=== PATIENT | female | born 1955 | race Caucasian/White ===

== ENCOUNTER 2017-12-28 10:10 | Inpatient (IN) | payer MEDICARE, OTHER ==
[2017-12-28] MEDS ORDERED: NS 0.9% 1000 ML* 1,000 ML IV ONE ×3 (11:16→13:58)
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
[2017-12-28 11:50] LABS: Hematocrit 40 % (35-47); Hemoglobin 12.8 g/dl (12.0-16.0); Mean Corpuscular HGB Conc 32 g/dl (31-36); Mean Corpuscular Hemoglobin 29 pg (27-31); Mean Corpuscular Volume 89 fL (80-97); Mean Platelet Volume 9.6 um3 (7.4-10.4); Platelet Count 158 10^3/ul (150-450); Red Blood Count 4.46 10^6/ul (4.00-5.40); Red Cell Distribution Width 15 % (10.5-15); White Blood Count 12.3 10^3/ul (3.5-10.8)
[2017-12-28 12:00] LABS: Urine Appearance Clear; Urine Blood 2+ (Negative); Urine Color Yellow; Urine Ketones 2+ (Negative); Urine Protein 3+(>=500 mg/dL) (Negative); Urine Red Blood Cell 1+(3-5/hpf) (Absent); Urine Specific Gravity 1.028 (1.010-1.030); Urine Urobilinogen Negative (Negative); Urine White Blood Cell Absent (Absent)
[2017-12-28 12:08] LABS: EGFR Non-African American 32.6 (>60)
[2017-12-28 12:19] LABS: ABS Basophils 0.1 10^3/ul (0-0.2); ABS Eosinophils 0 10^3/ul (0-0.6); ABS Lymphocytes 0.9 10^3/ul (1.0-4.8); ABS Monocytes 0.6 10^3/ul (0-0.8); ABS Neutrophils 10.7 10^3/ul (1.5-7.7); ABS Nucleated RBC 0 10^3/ul; Eosinophil % 0 % (0-6); Lymphocyte % 7.1 % (25-47); Nucleated Red Blood Cells % 0
[2017-12-28] MEDS ORDERED: LORazepam INJ* 2 MG/ML 1 ML VIAL IV PUSH ONE (12:21)
--- NOTE | 2017-12-28 12:26 | RAD ---
INDICATION: Altered mental status COMPARISON: December 11, 2011 TECHNIQUE: An AP portable view obtained at 1240 hours is submitted. FINDINGS: Bones/Soft Tissues: There are no acute bony findings. There is sternotomy Cardiomediastinal: The cardiomediastinal silhouette is normal. Lungs: There are no infiltrates. Pleura: There are no pleural effusions. Other: None IMPRESSION: POSTOPERATIVE CHANGE. NO ACTIVE DISEASE.
[2017-12-28] MEDS ORDERED: Insulin IVPB 100 units/100 ml 100 UNITS/100 ML UNIT IVPB ONE ×4 (13:46→20:20)
[2017-12-28] MEDS ORDERED: Ondansetron INJ* 2 MG/ML VIAL IV PRN (13:48)
[2017-12-28] MEDS ORDERED: Acetaminophen TAB* 325 MG PO PRN (13:48)
--- NOTE | 2017-12-28 13:50 | RAD ---
INDICATION: Altered mental status COMPARISON: December 16, 2011 TECHNIQUE: Noncontrast axial source images were acquired from the skull base to the vertex. FINDINGS: Ventricles/sulci: The ventricles and cisterns are normal in size and configuration for age. Brain parenchyma: There is no focal parenchymal finding, evidence of intracranial mass, or intracranial mass effect. There are chronic microvascular ischemic changes in the periventricular and subcortical white matter. Intracranial hemorrhage:None. Extra-axial spaces: There are no abnormal extra axial fluid collections or evidence of extra-axial mass. Calvarium: There is no calvarial fracture or other calvarial abnormality. Scalp: There is no evidence of scalp or extracalvarial soft tissue abnormality. Paranasal sinuses/mastoid: The paranasal sinuses and mastoid air cells are clear. Other: None. IMPRESSION: Mild chronic microvascular ischemic change. No acute findings
[2017-12-28] MEDS ORDERED: ceFAZolin 500 MG VIAL(*) 500 MG in NS 0.9% 50 ML* 50 ML IVPB SCH (15:30)
[2017-12-28 16:40] LABS: EGFR Non-African American 37.7 (>60)
[2017-12-28] MEDS: Heparin VIAL(*) 5000 UNITS/ML VIAL (FIVE THOUSAND) SUBCUT SCH ×2 (16:49→21:42)
[2017-12-28] MEDS ORDERED: Vancomycin(*) 0 MG in NS 0.9% 250 ML* 250 ML IVPB SCH (18:00)
--- NOTE | 2017-12-28 18:12 | HP ---
CC: Dr. Agapito Holt * ADMISSION HISTORY AND PHYSICAL: DATE OF ADMISSION: 12/28/17 PRIMARY CARE PROVIDER: Dr. Agapito Holt. MY ATTENDING WHILE IN THE HOSPITAL: Dr. Cary Vasquez.* (DICTATED BY RICKY HILL) CHIEF COMPLAINT: Altered mental status x3 days. HISTORY OF PRESENT ILLNESS: Ms. Menendez is a 62-year-old female with past medical history significant for diabetes mellitus, type 2; [place], with CABG; dyslipidemia, who presents with, according to her family, 4 days of acting very strangely with deteriorating mental status. They stated that it started on with the patient vomiting nonbilious, nonbloody material, though she did not endorse any nausea. On 12/26/17, the patient became more altered, was not getting out of bed very much, became incontinent of urine, but was still able to be conversant, though was not able to elucidate to her family what was going on. The patient handles her own medications and it was no unknown whether or not she was taking them. The patient lives with her and extended family. The patient's mental status deteriorated for the last 2 days and this morning EMS was called because she was found covered in urine and moderately unresponsive. The patient takes insulin daily, though the dose is unknown. The patient has not been taking her insulin for at least since . The patient has not been taking her other medications, which include several psychiatric medications as well as her metoprolol and lisinopril. The family is unable to quantify the patient's urine output. The patient has not had any recent sick contacts. The patient falls frequently due to noncompliance with her walker. There is concern that the patient might have mild dementia with slight decrease in the patient's cognitive functioning and competence with regards to her care. The patient approximately 6 months ago was found to have a wound on her chest, which she was treated with antibiotics, though the family has not been monitoring this wound and the patient has not been discussing it. It is unknown if the patient takes her blood sugar. Family is not apprised of this information. The patient has previously been seen by the wound clinic for nonhealing wounds on her sacrum and head. The patient in the emergency department is responsive only to painful stimuli, does not open her eyes, and is not able to answer questions. It is unknown if the patient has taken an excess amount or decreased amount of her medications. In the emergency department, due to concern for altered mental status and laboratory data consistent with diabetic ketoacidosis, we were asked to evaluate for admission. PAST MEDICAL HISTORY: Diabetes mellitus, type 2, insulin dependent; [place], with CABG; depression; hypothyroidism; dyslipidemia; mild dementia; multiple nonhealing wounds. PAST SURGICAL HISTORY: CABG. No other known surgeries. MEDICATIONS: According to the patient's list: 1. Metoprolol tartrate 25 mg p.o. daily. 2. Bupropion 150 mg p.o. q.12 hours. 3. Venlafaxine 150 mg p.o. daily. 4. Gabapentin 300 mg p.o. daily. 5. Levothyroxine 200 mcg p.o. daily. 6. Oxybutynin 5 mg p.o. daily. 7. Atorvastatin 40 mg p.o. daily. 8. Lisinopril 5 mg p.o. daily. 9. Metformin 1000 mg p.o. daily. 10. Clopidogrel 75 mg p.o. daily. 11. Family states the patient also takes insulin, but is unable to describe the insulin, and states she takes it twice a day. There are no other details surrounding this. ALLERGIES: The patient's only allergy is to COLACE according to old records. FAMILY HISTORY: According to old records, the patient's mother at 72 of breast cancer. The patient's father at 79 of unknown causes. The patient has a known family history of coronary artery disease. The patient has no other known family history. SOCIAL HISTORY: The patient is a long-time smoker, who has cut back significantly recently. The family is unable to quantify the amount she has smoked. Alcohol: The patient drinks occasional wine coolers but does not abuse alcohol and use no illicit drugs. 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 The patient is and has 3 children. The patient's surrogate decision maker will be her , Man Sosa. REVIEW OF SYSTEMS: Review of systems was attempted to be obtained from the family and was negative, but this was unable to be obtained with the patient. PHYSICAL EXAMINATION GENERAL: The patient is a 62-year-old female, who appears stated age and sitting in the bed, responsive only to painful stimuli, but in no acute distress. VITAL SIGNS: Temperature 97.6, pulse rate 81, respiratory rate 16, oxygen saturation 99% on room air, blood pressure 128/74. HEENT: Head: Normocephalic, atraumatic. Sclerae anicteric. No conjunctival injection. Nasal mucosa moist. The patient will not open mouth. NECK: Supple, nontender. No lymphadenopathy. No carotid bruits auscultated. No JVD. RESPIRATORY: Clear to auscultation bilaterally. No wheezes, rales, or rhonchi. Good air exchange bilaterally. CARDIAC: Tachycardic. No clicks, murmurs, gallops, or rubs. Pulses are 2+ in the bilateral dorsalis pedis, posterior tibial, and radial areas. No bilateral calf tenderness elicited. ABDOMEN: Soft, nontender, nondistended. Bowel sounds present and normoactive in all 4 quadrants. No hepatosplenomegaly. No abdominal bruits auscultated. No hepatojugular reflux. GENITOURINARY: No suprapubic or CVA tenderness. The patient has Stout catheter draining clear yellow urine. NEURO: The patient is responsive only to verbal stimuli. Pupils equal, round, and reactive to light. Moves all 4 extremities spontaneously. PSYCHIATRIC: The patient is only mildly responsive as above. DIAGNOSTIC STUDIES/LAB DATA: White blood cell count 12.3, hemoglobin 12.8, hematocrit 40, platelet count 158. ABG: pH 7.29, PCO2 of 23, PO2 of 105, bicarbonate 14.3, oxygen saturation 98.6%, base excess negative 13.6. Sodium 146, potassium 3.9, chloride 106, carbon dioxide 16, anion gap 24, BUN 40, creatinine 1.6, glucose 515, lactic acid 1.9, calcium 9.7, magnesium 2.0. Bilirubin 0.3, AST 24, ALT 37, alkaline phosphatase 129. Ammonia 26. Creatine kinase 1.29. Troponin 0.04. Protein 7.2, albumin 3.4, globulin 3.8. TSH 1.04. Urine is yellow clear, specific gravity 1.28, 3+ protein, 2+ ketones, 2+ blood, 1+ red blood cells, positive squamous epithelial cells, amorphous crystals, 3+ urine glucose, no bacteria. Toxicology shows presumptive positive amphetamine screening. Studies: EKG shows sinus tachycardia, right bundle branch block consistent with previous exam, nonspecific ST-segment changes, T-wave inversions in V6 and III, no ST-segment elevation, QTc of 627, rate of 130. Brain CT read as chronic ischemic microvascular changes, no acute findings. Chest x-ray read as positive postoperative change consistent with CABG, no active disease. ASSESSMENT AND PLAN/IMPRESSION: Mr. Shon Sosa is a 62-year-old female with past medical history significant for diabetes, myocardial infarction, depression, hypothyroidism, and mild dementia, as well as chronic wounds, who presents to the emergency department with altered mental status and obtundation lasting 3 days with laboratory findings consistent with diabetic ketoacidosis consistent with the patient not taking her insulin. The patient has no other obvious provoking factor. The patient will be admitted to the ICU for insulin drip, aggressive fluid resuscitation, and close monitoring. 1. Diabetic ketoacidosis. This is likely the primary cause of the patient's altered mental status. The patient has a pH of 7.29 with a low bicarbonate, carbon dioxide and high anion gap. The patient has normal lactic acid and positive ketones in her urine. The patient will be started on an insulin drip of 0.1 mg/kg per hour. The patient will have blood glucose monitoring every hour. The patient will have BMPs every 4 hours to assess her anion gap. We will attempt to obtain records from the patient's primary care office to assess what type of insulin she was on. The patient's metformin will be held at this time. Hemoglobin A1c will be added on to assess for long-term control of the patient's diabetes. The patient will have fluid resuscitation, has received 3 L of normal saline and will have maintenance fluids at 125 mL an hour of lactated Ringer's with potassium chloride. The patient's potassium is currently 3.9. We will monitor closely, especially given the patient's prolonged QT interval, she is intracellularly depleted of potassium and possibly magnesium. We will monitor the electrolytes closely. 2. Altered mental status. The patient's obtundation is somewhat disproportionate to the level of her acidosis. This will be further assessed after the patient's acidosis has resolved and other causes will be assessed at that time. The patient is on numerous psychiatric medications and her adherence to these or possible overdose on these medications is not clear. The patient has a positive urine toxicology for amphetamines. This may be due to her bupropion use. Family does not know how she would have obtained amphetamines otherwise. CT of the patient's head is negative. The patient has no obvious focal neurological deficits through a limited neurological exam and there is low suspicion for cerebrovascular accident. The patient's ammonia likewise is normal. 3. Acute kidney injury. This is likely due to dehydration from the patient's diabetic ketoacidosis; however, the patient does have chronic kidney disease at baseline. We will assess for improvement with serial BMPs. The patient's BUN- to- creatinine ratio is elevated indicating likely prerenal cause to her elevated creatinine. 4. Wounds. The patient has wounds on her chest, groin, and legs. We will obtain a wound consult. The patient has some erythema associated with these. It is possible that inflammation associated with this was the provoking factor for her increased insulin resistance leading to her diabetic ketoacidosis. The patient will be started on cefazolin and we will have wound culture obtained. Inflammatory markers and a procalcitonin are pending. 5. Elevated troponin, previous myocardial infarction and coronary artery bypass graft. The patient has an elevated troponin at 0.04. This will be repeated x3. This is likely due to demand ischemia related to her dehydration and tachycardia as well as possible withdrawal from her beta blockers. We will trend these. The patient has no obvious ischemic and EKG changes, we will not treat. The patient will be continued on her clopidogrel. It is unclear whether the patient is on an aspirin. We will assess this with her primary care doctor and the patient will be continued on her beta martin and not be started on a heparin drip at this time. 6. DVT prophylaxis. The patient is a high risk. The patient will have heparin subcu. 7. FEN. The patient will be n.p.o. due to altered mental status and have fluids as above. 8. Code status. The patient's family would like the patient to be a full code. The patient has no DNR on file. The patient's surrogate decision maker will be her as above. 9. Disposition. The patient will be admitted inpatient to the ICU. TIME SPENT: Approximately 75 minutes was spent on this admission, 45 of which was spent [id number] with the patient obtaining history and physical, discussion with the family, and discussing treatment plan. This plan was discussed with my attending, Dr. Cary Vasquez, and she is in agreement. ADDENDUM: Patient continued to be lethargic with increased activity and responsiveness to voice over the course of the day. However, patient continued to be markedly obtunded and have decreased mental status from baseline. Patient was found to have severely elevated inflammatory markers. Patient was started on Cefepime, Vancomycin, and Flagyl for Empiric antibiotic coverage. Patient became persistently tachycardic and hypertensive. Patient takes Metoprolol at home. Patient was started on IV metoprolol to control rebound hypertension and tachycardia in setting of demand ischemia. Given patients continued obtundation , ID consult was obtained and Empiric acyclovir was started for Herpes Encephalitis empiric coverage. Patient's blood sugar was decreased down to the mid 160s and she was started on D5W 1/4NS with KCL and insulin drip was reduced progressively to 1u/hr. Very low risk of cerebral edema due to patient's age and obtundation being present before treatment with insulin. Magnesium and potassium low with IV repletion. RICKY HILL [id number]/CPS #: [id number] ROMIE
[2017-12-28] MEDS: Cefepime 1 GM in Dextrose(*) 1 GM/50 ML BAG IV SCH (18:25)
[2017-12-28] MEDS ORDERED: Vancomycin(*) 1,250 MG in NS 0.9% 250 ML* 250 ML IVPB ONE (18:30)
[2017-12-28] MEDS ORDERED: D5W 1/2 NS 40 Meq KCL 1000 ML* 1,000 ML IV SCH (19:00)
[2017-12-28] MEDS: KCL 20 MEQ/100 ML IVPREMIX* 20 MEQ/100 ML BAG IV SCH ×3 (19:13→21:39)
[2017-12-28] MEDS ORDERED: Vancomycin per Pharmacy* NOTE FOLLOW UP PRN (19:54)
[2017-12-28 20:07] LABS: EGFR Non-African American 41.4 (>60)
[2017-12-28] MEDS: metroNIDAZOLE IV 500 MG/100ML* 500 MG/100 ML BAG IVPB SCH (20:14)
[2017-12-28] MEDS: Metoprolol Tartrate IV* 1 MG/ML 5 ML VIAL IV SCH (20:23)
[2017-12-28] MEDS: Atorvastatin* 40 MG TAB PO SCH (20:42)
[2017-12-28] MEDS: Metoprolol Tartrate TAB* 25 MG PO SCH (20:43)
[2017-12-28] MEDS ORDERED: D5W 1/4 NS 20 Meq KCL 1000 ML* 1,000 ML IV SCH ×2 (21:00→22:18)
[2017-12-28] MEDS: Hydrocortisone 0.5% OINT* 1 APPLIC TUBE TOPICAL SCH (22:59)
[2017-12-28] MEDS ORDERED: Magnesium Sulfate IV* 3 GM in NS 0.9% 100 ML* 100 ML IVPB ONE (23:00)
[2017-12-28] MEDS: ACYCLOVIR IVPB SCH (23:01)
[2017-12-28] MEDS: NS 0.9% IVPB SCH (23:01)
[2017-12-29 00:52] LABS: EGFR Non-African American 49.1 (>60)
[2017-12-29] MEDS: NS 0.45% KCl 20 Meq 1000 ML* 1,000 ML IV SCH ×4 (02:01→22:43)
[2017-12-29] MEDS: Metoprolol Tartrate IV* 1 MG/ML 5 ML VIAL IV SCH ×4 (02:08→20:35)
[2017-12-29] MEDS: Insulin GLARGINE(*) 1 UNITS UNIT SUBCUT SCH (02:15)
[2017-12-29] MEDS: Insulin REGULAR(*) 1 UNITS UNIT SUBCUT SCH ×4 (03:09→18:34)
[2017-12-29] MEDS: Cefepime 1 GM in Dextrose(*) 1 GM/50 ML BAG IV SCH ×2 (04:21→17:59)
[2017-12-29 04:28] LABS: ABS Basophils 0.1 10^3/ul (0-0.2); ABS Eosinophils 0.1 10^3/ul (0-0.6); ABS Monocytes 0.7 10^3/ul (0-0.8); ABS Neutrophils 9.8 10^3/ul (1.5-7.7); ABS Nucleated RBC 0 10^3/ul; Eosinophil % 0.5 % (0-6); Hematocrit 37 % (35-47); Hemoglobin 11.9 g/dl (12.0-16.0); Lymphocyte % 8.8 % (25-47); Mean Corpuscular HGB Conc 33 g/dl (31-36); Mean Corpuscular Hemoglobin 29 pg (27-31); Mean Corpuscular Volume 87 fL (80-97); Mean Platelet Volume 9.7 um3 (7.4-10.4); Nucleated Red Blood Cells % 0.1; Platelet Count 134 10^3/ul (150-450); Red Blood Count 4.18 10^6/ul (4.00-5.40); Red Cell Distribution Width 15 % (10.5-15); White Blood Count 11.7 10^3/ul (3.5-10.8)
[2017-12-29] MEDS: Heparin VIAL(*) 5000 UNITS/ML VIAL (FIVE THOUSAND) SUBCUT SCH ×3 (05:05→22:37)
[2017-12-29] MEDS: metroNIDAZOLE IV 500 MG/100ML* 500 MG/100 ML BAG IVPB SCH (05:06)
[2017-12-29] MEDS: Levothyroxine TAB* 100 MCG TAB PO SCH (05:06)
[2017-12-29 05:12] LABS: EGFR Non-African American 51.8 (>60)
[2017-12-29] MEDS: Metoprolol Tartrate TAB* 25 MG PO SCH ×2 (09:00→21:33)
[2017-12-29] MEDS ORDERED: LORazepam INJ* 2 MG/ML 1 ML VIAL IV PUSH ONE (09:19)
[2017-12-29] MEDS: Vancomycin(*) 1,000 MG in NS 0.9% 250 ML* 250 ML IVPB SCH ×2 (09:45→20:39)
[2017-12-29] MEDS: Hydrocortisone 0.5% OINT* 1 APPLIC TUBE TOPICAL SCH ×2 (10:30→20:47)
[2017-12-29] MEDS: ACYCLOVIR IVPB SCH ×2 (11:30→22:36)
[2017-12-29] MEDS: NS 0.9% IVPB SCH ×2 (11:30→22:36)
[2017-12-29] MEDS: Clopidogrel TAB* 75 MG PO SCH (13:19)
--- NOTE | 2017-12-29 15:20 | CONS ---
CONSULTATION REPORT: DATE OF CONSULT: 12/29/17 REQUESTING PROVIDER: Verito Apple NP CONSULTING SERVICE: Infectious Disease. REASON FOR CONSULT: Encephalopathy. IMPRESSIONU: 1. Encephalopathy in the setting of diabetic ketoacidosis. She has had no fever here. She had an elevated procalcitonin, C-reactive protein of 350, mild leukocytosis. Source for an underlying infection most likely a systemic infection with central nervous system effects versus less likely a central nervous system infection. It is also possible that her mental status is slow to come around after severe diabetic ketoacidosis in the setting of an abnormal brain. As far as the source of her infection, urinalysis showed red cells, blood, no white cells, no leukocyte esterase, urinary tract infection seems less likely. She has multiple eschar on her legs with some mild erythema, mild cellulitis consideration and she has no spine tenderness or joint synovitis to suggest a septic joint or vertebral infection. As far as central nervous system infections are concerned, I agree herpes encephalitis is possible. At this time of year, West Nile is a consideration. She does not have nuchal rigidity, so I think a bacterial meningitis is less likely. 2. Coronary artery disease, status post CABG. 3. Insulin-dependent diabetes, now with hyperglycemic hyperosmolar nonketotic. RECOMMENDATIONS: 1. Agree with an MRI. If that is unremarkable and she is not making a steady progress, then a lumbar puncture for spinal fluid, cell count, cultures, West Nile, IgM, and PCR. 2. I will continue the vancomycin with goal trough 10 to 15, cefepime, acyclovir. I will stop the Flagyl. 3. Blood cultures are still pending, but nothing growing to date. HISTORY OF PRESENT ILLNESS: This 62-year-old with type 2 diabetes admitted with DKA. She is unable to provide any history, which was obtained instead from the medical records and discussion with RICKY Donahue, and Verito Apple NP. Apparently, at the end of last week, she became sick with vomiting and then altered mental status, which was progressive. She developed incontinence of urine. When she finally was unresponsive, EMS brought her to the hospital. When she arrived, she had a white blood cell count of 12,000, blood sugar of 500, anion gap of 24, carbon dioxide of 14. Blood gas showed a pH of 7.29. She was started on insulin infusion, fluids, cefazolin, and her DKA is resolved. Since then, however, her mental status has been slow to improve. She has made some progress where today she will answer some questions , many of which were appropriate answers, and she follows some basic commands with her nurse. She was found to have a number of scabs on her legs with some surrounding erythema as well as a sore in the middle of an otherwise well- healed sternal incision. Per the nurse, she is not coughing, not having diarrhea, and has good oxygen saturation. She was on some oxygen overnight, but on room air now. Has not had any fevers. PAST MEDICAL HISTORY: 1. Insulin-dependent type 2 diabetes. 2. Coronary artery disease, status post coronary artery bypass. 3. Depression. 4. Hypothyroidism. 5. Hyperlipidemia. 6. Mild dementia. MEDICATIONS: 1. Tylenol. 2. Lipitor. 3. Plavix. 4. Heparin subcutaneous injection. 5. Insulin glargine. 6. Insulin regular. 7. Cefepime 1 g every 12 hours. 8. Flagyl 500 mg every 12 hours. 9. Metoprolol. 10. Acyclovir IV every 12 hours. 11. Vancomycin 1 g every 12 hours. ALLERGIES: COLACE. SOCIAL HISTORY: She lives with her and extended family. Drinks alcohol occasionally. She is a smoker, no injection drugs. REVIEW OF SYSTEMS: Unobtainable given her current mental status. PHYSICAL EXAM: Vital Signs: Temperature is 36.6, heart rate is 88, respiratory rate 20, blood pressure 160/70, oxygen saturation 97% on room air. In general, she is asleep, but will open her eyes to touch. She will follow some basic commands. She questions why she needs to follow others. She is not oriented to location or year, but knows her name. HEENT: There is no thrush. Neck is supple without mass. Neurologic: She does move all 4 extremities. Orientation as above. Heart is regular rate and rhythm without murmurs, rubs, or gallops. Lungs are clear to auscultation bilaterally. Abdomen is soft, nontender, nondistended. There are bowel sounds present. There is no rebound. Skin: On both legs, there is scattered subcentimeter eschar with some surrounding erythema in the distal third of the sternotomy incision, which is otherwise well healed. There is about a centimeter long open area with some underlying fibrin, granulation tissue with no surrounding erythema or crepitus or fluctuance. Musculoskeletal: There is no spine tenderness to palpation or joint synovitis. LABORATORY DATA: White blood cell count 11, hemoglobin 11, platelets 134. Creatinine is 1. Please see impressions and recommendations as outlined above, which I will discuss with Verito Apple NP. [id number]/[facility] #: [id number] [facility]ITALJodee
--- NOTE | 2017-12-29 15:42 | RAD ---
HISTORY: encephalopathy COMPARISONS: Head CT dated December 28, 2017 TECHNIQUE: The following sequences were obtained of the head: Sagittal T1-weighted images, axial T2-weighted images, axial FLAIR images, axial susceptibility weighted images, axial T1-weighted images. Additionally, axial diffusion-weighted images were obtained with calculated apparent diffusion coefficients. FINDINGS: HEMORRHAGE/INFARCT: There is no hemorrhage or acute infarct. MASSES/SHIFT: There is no mass or shift. EXTRA-AXIAL SPACES/MENINGES: There are no extra-axial fluid collections. SULCI AND VENTRICLES: The sulci and ventricles are normal in size and position for the patient's stated age. CEREBRUM: There is diffuse multifocal elevated T2/FLAIR signal within the periventricular and subcortical white matter. BRAINSTEM: There is elevated T2/FLAIR signal within the pontine white matter. CEREBELLUM: There are no focal parenchymal abnormalities. The cerebellar tonsils are normal in size and position. SELLA: The sella is normal. PINEAL: The pineal region is clear. CP ANGLE/TEMPORAL BONES: The labyrinthine structures are grossly normal. VESSELS: Normal flow-voids are noted within the visualized vertebral vasculature. DIFFUSION ABNORMALITIES: There are no diffusion abnormalities. PARANASAL SINUSES/MASTOIDS: The paranasal sinuses are clear. ORBITS: The orbits are unremarkable. BONES AND SOFT TISSUE: No bone or soft tissue abnormalities are noted. OTHER: None IMPRESSION: 1. ELEVATED T2/FLAIR SIGNAL WITHIN THE PERIVENTRICULAR, SUBCORTICAL, AND PONTINE WHITE MATTER. WHILE NONSPECIFIC, THE APPEARANCE IS SUGGESTIVE CHRONIC SMALL VESSEL ISCHEMIA. 2. NO RESTRICTED DIFFUSION TO SUGGEST ACUTE INFARCT.
--- NOTE | 2017-12-29 16:24 | PN ---
Subjective Date of Service: 12/29/17 Interval History: Patient seen and examined. Mentation appears to be improving, she is still confused at times and needing re-orientation, however, she is verbally responsive now and can follow commands. denies pain, no fevers or chills, no headache, no further complaints. Objective Active Medications: Acetaminophen (Tylenol Tab*) 650 mg PO Q6H PRN PRN Reason: FEVER/PAIN Atorvastatin Calcium (Lipitor*) 40 mg PO 2100 [facility] Last Admin: 12/28/17 20:42 Dose: Not Given Clopidogrel Bisulfate (Plavix Tab*) 75 mg PO DAILY [facility] Last Admin: 12/29/17 13:19 Dose: Not Given Heparin Sodium (Porcine) (Heparin Vial(*)) 5,000 units SUBCUT Q8HR [facility] Last Admin: 12/29/17 15:55 Dose: 5,000 units Heparin Sodium (Porcine) (Heparin Flush Picc/Ml/Cvc(*)) 1 - 3 ml FLUSH 0600, 1800 [facility]; Protocol Last Admin: 12/29/17 04:22 Dose: Not Given Hydrocortisone (Hydrocortisone 0.5% Oint*) 1 applic TOPICAL BID [facility] Last Admin: 12/29/17 10:30 Dose: 1 applic Cefepime HCl (Maxipime 1 Gm In Dextrose Duplex (*)) 1 gm in 50 mls @ 100 mls/ hr IV Q12H [facility] Last Admin: 12/29/17 04:21 Dose: 100 mls/hr Acyclovir Sodium 570 mg/ (Sodium Chloride) 261.4 mls @ 261.4 mls/hr IVPB Q12H [facility] Last Admin: 12/29/17 11:30 Dose: 261.4 mls/hr Vancomycin HCl 1,000 mg/ (Sodium Chloride) 250 mls @ 166.667 mls/hr IVPB Q12H [facility] Last Admin: 12/29/17 09:45 Dose: 166.667 mls/hr Potassium Chloride/Sodium Chloride (Ns 0.45% Kcl 20 Meq 1000 Ml*) 1,000 mls @ 150 mls/hr IV PER RATE [facility] Last Admin: 12/29/17 16:14 Dose: 150 mls/hr Insulin Glargine (Lantus(*)) 20 units SUBCUT Q24H [facility] Last Admin: 12/29/17 02:15 Dose: 20 units Insulin Human Regular (Insulin Regular(*)) 0 units SUBCUT Q6HR [facility]; Protocol Last Admin: 12/29/17 13:22 Dose: Not Given Levothyroxine Sodium (Synthroid Tab*) 200 mcg PO DAILY@0600 [facility] Last Admin: 12/29/17 05:06 Dose: Not Given Metoprolol Tartrate (Lopressor Tab*) 25 mg PO BID [facility] Last Admin: 12/29/17 09:00 Dose: Not Given Metoprolol Tartrate (Lopressor Iv*) 5 mg IV Q6H [facility] Last Admin: 12/29/17 14:00 Dose: 5 mg Pharmacy Consult (Vancomycin Per Pharmacy*) 1 note FOLLOW UP . PRN PRN Reason: PER PROTOCOL Pharmacy Profile Note (Vancomycin Trough Check) 1 note FOLLOW UP 829 ONE Stop: 12/30/17 08:31 Vital Signs - 8 hr 12/29/17 12/29/17 12:00 15:15 Temperature 97.9 F Respiratory 18 Rate Oxygen Devices in Use Now: Nasal Cannula Appearance: alert, somewhat disheveled Ears/Nose/Mouth/Throat: Mucous Membranes Moist Neck: NL Appearance and Movements; NL JVP Respiratory: Symmetrical Chest Expansion and Respiratory Effort, Clear to Auscultation Cardiovascular: NL Sounds; No Murmurs; No JVD, RRR, No Edema Abdominal: NL Sounds; No Tenderness; No Distention Extremities: - - erythema LLE Skin: - - multiple scabbed areas to bilat LE and central chest Neurological: - - confused Nutrition: - - NPO Result Diagrams: 12/29/17 04:05 12/29/17 04:05 Microbiology and Other Data: Microbiology 12/28/17 16:00 Nasal Screen MRSA (PCR) - Final Nasal Mrsa Detected Diagnostic Imaging: Patient Name: JESUS ABRAMS Medical Record#: [id number] Ordering Physician: Verito Apple NP Acct.#: [id number] : 1955 Age: 62 Sex: F [facility] Exam Date: 12/29/17918 ADM Status: ADM IN Order Information: MRI BRAIN W/O Accession Number: [id number] CPT: 90542 HISTORY: encephalopathy COMPARISONS: Head CT dated December 28, 2017 TECHNIQUE: The following sequences were obtained of the head: Sagittal T1- weighted images, axial T2-weighted images, axial FLAIR images, axial susceptibility weighted images, axial T1-weighted images. Additionally, axial diffusion-weighted images were obtained with calculated apparent diffusion coefficients. FINDINGS: HEMORRHAGE/INFARCT: There is no hemorrhage or acute infarct. MASSES/SHIFT: There is no mass or shift. EXTRA-AXIAL SPACES/MENINGES: There are no extra-axial fluid collections. SULCI AND VENTRICLES: The sulci and ventricles are normal in size and position for the patient's stated age. CEREBRUM: There is diffuse multifocal elevated T2/FLAIR signal within the periventricular and subcortical white matter. BRAINSTEM: There is elevated T2/FLAIR signal within the pontine white matter. CEREBELLUM: There are no focal parenchymal abnormalities. The cerebellar tonsils are normal in size and position. SELLA: The sella is normal. PINEAL: The pineal region is clear. CP ANGLE/TEMPORAL BONES: The labyrinthine structures are grossly normal. VESSELS: Normal flow-voids are noted within the visualized vertebral vasculature. DIFFUSION ABNORMALITIES: There are no diffusion abnormalities. PARANASAL SINUSES/MASTOIDS: The paranasal sinuses are clear. ORBITS: The orbits are unremarkable. BONES AND SOFT TISSUE: No bone or soft tissue abnormalities are noted. OTHER: None IMPRESSION: 1. ELEVATED T2/FLAIR SIGNAL WITHIN THE PERIVENTRICULAR, SUBCORTICAL, AND PONTINE WHITE MATTER. WHILE NONSPECIFIC, THE APPEARANCE IS SUGGESTIVE CHRONIC SMALL VESSEL ISCHEMIA. 2. NO RESTRICTED DIFFUSION TO SUGGEST ACUTE INFARCT. <Electronically signed by Brian Chandler MD in [place]> 12/29/171537 Dictated By: Brian Chandler MD Dictated Date/Time: 12/29/171537 Transcribed Date/Time: 12/29/171536 Assess/Plan/Problems-Billing Assessment: This is a 62 year old female with hx of CAD/CABG, DMII, HTN that presented to the ER with AMS in DKA. - Patient Problems (1) DKA (diabetic ketoacidoses) Code(s): E13.10 - OTH DIABETES MELLITUS WITH KETOACIDOSIS WITHOUT COMA SNOMED Code(s): 356872393 Comment: - Now off insulin drip and fluid resuscitation - Continue to monitor BG Q6h and cover accordingly (2) Altered mental status Code(s): R41.82 - ALTERED MENTAL STATUS, UNSPECIFIED SNOMED Code(s): 817306949 Comment: - Multifactorial encephalopathy, DKA, vs infection, vs dementia - ID following to cover any infectious or viral etiology - Seems to be imrpoving - MRI as above, no infarct or acute pathology - May need LP if she decompensates, continue current management for now (3) CAD (coronary artery disease) Code(s): I25.10 - ATHSCL HEART DISEASE OF [place] CORONARY ARTERY W/O ANG PCTRS SNOMED Code(s): 23705313 Comment: - With hx of CABG - Old non-healing chest wound from sternotomy - Monitor skin around wound, continue tele (4) CKD (chronic kidney disease) Code(s): N18.9 - CHRONIC KIDNEY DISEASE, UNSPECIFIED SNOMED Code(s): 145184648 Comment: - Creat at baseline (5) DVT (deep venous thrombosis) Code(s): I82.409 - ACUTE EMBOLISM AND THOMBOS UNSP DEEP VN UNSP LOWER EXTREMITY SNOMED Code(s): 403632379 Comment: - heparin SQ (6) Full code status Current Visit: Yes Code(s): Z78.9 - OTHER SPECIFIED HEALTH STATUS SNOMED Code(s): 496375835 Status and Disposition: remain inpatient
[2017-12-29] MEDS: Atorvastatin* 40 MG TAB PO SCH (21:35)
[2017-12-30] MEDS: Insulin REGULAR(*) 1 UNITS UNIT SUBCUT SCH ×2 (01:23→05:45)
[2017-12-30] MEDS: Insulin GLARGINE(*) 1 UNITS UNIT SUBCUT SCH (02:38)
[2017-12-30] MEDS: Metoprolol Tartrate IV* 1 MG/ML 5 ML VIAL IV SCH ×2 (02:39→10:13)
[2017-12-30] MEDS: NS 0.45% KCl 20 Meq 1000 ML* 1,000 ML IV SCH (05:55)
[2017-12-30] MEDS: Heparin VIAL(*) 5000 UNITS/ML VIAL (FIVE THOUSAND) SUBCUT SCH ×3 (05:56→21:28)
[2017-12-30] MEDS: Levothyroxine TAB* 100 MCG TAB PO SCH (05:57)
[2017-12-30] MEDS: Cefepime 1 GM in Dextrose(*) 1 GM/50 ML BAG IV SCH ×2 (05:59→17:57)
[2017-12-30] MEDS ORDERED: Vancomycin Trough Check NOTE FOLLOW UP ONE (08:30)
[2017-12-30] MEDS: Clopidogrel TAB* 75 MG PO SCH (09:37)
[2017-12-30] MEDS: Vancomycin(*) 1,000 MG in NS 0.9% 250 ML* 250 ML IVPB SCH (09:37)
[2017-12-30] MEDS: Hydrocortisone 0.5% OINT* 1 APPLIC TUBE TOPICAL SCH ×2 (09:37→21:30)
[2017-12-30] MEDS ORDERED: Dextrose 50% Syringe 50 ML* 25 GM/50 ML SYRINGE IV PUSH PRN (10:12)
[2017-12-30] MEDS: Metoprolol Tartrate TAB* 25 MG PO SCH ×2 (10:28→21:27)
[2017-12-30] MEDS: NS 0.9% IVPB SCH (11:33)
[2017-12-30] MEDS: ACYCLOVIR IVPB SCH (11:33)
[2017-12-30] MEDS: Insulin LISPRO* 1 UNITS UNIT SUBCUT SCH ×3 (12:03→21:28)
--- NOTE | 2017-12-30 17:08 | PN ---
Subjective Date of Service: 12/30/17 Interval History: Patient seen and examined. Alert, NAD, family at bedside, Mentation much improved. States she feels very weak, denies chest pain, no SOB. States she believes all of her issues were caused by her diabetes. She is very pleased to hear that MRI is negative for CVA or other pathology. Objective Active Medications: Acetaminophen (Tylenol Tab*) 650 mg PO Q6H PRN PRN Reason: FEVER/PAIN Atorvastatin Calcium (Lipitor*) 40 mg PO 2100 [facility] Last Admin: 12/29/17 21:35 Dose: 40 mg Clopidogrel Bisulfate (Plavix Tab*) 75 mg PO DAILY [facility] Last Admin: 12/30/17 09:37 Dose: 75 mg Dextrose (D50w Syringe 50 Ml*) 12.5 gm IV PUSH .FOR FS < 60 - SS PRN PRN Reason: FS < 60 Heparin Sodium (Porcine) (Heparin Vial(*)) 5,000 units SUBCUT Q8HR [facility] Last Admin: 12/30/17 13:47 Dose: 5,000 units Heparin Sodium (Porcine) (Heparin Flush Picc/Ml/Cvc(*)) 1 - 3 ml FLUSH 0600, 1800 [facility]; Protocol Last Admin: 12/30/17 07:12 Dose: Not Given Hydrocortisone (Hydrocortisone 0.5% Oint*) 1 applic TOPICAL BID [facility] Last Admin: 12/30/17 09:37 Dose: 1 applic Cefepime HCl (Maxipime 1 Gm In Dextrose Duplex (*)) 1 gm in 50 mls @ 100 mls/ hr IV Q12H [facility] Last Admin: 12/30/17 05:59 Dose: 100 mls/hr Insulin Glargine (Lantus(*)) 20 units SUBCUT Q24H [facility] Last Admin: 12/30/17 02:38 Dose: 20 units Insulin Human Lispro (Humalog*) 0 units SUBCUT ACHS [facility]; Protocol Last Admin: 12/30/17 12:03 Dose: 9 unit Levothyroxine Sodium (Synthroid Tab*) 200 mcg PO DAILY@0600 [facility] Last Admin: 12/30/17 05:57 Dose: 200 mcg Metoprolol Tartrate (Lopressor Tab*) 25 mg PO BID [facility] Last Admin: 12/30/17 10:28 Dose: 25 mg Vital Signs - 8 hr 12/30/17 11:28 Temperature 100.3 F Pulse Rate 76 Respiratory 18 Rate Blood Pressure 135/59 (mmHg) O2 Sat by Pulse 97 Oximetry Oxygen Devices in Use Now: None Appearance: Alert, NAD Eyes: No Scleral Icterus, PERRLA Ears/Nose/Mouth/Throat: Clear Oropharnyx, Mucous Membranes Moist Neck: NL Appearance and Movements; NL JVP, Trachea Midline Respiratory: Symmetrical Chest Expansion and Respiratory Effort, Clear to Auscultation Cardiovascular: NL Sounds; No Murmurs; No JVD, RRR, No Edema Abdominal: NL Sounds; No Tenderness; No Distention Extremities: No Edema, - - scrathes and scabbing bilat LE, healing Neurological: Alert and Oriented x 3, NL Sensation Nutrition: Taking PO's Result Diagrams: 12/29/17 04:05 12/29/17 04:05 Microbiology and Other Data: Microbiology 12/28/17 16:00 Nasal Screen MRSA (PCR) - Final Nasal Mrsa Detected Diagnostic Imaging: Patient Name: JESUS ABRAMS Medical Record#: [id number] Ordering Physician: Verito Apple NP Acct.#: [id number] : 1955 Age: 62 Sex: F Location[facility] Exam Date: 12/29/17918 ADM Status: ADM IN Order Information: MRI BRAIN W/O Accession Number: [id number] CPT: 79180 HISTORY: encephalopathy COMPARISONS: Head CT dated December 28, 2017 TECHNIQUE: The following sequences were obtained of the head: Sagittal T1- weighted images, axial T2-weighted images, axial FLAIR images, axial susceptibility weighted images, axial T1-weighted images. Additionally, axial diffusion-weighted images were obtained with calculated apparent diffusion coefficients. FINDINGS: HEMORRHAGE/INFARCT: There is no hemorrhage or acute infarct. MASSES/SHIFT: There is no mass or shift. EXTRA-AXIAL SPACES/MENINGES: There are no extra-axial fluid collections. SULCI AND VENTRICLES: The sulci and ventricles are normal in size and position for the patient's stated age. CEREBRUM: There is diffuse multifocal elevated T2/FLAIR signal within the periventricular and subcortical white matter. BRAINSTEM: There is elevated T2/FLAIR signal within the pontine white matter. CEREBELLUM: There are no focal parenchymal abnormalities. The cerebellar tonsils are normal in size and position. SELLA: The sella is normal. PINEAL: The pineal region is clear. CP ANGLE/TEMPORAL BONES: The labyrinthine structures are grossly normal. VESSELS: Normal flow-voids are noted within the visualized vertebral vasculature. DIFFUSION ABNORMALITIES: There are no diffusion abnormalities. PARANASAL SINUSES/MASTOIDS: The paranasal sinuses are clear. ORBITS: The orbits are unremarkable. BONES AND SOFT TISSUE: No bone or soft tissue abnormalities are noted. OTHER: None IMPRESSION: 1. ELEVATED T2/FLAIR SIGNAL WITHIN THE PERIVENTRICULAR, SUBCORTICAL, AND PONTINE WHITE MATTER. WHILE NONSPECIFIC, THE APPEARANCE IS SUGGESTIVE CHRONIC SMALL VESSEL ISCHEMIA. 2. NO RESTRICTED DIFFUSION TO SUGGEST ACUTE INFARCT. <Electronically signed by Brian Chandler MD in [place]> 12/29/17 153 Dictated By: Brian Chandler MD Dictated Date/Time: 12/29/171537 Transcribed Date/Time: 12/29/171536 Assess/Plan/Problems-Billing Assessment: This is a 62 year old female with hx of CAD/CABG, DMII, HTN that presented to the ER with AMS in DKA, now resolved. - Patient Problems (1) DKA (diabetic ketoacidoses) Code(s): E13.10 - OTH DIABETES MELLITUS WITH KETOACIDOSIS WITHOUT COMA SNOMED Code(s): 101171795 Comment: - Now off insulin drip and fluid resuscitation - BG stable 110s-170 (2) Altered mental status Code(s): R41.82 - ALTERED MENTAL STATUS, UNSPECIFIED SNOMED Code(s): 961191987 Comment: - Multifactorial encephalopathy, DKA, vs infection, vs dementia - ID following to cover any infectious or viral etiology and will manage atbx and acyclovir - Much improved, back to baseline - MRI as above, no infarct or acute pathology - May need LP if she decompensates, continue current management for now (3) CAD (coronary artery disease) Code(s): I25.10 - ATHSCL HEART DISEASE OF [place] CORONARY ARTERY W/O ANG PCTRS SNOMED Code(s): 39518572 Comment: - With hx of CABG - Old non-healing chest wound from sternotomy - Monitor skin around wound, continue tele (4) CKD (chronic kidney disease) Code(s): N18.9 - CHRONIC KIDNEY DISEASE, UNSPECIFIED SNOMED Code(s): 129501331 Comment: - Creat at baseline (5) DVT (deep venous thrombosis) Code(s): I82.409 - ACUTE EMBOLISM AND THOMBOS UNSP DEEP VN UNSP LOWER EXTREMITY SNOMED Code(s): 636935495 Comment: - heparin SQ (6) Full code status Current Visit: Yes Code(s): Z78.9 - OTHER SPECIFIED HEALTH STATUS SNOMED Code(s): 503148668 Status and Disposition: Remain inpatient, PT/OT and dispo home vs STR
[2017-12-30 17:11] LABS: ABS Basophils 0.1 10^3/ul (0-0.2); ABS Eosinophils 0.4 10^3/ul (0-0.6); ABS Lymphocytes 1.7 10^3/ul (1.0-4.8); ABS Monocytes 0.4 10^3/ul (0-0.8); ABS Neutrophils 5.6 10^3/ul (1.5-7.7); ABS Nucleated RBC 0 10^3/ul; Eosinophil % 4.6 % (0-6); Hematocrit 33 % (35-47); Hemoglobin 10.8 g/dl (12.0-16.0); Lymphocyte % 20.6 % (25-47); Mean Corpuscular HGB Conc 33 g/dl (31-36); Mean Corpuscular Hemoglobin 29 pg (27-31); Mean Corpuscular Volume 87 fL (80-97); Mean Platelet Volume 9.7 um3 (7.4-10.4); Nucleated Red Blood Cells % 0; Platelet Count 116 10^3/ul (150-450); Red Cell Distribution Width 15 % (10.5-15)
[2017-12-30 17:32] LABS: EGFR Non-African American 55.4 (>60)
[2017-12-30] MEDS: Atorvastatin* 40 MG TAB PO SCH (21:27)
[2017-12-31] MEDS: Insulin GLARGINE(*) 1 UNITS UNIT SUBCUT SCH (02:14)
[2017-12-31] MEDS: Cefepime 1 GM in Dextrose(*) 1 GM/50 ML BAG IV SCH ×2 (05:34→17:39)
[2017-12-31] MEDS: Levothyroxine TAB* 100 MCG TAB PO SCH (05:36)
[2017-12-31] MEDS: Heparin VIAL(*) 5000 UNITS/ML VIAL (FIVE THOUSAND) SUBCUT SCH ×3 (05:36→21:14)
[2017-12-31] MEDS ORDERED: Vancomycin(*) 500 MG in NS 0.9% 250 ML* 250 ML IVPB SCH (06:00)
[2017-12-31] MEDS: Clopidogrel TAB* 75 MG PO SCH (08:04)
[2017-12-31] MEDS: Hydrocortisone 0.5% OINT* 1 APPLIC TUBE TOPICAL SCH ×2 (08:04→21:22)
[2017-12-31] MEDS: Insulin LISPRO* 1 UNITS UNIT SUBCUT SCH ×4 (08:04→21:14)
[2017-12-31] MEDS: Metoprolol Tartrate TAB* 25 MG PO SCH ×2 (08:04→21:14)
[2017-12-31] MEDS: Atorvastatin* 40 MG TAB PO SCH (21:14)
[2018-01-01] MEDS: Insulin GLARGINE(*) 1 UNITS UNIT SUBCUT SCH (02:21)
[2018-01-01] MEDS ORDERED: Vancomycin Trough Check NOTE FOLLOW UP ONE (05:30)
[2018-01-01 05:58] LABS: Hematocrit 32 % (35-47); Mean Corpuscular HGB Conc 34 g/dl (31-36); Mean Corpuscular Hemoglobin 29 pg (27-31); Mean Corpuscular Volume 85 fL (80-97); Mean Platelet Volume 9.3 um3 (7.4-10.4); Platelet Count 147 10^3/ul (150-450); Red Blood Count 3.77 10^6/ul (4.00-5.40); Red Cell Distribution Width 15 % (10.5-15); White Blood Count 8.6 10^3/ul (3.5-10.8)
[2018-01-01] MEDS: Cefepime 1 GM in Dextrose(*) 1 GM/50 ML BAG IV SCH (06:00)
[2018-01-01] MEDS: Heparin VIAL(*) 5000 UNITS/ML VIAL (FIVE THOUSAND) SUBCUT SCH ×3 (06:08→23:22)
[2018-01-01] MEDS: Levothyroxine TAB* 100 MCG TAB PO SCH (06:08)
[2018-01-01 06:13] LABS: EGFR Non-African American 63.2 (>60)
[2018-01-01 06:15] LABS: ABS Basophils 0.1 10^3/ul (0-0.2); ABS Eosinophils 0.5 10^3/ul (0-0.6); ABS Lymphocytes 2.9 10^3/ul (1.0-4.8); ABS Monocytes 0.6 10^3/ul (0-0.8); ABS Neutrophils 4.6 10^3/ul (1.5-7.7); ABS Nucleated RBC 0 10^3/ul; Eosinophil % 5.3 % (0-6); Lymphocyte % 33.6 % (25-47); Nucleated Red Blood Cells % 0.1
[2018-01-01] MEDS: Insulin LISPRO* 1 UNITS UNIT SUBCUT SCH ×4 (09:10→23:22)
[2018-01-01] MEDS: Clopidogrel TAB* 75 MG PO SCH (09:11)
[2018-01-01] MEDS: Metoprolol Tartrate TAB* 25 MG PO SCH ×2 (09:11→23:20)
--- NOTE | 2018-01-01 13:26 | RAD ---
HISTORY: Redness, Swelling, Tenderness, R/O DVT. COMPARISONS: None relevant TECHNIQUE: Multiple transverse and longitudinal ultrasound images were obtained of the left lower extremity from the level of the common femoral vein inferiorly through to the infrapopliteal veins using grayscale, color Doppler, and spectral Doppler imaging with and without compression and with augmentation. Comparison images were obtained of the contralateral common femoral vein. FINDINGS: VEINS: The venous system of the left lower extremity is compressible throughout its course, with normal flow on color Doppler imaging and normal response to augmentation on spectral Doppler imaging. SOFT TISSUES: Unremarkable. OTHER FINDINGS: None. IMPRESSION: NO LEFT LOWER EXTREMITY DEEP VEIN THROMBOSIS
[2018-01-01] MEDS: Cephalexin CAP* 500 MG PO SCH ×3 (13:28→23:20)
--- NOTE | 2018-01-01 16:49 | PN ---
Subjective Date of Service: 12/31/17 Interval History: Patient much improved with mentation and pain much improved slight increase in drainage in chest wound. Denies F/C, N/V, abdominal pain, diarrhea, CP, SOB, dizziness, focal weakness or other pain. Patient willing to go to rehab but is concerned about children's aide for her grandchildren for which she has custody. Family History: Unchanged from Admission Social History: Unchanged from Admission Past Medical History: Unchanged from Admission Objective Active Medications: Acetaminophen (Tylenol Tab*) 650 mg PO Q6H PRN PRN Reason: FEVER/PAIN Atorvastatin Calcium (Lipitor*) 40 mg PO 2100 [facility] Last Admin: 12/31/17 21:14 Dose: 40 mg Cephalexin HCl (Keflex Cap*) 500 mg PO QID [facility] Last Admin: 01/01/18 13:28 Dose: 500 mg Clopidogrel Bisulfate (Plavix Tab*) 75 mg PO DAILY [facility] Last Admin: 01/01/18 09:11 Dose: 75 mg Dextrose (D50w Syringe 50 Ml*) 12.5 gm IV PUSH .FOR FS < 60 - SS PRN PRN Reason: FS < 60 Heparin Sodium (Porcine) (Heparin Vial(*)) 5,000 units SUBCUT Q8HR [facility] Last Admin: 01/01/18 13:29 Dose: 5,000 units Heparin Sodium (Porcine) (Heparin Flush Picc/Ml/Cvc(*)) 1 - 3 ml FLUSH 0600, 1800 [facility]; Protocol Last Admin: 01/01/18 06:02 Dose: Not Given Hydrocortisone (Hydrocortisone 0.5% Oint*) 1 applic TOPICAL BID [facility] Last Admin: 12/31/17 21:22 Dose: Not Given Insulin Glargine (Lantus(*)) 20 units SUBCUT Q24H [facility] Last Admin: 01/01/18 02:21 Dose: 20 units Insulin Human Lispro (Humalog*) 0 units SUBCUT ACHS [facility]; Protocol Last Admin: 01/01/18 13:28 Dose: 12 unit Levothyroxine Sodium (Synthroid Tab*) 200 mcg PO DAILY@0600 [facility] Last Admin: 01/01/18 06:08 Dose: 200 mcg Metoprolol Tartrate (Lopressor Tab*) 25 mg PO BID [facility] Last Admin: 01/01/18 09:11 Dose: 25 mg Vital Signs - 8 hr 01/01/18 01/01/18 11:59 15:25 Temperature 97.9 F 99.0 F Pulse Rate 92 86 Respiratory 16 16 Rate Blood Pressure 149/68 146/71 (mmHg) O2 Sat by Pulse 100 98 Oximetry Oxygen Devices in Use Now: None Appearance: Patient is a 62yo female who appears stated age and is sitting in the bed in NAD. Eyes: No Scleral Icterus, PERRLA Ears/Nose/Mouth/Throat: NL Teeth, Lips, Gums, Clear Oropharnyx, Mucous Membranes Moist Neck: NL Appearance and Movements; NL JVP, Trachea Midline Respiratory: Symmetrical Chest Expansion and Respiratory Effort, Clear to Auscultation Cardiovascular: NL Sounds; No Murmurs; No JVD, RRR, - - trace edema in LLE. Abdominal: NL Sounds; No Tenderness; No Distention, No Hepatosplenomegaly Lymphatic: No Cervical Adenopathy Extremities: No Clubbing, Cyanosis Skin: No Nodules or Sclerosis, - - Small punctate scabs on legs in various stages of healing. Medium sized wound in the center of patient's chest with mild drainage. Neurological: Alert and Oriented x 3, NL Sensation, NL Muscle Strength and Tone , - - CN II-XII intact. Result Diagrams: 01/01/18 05:39 01/01/18 05:39 Microbiology and Other Data: Microbiology 12/28/17 16:00 Nasal Screen MRSA (PCR) - Final Nasal Mrsa Detected Assess/Plan/Problems-Billing Assessment: This is a 62 year old female with hx of CAD/CABG, DMII, HTN that presented to the ER with AMS in DKA, now resolved. Concern for cellulitis on LLE as precipitating cause. Will likely need rehab at discharge. - Patient Problems (1) Altered mental status Current Visit: Yes Status: Acute Code(s): R41.82 - ALTERED MENTAL STATUS, UNSPECIFIED SNOMED Code(s): 550916807 Comment: Resolved. Multifactorial encephalopathy, DKA, vs infection ID following, appreciate input. Much improved, back to baseline MRI shows no infarct or acute pathology (2) Cellulitis Current Visit: Yes Status: Acute Code(s): L03.90 - CELLULITIS, UNSPECIFIED SNOMED Code(s): 469958390 Comment: Of LLE. Associated with previous fall with scrapes. Continue cefepime. Procalcitonin declining. (3) CAD (coronary artery disease) Current Visit: Yes Status: Acute Code(s): I25.10 - ATHSCL HEART DISEASE OF [place] CORONARY ARTERY W/O ANG PCTRS SNOMED Code(s): 99669318 Comment: With hx of CABG Old non-healing chest wound from sternotomy Monitor skin around wound. Wound clinic at discharge. Slightly elevated troponin at admission trended down. (4) CKD (chronic kidney disease) Current Visit: Yes Status: Acute Code(s): N18.9 - CHRONIC KIDNEY DISEASE, UNSPECIFIED SNOMED Code(s): 984646600 Comment: Creat at baseline (5) DKA (diabetic ketoacidoses) Current Visit: Yes Status: Acute Code(s): E13.10 - OTH DIABETES MELLITUS WITH KETOACIDOSIS WITHOUT COMA SNOMED Code(s): 979368994 Comment: Now off insulin drip and fluid resuscitation BG stable 110s-170 (6) DVT (deep venous thrombosis) Current Visit: Yes Status: Acute Code(s): I82.409 - ACUTE EMBOLISM AND THOMBOS UNSP DEEP VN UNSP LOWER EXTREMITY SNOMED Code(s): 920044295 Comment: Prophylaxis heparin SQ (7) Full code status Current Visit: Yes Status: Acute Code(s): Z78.9 - OTHER SPECIFIED HEALTH STATUS SNOMED Code(s): 866291597 Status and Disposition: Remain inpatient, PT/OT and dispo home vs STR
--- NOTE | 2018-01-01 16:57 | PN ---
Subjective Date of Service: 01/01/18 Interval History: Patient very weepy today and is very concerned about her leg wounds and the possibility of blood clots in her legs due to clots that were present after the scrapes almost a month ago. Also concerned about increase in swelling in leg. Thinks that her grandchildren will think she is abandoning them if she goes to rehab. Spasming pain in lower abdomen present from yesterday. Thinks there is increased drainage from chest wound. Denies F/C, N/V, abdominal pain, diarrhea , CP, SOB, dysuria, or other pain. Family History: Unchanged from Admission Social History: Unchanged from Admission Past Medical History: Unchanged from Admission Objective Active Medications: Acetaminophen (Tylenol Tab*) 650 mg PO Q6H PRN PRN Reason: FEVER/PAIN Atorvastatin Calcium (Lipitor*) 40 mg PO 2100 [facility] Last Admin: 12/31/17 21:14 Dose: 40 mg Cephalexin HCl (Keflex Cap*) 500 mg PO QID [facility] Last Admin: 01/01/18 13:28 Dose: 500 mg Clopidogrel Bisulfate (Plavix Tab*) 75 mg PO DAILY [facility] Last Admin: 01/01/18 09:11 Dose: 75 mg Dextrose (D50w Syringe 50 Ml*) 12.5 gm IV PUSH .FOR FS < 60 - SS PRN PRN Reason: FS < 60 Heparin Sodium (Porcine) (Heparin Vial(*)) 5,000 units SUBCUT Q8HR [facility] Last Admin: 01/01/18 13:29 Dose: 5,000 units Heparin Sodium (Porcine) (Heparin Flush Picc/Ml/Cvc(*)) 1 - 3 ml FLUSH 0600, 1800 [facility]; Protocol Last Admin: 01/01/18 06:02 Dose: Not Given Hydrocortisone (Hydrocortisone 0.5% Oint*) 1 applic TOPICAL BID [facility] Last Admin: 12/31/17 21:22 Dose: Not Given Insulin Glargine (Lantus(*)) 20 units SUBCUT Q24H [facility] Last Admin: 01/01/18 02:21 Dose: 20 units Insulin Human Lispro (Humalog*) 0 units SUBCUT ACHS [facility]; Protocol Last Admin: 01/01/18 13:28 Dose: 12 unit Levothyroxine Sodium (Synthroid Tab*) 200 mcg PO DAILY@0600 [facility] Last Admin: 01/01/18 06:08 Dose: 200 mcg Metoprolol Tartrate (Lopressor Tab*) 25 mg PO BID [facility] Last Admin: 01/01/18 09:11 Dose: 25 mg Vital Signs - 8 hr 01/01/18 01/01/18 11:59 15:25 Temperature 97.9 F 99.0 F Pulse Rate 92 86 Respiratory 16 16 Rate Blood Pressure 149/68 146/71 (mmHg) O2 Sat by Pulse 100 98 Oximetry Oxygen Devices in Use Now: None Appearance: Patient is a 62yo female who appears stated age and is sitting in the bed and is crying. Eyes: No Scleral Icterus, PERRLA Ears/Nose/Mouth/Throat: NL Teeth, Lips, Gums, Clear Oropharnyx, Mucous Membranes Moist Neck: NL Appearance and Movements; NL JVP, Trachea Midline Respiratory: Symmetrical Chest Expansion and Respiratory Effort, Clear to Auscultation Cardiovascular: NL Sounds; No Murmurs; No JVD, RRR, No Edema Abdominal: NL Sounds; No Tenderness; No Distention, No Hepatosplenomegaly Lymphatic: No Cervical Adenopathy Extremities: No Edema, No Clubbing, Cyanosis Skin: No Rash or Ulcers, No Nodules or Sclerosis Neurological: Alert and Oriented x 3, NL Sensation, NL Muscle Strength and Tone , - - CN II-XII Result Diagrams: 01/01/18 05:39 01/01/18 05:39 Microbiology and Other Data: Microbiology 12/28/17 16:00 Nasal Screen MRSA (PCR) - Final Nasal Mrsa Detected Diagnostic Imaging: Patient Name: JESUS ABRAMS Medical Record#: [id number] Ordering Physician: Verito Apple NP Acct.#: [id number] : 1955 Age: 62 Sex: F [facility] Exam Date: 12/29/17918 ADM Status: ADM IN Order Information: MRI BRAIN W/O Accession Number: [id number] CPT: 96786 HISTORY: encephalopathy COMPARISONS: Head CT dated December 28, 2017 TECHNIQUE: The following sequences were obtained of the head: Sagittal T1- weighted images, axial T2-weighted images, axial FLAIR images, axial susceptibility weighted images, axial T1-weighted images. Additionally, axial diffusion-weighted images were obtained with calculated apparent diffusion coefficients. FINDINGS: HEMORRHAGE/INFARCT: There is no hemorrhage or acute infarct. MASSES/SHIFT: There is no mass or shift. EXTRA-AXIAL SPACES/MENINGES: There are no extra-axial fluid collections. SULCI AND VENTRICLES: The sulci and ventricles are normal in size and position for the patient's stated age. CEREBRUM: There is diffuse multifocal elevated T2/FLAIR signal within the periventricular and subcortical white matter. BRAINSTEM: There is elevated T2/FLAIR signal within the pontine white matter. CEREBELLUM: There are no focal parenchymal abnormalities. The cerebellar tonsils are normal in size and position. SELLA: The sella is normal. PINEAL: The pineal region is clear. CP ANGLE/TEMPORAL BONES: The labyrinthine structures are grossly normal. VESSELS: Normal flow-voids are noted within the visualized vertebral vasculature. DIFFUSION ABNORMALITIES: There are no diffusion abnormalities. PARANASAL SINUSES/MASTOIDS: The paranasal sinuses are clear. ORBITS: The orbits are unremarkable. BONES AND SOFT TISSUE: No bone or soft tissue abnormalities are noted. OTHER: None IMPRESSION: 1. ELEVATED T2/FLAIR SIGNAL WITHIN THE PERIVENTRICULAR, SUBCORTICAL, AND PONTINE WHITE MATTER. WHILE NONSPECIFIC, THE APPEARANCE IS SUGGESTIVE CHRONIC SMALL VESSEL ISCHEMIA. 2. NO RESTRICTED DIFFUSION TO SUGGEST ACUTE INFARCT. <Electronically signed by Brian Chandler MD in [place]> 12/29/171537 Dictated By: Brian Chandler MD Dictated Date/Time: 12/29/171537 Transcribed Date/Time: 12/29/171536 Assess/Plan/Problems-Billing Assessment: This is a 62 year old female with hx of CAD/CABG, DMII, HTN that presented to the ER with AMS in DKA, now resolved. Concern for cellulitis on LLE as precipitating cause. Will likely need rehab at discharge. - Patient Problems (1) Altered mental status Current Visit: Yes Status: Acute Code(s): R41.82 - ALTERED MENTAL STATUS, UNSPECIFIED SNOMED Code(s): 662101111 Comment: Resolved. Multifactorial encephalopathy, DKA, vs infection ID following, appreciate input. Much improved, back to baseline MRI shows no infarct or acute pathology (2) Cellulitis Current Visit: Yes Status: Acute Code(s): L03.90 - CELLULITIS, UNSPECIFIED SNOMED Code(s): 626084692 Comment: Of LLE. Associated with previous fall with scrapes. Transition to Keflex. Procalcitonin declining. Redness somewhat worse today. Doppler negative. (3) CAD (coronary artery disease) Current Visit: Yes Status: Acute Code(s): I25.10 - ATHSCL HEART DISEASE OF [place] CORONARY ARTERY W/O ANG PCTRS SNOMED Code(s): 36629695 Comment: With hx of CABG Old non-healing chest wound from sternotomy Monitor skin around wound. Wound clinic at discharge. Slightly elevated troponin at admission trended down. (4) CKD (chronic kidney disease) Current Visit: Yes Status: Acute Code(s): N18.9 - CHRONIC KIDNEY DISEASE, UNSPECIFIED SNOMED Code(s): 509182332 Comment: Creat at baseline (5) DKA (diabetic ketoacidoses) Current Visit: Yes Status: Acute Code(s): E13.10 - OTH DIABETES MELLITUS WITH KETOACIDOSIS WITHOUT COMA SNOMED Code(s): 416513963 Comment: Now off insulin drip and fluid resuscitation BG stable 110s-170 (6) DVT (deep venous thrombosis) Current Visit: Yes Status: Acute Code(s): I82.409 - ACUTE EMBOLISM AND THOMBOS UNSP DEEP VN UNSP LOWER EXTREMITY SNOMED Code(s): 731477172 Comment: Prophylaxis heparin SQ LLE doppler negative. (7) Full code status Current Visit: Yes Status: Acute Code(s): Z78.9 - OTHER SPECIFIED HEALTH STATUS SNOMED Code(s): 272721896 Status and Disposition: Remain inpatient, PT/OT and dispo home vs STR
[2018-01-01] MEDS: Hydrocortisone 0.5% OINT* 1 APPLIC TUBE TOPICAL SCH ×2 (18:20→23:18)
[2018-01-01] MEDS: Atorvastatin* 40 MG TAB PO SCH (23:20)
[2018-01-02] MEDS: Insulin GLARGINE(*) 1 UNITS UNIT SUBCUT SCH (02:40)
[2018-01-02 05:27] LABS: Hematocrit 35 % (35-47); Mean Corpuscular HGB Conc 34 g/dl (31-36); Mean Corpuscular Hemoglobin 29 pg (27-31); Mean Corpuscular Volume 86 fL (80-97); Mean Platelet Volume 9.3 um3 (7.4-10.4); Platelet Count 221 10^3/ul (150-450); Red Blood Count 4.13 10^6/ul (4.00-5.40); Red Cell Distribution Width 15 % (10.5-15); White Blood Count 10.9 10^3/ul (3.5-10.8)
[2018-01-02] MEDS: Heparin VIAL(*) 5000 UNITS/ML VIAL (FIVE THOUSAND) SUBCUT SCH ×3 (05:31→20:58)
[2018-01-02] MEDS: Levothyroxine TAB* 100 MCG TAB PO SCH (05:35)
[2018-01-02 05:50] LABS: EGFR Non-African American 59.4 (>60)
[2018-01-02] MEDS ORDERED: Magnesium Sulfate 2 GM IV* 2 GM/50 ML BAG IVPB ONE (07:05)
[2018-01-02] MEDS: Insulin LISPRO* 1 UNITS UNIT SUBCUT SCH ×4 (08:41→21:07)
[2018-01-02] MEDS: Cephalexin CAP* 500 MG PO SCH ×4 (08:42→20:59)
[2018-01-02] MEDS: Clopidogrel TAB* 75 MG PO SCH (08:42)
[2018-01-02] MEDS: Metoprolol Tartrate TAB* 25 MG PO SCH ×2 (08:42→20:59)
[2018-01-02] MEDS: Lisinopril TAB* 5 MG PO SCH (08:42)
[2018-01-02] MEDS: Aspirin EC TAB* 81 MG TAB.EC PO SCH (08:42)
[2018-01-02] MEDS: Hydrocortisone 0.5% OINT* 1 APPLIC TUBE TOPICAL SCH ×2 (13:48→21:04)
[2018-01-02] MEDS ORDERED: Insulin LISPRO* 1 UNITS UNIT SUBCUT ONE ×2 (17:41→20:05)
[2018-01-02] MEDS ORDERED: Dextrose 50% Syringe 50 ML* 25 GM/50 ML SYRINGE IV PUSH PRN (17:41)
[2018-01-02] MEDS ORDERED: Insulin GLARGINE(*) 1 UNITS UNIT SUBCUT ONE (17:42)
--- NOTE | 2018-01-02 17:46 | PN ---
Subjective Date of Service: 01/02/18 Interval History: Patient somewhat confused this AM but easily reorientable. Very hesitant to go to rehab. concerned about child care attendant at home but has a difficult time understanding that when she is at rehab or in the hospital she will be unable to help her grandchildren. Concerned about increased swelling in LLE with pain which is stable from yesterday but states her feet do swell at home and it is usually the left one. Denies CP, SOB, N/V, abdominal pain, diarrhea, Dizziness on standing, or other pain. Initially was going to go to [facility] today but then changed her mind and was going to go home and then was going to [facility] again and then her insurance turned out to have been entered into the computer incorrectly and she was not approved to go to [facility] today. Family History: Unchanged from Admission Social History: Unchanged from Admission Past Medical History: Unchanged from Admission Objective Active Medications: Acetaminophen (Tylenol Tab*) 650 mg PO Q6H PRN PRN Reason: FEVER/PAIN Last Admin: 01/02/18 15:49 Dose: 650 mg Aspirin (Aspirin Ec Tab*) 81 mg PO DAILY [facility] Last Admin: 01/02/18 08:42 Dose: 81 mg Atorvastatin Calcium (Lipitor*) 40 mg PO 2100 [facility] Last Admin: 01/01/18 23:20 Dose: 40 mg Cephalexin HCl (Keflex Cap*) 500 mg PO QID [facility] Last Admin: 01/02/18 13:47 Dose: 500 mg Clopidogrel Bisulfate (Plavix Tab*) 75 mg PO DAILY [facility] Last Admin: 01/02/18 08:42 Dose: 75 mg Dextrose (D50w Syringe 50 Ml*) 12.5 gm IV PUSH .FOR FS < 60 - SS PRN PRN Reason: FS < 60 Heparin Sodium (Porcine) (Heparin Vial(*)) 5,000 units SUBCUT Q8HR [facility] Last Admin: 01/02/18 13:47 Dose: 5,000 units Heparin Sodium (Porcine) (Heparin Flush Picc/Ml/Cvc(*)) 1 - 3 ml FLUSH 0600, 1800 [facility]; Protocol Last Admin: 01/02/18 05:32 Dose: 1 ml Hydrocortisone (Hydrocortisone 0.5% Oint*) 1 applic TOPICAL BID [facility] Last Admin: 01/02/18 13:48 Dose: 1 applic Insulin Glargine (Lantus(*)) 20 units SUBCUT Q24H [facility] Last Admin: 01/02/18 02:40 Dose: 20 units Insulin Human Lispro (Humalog*) 0 units SUBCUT ACHS [facility]; Protocol Last Admin: 01/02/18 13:47 Dose: 12 unit Levothyroxine Sodium (Synthroid Tab*) 200 mcg PO DAILY@0600 [facility] Last Admin: 01/02/18 05:35 Dose: 200 mcg Lisinopril (Prinivil Tab*) 5 mg PO DAILY [facility] Last Admin: 01/02/18 08:42 Dose: 5 mg Metoprolol Tartrate (Lopressor Tab*) 25 mg PO BID [facility] Last Admin: 01/02/18 08:42 Dose: 25 mg Vital Signs - 8 hr 01/02/18 01/02/18 12:04 15:46 Temperature 97.2 F 98.2 F Pulse Rate 87 88 Respiratory 16 16 Rate Blood Pressure 158/81 120/59 (mmHg) O2 Sat by Pulse 97 99 Oximetry Oxygen Devices in Use Now: None Appearance: Patient is a 62yo female who appears stated age and is sitting in the bed in [facility]. Eyes: No Scleral Icterus, PERRLA Ears/Nose/Mouth/Throat: NL Teeth, Lips, Gums, Clear Oropharnyx, Mucous Membranes Moist Neck: NL Appearance and Movements; NL JVP, Trachea Midline Respiratory: Symmetrical Chest Expansion and Respiratory Effort, Clear to Auscultation Cardiovascular: NL Sounds; No Murmurs; No JVD, RRR, - - 2+ LLE edema with redness and tenderness. Stable from previous exam. Abdominal: NL Sounds; No Tenderness; No Distention, No Hepatosplenomegaly Lymphatic: No Cervical Adenopathy Extremities: No Clubbing, Cyanosis Skin: No Nodules or Sclerosis, - - Open area on chest which is stable with mild amount of discharge. Neurological: Alert and Oriented x 3, NL Sensation, NL Gait, NL Muscle Strength and Tone, - - CN II-XII intact. Result Diagrams: 01/02/18 05:12 01/02/18 05:12 Microbiology and Other Data: Microbiology 12/28/17 16:00 Nasal Screen MRSA (PCR) - Final Nasal Mrsa Detected Diagnostic Imaging: Patient Name: JESUS ABRAMS Medical Record#: [id number] Ordering Physician: Verito Apple NP Acct.#: [id number] : 1955 Age: 62 Sex: F Location: [facility] Exam Date: 12/29/17918 ADM Status: ADM IN Order Information: MRI BRAIN W/O Accession Number: [id number] CPT: 97500 HISTORY: encephalopathy COMPARISONS: Head CT dated December 28, 2017 TECHNIQUE: The following sequences were obtained of the head: Sagittal T1- weighted images, axial T2-weighted images, axial FLAIR images, axial susceptibility weighted images, axial T1-weighted images. Additionally, axial diffusion-weighted images were obtained with calculated apparent diffusion coefficients. FINDINGS: HEMORRHAGE/INFARCT: There is no hemorrhage or acute infarct. MASSES/SHIFT: There is no mass or shift. EXTRA-AXIAL SPACES/MENINGES: There are no extra-axial fluid collections. SULCI AND VENTRICLES: The sulci and ventricles are normal in size and position for the patient's stated age. CEREBRUM: There is diffuse multifocal elevated T2/FLAIR signal within the periventricular and subcortical white matter. BRAINSTEM: There is elevated T2/FLAIR signal within the pontine white matter. CEREBELLUM: There are no focal parenchymal abnormalities. The cerebellar tonsils are normal in size and position. SELLA: The sella is normal. PINEAL: The pineal region is clear. CP ANGLE/TEMPORAL BONES: The labyrinthine structures are grossly normal. VESSELS: Normal flow-voids are noted within the visualized vertebral vasculature. DIFFUSION ABNORMALITIES: There are no diffusion abnormalities. PARANASAL SINUSES/MASTOIDS: The paranasal sinuses are clear. ORBITS: The orbits are unremarkable. BONES AND SOFT TISSUE: No bone or soft tissue abnormalities are noted. OTHER: None IMPRESSION: 1. ELEVATED T2/FLAIR SIGNAL WITHIN THE PERIVENTRICULAR, SUBCORTICAL, AND PONTINE WHITE MATTER. WHILE NONSPECIFIC, THE APPEARANCE IS SUGGESTIVE CHRONIC SMALL VESSEL ISCHEMIA. 2. NO RESTRICTED DIFFUSION TO SUGGEST ACUTE INFARCT. <Electronically signed by Brian Chandler MD in [facility]> 12/29/17 1538 Dictated By: Brian Chandler MD Dictated Date/Time: 12/29/171537 Transcribed Date/Time: 12/29/177 Assess/Plan/Problems-Billing Assessment: This is a 62 year old female with hx of CAD/CABG, DMII, HTN that presented to the ER with AMS in DKA, now resolved. Concern for cellulitis on LLE as precipitating cause. Will likely need rehab at discharge. - Patient Problems (1) Altered mental status Current Visit: Yes Status: Acute Code(s): R41.82 - ALTERED MENTAL STATUS, UNSPECIFIED SNOMED Code(s): 478899795 Comment: Resolved. Multifactorial encephalopathy, DKA, vs infection ID following, appreciate input. Much improved, back to baseline. Occasional confusion likely due to delirium. MRI shows no infarct or acute pathology (2) Cellulitis Current Visit: Yes Status: Acute Code(s): L03.90 - CELLULITIS, UNSPECIFIED SNOMED Code(s): 837782548 Comment: Of LLE. Associated with previous fall with scrapes. Transition to Keflex. Procalcitonin declining. Redness stable today. Doppler negative. (3) CAD (coronary artery disease) Current Visit: Yes Status: Acute Code(s): I25.10 - ATHSCL HEART DISEASE OF [place] CORONARY ARTERY W/O ANG PCTRS SNOMED Code(s): 75572732 Comment: With hx of CABG Old non-healing chest wound from sternotomy Monitor skin around wound. Wound clinic at discharge. Slightly elevated troponin at admission trended down due liekyl demand ischemia. (4) CKD (chronic kidney disease) Current Visit: Yes Status: Acute Code(s): N18.9 - CHRONIC KIDNEY DISEASE, UNSPECIFIED SNOMED Code(s): 467427892 Comment: Creat at baseline (5) DKA (diabetic ketoacidoses) Current Visit: Yes Status: Acute Code(s): E13.10 - OTH DIABETES MELLITUS WITH KETOACIDOSIS WITHOUT COMA SNOMED Code(s): 898180300 Comment: Now off insulin drip and fluid resuscitation BG increasing up to 300s today. Increased oral intake. Increase basal insulin. (6) DVT (deep venous thrombosis) Current Visit: Yes Status: Acute Code(s): I82.409 - ACUTE EMBOLISM AND THOMBOS UNSP DEEP VN UNSP LOWER EXTREMITY SNOMED Code(s): 421609893 Comment: Prophylaxis heparin SQ LLE doppler negative. (7) Full code status Current Visit: Yes Status: Acute Code(s): Z78.9 - OTHER SPECIFIED HEALTH STATUS SNOMED Code(s): 299920495 Status and Disposition: Remain inpatient. Hopeful discharge to [facility] Friday.
[2018-01-02] MEDS: Atorvastatin* 40 MG TAB PO SCH (20:59)
[2018-01-03] MEDS ORDERED: hydrALAZINE IV* 20 MG/ML VIAL IV SLOW PU PRN (03:47)
[2018-01-03] MEDS ORDERED: amLODIPine TAB* 5 MG PO ONE (03:58)
[2018-01-03 05:10] LABS: Hematocrit 31 % (35-47); Hemoglobin 10.1 g/dl (12.0-16.0); Mean Corpuscular HGB Conc 33 g/dl (31-36); Mean Corpuscular Hemoglobin 28 pg (27-31); Mean Corpuscular Volume 86 fL (80-97); Mean Platelet Volume 9.1 um3 (7.4-10.4); Platelet Count 273 10^3/ul (150-450); Red Blood Count 3.59 10^6/ul (4.00-5.40); Red Cell Distribution Width 14 % (10.5-15); White Blood Count 10.5 10^3/ul (3.5-10.8)
[2018-01-03 05:29] LABS: ABS Basophils 0.1 10^3/ul (0-0.2); ABS Eosinophils 0.5 10^3/ul (0-0.6); ABS Lymphocytes 3.5 10^3/ul (1.0-4.8); ABS Monocytes 0.8 10^3/ul (0-0.8); ABS Neutrophils 5.6 10^3/ul (1.5-7.7); ABS Nucleated RBC 0 10^3/ul
[2018-01-03 05:30] LABS: EGFR Non-African American 52.9 (>60)
[2018-01-03 05:32] LABS: ABS Basophils 0.2 10^3/ul (0-0.2); ABS Neutrophils 6.2 10^3/ul (1.5-7.7); Monocytes % 7 % (0-7)
[2018-01-03] MEDS: Heparin VIAL(*) 5000 UNITS/ML VIAL (FIVE THOUSAND) SUBCUT SCH ×3 (05:35→22:05)
[2018-01-03] MEDS: Insulin LISPRO* 1 UNITS UNIT SUBCUT SCH ×4 (10:30→22:05)
[2018-01-03] MEDS: Clopidogrel TAB* 75 MG PO SCH (10:31)
[2018-01-03] MEDS: Cephalexin CAP* 500 MG PO SCH ×4 (10:31→22:05)
[2018-01-03] MEDS: Levothyroxine TAB* 100 MCG TAB PO SCH (10:31)
[2018-01-03] MEDS: Lisinopril TAB* 5 MG PO SCH (10:31)
[2018-01-03] MEDS: Aspirin EC TAB* 81 MG TAB.EC PO SCH (10:31)
[2018-01-03] MEDS: Metoprolol Tartrate TAB* 25 MG PO SCH ×2 (10:31→22:05)
[2018-01-03] MEDS: Hydrocortisone 0.5% OINT* 1 APPLIC TUBE TOPICAL SCH ×2 (10:55→23:09)
--- NOTE | 2018-01-03 12:44 | PN ---
Subjective Date of Service: 01/03/18 Interval History: C/O L calf enlargement not present on admission. No pain. Family History: Unchanged from Admission Social History: Unchanged from Admission Past Medical History: Unchanged from Admission Objective Active Medications: Acetaminophen (Tylenol Tab*) 650 mg PO Q6H PRN PRN Reason: FEVER/PAIN Last Admin: 01/02/18 15:49 Dose: 650 mg Aspirin (Aspirin Ec Tab*) 81 mg PO DAILY [facility] Last Admin: 01/03/18 10:31 Dose: 81 mg Atorvastatin Calcium (Lipitor*) 40 mg PO 2100 [facility] Last Admin: 01/02/18 20:59 Dose: 40 mg Cephalexin HCl (Keflex Cap*) 500 mg PO QID [facility] Last Admin: 01/03/18 10:31 Dose: 500 mg Clopidogrel Bisulfate (Plavix Tab*) 75 mg PO DAILY [facility] Last Admin: 01/03/18 10:31 Dose: 75 mg Dextrose (D50w Syringe 50 Ml*) 12.5 gm IV PUSH .FOR FS < 60 - SS PRN PRN Reason: FS < 60 Dextrose (D50w Syringe 50 Ml*) 12.5 gm IV PUSH .FOR FS < 60 - SS PRN PRN Reason: FS < 60 Heparin Sodium (Porcine) (Heparin Vial(*)) 5,000 units SUBCUT Q8HR [facility] Last Admin: 01/03/18 05:35 Dose: 5,000 units Hydrocortisone (Hydrocortisone 0.5% Oint*) 1 applic TOPICAL BID [facility] Last Admin: 01/03/18 10:55 Dose: 1 applic Insulin Glargine (Lantus(*)) 36 units SUBCUT Q24H [facility] Insulin Human Lispro (Humalog*) 0 units SUBCUT ACHS [facility]; Protocol Last Admin: 01/03/18 10:30 Dose: 6 unit Levothyroxine Sodium (Synthroid Tab*) 200 mcg PO DAILY@0600 [facility] Last Admin: 01/03/18 10:31 Dose: 200 mcg Lisinopril (Prinivil Tab*) 5 mg PO DAILY [facility] Last Admin: 01/03/18 10:31 Dose: 5 mg Metoprolol Tartrate (Lopressor Tab*) 25 mg PO BID [facility] Last Admin: 01/03/18 10:31 Dose: 25 mg Vital Signs - 8 hr 01/03/18 07:36 Temperature 98.8 F Pulse Rate 71 Respiratory 18 Rate Blood Pressure 156/55 (mmHg) O2 Sat by Pulse 94 Oximetry Oxygen Devices in Use Now: None Appearance: Alert, in a chair. In good spirits, speaks rapidly. Looks comfortable. Eyes: No Scleral Icterus Respiratory: Symmetrical Chest Expansion and Respiratory Effort, Clear to Auscultation, Clear to Percussion Cardiovascular: NL Sounds; No Murmurs; No JVD, RRR, No Edema, - Extremities: No Clubbing, Cyanosis, - - L calf markedly enlarged, tense, not tender or warm Skin: No Nodules or Sclerosis, - - multiple 1 cm excoriations both legs Neurological: Alert and Oriented x 3, NL Sensation - No tremor. Result Diagrams: 01/03/18 05:03 01/03/18 05:03 Microbiology and Other Data: Microbiology 12/28/17 16:00 Nasal Screen MRSA (PCR) - Final Nasal Mrsa Detected Diagnostic Imaging: Patient Name: JESUS ABRAMS Medical Record#: [id number] Ordering Physician: Verito Apple [employer] Acct.#: [id number] : 1955 Age: 62 Sex: F Location: [facility] Exam Date: 12/29/17918 ADM Status: ADM IN Order Information: MRI BRAIN W/O Accession Number: [id number] CPT: 51841 HISTORY: encephalopathy COMPARISONS: Head CT dated December 28, 2017 TECHNIQUE: The following sequences were obtained of the head: Sagittal T1- weighted images, axial T2-weighted images, axial FLAIR images, axial susceptibility weighted images, axial T1-weighted images. Additionally, axial diffusion-weighted images were obtained with calculated apparent diffusion coefficients. FINDINGS: HEMORRHAGE/INFARCT: There is no hemorrhage or acute infarct. MASSES/SHIFT: There is no mass or shift. EXTRA-AXIAL SPACES/MENINGES: There are no extra-axial fluid collections. SULCI AND VENTRICLES: The sulci and ventricles are normal in size and position for the patient's stated age. CEREBRUM: There is diffuse multifocal elevated T2/FLAIR signal within the periventricular and subcortical white matter. BRAINSTEM: There is elevated T2/FLAIR signal within the pontine white matter. CEREBELLUM: There are no focal parenchymal abnormalities. The cerebellar tonsils are normal in size and position. SELLA: The sella is normal. PINEAL: The pineal region is clear. CP ANGLE/TEMPORAL BONES: The labyrinthine structures are grossly normal. VESSELS: Normal flow-voids are noted within the visualized vertebral vasculature. DIFFUSION ABNORMALITIES: There are no diffusion abnormalities. PARANASAL SINUSES/MASTOIDS: The paranasal sinuses are clear. ORBITS: The orbits are unremarkable. BONES AND SOFT TISSUE: No bone or soft tissue abnormalities are noted. OTHER: None IMPRESSION: 1. ELEVATED T2/FLAIR SIGNAL WITHIN THE PERIVENTRICULAR, SUBCORTICAL, AND PONTINE WHITE MATTER. WHILE NONSPECIFIC, THE APPEARANCE IS SUGGESTIVE CHRONIC SMALL VESSEL ISCHEMIA. 2. NO RESTRICTED DIFFUSION TO SUGGEST ACUTE INFARCT. <Electronically signed by Brian Chandler MD in [place]> 12/29/17 153 Dictated By: Brian Chandler MD Dictated Date/Time: 12/29/171537 Transcribed Date/Time: 12/29/171536 Assess/Plan/Problems-Billing Assessment: This is a 62 year old female with hx of CAD/CABG, DMII, HTN that presented to the ER with AMS in DKA, now resolved. Concern for cellulitis on LLE as precipitating cause. Will likely need rehab at discharge. - Patient Problems (1) Altered mental status Current Visit: Yes Status: Acute Code(s): R41.82 - ALTERED MENTAL STATUS, UNSPECIFIED SNOMED Code(s): 982195392 Comment: Resolved. Multifactorial encephalopathy, DKA, vs infection Occasional confusion likely due to delirium. MRI shows no infarct or acute pathology (2) Cellulitis Current Visit: Yes Status: Acute Code(s): L03.90 - CELLULITIS, UNSPECIFIED SNOMED Code(s): 358979092 Comment: Of LLE. Associated with previous fall with scrapes. Continue cephalexin through 01/04. Procalcitonin declining. No redness . Doppler negative. CT LLE ordered 01/03. (3) Debility Current Visit: Yes Status: Acute Code(s): R53.81 - OTHER MALAISE SNOMED Code(s): 11144560 Comment: Plan on STR. There was some confusion about insurance coverage. Continue OT/PT. Status and Disposition: Remain inpatient. Hopeful discharge to [facility] Friday.
--- NOTE | 2018-01-03 14:18 | RAD ---
Indication: Left leg swelling. CT of the left lower extremity was performed without IV contrast. Coronal and sagittal reconstructed images were obtained. The tibia and fibula are intact with no evidence of displaced fractures. Diffuse subcutaneous edema surrounds the entire calf predominantly in the dependent portions posterior and laterally. No obvious drainable fluid collections are noted. No evidence of fascial air is noted. Findings are suggestive of cellulitis. No significant joint effusion noted. IMPRESSION: No fracture of the tibia and fibula. Diffuse subcutaneous edema consistent with cellulitis. No evidence of subcutaneous or fascial air is noted.
[2018-01-03] MEDS ORDERED: Insulin GLARGINE(*) 1 UNITS UNIT SUBCUT SCH (18:00)
[2018-01-03] MEDS: Insulin GLARGINE(*) 1 UNITS UNIT SUBCUT SCH (19:12)
[2018-01-03] MEDS: Atorvastatin* 40 MG TAB PO SCH (22:05)
[2018-01-04] MEDS: Levothyroxine TAB* 100 MCG TAB PO SCH (06:02)
[2018-01-04] MEDS: Heparin VIAL(*) 5000 UNITS/ML VIAL (FIVE THOUSAND) SUBCUT SCH ×3 (06:02→21:00)
[2018-01-04] MEDS: Clopidogrel TAB* 75 MG PO SCH (09:15)
[2018-01-04] MEDS: Metoprolol Tartrate TAB* 25 MG PO SCH ×2 (09:15→20:57)
[2018-01-04] MEDS: Lisinopril TAB* 5 MG PO SCH (09:15)
[2018-01-04] MEDS: Cephalexin CAP* 500 MG PO SCH ×4 (09:15→20:57)
[2018-01-04] MEDS: Hydrocortisone 0.5% OINT* 1 APPLIC TUBE TOPICAL SCH ×2 (09:15→20:57)
[2018-01-04] MEDS: Insulin LISPRO* 1 UNITS UNIT SUBCUT SCH ×4 (09:15→20:58)
[2018-01-04] MEDS: Aspirin EC TAB* 81 MG TAB.EC PO SCH (09:15)
--- NOTE | 2018-01-04 12:34 | PN ---
Subjective Date of Service: 01/04/18 Interval History: Patient states her L leg looks less swollen and is less painful today. [facility]. Family History: Unchanged from Admission Social History: Unchanged from Admission Past Medical History: Unchanged from Admission Objective Active Medications: Acetaminophen (Tylenol Tab*) 650 mg PO Q6H PRN PRN Reason: FEVER/PAIN Last Admin: 01/02/18 15:49 Dose: 650 mg Aspirin (Aspirin Ec Tab*) 81 mg PO DAILY [facility] Last Admin: 01/04/18 09:15 Dose: 81 mg Atorvastatin Calcium (Lipitor*) 40 mg PO 2100 [facility] Last Admin: 01/03/18 22:05 Dose: 40 mg Cephalexin HCl (Keflex Cap*) 500 mg PO QID [facility] Last Admin: 01/04/18 09:15 Dose: 500 mg Clopidogrel Bisulfate (Plavix Tab*) 75 mg PO DAILY [facility] Last Admin: 01/04/18 09:15 Dose: 75 mg Dextrose (D50w Syringe 50 Ml*) 12.5 gm IV PUSH .FOR FS < 60 - SS PRN PRN Reason: FS < 60 Dextrose (D50w Syringe 50 Ml*) 12.5 gm IV PUSH .FOR FS < 60 - SS PRN PRN Reason: FS < 60 Heparin Sodium (Porcine) (Heparin Vial(*)) 5,000 units SUBCUT Q8HR [facility] Last Admin: 01/04/18 06:02 Dose: 5,000 units Hydrocortisone (Hydrocortisone 0.5% Oint*) 1 applic TOPICAL BID [facility] Last Admin: 01/04/18 09:15 Dose: 1 applic Insulin Glargine (Lantus(*)) 36 units SUBCUT Q24H [facility] Last Admin: 01/03/18 19:12 Dose: 36 units Insulin Human Lispro (Humalog*) 0 units SUBCUT ACHS [facility]; Protocol Last Admin: 01/04/18 09:15 Dose: 9 unit Levothyroxine Sodium (Synthroid Tab*) 200 mcg PO DAILY@0600 [facility] Last Admin: 01/04/18 06:02 Dose: 200 mcg Lisinopril (Prinivil Tab*) 5 mg PO DAILY [facility] Last Admin: 01/04/18 09:15 Dose: 5 mg Metoprolol Tartrate (Lopressor Tab*) 25 mg PO BID [facility] Last Admin: 01/04/18 09:15 Dose: 25 mg Vital Signs - 8 hr 01/04/18 01/04/18 01/04/18 04:01 07:38 08:00 Temperature 97.9 F 97.7 F Pulse Rate 86 Respiratory 16 18 18 Rate Blood Pressure 145/49 147/67 (mmHg) O2 Sat by Pulse 100 100 Oximetry Oxygen Devices in Use Now: None Appearance: Alert, in a chair. In good spirits, some pressure of speech, looks comfortable. Eyes: No Scleral Icterus Extremities: No Clubbing, Cyanosis, - - L calf sl smaller than yesterday, not tender or warm. Skin: No Nodules or Sclerosis, - - multiple 1-2cm excoriations both legs Neurological: Alert and Oriented x 3, NL Sensation Result Diagrams: 01/03/18 05:03 01/03/18 05:03 Microbiology and Other Data: Microbiology 12/28/17 16:00 Nasal Screen MRSA (PCR) - Final Nasal Mrsa Detected Diagnostic Imaging: Patient Name: JESUS ABRAMS Medical Record#: [id number] Ordering Physician: Verito Apple NP Acct.#: [id number] : 1955 Age: 62 Sex: F Location: [facility] Exam Date: 12/29/17918 ADM Status: ADM IN Order Information: MRI BRAIN W/O Accession Number: [id number] CPT: 80037 HISTORY: encephalopathy COMPARISONS: Head CT dated December 28, 2017 TECHNIQUE: The following sequences were obtained of the head: Sagittal T1- weighted images, axial T2-weighted images, axial FLAIR images, axial susceptibility weighted images, axial T1-weighted images. Additionally, axial diffusion-weighted images were obtained with calculated apparent diffusion coefficients. FINDINGS: HEMORRHAGE/INFARCT: There is no hemorrhage or acute infarct. MASSES/SHIFT: There is no mass or shift. EXTRA-AXIAL SPACES/MENINGES: There are no extra-axial fluid collections. SULCI AND VENTRICLES: The sulci and ventricles are normal in size and position for the patient's stated age. CEREBRUM: There is diffuse multifocal elevated T2/FLAIR signal within the periventricular and subcortical white matter. BRAINSTEM: There is elevated T2/FLAIR signal within the pontine white matter. CEREBELLUM: There are no focal parenchymal abnormalities. The cerebellar tonsils are normal in size and position. SELLA: The sella is normal. PINEAL: The pineal region is clear. CP ANGLE/TEMPORAL BONES: The labyrinthine structures are grossly normal. VESSELS: Normal flow-voids are noted within the visualized vertebral vasculature. DIFFUSION ABNORMALITIES: There are no diffusion abnormalities. PARANASAL SINUSES/MASTOIDS: The paranasal sinuses are clear. ORBITS: The orbits are unremarkable. BONES AND SOFT TISSUE: No bone or soft tissue abnormalities are noted. OTHER: None IMPRESSION: 1. ELEVATED T2/FLAIR SIGNAL WITHIN THE PERIVENTRICULAR, SUBCORTICAL, AND PONTINE WHITE MATTER. WHILE NONSPECIFIC, THE APPEARANCE IS SUGGESTIVE CHRONIC SMALL VESSEL ISCHEMIA. 2. NO RESTRICTED DIFFUSION TO SUGGEST ACUTE INFARCT. <Electronically signed by Brian Chandler MD in [place]> 12/29/17 153 Dictated By: Brian Chandler MD Dictated Date/Time: 12/29/171537 Transcribed Date/Time: 12/29/171536 Assess/Plan/Problems-Billing Assessment: This is a 62 year old female with hx of CAD/CABG, DMII, HTN that presented to the ER with AMS in DKA, now resolved. Concern for cellulitis on LLE as precipitating cause. Will likely need rehab at discharge. - Patient Problems (1) Altered mental status Current Visit: Yes Status: Acute Code(s): R41.82 - ALTERED MENTAL STATUS, UNSPECIFIED SNOMED Code(s): 518000662 Comment: Resolved. Multifactorial encephalopathy, DKA, vs infection Occasional confusion likely due to delirium. MRI shows no infarct or acute pathology (2) Cellulitis Current Visit: Yes Status: Acute Code(s): L03.90 - CELLULITIS, UNSPECIFIED SNOMED Code(s): 851680231 Comment: Of LLE. Associated with previous fall with scrapes. Continue cephalexin. Procalcitonin declining. No redness. Doppler negative. CT LLE 01/03 showed only subcut edema c/w cellutlitis (3) Debility Current Visit: Yes Status: Acute Code(s): R53.81 - OTHER MALAISE SNOMED Code(s): 52448810 Comment: Plan on STR. There was some confusion about insurance coverage. Continue OT/PT. Status and Disposition: Remain inpatient. Hopeful discharge to [facility] Friday.
[2018-01-04] MEDS: Insulin GLARGINE(*) 1 UNITS UNIT SUBCUT SCH (18:02)
[2018-01-04] MEDS: Atorvastatin* 40 MG TAB PO SCH (20:57)
[2018-01-05] MEDS: Levothyroxine TAB* 100 MCG TAB PO SCH (05:12)
[2018-01-05] MEDS: Heparin VIAL(*) 5000 UNITS/ML VIAL (FIVE THOUSAND) SUBCUT SCH ×3 (05:13→21:52)
[2018-01-05] MEDS: Insulin LISPRO* 1 UNITS UNIT SUBCUT SCH ×4 (08:32→21:52)
[2018-01-05] MEDS: Clopidogrel TAB* 75 MG PO SCH (08:32)
[2018-01-05] MEDS: Cephalexin CAP* 500 MG PO SCH ×4 (08:33→21:54)
[2018-01-05] MEDS: Aspirin EC TAB* 81 MG TAB.EC PO SCH (08:33)
[2018-01-05] MEDS: Metoprolol Tartrate TAB* 25 MG PO SCH ×2 (08:33→21:54)
[2018-01-05] MEDS: Hydrocortisone 0.5% OINT* 1 APPLIC TUBE TOPICAL SCH ×2 (08:34→21:52)
[2018-01-05] MEDS: Lisinopril TAB* 5 MG PO SCH (08:34)
--- NOTE | 2018-01-05 16:01 | PN ---
Subjective Date of Service: 01/05/18 Interval History: No new c/o. She feels her L lower leg is smaller today although somewhat more pink area. Family History: Unchanged from Admission Social History: Unchanged from Admission Past Medical History: Unchanged from Admission Objective Active Medications: Acetaminophen (Tylenol Tab*) 650 mg PO Q6H PRN PRN Reason: FEVER/PAIN Last Admin: 01/02/18 15:49 Dose: 650 mg Aspirin (Aspirin Ec Tab*) 81 mg PO DAILY [facility] Last Admin: 01/05/18 08:33 Dose: 81 mg Atorvastatin Calcium (Lipitor*) 40 mg PO 2100 [facility] Last Admin: 01/04/18 20:57 Dose: 40 mg Cephalexin HCl (Keflex Cap*) 500 mg PO QID [facility] Last Admin: 01/05/18 12:46 Dose: 500 mg Clopidogrel Bisulfate (Plavix Tab*) 75 mg PO DAILY [facility] Last Admin: 01/05/18 08:32 Dose: 75 mg Dextrose (D50w Syringe 50 Ml*) 12.5 gm IV PUSH .FOR FS < 60 - SS PRN PRN Reason: FS < 60 Heparin Sodium (Porcine) (Heparin Vial(*)) 5,000 units SUBCUT Q8HR [facility] Last Admin: 01/05/18 14:19 Dose: 5,000 units Hydrocortisone (Hydrocortisone 0.5% Oint*) 1 applic TOPICAL BID [facility] Last Admin: 01/05/18 08:34 Dose: 1 applic Insulin Glargine (Lantus(*)) 42 units SUBCUT Q24H [facility] Insulin Human Lispro (Humalog*) 0 units SUBCUT ACHS [facility]; Protocol Last Admin: 01/05/18 12:47 Dose: 12 unit Levothyroxine Sodium (Synthroid Tab*) 200 mcg PO DAILY@0600 [facility] Last Admin: 01/05/18 05:12 Dose: 200 mcg Lisinopril (Prinivil Tab*) 5 mg PO DAILY [facility] Last Admin: 01/05/18 08:34 Dose: 5 mg Metoprolol Tartrate (Lopressor Tab*) 25 mg PO BID [facility] Last Admin: 01/05/18 08:33 Dose: 25 mg Vital Signs - 8 hr 01/05/18 01/05/18 08:00 08:14 Temperature 98.0 F Pulse Rate 87 Respiratory 16 16 Rate Blood Pressure 131/68 (mmHg) O2 Sat by Pulse 91 Oximetry Oxygen Devices in Use Now: None Appearance: Alert, sitting up in bed. In good spirits, speaks rapidly. Looks comfortable. Eyes: No Scleral Icterus Extremities: No Clubbing, Cyanosis, - - L calf larger than R, minimally tender. [place] area margin marked in pen. Skin: No Nodules or Sclerosis Neurological: Alert and Oriented x 3, NL Sensation Result Diagrams: 01/03/18 05:03 01/03/18 05:03 Microbiology and Other Data: Microbiology 12/28/17 16:00 Nasal Screen MRSA (PCR) - Final Nasal Mrsa Detected Diagnostic Imaging: Patient Name: JESUS ABRAMS Medical Record#: [id number] Ordering Physician: Verito Apple NP Acct.#: [id number] : 1955 Age: 62 Sex: F Location: [facility] Exam Date: 12/29/17918 ADM Status: ADM IN Order Information: MRI BRAIN W/O Accession Number: [id number] CPT: 25180 HISTORY: encephalopathy COMPARISONS: Head CT dated December 28, 2017 TECHNIQUE: The following sequences were obtained of the head: Sagittal T1- weighted images, axial T2-weighted images, axial FLAIR images, axial susceptibility weighted images, axial T1-weighted images. Additionally, axial diffusion-weighted images were obtained with calculated apparent diffusion coefficients. FINDINGS: HEMORRHAGE/INFARCT: There is no hemorrhage or acute infarct. MASSES/SHIFT: There is no mass or shift. EXTRA-AXIAL SPACES/MENINGES: There are no extra-axial fluid collections. SULCI AND VENTRICLES: The sulci and ventricles are normal in size and position for the patient's stated age. CEREBRUM: There is diffuse multifocal elevated T2/FLAIR signal within the periventricular and subcortical white matter. BRAINSTEM: There is elevated T2/FLAIR signal within the pontine white matter. CEREBELLUM: There are no focal parenchymal abnormalities. The cerebellar tonsils are normal in size and position. SELLA: The sella is normal. PINEAL: The pineal region is clear. CP ANGLE/TEMPORAL BONES: The labyrinthine structures are grossly normal. VESSELS: Normal flow-voids are noted within the visualized vertebral vasculature. DIFFUSION ABNORMALITIES: There are no diffusion abnormalities. PARANASAL SINUSES/MASTOIDS: The paranasal sinuses are clear. ORBITS: The orbits are unremarkable. BONES AND SOFT TISSUE: No bone or soft tissue abnormalities are noted. OTHER: None IMPRESSION: 1. ELEVATED T2/FLAIR SIGNAL WITHIN THE PERIVENTRICULAR, SUBCORTICAL, AND PONTINE WHITE MATTER. WHILE NONSPECIFIC, THE APPEARANCE IS SUGGESTIVE CHRONIC SMALL VESSEL ISCHEMIA. 2. NO RESTRICTED DIFFUSION TO SUGGEST ACUTE INFARCT. <Electronically signed by Brian Chandler MD in [place]> 12/29/171537 Dictated By: Brian Chandler MD Dictated Date/Time: 12/29/171537 Transcribed Date/Time: 12/29/171536 Assess/Plan/Problems-Billing Assessment: This is a 62 year old female with hx of CAD/CABG, DMII, HTN that presented to the ER with AMS in DKA, now resolved. Concern for cellulitis on LLE as precipitating cause. Will likely need rehab at discharge. - Patient Problems (1) Altered mental status Current Visit: Yes Status: Acute Code(s): R41.82 - ALTERED MENTAL STATUS, UNSPECIFIED SNOMED Code(s): 630494399 Comment: Resolved. Multifactorial encephalopathy, DKA, vs infection Occasional confusion likely due to delirium. MRI shows no infarct or acute pathology (2) Cellulitis Current Visit: Yes Status: Acute Code(s): L03.90 - CELLULITIS, UNSPECIFIED SNOMED Code(s): 133015017 Comment: Of LLE. Associated with previous fall with scrapes. Continue cephalexin 500 mg QID. Margins of pink area marked in pen 01/05. Doppler negative. CT LLE 01/03 showed only subcut edema c/w cellutlitis (3) Debility Current Visit: Yes Status: Acute Code(s): R53.81 - OTHER MALAISE SNOMED Code(s): 41403487 Comment: Plan on STR. There was some confusion about insurance coverage. Continue OT/PT. (4) Diabetes Current Visit: Yes Status: Acute Code(s): E11.9 - TYPE 2 DIABETES MELLITUS WITHOUT COMPLICATIONS SNOMED Code(s): 13716046 Comment: Resume home dose metformin 01/05 PM. Lantus increased to 42 U 01/05. (5) HTN (hypertension) Current Visit: Yes Status: Acute Code(s): I10 - ESSENTIAL (PRIMARY) HYPERTENSION SNOMED Code(s): 70206840 Comment: Continue metoprolol and lisinopril. Status and Disposition: Remain inpatient. Hopeful discharge to [facility] [place] Friday.
[2018-01-05] MEDS: metFORMIN* 1,000 MG TAB PO SCH (17:12)
[2018-01-05] MEDS ORDERED: Insulin GLARGINE(*) 1 UNITS UNIT SUBCUT SCH (18:00)
[2018-01-05] MEDS: Atorvastatin* 40 MG TAB PO SCH (21:54)
[2018-01-06] MEDS: Heparin VIAL(*) 5000 UNITS/ML VIAL (FIVE THOUSAND) SUBCUT SCH (05:20)
[2018-01-06] MEDS: Levothyroxine TAB* 100 MCG TAB PO SCH (05:20)
[2018-01-06] MEDS: Hydrocortisone 0.5% OINT* 1 APPLIC TUBE TOPICAL SCH (09:23)
[2018-01-06] MEDS: Cephalexin CAP* 500 MG PO SCH ×2 (09:23→12:28)
[2018-01-06] MEDS: Insulin LISPRO* 1 UNITS UNIT SUBCUT SCH ×2 (09:23→12:26)
[2018-01-06] MEDS: Aspirin EC TAB* 81 MG TAB.EC PO SCH (09:24)
[2018-01-06] MEDS: Metoprolol Tartrate TAB* 25 MG PO SCH (09:24)
[2018-01-06] MEDS: Lisinopril TAB* 5 MG PO SCH (09:24)
[2018-01-06] MEDS: Clopidogrel TAB* 75 MG PO SCH (09:24)
[2018-01-06] MEDS: metFORMIN* 1,000 MG TAB PO SCH (09:24)
[2018-01-06] MEDS ORDERED: Insulin GLARGINE(*) 1 UNITS UNIT SUBCUT SCH (12:12)
[2018-01-06 13:05] VITALS: BP 112/46
--- NOTE | 2018-01-06 13:17 | DS ---
CC: Dr. Chatman; Dr. Agapito Holt DATE OF ADMISSION: 12/28/2017. DATE OF DISCHARGE: 01/06/2018. DISCHARGE DIAGNOSES: 1. DKA, resolved. 2. Diabetes mellitus, improved control. 3. Altered mental status, multifactorial but predominantly likely due to number one, improving. 4. Cellulitis of the left lower extremity, improving. 5. History of hypertension. DISCHARGE MEDICATIONS: 1. Tylenol 650 mg p.o. q.6 prn. 2. Aspirin 81 mg p.o. daily. 3. Cephalexin 500 mg p.o. q.i.d., 40 capsules dispensed with 0 refills. 4. Insulin Glargine 47 units subcu q.24 hours. 5. Insulin Lispro sliding scale. 6. Lisinopril 5 mg tab p.o. daily. 7. Metformin 1,000 mg p.o. b.i.d. 8. Atorvastatin 40 mg p.o. daily. 9. Citalopram 20 mg p.o. at bedtime. 10. Gabapentin 300 mg p.o. at bedtime. 11. Floranex tablets two tabs p.o. daily. 12. Synthroid 100 mcg p.o. daily. 13. Menthol/Zinc Oxide ointment pack 7 gm topical t.i.d. 14. Metoprolol Tartrate one tab p.o. b.i.d. 15. Miconazole 0.002 gm topical b.i.d. 16. Nitroglycerin 0.4 mg tabs sublingual prn q.5 minutes, max of 3 per day, then contact PCP if any f urther dosing needs to be done. HISTORY OF PRESENT ILLNESS/HOSPITAL COURSE: The patient is a 62-year-old, lady with a hist ory of insulin dependent diabetes mellitus type 2, CAD status post CABG with a history of AK, as well as depression who was a poor historian on admission and according to her family has been acting very strange for the past four days prior to admission on 12/28/2017. Per her records, she handles and t akes care of her own medications; however, she mentioned that she ran out of insulin for at least fou r or five days. She became more confused on the day of admission leading to her presentation in the ED where she was found to be only responsive initially to painful stimuli and was then subsequently d iagnosed to have DKA which is thought to the primary cause of her altered mental status. Her mental status did significantly improve with the resolution of her DKA, but is felt to be multifactorial cachorro ng which is due to her polypharmacy as well as DKA, along with now newly diagnosed cellulitis during the course of her hospital evaluation. She had been treated with Cephalexin and per her documentatio ns has significantly improved since being diagnosed and should continue Cephalexin on discharge per Jodee Barraza's prescription. Her blood cultures drawn on 12/29/2017 showed no growth for five days. Prior to her discharge, she also expressed that she is depressed to the nursing staff, but denied any suicidal ideation nor homicidal ideation, and mentions that she does not think about "those things." Therefore, she will be started on Celexa at 20 mg p.o. daily and will defer with staff at [facility] to further titrate to effect upon DC. She had been advised to follow-up with her facility and/or [facility] care physician within three days post DC and to take her medications as prescribed. PHYSICAL EXAMINATION: General appearance: The patient is awake, not in acute distress. Most recent vital signs of record: Blood pressure 124/65, 98.1 degree Fahrenheit, 93 beats per minute heart rate , 20 per minute respiratory rate, saturating at 99 percent room air. HEENT: Normocephalic, atraumat ic. PERRLA. Extraocular muscles intact. Negative for icterus. Moist oral mucosa. Negative throat erythema. Neck: Soft, supple with no cervical lymphadenopathy, no JVD. Heart: S1, S2 within normal limits. Regular rate and rhythm. No murmurs, rubs, or gallops. Chest: Clear to auscultation bila terally. Good air entry. No wheezes, rales, or rhonchi. Abdomen: Soft, nondistended, nontender. N ormoactive bowel sounds times four. Extremities: No cyanosis or clubbing with mild edema in the left lower extremity, improving erythema and mildly tender to touch. Psychiatric: No active psychoses. She does feel depressed, but denies any history of suicidal or homicidal ideations. Skin: Warm to to [facility]. [id number]/[facility] #: [id number]
== END 2018-01-06 14:30 | DRG 637 ==
LOC: ED 10:10 → ICU 14:05 → MEDTELE 12-30 03:30
PROVIDERS: ADMIT Hospitalist; ATTEND Student in an Organized Health Care Education/Training Program
DX: E11.10 Type 2 diabetes mellitus with ketoacidosis without coma (principal); G93.49 Other encephalopathy; L97.129 Non-pressure chronic ulcer of left thigh with unspecified severity; L03.116 Cellulitis of left lower limb; N17.9 Acute kidney failure, unspecified; E11.622 Type 2 diabetes mellitus with other skin ulcer; F17.210 Nicotine dependence, cigarettes, uncomplicated; F32.9 Major depressive disorder, single episode, unspecified; E78.5 Hyperlipidemia, unspecified; E03.9 Hypothyroidism, unspecified; E66.9 Obesity, unspecified; F03.90 Unspecified dementia, unspecified severity, without behavioral disturbance, psychotic disturbance, mood disturbance, and anxiety; L98.499 Non-pressure chronic ulcer of skin of other sites with unspecified severity; I45.81 Long QT syndrome; E86.0 Dehydration; I25.10 Atherosclerotic heart disease of native coronary artery without angina pectoris; E11.65 Type 2 diabetes mellitus with hyperglycemia; T81.89XA Other complications of procedures, not elsewhere classified, initial encounter; Y83.2 Surgical operation with anastomosis, bypass or graft as the cause of abnormal reaction of the patient, or of later complication, without mention of misadventure at the time of the procedure; E11.22 Type 2 diabetes mellitus with diabetic chronic kidney disease; I12.9 Hypertensive chronic kidney disease with stage 1 through stage 4 chronic kidney disease, or unspecified chronic kidney disease; R53.81 Other malaise; T43.625A Adverse effect of amphetamines, initial encounter; N18.9 Chronic kidney disease, unspecified; Z79.82 Long term (current) use of aspirin; Z79.4 Long term (current) use of insulin; Z95.1 Presence of aortocoronary bypass graft; Z91.19 Patient's noncompliance with other medical treatment and regimen; Z80.3 Family history of malignant neoplasm of breast; Z82.49 Family history of ischemic heart disease and other diseases of the circulatory system; Z72.89 Other problems related to lifestyle; Z88.5 Allergy status to narcotic agent; I25.2 Old myocardial infarction; Z68.30 Body mass index [BMI] 30.0-30.9, adult
CPT/HCPCS: 36415; 70450; 70551; 71045; 80048; 80053; 80202; 80307; 80320; 80329; 81003; 81015; 82140; 82550; 82803; 82947; 83036; 83605; 83735; 84145; 84443; 84484; 85025; 85027; 85652; 86140; 87040; 87641; 93005; 99285; 99406; A9270-GY; G0480; G8978-GP-CM; G8979-GP-CJ; G8980-GP-CH; G8987-GO-CM; G8988-GO-CK; G8989-GO-CK; J0133; J0690; J0692; J1644; J1815; J2060; J3370; J3475; J3480; J3490

== ENCOUNTER 2018-01-13 14:11 | Emergency (ER) | payer MEDICARE, OTHER ==
[2018-01-13] MEDS ORDERED: Aspirin 81 mg CHEW TAB* 81 MG TAB.CHEW PO ONE (14:39)
--- NOTE | 2018-01-13 15:22 | ED ---
HPI Chest Pain - HPI Summary HPI Summary: Patient is a 62-year-old female who presents emergency department for chest pain. Patient was recently admitted to our hospital about 2 weeks ago and was discharged for rehabilitation to [facility] around 11:00 this afternoon she developed a sternal chest pressure. EMS was called and she was given 4 baby aspirin and nitroglycerin. Patient states that these medications improved her chest pain. In the ER she has no complaints other than feeling tired. Patient states she has not been sleeping well at the intermediate. She otherwise denies fever, recent illness, abdominal pain, vomiting, diarrhea. Past medical history of coronary artery disease, diabetes, hypertension, hypothyroidism, cholesterol. Symptoms are moderate in severity. No current modifying factors. - History of Current Complaint Chief Complaint: EDChestPainROMI Time Seen by Provider: 01/13/18 14:37 Hx Obtained From: Patient Pain Intensity: 1 - Additional Pertinent History Primary Care Physician: EMMETT - Allergy/Home Medications Allergies/Adverse Reactions: Allergies Allergy/AdvReac Type Severity Reaction Status Date / Time No Known Allergies Allergy Verified 12/28/17 10:36 Home Medications: Home Medications Aspirin EC TAB* [Ecotrin EC Low Dose 81 MG*] 81 mg PO DAILY 01/13/18 [History Confirmed 01/13/18] Atorvastatin* [Lipitor*] 40 mg PO DAILY 01/13/18 [History Confirmed 01/13/18] Gabapentin CAP(*) [Neurontin 300 CAP(*)] 300 mg PO BEDTIME 01/13/18 [History Confirmed 01/13/18] L. Acidophilus/L.bulgaricus [Floranex Tablet] 2 tab PO DAILY 01/13/18 [History Confirmed 01/13/18] Levothyroxine TAB* [Synthroid TAB*] 100 mcg PO DAILY 01/13/18 [History Confirmed 01/13/18] Lisinopril TAB* [Prinivil TAB*] 5 mg PO DAILY 01/13/18 [History Confirmed ] Metoprolol Tartrate TAB* [Lopressor TAB*] 25 mg PO BID 01/13/18 [History Confirmed 01/13/18] Miconazole TOPICAL CREAM 2%* [Monistat 2%*] 1 applic TOPICAL BID 01/13/18 [ History Confirmed 01/13/18] Nitroglycerin TAB 0.4 MG* 0.4 mg SL Q5M PRN 01/13/18 [History Confirmed 01/13/18 ] metFORMIN* [Glucophage 1000 MG TAB *] 1,000 mg PO BID 01/13/18 [History Confirmed 01/13/18] PMH/Surg Hx/FS Hx/Imm Hx Previously Healthy: Yes Endocrine/Hematology History: Reports: Hx Anticoagulant Therapy - plavix, Hx Diabetes, Hx Thyroid Disease Cardiovascular History: Denies: Hx Congestive Heart Failure, Hx Hypertension, Hx Pacemaker/ICD GI History: Reports: Hx Gastroesophageal Reflux Disease - not diagnosed History: Denies: Hx Renal Disease Sensory History: Reports: Hx Contacts or Glasses Denies: Hx Hearing Aid Opthamlomology History: Reports: Hx Contacts or Glasses Psychiatric History: Denies: Hx Panic Disorder - Surgical History Surgery Procedure, Year, and Place: PREV ABSCESS IN PELVIS SURGERY. CABG. BILATERAL KNEE 'SCOPES Infectious Disease History: No Infectious Disease History: Denies: Traveled Outside the [place] in Last 30 Days - Family History Known Family History: Positive: Unknown - unable to obtain due to AMS - Social History Occupation: Retired Lives: At [facility] Alcohol Use: Rare Alcohol Amount: once aweek Substance Use Type: Reports: None Smoking Status (MU): Current Some Day Smoker Review of Systems Constitutional: Negative Eyes: Negative ENT: Negative Positive: Chest Pain Negative: Shortness Of Breath, Cough Gastrointestinal: Negative Negative: Abdominal Pain, Vomiting, Diarrhea Genitourinary: Negative Neurological: Negative All Other Systems Reviewed And Are Negative: Yes Physical Exam Triage Information Reviewed: Yes Vital Signs On Initial Exam: Initial Vitals Temp Pulse Resp BP Pulse Ox 98.5 F 70 20 125/57 99 01/13/18 14:20 01/13/18 14:20 01/13/18 14:20 01/13/18 14:20 01/13/18 14:20 Vital Signs Reviewed: Yes Appearance: Positive: Well-Appearing - Pt. sitting up in bed in NAD. Confused at times., Well-Nourished Skin: Positive: Warm, Dry Head/Face: Positive: Normal Head/Face Inspection Eyes: Positive: Normal, EOMI Neck: Positive: Supple Respiratory/Lung Sounds: Positive: Clear to Auscultation, Breath Sounds Present Cardiovascular: Positive: Normal, RRR Abdomen Description: Positive: Nontender, Soft Musculoskeletal: Positive: Normal, Strength/ROM Intact. Negative: Edema Left, Edema Right Neurological: Positive: Normal, CN Intact II-III Psychiatric: Positive: Affect/Mood Appropriate Diagnostics - Vital Signs Vital Signs Temp Pulse Resp BP Pulse Ox 01/13/18 14:20 98.5 F 70 20 125/57 99 - Laboratory Result Diagrams: 01/13/18 15:20 01/13/18 15:20 Lab Statement: Any lab studies that have been ordered have been reviewed, and results considered in the medical decision making process. Chest Pain Course/Dx - Course Course Of Treatment: Pt. presenting to the ER for an episode of chest pain that has resolved. In the ER she has no complaints other than feeling tired. She is afebrile with stable vital signs. EKG done at 1517 shows a sinus rhythm of 64 bpm, normal axis, ischemic changes, no ST elevation or depression, similar to prior tracing. Chest xray negative for acute findings, per radiology. CBC shows slight anemia of H and H of 8.7 and 26. Slightly high K of 5.3. Initial troponin is negative. Results discussed with pt. Advised her we recommend admission for further given her history but pt. states she does not want to stay in the hospital and would prefer to go home. Pt. states she only came to the ER to get "checked out." Case discussed with Dr. Gerardo who recommends repeat trop and dc pt. back to [facility] if normal. Pt. will be signed out to Dm Bowers PA-C for troponin results and disposition. - Chest Pain Differential Diagnosis/HQI/PQRI: Acute MN, ACS, Angina, CHF, Chest Wall, Lower Respiratory Infection - Diagnoses Provider Diagnoses: Chest pain Discharge - Sign-Out/Discharge Documenting (check all that apply): Sign-Out Patient Signing out patient TO: Dm Bowers - Discharge Plan Referrals: Agapito Holt MD [Primary Care Provider] -
[2018-01-13 15:34] LABS: ABS Basophils 0.1 10^3/ul (0-0.2); ABS Eosinophils 0.2 10^3/ul (0-0.6); ABS Lymphocytes 2.8 10^3/ul (1.0-4.8); ABS Monocytes 0.5 10^3/ul (0-0.8); ABS Neutrophils 3.6 10^3/ul (1.5-7.7); ABS Nucleated RBC 0 10^3/ul; Eosinophil % 3.4 % (0-6); Hematocrit 26 % (35-47); Hemoglobin 8.7 g/dl (12.0-16.0); Lymphocyte % 38.7 % (25-47); Mean Corpuscular HGB Conc 33 g/dl (31-36); Mean Corpuscular Hemoglobin 30 pg (27-31); Mean Corpuscular Volume 89 fL (80-97); Mean Platelet Volume 8.8 um3 (7.4-10.4); Nucleated Red Blood Cells % 0; Platelet Count 291 10^3/ul (150-450); Red Blood Count 2.94 10^6/ul (4.00-5.40); Red Cell Distribution Width 16 % (10.5-15); White Blood Count 7.2 10^3/ul (3.5-10.8)
--- NOTE | 2018-01-13 15:55 | RAD ---
HISTORY: CP, chest pain, pressure COMPARISONS: December 28, 2017 VIEWS: 1: frontal portable view of the chest at 3:25 PM FINDINGS: LINES AND TUBES: None. CARDIOMEDIASTINAL SILHOUETTE: The cardiomediastinal silhouette is normal for portable technique. PLEURA: The costophrenic angles are sharp. No pleural abnormalities are noted. LUNG PARENCHYMA: The lungs are clear. ABDOMEN: The upper abdomen is clear. There is no subphrenic gas. BONES AND SOFT TISSUES: The patient is status post median sternotomy. IMPRESSION: NO ACTIVE CARDIOPULMONARY DISEASE.
[2018-01-13 16:05] LABS: EGFR Non-African American 45.4 (>60)
--- NOTE | 2018-01-13 18:53 | PN ---
Progress Note - Progress Note Date of Service: 01/13/18 Note: Patient signed out to me from Yoshi Gale. Plan was to discharge patient if second troponin was negative. Second troponin was negative, patient discharged back to [place] per recommendation of Yoshi Gale and Dr. Gerardo.
[2018-01-13 20:49] VITALS: BP 134/63
== END 2018-01-13 19:48 | disposition home or self-care (01) ==
LOC: ED 14:11
DX: R07.9 Chest pain, unspecified (principal); Z79.01 Long term (current) use of anticoagulants; Z72.0 Tobacco use
CPT/HCPCS: 36415; 71045; 80053; 83605; 83880; 84484; 85025; 85730; 93005; 96374; 99283

== ENCOUNTER 2018-02-03 14:12 | Observation (INO) | payer OTHER ==
--- NOTE | 2018-02-03 15:36 | ED ---
Syncope/Near Syncope - HPI Summary HPI Summary: This patient is a 62 year old F presenting to [facility] accompanied by her family with a chief complaint of sz since 1400. Pt has no memory of the incident. The episode was witnessed by her , who says that they were at a restaurant, and the pt started convulsing and became unresponsive. Pt collapsed and hit her head. Pt denies ever having similar sx. She endorses CP, SOB, and dyspnea. associated head trauma. Dyspnea at orthopnea. PMHx DM, blood sugar on scene was 55, and she became more alert after dextrose tablets. - History Of Current Complaint Chief Complaint: EDSyncope Time Seen by Provider: 02/03/18 14:47 Hx Obtained From: Patient, Family/Sales Management Intern Onset/Duration: Sudden Onset, Lasting Minutes, Still Present - SOB, CP, Resolved - syncope Timing: Constant Context: Witnessed, Loss Of Consciousness Activity At Onset: At Rest Associated Head Trauma: Yes Aggravating Factor(s): Nothing Alleviating Factor(s): Spontaneous Resolution Associated Signs And Symptoms: Chest Pain, Head Trauma (Recent), Seizure - convulsions, Shortness Of Breath, Weakness Frequency: Episodes x___ - 1 - Allergies/Home Medications Allergies/Adverse Reactions: Allergies Allergy/AdvReac Type Severity Reaction Status Date / Time docusate [From Colace] Allergy Unknown Verified 02/03/18 14:47 Reaction Details PMH/Surg Hx/FS Hx/Imm Hx Endocrine/Hematology History: Reports: Hx Anticoagulant Therapy - plavix, Hx Diabetes, Hx Thyroid Disease Cardiovascular History: Denies: Hx Congestive Heart Failure, Hx Hypertension, Hx Pacemaker/ICD GI History: Reports: Hx Gastroesophageal Reflux Disease - not diagnosed History: Denies: Hx Renal Disease Sensory History: Reports: Hx Contacts or Glasses Denies: Hx Deafness, Hx Hearing Aid Opthamlomology History: Reports: Hx Contacts or Glasses EENT History: Denies: Hx Deafness Psychiatric History: Denies: Hx Autism, Hx Panic Disorder, Hx Schizophrenia - Surgical History Surgery Procedure, Year, and Place: PREV ABSCESS IN PELVIS SURGERY. CABG. BILATERAL KNEE 'SCOPES Infectious Disease History: No Infectious Disease History: Denies: Traveled Outside the [place] in Last 30 Days - Family History Known Family History: Positive: Other - [place] - Social History Occupation: Works From/At Home Lives: With Family Alcohol Use: Occasionally Alcohol Amount: once aweek Substance Use Type: Reports: None Smoking Status (MU): Current Some Day Smoker Review of Systems Negative: Fever Positive: Chest Pain Positive: Shortness Of Breath Positive: no symptoms reported Positive: Weakness, Syncope All Other Systems Reviewed And Are Negative: Yes Physical Exam - Summary Physical Exam Summary: Appearance: The patient is obese in no acute distress and in no acute pain. Skin: The skin is warm and dry and skin color reflects adequate perfusion. HEENT: The head is normocephalic and atraumatic. The pupils are equal and reactive. The conjunctivae are clear and without drainage. Nares are patent and without drainage. Mouth reveals moist mucous membranes and the throat is without erythema and exudate. The external ears are intact. The ear canals are patent and without drainage. The tympanic membranes are intact. Neck: The neck is supple with full range of motion and non-tender. There are no carotid bruits. There is no neck vein distension. Respiratory: Chest is non-tender. Lungs are clear to auscultation and breath sounds are symmetrical and equal. Cardiovascular: Heart is regular rate and rhythm. There is no murmur or rub auscultated. There is no peripheral edema and pulses are symmetrical and equal. Abdomen: The abdomen is soft and non-tender. There are normal bowel sounds heard in all four quadrants and there is no organomegaly palpated. Musculoskeletal: There is no back tenderness noted. Extremities are non-tender with full range of motion. There is good capillary refill. There is no peripheral edema or calf tenderness elicited. Neurological: Patient is alert and oriented to person, place and time. The patient has symmetrical motor strength in all four extremities. Cranial nerves are grossly intact. Deep tendon reflexes are symmetrical and equal in all four extremities. Psychiatric: The patient has an appropriate affect and does not exhibit any anxiety or depression. Triage Information Reviewed: Yes Vital Signs On Initial Exam: Initial Vitals Temp Pulse Resp BP Pulse Ox 98.4 F 72 16 142/117 98 02/03/18 14:40 02/03/18 14:40 02/03/18 14:40 02/03/18 14:40 02/03/18 14:40 Vital Signs Reviewed: Yes Diagnostics - Vital Signs Vital Signs Temp Pulse Resp BP Pulse Ox 02/03/18 15:21 76 21 168/79 94 02/03/18 15:00 74 20 95 02/03/18 14:51 72 19 145/73 97 02/03/18 14:40 98.4 F 72 16 142/117 98 - Laboratory Lab Results: Lab Results 02/03/18 Range/Units 14:50 POC Glucose (mg/dL) 80 (70-100) mg/dL Result Diagrams: 02/03/18 16:06 02/03/18 16:06 Lab Statement: Any lab studies that have been ordered have been reviewed, and results considered in the medical decision making process. - Radiology CXR Xray Interpretation: No Acute Changes Radiology Interpretation Completed By: Radiologist - No active cardiopulmonary disease. Dr. Gerardo has reviewed this report. - EKG 1558 Cardiac Rate: NL - 75 EKG Rhythm: Sinus Rhythm ST Segment: Normal Ectopy: None EKG Interpretation: No STEMI Re-Evaluation - Re-Evaluation First Eval Re-Evaluation Time: 17:38 Change: Worse Comment: Per RN Perlita, pt was just incontinent and had a large volume of diarrhea. Course/Dx Course Of Treatment: Ms. Shon Sosa presented to the emergency department with her . He reported an episode that looked like to him like seizure. She does not remember the incident. She is diabetic and her blood sugar was 51 on initial blood draw. She was kept him on a monitor here with no ectopy or dysrhythmia. I'm not sure what happened she could've been syncopal or seizure- like activity, she could've been hypoglycemic with seizure-like activity or she could've had a seizure. I contacted the hospitalist for further evaluation and admission. - Diagnoses Provider Diagnoses: Syncope - Physician Notifications Discussed Care of Patient With: Mehul Sam Time Discussed With Above Provider: 19:25 Instructed by Provider To: Other - Accepts admission. - Critical Care Time Critical Care Time: 30-74 min Discharge - Sign-Out/Discharge Documenting (check all that apply): Patient Departure - admit - Discharge Plan Condition: Fair Disposition: ADMITTED TO [facility] Referrals: Agapito Holt MD [Primary Care Provider] - - Billing Disposition and Condition Condition: FAIR Disposition: Admitted to [facility] - Attestation Statements Document Initiated by Scribe: Yes Documenting Scribe: Paul Gibson Provider For Whom Scribe is Documenting (Include Credential): Dr. Clifton Gerardo MD Scribe Attestation: I, Paul Gibson, scribed for Dr. Clifton Gerardo MD on 02/03/18 at 2202. Scribe Documentation Reviewed: Yes Provider Attestation: The documentation as recorded by the scribe, Paul Gibson accurately reflects the service I personally performed and the decisions made by me, Dr. Clifton Gerardo MD
--- NOTE | 2018-02-03 15:53 | RAD ---
HISTORY: syncope COMPARISONS: January 13, 2018 VIEWS: 1: frontal portable view of the chest at 3:41 PM . The patient is slightly obliqued to the left. FINDINGS: LINES AND TUBES: None. CARDIOMEDIASTINAL SILHOUETTE: The cardiomediastinal silhouette is normal for portable technique. PLEURA: The costophrenic angles are sharp. No pleural abnormalities are noted. LUNG PARENCHYMA: The lungs are clear. ABDOMEN: The upper abdomen is clear. There is no subphrenic gas. BONES AND SOFT TISSUES: The patient is status post median sternotomy. IMPRESSION: NO ACTIVE CARDIOPULMONARY DISEASE.
[2018-02-03 16:11] LABS: ABS Basophils 0.1 10^3/ul (0-0.2); ABS Eosinophils 0.3 10^3/ul (0-0.6); ABS Lymphocytes 2.7 10^3/ul (1.0-4.8); ABS Monocytes 0.8 10^3/ul (0-0.8); ABS Neutrophils 5.6 10^3/ul (1.5-7.7); ABS Nucleated RBC 0 10^3/ul; Eosinophil % 2.8 % (0-6); Hematocrit 29 % (35-47); Hemoglobin 9.8 g/dl (12.0-16.0); Mean Corpuscular HGB Conc 33 g/dl (31-36); Mean Corpuscular Hemoglobin 28 pg (27-31); Mean Corpuscular Volume 85 fL (80-97); Mean Platelet Volume 8.6 um3 (7.4-10.4); Nucleated Red Blood Cells % 0; Platelet Count 272 10^3/ul (150-450); Red Blood Count 3.45 10^6/ul (4.00-5.40); Red Cell Distribution Width 16 % (10.5-15); White Blood Count 9.5 10^3/ul (3.5-10.8)
[2018-02-03 16:22] LABS: Urine Appearance Cloudy; Urine Blood Negative (Negative); Urine Color Yellow; Urine Ketones Negative (Negative); Urine Protein 1+(30 mg/dL) (Negative); Urine Red Blood Cell Trace(0-2/hpf) (Absent); Urine Specific Gravity 1.014 (1.010-1.030); Urine Urobilinogen Negative (Negative); Urine White Blood Cell 3+(>20/hpf) (Absent)
[2018-02-03 16:23] LABS: INR 0.95 (0.77-1.02)
[2018-02-03 16:29] LABS: EGFR Non-African American 51.8 (>60)
--- NOTE | 2018-02-03 21:19 | HP ---
H&P (Free Text) History and Physical: PCP: Nataly Holt MD Date/Time: 02/03/2018 2100 CC: syncope HPI: Mrs Shon Sosa is a 62YO female HX CAD/TN/3vCABG, DM2, HTN, HLD, hypothyroidism, & depression who was admitted to [facility] ED 12/28-01/06/2018 with discharge diagnoses of DKA, confusion, & cellulitis of LLE. She was discharged to senior care and has since returned to home. Today she and her had to take their grandson to an appointment causing her to take her insulin at ~0800 rather than 1000am. She did not eat breakfast and was sitting down at a restaurant with her family around noon for lunch when she "passed out" having some generalized shaking. She does recall a non-radiating chest pressure without SOB, N/V, palpitations, light-headedness, or sweating. She denies F/C, loss of bowel/bladder control, or other issues. When EMS arrived her BS was found to be 55 and she was given 25g IV dextrose with resultant resolution of symptoms. She has been monitored in ED without incidence and without further treatment. Current glucose is 195. PMedHx CAD/TN/3vCABG DM2 HTN HLD hypothyroidism depression Ambulatory Orders Menthol/Zinc Oxide [Calmoseptine Ointment Packet] 7 gm TOPICAL TID 12/30/17 Acetaminophen TAB* [Tylenol TAB*] 650 mg PO Q6H PRN tab 01/02/18 Insulin LISPRO* [HumaLOG*] 0 units SUBCUT ACHS unit 01/02/18 Citalopram TAB* [CeleXA TAB*] 20 mg PO BEDTIME 30 Days #30 tab 01/06/18 Insulin GLARGINE(*) [Lantus(*)] 47 units SUBCUT Q24H 30 Days #10 unit 01/06/18 Aspirin EC TAB* [Ecotrin EC Low Dose 81 MG*] 81 mg PO DAILY 01/13/18 Atorvastatin* [Lipitor*] 40 mg PO DAILY 01/13/18 Gabapentin CAP(*) [Neurontin 300 CAP(*)] 300 mg PO BEDTIME 01/13/18 L. Acidophilus/L.bulgaricus [Floranex Tablet] 2 tab PO DAILY 01/13/18 Levothyroxine TAB* [Synthroid TAB*] 100 mcg PO DAILY 01/13/18 Lisinopril TAB* [Prinivil TAB*] 5 mg PO DAILY 01/13/18 Metoprolol Tartrate TAB* [Lopressor TAB*] 25 mg PO BID 01/13/18 Miconazole TOPICAL CREAM 2%* [Monistat 2%*] 1 applic TOPICAL BID 01/13/18 Nitroglycerin TAB 0.4 MG* 0.4 mg SL Q5M PRN 01/13/18 metFORMIN* [Glucophage 1000 MG TAB *] 1,000 mg PO BID 01/13/18 Allergies docusate [From Colace] Allergy (Verified 02/03/18 14:47) Unknown Reaction Details PSurgHx 3vCABG SocHx: active social smoker, occasional ETOH, no recreational drugs; lives with ; full code status FamHx: Mother passed at 72 2nd breast CA. Father passed at 79 of unknown cause. ROS: as above, otherwise reviewed and all were negative vitals: Vital Signs Temp 36.9 C 02/03/18 14:40 Pulse 82 02/03/18 19:00 Resp 17 02/03/18 19:00 BP 135/76 02/03/18 18:51 Pulse Ox 96 02/03/18 19:00 Intake & Output 02/02/18 02/03/18 02/03/18 23:59 11:59 23:59 Weight 83.461 kg Constitutional: NAD, normally developed, obese white female HEENM: atraumatic; sclera/conjunctiva: anicteric/clear; hearing: clinically intact; oropharynx: clear, mucosa moist Neck: soft tissue: no nuchal rigidity; thyroid: normal, non-tender Pulmonary: clear L, scant R basilar (dependent) crackle, fair aeration, no accessory muscle use CV: RR/RR, normal S1S2, no carotid bruit, no jugular venous distention, 2+ B DP/ PT, no edema Abdominal: soft, non-distended, non-tender, no rebound/guarding/rigidity, normoactive bowel sounds, no hepatosplenomegaly or masses, no costovertebral angle tenderness Musculoskeletal: general: grossly intact, non-tender Integumental: scattered pink macular spots BLE consistent with healed neurodermatitis Psychiatric orientation: AA&O to PPS affect: calm mood: cooperative eye contact: good content: seemingly reliable memory: sparse relating to event responses: timely insight: fair Testing: Lab Results 02/03/18 02/03/18 02/03/18 Range/Units 14:50 16:06 16:06 WBC 9.5 (3.5-10.8) 10^3/ul RBC 3.45 L (4.00-5.40) 10^6/ul Hgb 9.8 L (12.0-16.0) g/dl Hct 29 L (35-47) % MCV 85 (80-97) fL MCH 28 (27-31) pg MCHC 33 (31-36) g/dl RDW 16 H (10.5-15) % Plt Count 272 (150-450) 10^3/ul MPV 8.6 (7.4-10.4) um3 Neut % (Auto) 59.5 (38-83) % Lymph % (Auto) 29.0 (25-47) % Dickey % (Auto) 8.1 H (0-7) % Eos % (Auto) 2.8 (0-6) % Baso % (Auto) 0.6 (0-2) % Absolute Neuts (auto) 5.6 (1.5-7.7) 10^3/ul Absolute Lymphs (auto) 2.7 (1.0-4.8) 10^3/ul Absolute Monos (auto) 0.8 (0-0.8) 10^3/ul Absolute Eos (auto) 0.3 (0-0.6) 10^3/ul Absolute Basos (auto) 0.1 (0-0.2) 10^3/ul Absolute Nucleated RBC 0 10^3/ul Nucleated RBC % 0 INR (Anticoag Therapy) 0.95 (0.77-1.02) D-Dimer, Quantitative 290 H (Less Than 230) ng/mL Sodium (135-145) mmol/L Potassium (3.5-5.0) mmol/L Chloride (101-111) mmol/L Carbon Dioxide (22-32) mmol/L Anion Gap (2-11) mmol/L BUN (6-24) mg/dL Creatinine (0.51-0.95) mg/dL Est GFR ( Amer) (>60) Est GFR (Non-Af Amer) (>60) BUN/Creatinine Ratio (8-20) Glucose (70-100) mg/dL POC Glucose (mg/dL) 80 (70-100) mg/dL Lactic Acid (0.5-2.0) mmol/L Calcium (8.6-10.3) mg/dL Magnesium (1.9-2.7) mg/dL Total Bilirubin (0.2-1.0) mg/dL AST (13-39) U/L ALT (7-52) U/L Alkaline Phosphatase (34-104) U/L Troponin I (<0.04) ng/mL B-Natriuretic Peptide ( - 100) pg/mL Total Protein (6.4-8.9) g/dL Albumin (3.2-5.2) g/dL Globulin (2-4) g/dL Albumin/Globulin Ratio (1-3) TSH (0.34-5.60) mcIU/mL Urine Color Urine Appearance Urine pH (5-9) Ur Specific [place] (1.010-1.030) Urine Protein (Negative) Urine Ketones (Negative) Urine Blood (Negative) Urine Nitrate (Negative) Urine Bilirubin (Negative) Urine Urobilinogen (Negative) Ur Leukocyte Esterase (Negative) Urine WBC (Auto) (Absent) Urine RBC (Auto) (Absent) Ur Squamous Epith Cells (Absent) Urine Bacteria (Absent) Urine Yeast (Absent) Urine Glucose (Negative) 02/03/18 02/03/18 02/03/18 Range/Units 16:06 16:06 16:06 WBC (3.5-10.8) 10^3/ul RBC (4.00-5.40) 10^6/ul Hgb (12.0-16.0) g/dl Hct (35-47) % MCV (80-97) fL MCH (27-31) pg MCHC (31-36) g/dl RDW (10.5-15) % Plt Count (150-450) 10^3/ul MPV (7.4-10.4) um3 Neut % (Auto) (38-83) % Lymph % (Auto) (25-47) % Dickey % (Auto) (0-7) % Eos % (Auto) (0-6) % Baso % (Auto) (0-2) % Absolute Neuts (auto) (1.5-7.7) 10^3/ul Absolute Lymphs (auto) (1.0-4.8) 10^3/ul Absolute Monos (auto) (0-0.8) 10^3/ul Absolute Eos (auto) (0-0.6) 10^3/ul Absolute Basos (auto) (0-0.2) 10^3/ul Absolute Nucleated RBC 10^3/ul Nucleated RBC % INR (Anticoag Therapy) (0.77-1.02) D-Dimer, Quantitative (Less Than 230) ng/mL Sodium 141 (135-145) mmol/L Potassium 4.6 (3.5-5.0) mmol/L Chloride 109 (101-111) mmol/L Carbon Dioxide 24 (22-32) mmol/L Anion Gap 8 (2-11) mmol/L BUN 24 (6-24) mg/dL Creatinine 1.07 H (0.51-0.95) mg/dL Est GFR ( Amer) 62.7 (>60) Est GFR (Non-Af Amer) 51.8 (>60) BUN/Creatinine Ratio 22.4 H (8-20) Glucose 51 L (70-100) mg/dL POC Glucose (mg/dL) (70-100) mg/dL Lactic Acid 2.3 H* (0.5-2.0) mmol/L Calcium 9.0 (8.6-10.3) mg/dL Magnesium 1.3 L (1.9-2.7) mg/dL Total Bilirubin 0.30 (0.2-1.0) mg/dL AST 12 L (13-39) U/L ALT 10 (7-52) U/L Alkaline Phosphatase 92 (34-104) U/L Troponin I 0.01 (<0.04) ng/mL B-Natriuretic Peptide 352 H ( - 100) pg/mL Total Protein 6.8 (6.4-8.9) g/dL Albumin 3.7 (3.2-5.2) g/dL Globulin 3.1 (2-4) g/dL Albumin/Globulin Ratio 1.2 (1-3) TSH 2.24 (0.34-5.60) mcIU/mL Urine Color Urine Appearance Urine pH (5-9) Ur Specific [place] (1.010-1.030) Urine Protein (Negative) Urine Ketones (Negative) Urine Blood (Negative) Urine Nitrate (Negative) Urine Bilirubin (Negative) Urine Urobilinogen (Negative) Ur Leukocyte Esterase (Negative) Urine WBC (Auto) (Absent) Urine RBC (Auto) (Absent) Ur Squamous Epith Cells (Absent) Urine Bacteria (Absent) Urine Yeast (Absent) Urine Glucose (Negative) 02/03/18 02/03/18 Range/Units 16:12 18:16 WBC (3.5-10.8) 10^3/ul RBC (4.00-5.40) 10^6/ul Hgb (12.0-16.0) g/dl Hct (35-47) % MCV (80-97) fL MCH (27-31) pg MCHC (31-36) g/dl RDW (10.5-15) % Plt Count (150-450) 10^3/ul MPV (7.4-10.4) um3 Neut % (Auto) (38-83) % Lymph % (Auto) (25-47) % Dickey % (Auto) (0-7) % Eos % (Auto) (0-6) % Baso % (Auto) (0-2) % Absolute Neuts (auto) (1.5-7.7) 10^3/ul Absolute Lymphs (auto) (1.0-4.8) 10^3/ul Absolute Monos (auto) (0-0.8) 10^3/ul Absolute Eos (auto) (0-0.6) 10^3/ul Absolute Basos (auto) (0-0.2) 10^3/ul Absolute Nucleated RBC 10^3/ul Nucleated RBC % INR (Anticoag Therapy) (0.77-1.02) D-Dimer, Quantitative (Less Than 230) ng/mL Sodium (135-145) mmol/L Potassium (3.5-5.0) mmol/L Chloride (101-111) mmol/L Carbon Dioxide (22-32) mmol/L Anion Gap (2-11) mmol/L BUN (6-24) mg/dL Creatinine (0.51-0.95) mg/dL Est GFR ( Amer) (>60) Est GFR (Non-Af Amer) (>60) BUN/Creatinine Ratio (8-20) Glucose (70-100) mg/dL POC Glucose (mg/dL) 107 H (70-100) mg/dL Lactic Acid (0.5-2.0) mmol/L Calcium (8.6-10.3) mg/dL Magnesium (1.9-2.7) mg/dL Total Bilirubin (0.2-1.0) mg/dL AST (13-39) U/L ALT (7-52) U/L Alkaline Phosphatase (34-104) U/L Troponin I (<0.04) ng/mL B-Natriuretic Peptide ( - 100) pg/mL Total Protein (6.4-8.9) g/dL Albumin (3.2-5.2) g/dL Globulin (2-4) g/dL Albumin/Globulin Ratio (1-3) TSH (0.34-5.60) mcIU/mL Urine Color Yellow Urine Appearance Cloudy Urine pH 5.0 (5-9) Ur Specific [place] 1.014 (1.010-1.030) Urine Protein 1+(30 mg/dl) A (Negative) Urine Ketones Negative (Negative) Urine Blood Negative (Negative) Urine Nitrate Negative (Negative) Urine Bilirubin Negative (Negative) Urine Urobilinogen Negative (Negative) Ur Leukocyte Esterase 1+ A (Negative) Urine WBC (Auto) 3+(>20/hpf) A (Absent) Urine RBC (Auto) Trace(0-2/hpf) (Absent) Ur Squamous Epith Cells Present A (Absent) Urine Bacteria Absent (Absent) Urine Yeast Present A (Absent) Urine Glucose 2+(150 mg/dl) A (Negative) ECG, personally reviewed: NSR rate 75, no ischemia, Q-waves III/AVF CXR, personally reviewed: IMPRESSION: NO ACTIVE CARDIOPULMONARY DISEASE. Impression: 62F HX CAD/TN/3vCABG, DM2, HTN, HLD, hypothyroidism, & depression presenting with hypoglycemia complicated by syncope and chest pain DIAGNOSIS & PLAN Primary DM2 w/ hypoglycemia in setting of early insulin administration and skipping breakfast : resolved, Q4H glucometry x2 : A1c 14.06 December 2017 : insulin carb ratio diet, ACHS glucometry w/ basal/bolus/correctional insulin in AM : hold metformin syncope : likely 2nd hypoglycemia : check ECHO in AM : telemetry chest pain w/ HX CAD/TN/3vCABG : telemetry : give 324mg aspirin now : give metoprolol 12.5mg PO now : recheck troponin now (~6H after initial) : consider outpatient stress test w/i 1 month of discharge if work up negative Secondary HTN : continue lisinopril & metoprolol HLD : continue atorvastatin hypothyroidism : continue levothyroxine depression : continue citalopram Admission Rational: observation for hypoglycemia, syncope work up, & chest pain r/o DVTp: SCDs & heparin SQ Code Status: full HCP:
[2018-02-03] MEDS ORDERED: Aspirin 81 mg CHEW TAB* 81 MG TAB.CHEW PO ONE (21:59)
[2018-02-03] MEDS ORDERED: Metoprolol Tartrate TAB* 25 MG PO ONE (22:00)
[2018-02-03] MEDS ORDERED: Aspirin 81 mg CHEW TAB* 81 MG TAB.CHEW ONE (22:02)
[2018-02-03] MEDS ORDERED: Metoprolol Tartrate TAB* 25 MG ONE (22:02)
[2018-02-04] MEDS ORDERED: Magnesium Sulfate IV* 3 GM in NS 0.9% 100 ML* 100 ML IVPB ONE (01:00)
[2018-02-04] MEDS ORDERED: hydrALAZINE IV* 20 MG/ML VIAL IV SLOW PU PRN (04:17)
[2018-02-04 05:50] LABS: Hematocrit 28 % (35-47); Hemoglobin 9.4 g/dl (12.0-16.0); Mean Corpuscular HGB Conc 33 g/dl (31-36); Mean Corpuscular Hemoglobin 28 pg (27-31); Mean Corpuscular Volume 85 fL (80-97); Mean Platelet Volume 9.1 um3 (7.4-10.4); Platelet Count 246 10^3/ul (150-450); Red Blood Count 3.32 10^6/ul (4.00-5.40); Red Cell Distribution Width 16 % (10.5-15); White Blood Count 7.7 10^3/ul (3.5-10.8)
[2018-02-04] MEDS ORDERED: Levothyroxine TAB* 100 MCG TAB PO SCH (06:00)
[2018-02-04] MEDS ORDERED: Pneumococcal *Vac Polyvalent 0.5 ML VIAL IM ONE (09:00)
[2018-02-04] MEDS ORDERED: Aspirin EC TAB* 81 MG TAB.EC PO SCH (09:00)
[2018-02-04] MEDS ORDERED: Metoprolol Tartrate TAB* 25 MG PO SCH (09:00)
[2018-02-04] MEDS ORDERED: Lisinopril TAB* 5 MG PO SCH (09:00)
[2018-02-04] MEDS ORDERED: Atorvastatin* 40 MG TAB PO SCH (09:00)
[2018-02-04] MEDS: Insulin LISPRO* 1 UNITS UNIT SUBCUT SCH ×4 (09:27→13:33)
[2018-02-04 12:25] VITALS: BP 174/55
--- NOTE | 2018-02-04 15:15 | ECHO ---
Patient: JESUS ABRAMS [facility] Rec#: [id number] : 1955 Date: 02/04/2018 Age: 62y Height: 157.5 cm / 62.0 in Weight: 83.5 kg / 184.0 lbs Sex: F BSA: 1.9 Room#: 439 Admit Date#: 02/03/2018 Type: Inpatient Referring: Mehul Sam MD Reading: Alonzo Cloud MD Asset Management Analyst: Ammy Montiel RN RDCS CC: Agapito Holt MD Transthoracic Echocardiogram Indication: Syncope, chest pain BP: 159/56 HR: 68 Rhythm: NSR Findings History: CAD, MN, CABG, HTN, HLD, DM, hypothyroid, smoker, obesity Technical Comments: The study quality is fair. The study is technically limited due to patient body habitus. Left Ventricle: The left ventricular chamber size is normal. Moderate concentric left ventricular hypertrophy is observed. Global left ventricular wall motion and contractility are within normal limits. There is normal left ventricular systolic function. The estimated ejection fraction is 55-60%. Ventricular septal wall motion has a post-operative appearance. Abnormal left ventricular diastolic filling is observed, consistent with impaired relaxation. Left Atrium: The left atrium is moderately dilated. Right Ventricle: The right ventricular chamber size and systolic function are within normal limits. Right Atrium: The right atrial cavity size is normal. Aortic Valve: The aortic valve is trileaflet. The aortic valve leaflets are mildly thickened. There is a trace of aortic regurgitation. There is no evidence of aortic stenosis. Mitral Valve: The mitral valve leaflets are mildly thickened. There is mild mitral regurgitation. There is no evidence of mitral stenosis. Tricuspid Valve: The tricuspid valve leaflets are normal. There is trace to mild tricuspid regurgitation. There is evidence of mild pulmonary hypertension. There is no tricuspid stenosis. Pulmonic Valve: The pulmonic valve appears normal. There is a trace pulmonic regurgitation. There is no pulmonic stenosis. Pericardium: There is no significant pericardial effusion. A pericardial fat pad is visualized. Aorta: There is mild dilatation of the ascending aorta. There is no dilatation of the aortic arch. There is no dilation of the aortic root. Pulmonary Artery: The main pulmonary artery appears normal. Venous: The inferior vena cava appears normal in size. There is a greater than 50% respiratory change in the inferior vena cava dimension. Summary: There are changes noted when compared to the previous study done on 12/12/2011, AI is new. PHTN is new. Dilated ascending aorta is new. Conclusions The left ventricular chamber size is normal. Moderate concentric left ventricular hypertrophy is observed. The estimated ejection fraction is 55-60%. Ventricular septal wall motion has a post-operative appearance. Abnormal left ventricular diastolic filling is observed, consistent with impaired relaxation. The left atrium is moderately dilated. There is a trace of aortic regurgitation. There is mild mitral regurgitation. There is trace to mild tricuspid regurgitation. There is evidence of mild pulmonary hypertension. There is a trace pulmonic regurgitation. There is mild dilatation of the ascending aorta. Measurements Name Value Normal Range RVIDd (AP) 2D 2.4 cm (0.9 - 2.6) RVDdMajor (2D) 4.2 cm (2.2 - 4.4) RAd ISD 4CH 4.9 cm (3.4 - 4.9) RA (A4C)W 4.2 cm (2.9 - 4.6) IVSd (2D) 1.5 cm (0.6 - 1) LVPWd (2D) 1.3 cm (0.6 - 1) LVIDd (2D) 4.7 cm (3.6 - 5.4) LVIDs (2D) 3.2 cm - LV FS (2D) 32 % (25 - 45) Aortic Annulus 2.1 cm (1.4 - 2.6) Ao root diameter (2D) 3 cm (2.1 - 3.5) Ascending Ao 3.6 cm (2.1 - 3.4) Aortic arch 2.8 cm (1.8 - 3.4) LA dimension (AP) 2D 3.9 cm (2.3 - 3.8) LAd ISD 4CH 5.4 cm (2.9 - 5.3) LA ISD 4CH W 4.4 cm (2.5 - 4.5) Name Value Normal Range LA ESV SP 4CH (A/L) 84 ml - LA ESV SP 2CH (A/L) 86 ml - LA ESV BP (A/L) 87 ml - LA ESV BP (A/L) index 47 ml/m2 - LA ESV SP 4CH (MOD) 77 ml - LA ESV SP 2CH (MOD) 83 ml - Name Value Normal Range MV E-wave Vmax 0.99 m/sec - MV deceleration time 205 msec - MV A-wave Vmax 0.78 m/sec - MV E:A ratio 1.3 ratio - LV septal e' Vmax 0.06 m/sec - LV lateral e' Vmax 0.09 m/sec - LV E:e' septal ratio 16.5 ratio - LV E:e' lateral ratio 11 ratio - Name Value Normal Range AV Vmax 1.6 m/sec - AV VTI 38.2 cm - AV peak gradient 11 mmHg - AV mean gradient 6 mmHg - LVOT Vmax 1.2 m/sec - LVOT VTI 26.8 cm - LVOT peak gradient 6 mmHg - LVOT mean gradient 4 mmHg - REHAN Vmax 0.74 m/sec - Name Value Normal Range TR Vmax 2.9 m/sec - TR peak gradient 34 mmHg - RAP 3 mmHg - RVSP 37 mmHg - IVC diameter 2 cm - Name Value Normal Range PV Vmax 0.94 m/sec -
[2018-02-04] MEDS ORDERED: Gabapentin CAP(*) 300 MG PO SCH (21:00)
[2018-02-04] MEDS ORDERED: Insulin GLARGINE(*) 1 UNITS UNIT SUBCUT SCH (21:00)
[2018-02-04] MEDS ORDERED: Citalopram TAB* 20 MG PO SCH (21:00)
--- NOTE | 2018-02-04 21:53 | DS ---
CC: Dr. Holt * DISCHARGE SUMMARY: DATE OF ADMISSION: 02/03/18 DATE OF DISCHARGE: 02/04/18 PRIMARY CARE PROVIDER: Dr. Agapito Holt. ATTENDING FOR THIS ADMISSION: Dr. Sam. MY ATTENDING FOR TODAY: Dr. Shaun Pederson.* (DICTATED BY SAMMIE HINSON NP) HOSPITAL COURSE: This is a pleasant 62-year-old female patient, well known to our service, had been recently hospitalized over the last month, was discharged to [facility], spent a week in subacute rehab and then was subsequently discharged to home. This week, the patient stated she had been feeling well and not having any issues; however, she took her insulin at 8 in the morning and then did not sit down for breakfast until past 10 o'clock. The patient said she had a syncopal episode. The said he noted what he felt was seizure like activity before she passed out; however, she was found to be hypoglycemic. She recalls being lightheaded and dizzy, but does not remember anything after that. She had no loss of bowel or bladder. She did not have a postictal period. She was given 25 g IV of dextrose when her blood sugar was found to be 55. EMS administered dextrose, she woke up and was feeling okay and was held in the emergency department for observation. We decided to observe for overnight given that she had a recent hospitalization, we wanted to ensure that the patient did not have any further episodes. We also performed an echocardiogram of the heart. She does have some cardiac history, which did not show any acute changes or pathologies. No wall motion abnormalities. The patient is feeling well, ambulatory this morning. She denies any fever, fatigue , or chills. No headache, no dizziness, no shortness of breath. No chest pain. No nausea, vomiting or diarrhea. No urinary incontinence and no further constitutional complaints. PHYSICAL EXAMINATION: Today, vital signs, blood pressure 152/55, heart rate 72 , respiratory rate 20, O2 saturation 96% on room air with a temperature of 98.2. HEENT: The patient is atraumatic, normocephalic. PERRLA with nonicteric sclerae. Neck is supple, nontender. No JVD noted. No carotid bruits auscultated. Cardiovascular: S1, S2 present. No murmurs, gallops, or rubs. Rate and rhythm are currently regularly. Lungs are clear throughout the lung flores, slightly diminished at the bases with no adventitious breath sounds. Abdomen is soft, nontender, nondistended, moderately obese. Positive bowel sounds in all 4 quadrants. No organomegaly noted. is deferred. Musculoskeletal: There is no clubbing, no cyanosis, and no pedal edema. She has +2 distal pulses palpable. Full range of motion, steady gait. Neurologic: She is currently alert and oriented x4. Cranial nerves intact. She has no focalities. Psychiatric: She is cooperative and appropriate. LABORATORY DATA: WBCs 7.7, RBCs 3.32, hemoglobin 9.4, hematocrit 28, platelets 246. Sodium 140, potassium 4.1, chloride 112, CO2 21, BUN 24, creatinine 1.00, glucose has been ranging between 133 and 202. Calcium 8.4. Magnesium 2.3. Troponin was negative at 0.01. BNP with some mild elevation at 352. TSH was 2.24. IMAGING: The patient had a chest x-ray at admission because her BNP was slightly elevated; however, there was no active cardiopulmonary disease. She does not appear to be in failure. Transthoracic echocardiogram was also performed. Conclusions on her echo are left ventricular chamber size is normal. EF of 55% to 60%. Some moderate concentric left ventricular hypertrophy is observed. Ventricular septal wall motion has a postoperative appearance. She has some abnormal left ventricular diastolic filling consistent with impaired relaxation. The left atrium is moderately dilated. There was a trace of aortic regurg, mild mitral regurg, trace to mild tricuspid regurg. Evidence of mild pulmonary hypertension, trace pulmonic regurg and mild dilatation of the ascending aorta. DISCHARGE DIAGNOSES: 1. Hypoglycemia secondary to poor p.o. intake. 2. Syncopal episode secondary to hypoglycemia. 3. History of coronary artery disease and myocardial infarction status post 3- vessel CABG. 4. Diabetes mellitus, insulin dependent. 5. Hypertension. 6. History of hyperlipidemia. 7. History of hypothyroidism. 8. History of depression. MEDICATIONS FOR DISCHARGE: Include: 1. Lantus 47 units q.24 hours. 2. Gabapentin 300 mg at bedtime. 3. Celexa 20 mg at bedtime. 4. Lipitor 40 mg daily. 5. Aspirin 81 mg daily. 6. Tylenol 650 mg q.6 as needed. 7. Miconazole topical treatment 2 times a day as needed. 8. Metoprolol tartrate 25 mg 2 times a day. 9. Calmoseptine 7 g topical 3 times a day. 10. Lisinopril 5 mg daily. 11. Levothyroxine 100 mcg p.o. daily. 12. Acidophilus probiotic 2 tabs p.o. daily. 13. Metformin 1000 mg 2 times a day. 14. Nitroglycerin 0.4 mg q.5 minutes as needed. DISPOSITION: I had a long conversation with the patient about her insulin regimen. It appears that the patient took her insulin, did not eat and has been giving herself long-acting insulin prior to meals. The patient had been receiving diabetes mellitus education; however, she states she was placed on sliding scale insulin when she [facility] in the [facility], which did not make sense to her and I believe she was taking the wrong insulin dose. For now, I am taking the patient off sliding scale. Her sugars have been well controlled on long-acting only and we have set her up for an appointment with Dr. Agapito Holt for followup on her insulin regimen. Her A1c was quite elevated back in November, so I do feel that the patient would benefit from some closer management with her plsql developer, so for now we will continue the patient on her long- acting and also on her oral medication her metformin; however, we will stay away from giving her sliding scale at this point until she can get in to see Dr. Holt. The patient is agreeable to this plan. She also states her understanding that when she does take her long acting insulin, she agrees to have meals more regularly and continue to check her blood sugars throughout the day. I encouraged the patient to write down her numbers, so when she goes to see her plsql developer, she will be able to show him where her numbers are at. The patient is agreeable to this plan. I also explained this to her , who is at bedside, and they are both in agreement with the plan of care. The patient will be discharged to home. She is in stable condition. She states her understanding of her discharge instructions and medications and followups when she gets home. SAMMIE HINSON, MALIKA [id number]/[facility] #: [id number] ROMIE
== END 2018-02-04 17:00 | disposition home or self-care (01) ==
LOC: ED 14:12 → MEDTELE 22:00
PROVIDERS: ADMIT Hospitalist; ATTEND Internal Medicine
DX: E11.649 Type 2 diabetes mellitus with hypoglycemia without coma (principal); Z79.4 Long term (current) use of insulin; R55 Syncope and collapse; R07.9 Chest pain, unspecified; I25.10 Atherosclerotic heart disease of native coronary artery without angina pectoris; I10 Essential (primary) hypertension; Z95.1 Presence of aortocoronary bypass graft; I25.2 Old myocardial infarction; E78.5 Hyperlipidemia, unspecified; E03.9 Hypothyroidism, unspecified; F32.9 Major depressive disorder, single episode, unspecified; Z79.899 Other long term (current) drug therapy; Z79.01 Long term (current) use of anticoagulants; Z88.8 Allergy status to other drugs, medicaments and biological substances; Z23 Encounter for immunization; F17.210 Nicotine dependence, cigarettes, uncomplicated; R94.31 Abnormal electrocardiogram [ECG] [EKG]; I51.7 Cardiomegaly
CPT/HCPCS: 36415; 71045; 80048; 80053; 81003; 81015; 83605; 83735; 83880; 84443; 84484; 85025; 85027; 85379; 85610; 87086; 90732; 93005; 93306; 96365; 96366; 96375; 99285; A9270-GY; G0378; J0360; J3475

== ENCOUNTER 2018-08-29 13:21 | Inpatient (IN) | payer OTHER ==
[2018-08-29] MEDS ORDERED: NS 0.9% 1000 ML** 1,000 ML IV ONE ×3 (13:31→17:35)
--- NOTE | 2018-08-29 13:36 | ED ---
Neurological HPI - HPI Summary HPI Summary: This patient is a 62 year old F brought in by EMS with a chief complaint of unresponsiveness since 2 days ago. The patient rates the pain 4/10 in severity. Patient reports sadness, rash on breasts, abdominal fold rash, groin rash, fever , and decreased appetite. The patient was brought to the ED from her home, where she has been unresponsive for two days. She has been sitting in the same chair the entire time, defecating and urinating on herself. She has also not had any food or drink for two days. The patient has not eaten or drank for days. She is responsive to painful stimuli only. PMHX Diabetes. SHX . - History of Current Complaint Stated Complaint: UNRESPONSIVE Time Seen by Provider: 08/29/18 13:25 Hx Obtained From: EMS Hx From Patient Unobtainable Due To: Other - unresponsive Onset/Duration: Started days ago - 2 Pain Intensity: 4 Pain Scale Used: 0-10 Numeric Character: Responsiveness - unresponsive Associated Signs and Symptoms: Positive: Decreased Level of Consciousness, Incontinent Bladder/Bowel, Fever - Additional Pertinent History Primary Care Physician: EMMETT - Allergy/Home Medications Allergies/Adverse Reactions: Allergies Allergy/AdvReac Type Severity Reaction Status Date / Time docusate [From Colace] Allergy Unknown Verified 02/03/18 14:47 Reaction Details Home Medications: Home Medications Clopidogrel 75 mg PO DAILY 08/29/18 [History Confirmed 08/29/18] buPROPion SR TAB* 150 mg PO BID 08/29/18 [History Confirmed 08/29/18] PMH/Surg Hx/FS Hx/Imm Hx Endocrine/Hematology History: Reports: Hx Anticoagulant Therapy - plavix, Hx Diabetes, Hx Thyroid Disease Cardiovascular History: Reports: Hx Coronary Artery Disease Denies: Hx Congestive Heart Failure, Hx Hypertension, Hx Pacemaker/ICD GI History: Reports: Hx Gastroesophageal Reflux Disease - not diagnosed History: Denies: Hx Renal Disease Sensory History: Reports: Hx Contacts or Glasses - pt does not have glasses with her Denies: Hx Cataracts, Hx Deafness, Hx Hearing Aid Opthamlomology History: Reports: Hx Contacts or Glasses - pt does not have glasses with her Denies: Hx Cataracts Psychiatric History: Reports: Hx Depression Denies: Hx Autism, Hx Panic Disorder, Hx Schizophrenia - Surgical History Surgery Procedure, Year, and Place: PREV ABSCESS IN PELVIS SURGERY. CABG. BILATERAL KNEE 'SCOPES Infectious Disease History: Reports: Hx Clostridium Difficile - approx 2 years ago, Hx of Known/Suspected MRSA - 12/28/17 nasal swab Denies: Traveled Outside the [place] in Last 30 Days - Family History Known Family History: Positive: Other - [place] - Social History Lives: With Family Alcohol Use: Occasionally Alcohol Amount: once aweek Substance Use Type: Reports: None Smoking Status (MU): Current Some Day Smoker Type: Cigarettes Have You Smoked in the Last Year: Yes Review of Systems Positive: Fever Positive: Other - fecal matter everywhere, hasn't eaten for days Positive: incontinence Positive: Rash - groin, under breasts, under abdominal folds Neurological: Other - unresponsive Positive: Depressed - crying in the ED All Other Systems Reviewed And Are Negative: Yes Physical Exam - Summary Physical Exam Summary: Appearance: Lethargic, Skin: warm, dry, reflects adequate perfusion. Rash of groin and breast. Head/face: normal Eyes: EOMI, ROWENA ENT: dry mucus membranes Neck: supple, non-tender Respiratory: rhonchi lf base Cardiovascular: Tachycardic, pulses symmetrical Abdomen: non-tender, soft Musculoskeletal: pulse b/l Neuro: confused and unable to follow commands at present. GCS: 5 Triage Information Reviewed: Yes Vital Signs Reviewed: Yes Diagnostics - Laboratory Result Diagrams: 09/02/18 09:24 09/04/18 05:32 Lab Statement: Any lab studies that have been ordered have been reviewed, and results considered in the medical decision making process. - Radiology CXR Radiology Interpretation Completed By: Radiologist Summary of Radiographic Findings: Bilateral pneumonia greatest at the LEFT mid to lower lung zone. Probable coexisting pulmonary vascular congestion. ED physician has reviewed this report - CT Brain CT Interpretation Completed By: Radiologist Summary of CT Findings: No acute intracranial process evident. Mild involutional change and stigmata of chronic small vessel ischemic disease. ED physician has reviewed this report. Abd/Pelvis CT Interpretation Completed By: Radiologist Summary of CT Findings: LEFT worse than RIGHT bibasilar pneumonia. Distended gallbladder without additional CT abnormality may reflect prolonged fasting state. Negative for biliary dilatation. Severe rectal distention with formed stool. Negative for bowel obstruction. Decompressed IVC indicating lower volume state. ED physician has reviewed this report. - EKG 14:31 Cardiac Rate: Tachycardia - 130 bpm EKG Rhythm: Sinus Tachycardia Summary of EKG Findings: No acute changes. Course/Dx - Course Course Of Treatment: This patient is a 62 year old F brought in by EMS with a chief complaint of unresponsiveness since 2 days ago. The patient rates the pain 4/10 in severity. Patient reports sadness, rash on breasts, abdominal fold rash, groin rash, fever, and decreased appetite. The patient was brought to the ED from her home, where she has been unresponsive for two days. She has been sitting in the same chair the entire time, defecating and urinating on herself. An EKG reveals Sinus tachycardia 130 bpm, no acute changes. CXR reveals, per radiologist, Bilateral pneumonia greatest at the LEFT mid to lower lung zone. Probable coexisting pulmonary vascular congestion. CT A/P reveals, per radiologist, LEFT worse than RIGHT bibasilar pneumonia. Distended gallbladder without additional CT abnormality may reflect prolonged fasting state. Negative for biliary dilatation. Severe rectal distention with formed stool. Negative for bowel obstruction. Decompressed IVC indicating lower volume state. CT Brain reveals, per radiologist, No acute intracranial process evident. Mild involutional change and stigmata of chronic small vessel ischemic disease. Bloodwork/UA obtained. In the ED course the patient was given IV fluids, Vancomycin, Acetaminophen, and Ceftriaxone. Rule out DKA. We discussed patient care with Dr. Rai, hospitalist, and they recommended admission. - Diagnoses Provider Diagnoses: Delirium, Multilobar lung infiltrate, Renal failure, UTI (urinary tract infection), Sepsis - Physician Notifications Discussed Care Of Patient With: Brad Rai Time Discussed With Above Provider: 15:05 Instructed by Provider To: Admit As Inpatient - Critical Care Time Critical Care Time: 30-74 min Discharge - Sign-Out/Discharge Documenting (check all that apply): Patient Departure - admission Patient Received Moderate/Deep Sedation with Procedure: No - Discharge Plan Condition: Improved Disposition: ADMITTED TO [facility] - Billing Disposition and Condition Condition: IMPROVED Disposition: Admitted to [facility] - Attestation Statements Document Initiated by Scribe: Yes Documenting Scribe: Federico Sanchez Provider For Whom Scribe is Documenting (Include Credential): Rogelio Armstrong MD Scribe Attestation: Federico Villa, scribed for Rogelio Armstrong MD on 04/22/19 at 1618. Scribe Documentation Reviewed: Yes Provider Attestation: The documentation as recorded by the scribe, Federico Sanchez accurately reflects the service I personally performed and the decisions made by me, Rogelio Armstrong MD Status of Scribmarion Document: Viewed
[2018-08-29] MEDS ORDERED: Acetaminophen SUPP* 650 MG SUPP PR ONE (13:48)
[2018-08-29] MEDS ORDERED: cefTRIAXone(*) 2 GM in NS 0.9% 100 ML* 100 ML IVPB ONE (13:52)
[2018-08-29 14:03] LABS: Hematocrit 33 % (33-41); Hemoglobin 10.6 g/dL (12.0-16.0); Mean Corpuscular HGB Conc 32 g/dL (31-36); Mean Corpuscular Hemoglobin 28 pg (27-31); Mean Corpuscular Volume 86 fL (80-97); Mean Platelet Volume 9.6 fL (7.4-10.4); Platelet Count 225 10^3/uL (150-450); Red Blood Count 3.81 10^6 /uL (3.70-4.87); Red Cell Distribution Width 16 % (10.5-15); White Blood Count 9.3 10^3/uL (3.5-10.8)
[2018-08-29 14:08] LABS: INR 1.16 (0.77-1.02)
[2018-08-29 14:19] LABS: ALT 9 U/L (7-52); AST 15 U/L (13-39); Albumin 3.2 g/dL (3.2-5.2); Albumin/Globulin Ratio 0.9 (1-3); Alkaline Phosphatase 107 U/L (34-104); Anion Gap 15 mmol/L (2-11); BUN/Creatinine Ratio 38.7 (8-20); Blood Urea Nitrogen 87 mg/dL (6-24); CO2 Carbon Dioxide 16 mmol/L (22-32); Calcium 8.9 mg/dL (8.6-10.3); Chloride 106 mmol/L (101-111); Creatine Kinase 210 U/L (10-223); EGFR African American 26.6 (>60); Globulin 3.5 g/dL (2-4); Glucose 204 mg/dL (70-100); Magnesium 1.3 mg/dL (1.9-2.7); Potassium 4.3 mmol/L (3.5-5.0); Sodium 137 mmol/L (135-145); Total Protein 6.7 g/dL (6.4-8.9)
[2018-08-29 14:21] LABS: ABS Basophils 0 10^3/ul (0-0.2); ABS Eosinophils 0 10^3/ul (0-0.6); ABS Lymphocytes 0.3 10^3/ul (1.0-4.8); ABS Monocytes 0 10^3/ul (0-0.8); ABS Neutrophils 8.9 10^3/ul (1.5-7.7); Troponin I 0.02 ng/mL (<0.04)
[2018-08-29 14:25] LABS: Immature Granulocytes 10 % (0-9); Lymphocytes % 6 %; Metamyelocytes % 2 % (0-2); Monocytes % 3 %; Myelocytes % 2 % (0-1); Neutrophil % 80 %
[2018-08-29 14:28] LABS: ABS Neutrophils 8.4 10^3/ul (1.5-7.7)
[2018-08-29 14:29] LABS: ABS Basophils 0.1 10^3/ul (0-0.2)
[2018-08-29 14:44] LABS: Acetaminophen < 15 mcg/mL; Alcohol < 10 mg/dL (<10); Salicylate < 2.50 mg/dL (<30)
[2018-08-29 14:47] LABS: TSH (Thyroid Stimulating Horm) 4.57 mcIU/mL (0.34-5.60)
[2018-08-29] MEDS: NS 0.9% 1000 ML** 1,000 ML IV SCH ×2 (14:56→21:02)
[2018-08-29 14:57] LABS: Urine Appearance Turbid; Urine Bacteria Absent (Absent); Urine Bilirubin Negative (Negative); Urine Blood 1+ (Negative); Urine Color Amber; Urine Glucose Negative (Negative); Urine Ketones Negative (Negative); Urine Nitrite Negative (Negative); Urine Protein 1+(30 mg/dL) (Negative); Urine Red Blood Cell 3+(>10/hpf) (Absent); Urine Specific Gravity 1.019 (1.010-1.030); Urine Urobilinogen Negative (Negative); Urine White Blood Cell 3+(>20/hpf) (Absent)
[2018-08-29] MEDS ORDERED: Vancomycin(*) 1,000 MG VIAL IVPB SCH (15:00)
[2018-08-29 15:13] LABS: Barbiturates Urine Screen None Detected (None Detect); Benzodiazepine Urine Screen None Detected (None Detect); Urine Cannabinoids Screen None Detected (None Detect)
[2018-08-29] MEDS ORDERED: Vancomycin 1500 MG IV - x ONCE IVPB ONE ×2 (15:30)
[2018-08-29] MEDS ORDERED: Magnesium Sulfate IV* 3 GM in NS 0.9% 100 ML* 100 ML IVPB ONE (15:40)
[2018-08-29] MEDS ORDERED: NS 0.9% 1000 ML** 1,000 ML IV SCH (16:15)
[2018-08-29] MEDS ORDERED: Dextrose 50% Syringe 50 ML* 25 GM/50 ML SYRINGE IV PUSH PRN (16:30)
[2018-08-29] MEDS ORDERED: Metoprolol Tartrate IV* 1 MG/ML 5 ML VIAL IV PRN ×2 (17:11→17:37)
[2018-08-29] MEDS ORDERED: Metoprolol Tartrate IV* 1 MG/ML 5 ML VIAL ONE (17:12)
[2018-08-29] MEDS ORDERED: Vancomycin per Pharmacy* NOTE FOLLOW UP PRN (17:14)
[2018-08-29 17:22] LABS: Troponin I 0.02 ng/mL (<0.04)
[2018-08-29] MEDS: Insulin LISPRO* 1 UNITS UNIT SUBCUT SCH ×2 (18:17→22:29)
[2018-08-29] MEDS: Azithromycin IV(*) 500 MG in NS 0.9% 250 ML* 250 ML IVPB SCH (19:52)
[2018-08-29] MEDS ORDERED: Acetaminophen SUPP* 650 MG SUPP PR PRN (20:15)
[2018-08-29 20:41] LABS: Troponin I 0.03 ng/mL (<0.04)
--- NOTE | 2018-08-29 21:24 | HP ---
HISTORY AND PHYSICAL: ADDENDUM: HISTORY OF PRESENT ILLNESS: I spoke to the patient's on the phone, I was able to reach him this evening. He reports that the patient stopped eating yesterday. He does report that she hides her meds at times, so it is unclear whether or not she takes her medications. He also reports that she has had a cough x3 days. He denies any fever. He reports that yesterday she was too weak and unable to get her up. So, they were unable to toilet her. He also reports that yesterday she started having visual hallucinations of seeing ants and bugs and due to the increased weakness, he brought her to the emergency room. The patient's reports that she has had no medication adjustments in approximately 3 to 4 years. DARRYL ESPINO, MALIKA [id number]/[facility] #: [id number] [facility] CENTERJodee
[2018-08-29] MEDS: Metoprolol Tartrate IV* 1 MG/ML 5 ML VIAL IV PRN (22:29)
[2018-08-29] MEDS: Heparin VIAL(*) 5000 UNITS/ML VIAL (FIVE THOUSAND) SUBCUT SCH (22:30)
--- NOTE | 2018-08-29 23:01 | HP ---
ADDENDUM NOW INCLUDED ON THIS REPORT HISTORY AND PHYSICAL: DATE OF ADMISSION: 08/29/18 PRIMARY CARE PROVIDER LISTED: Dr. Agapito Holt. ATTENDING PHYSICIAN WHILE IN THE HOSPITAL: Dr. Brad Rai * (dictated by Hamida Blackburn NP). CHIEF COMPLAINT: Altered mental status. HISTORY OF PRESENT ILLNESS: History of present illness was obtained from old records and emergency room record. Ms. Shon Sosa is a 62-year-old female , who was brought by EMS with chief complaint of unresponsiveness since 2 days ago. Family reports that the patient's said she has a rash on her breast , abdominal folds, groin, a fever and decreased appetite. The patient was brought from her home where she has been unresponsive for the past 2 days. She has been sitting in the same chair the entire time, defecating and urinating on herself. She has also not had any food or drink for 2 days. On admission to the emergency room, she was only responsive to painful stimuli. While in the emergency room, the patient was found to have a fever of 101.4. She was tachycardic on arrival with the heart rate in the 130s. She was found to be meeting sepsis criteria. She did have a chest x-ray that showed bilateral lower lobe pneumonia, right worse than left. Due to the patient's altered mental status, meeting sepsis criteria with known source of bilateral lower lobe pneumonia and suspected UTI. We were asked to see and evaluate the patient for admission. I spoke to the patient's on the phone, I was able to reach him this evening. He reports that the patient stopped eating yesterday. He does report that she hides her medications at times, so it is unclear whether or not she takes her medications. He also reports that she has had a cough x3 days. He denies any fever. He reports that yesterday she was too weak and unable to get her up. So, they were unable to toilet her. He also reports that yesterday she started having visual hallucinations of seeing ants and bugs and due to the increased weakness, he brought her to the emergency room. The patient's reports that she has had no medication adjustments in approximately 3 to 4 years. PAST MEDICAL HISTORY: Past medical history was obtained from her old records. The patient has a history of coronary artery disease with an NC and 3-vessel CABG, history of diabetes type 2, hypertension, hypothyroid, depression. PAST SURGICAL HISTORY: She has a history of three-vessel CABG, unknown if other surgical history due to the patient's level of consciousness. MEDICATIONS: Home medications were obtained from pill bottles brought in by her . 1. Oxybutynin 5 mg p.o. b.i.d. 2. Clopidogrel 75 mg p.o. daily. 3. Bupropion SR tablets 150 mg p.o. b.i.d. 4. Venlafaxine ER 150 mg p.o. b.i.d. 5. Levothyroxine 200 mcg p.o. daily. 6. Atorvastatin 40 mg p.o. daily. 7. Aspirin 81 mg p.o. daily. 8. Acetaminophen 650 mg q.6 hours as needed. 9. Menthol zinc oxide 7 g topically t.i.d. 10. Lactobacillus 2 tabs p.o. daily. 11. Lantus 47 units subcu q.24 hours. 12. Neurontin 300 mg p.o. b.i.d. 13. Metformin 1000 mg p.o. b.i.d. 14. Nitroglycerin 0.4 sublingual q.5 minutes as needed for pain. 15. Miconazole topically b.i.d. 16. Metoprolol 25 mg p.o. b.i.d. ALLERGIES: Allergies to DOCUSATE unknown reaction. FAMILY HISTORY: Family history was obtained from prior medical record from 2018. There was no reported history of coronary artery disease. Mother of breast cancer at the age of 72. Father at 79 of unknown causes. The patient has a known family history of coronary artery disease and the patient has no other known family history. SOCIAL HISTORY: Social history was obtained from her prior records. The patient is a longtime smoker. She drinks alcohol occasionally. No illicit drug use. She is retired. She lives with her . According to her old records, her surrogate decision maker would be her , Man Sosa. REVIEW OF SYSTEMS: No family is present, unable to obtain from the patient. PHYSICAL EXAMINATION GENERAL: At this time, the patient is a 62-year-old female, who is responsive to painful stimuli with moaning with incomprehensible noises, resting on the stretcher in the emergency room, in no acute distress. VITAL SIGNS: Temperature was 99.3, heart rate 123, respirations 20, O2 saturation 94%, blood pressure was 152/63. HEENT: Head is atraumatic, normocephalic. Eyes: Pupils are 3 mm and reactive to light. Nasal mucosa is moist. Mucous membranes are dry. She does have scabbed areas noted to the left side of her face without surrounding erythema. NECK: Supple, nontender. There is no JVD. LUNGS: Diminished bilaterally with scattered rhonchi in the bases bilaterally. CARDIAC: She is tachycardic. There is no murmurs, rubs or gallops. ABDOMEN: Soft. There is no grimacing with palpation. She does have active bowel sounds in all 4 quadrants that are hypoactive. She has no suprapubic tenderness with palpation. She does have a Stout catheter in place that is draining cloudy yellow urine. NEUROLOGIC: The patient is responsive only to painful stimuli. Her pupils are equal and reactive and round. She is able to move all 4 extremities. SKIN: The patient does have red excoriation noted to her groin and under bilateral breasts. DIAGNOSTIC STUDIES/LAB DATA: WBCs are 9.3, RBCs 3.81, hemoglobin 10.6, hematocrit was 33, platelet count was 225, absolute neutrophils were 8.9, lymphs were 0.3. INR was 1.16. ABG, pH was 7.35, pCO2 was 25, pO2 was 64, O2 saturation 92.6%. Sodium 137, potassium 4.3, chloride 106, carbon dioxide was 16 , anion gap was 15, BUN was 87, creatinine 2.25, glucose was 204. Lactic acid was 1.9. Calcium 8.9. Magnesium 1.3. ASTs were 15, ALTs were 19, alkaline phosphatase was 107. TSH was 4.57. Ammonia level was 34. CK was 210. Troponin was 0.[address] of the brain radiologist's impression: No acute intracranial process is evident. Mild involutional change, stigmata for chronic small vessel ischemic disease. She had a chest x-ray, radiologist's impression: Bilateral pneumonia , greatest at the left mild to lower lung zone, probable coexisting pulmonary vascular congestion. She had a CT of the pelvis and abdomen, radiologist's impression: Left worse than right bibasilar pneumonia just under gallbladder without additional CT abnormality, may reflect prolonged fasting state, negative for biliary dilations, severe rectal distention with formed stool, negative for bowel obstruction, decompressed IVC indicating lower volume state. She had an electrocardiogram, which showed ST depression in lead I, V5, and V6. ASSESSMENT AND PLAN: Ms. Shon Sosa is a 62-year-old female with past medical history significant for coronary artery disease, NC with status post coronary artery bypass graft, 3-vessel disease, diabetes, hypertension, hypothyroid, and depression, who presented to the emergency room with complaints of altered mental status. She will be admitted inpatient to the ICU for: 1. Sepsis. She meets sepsis criteria with tachycardia, elevated temperature of 101.4, respirations of 25 with a known source of bilateral lower lobe pneumonia, left greater than right. She was given fluid resuscitation in the emergency room, 30 mL/kg. She was given antibiotic ceftriaxone 2 g and vancomycin. She had blood cultures ordered. Sputum cultures have been ordered. Urine culture is currently pending. I will place her on ICU on telemetry. We will continue to monitor her. 2. Hypoxic respiratory failure related to pneumonia. The patient when originally admitted to the emergency room, she was found to have O2 saturation in the 80s on room air. I suspect that her decrease in saturation is related to her bilateral lower lobe pneumonia. She was placed on 2 L via face mask and was able to make oxygen saturation between 92% and 96%. We will continue her on ceftriaxone and azithromycin for treatment of her pneumonia. She can have albuterol nebulizers as needed for shortness of breath or wheezing. She has blood cultures that are currently pending. I will order a sputum culture and continue with IV hydration. 3. Acute kidney injury. I suspect this is related to dehydration, as the patient has not had any food or fluids in 2 days according to family and emergency room record. She did have 3 L of saline in the emergency room and another bolus was ordered for a total of 4 L of saline. I will continue hydration at 100 cc per hour. Repeat BMP and CBC in the a.m. 4. Tachycardia. I suspect her tachycardia is related to her sepsis, respiratory failure, and dehydration. The patient did receive hydration in the emergency room. I did give her 2.5 mg of metoprolol as the patient has not taken her regular dose of metoprolol on several days. We will continue metoprolol 2.5 mg every 6 hours for heart rate greater than 120. 5. Hypomagnesia. The patient had a magnesium level 1.3 on initial blood work. She was given 3 g of magnesium in the emergency room. I will repeat mag level in the a.m. 6. Altered mental status. I suspect her altered mental status is related to her sepsis, hypoxic respiratory failure, and dehydration as the patient has not had anything to eat or drink in the past couple of days. We will continue to monitor her neurological status after hydration. 7. Diabetes. I will place her on fingersticks q.4 hours with lispro sliding scale. I am going to hold her Lantus, metformin, and glipizide at this time, as the patient is unresponsive and unable to take oral medications. 8. History of coronary artery disease. The patient did have troponins, which have been negative during this hospitalization. We will continue to monitor on telemetry. We resume her cardiac medications when able. 9. Hypothyroid. I will continue her levothyroxine 100 mcg IV daily and switch her back to p.o. when able. 10. Hypertension. We will resume metoprolol p.o. when the patient is able to take p.o., I will continue her metoprolol IV at this time. 11. Depression. The patient is currently taking venlafaxine and Wellbutrin, the combination can cause increased levels of venlafaxine in the system. The family has reported that the patient has recently had been having hallucinations since Friday of seeing bugs and ants eating baby kittens. I suspect her hallucinations could be related to her sepsis and hypoxic respiratory failure, but also within the differential, this could be related to the combination of Wellbutrin and venlafaxine, as the patient is on a large dose of venlafaxine at 150 mg b.i.d. 12. DVT prophylaxis. I will place her on heparin subcu. 13. Code status. She is a full code. 14. Disposition. The patient will be placed on ICU. TIME SPENT: Time spent on this admission was 75 minutes, greater than half the time was spent reviewing old records, performing my physical exam, and implementing my plan of care. I have discussed with my attending, Dr. Brad Rai, he is in agreement with my plan. HAMIDA BLACKBURN, DIVISION SUPERVISOR [id number]/[facility] #: [id number]/[facility] #: [id number] [facility]
[2018-08-30] MEDS: Insulin LISPRO* 1 UNITS UNIT SUBCUT SCH ×6 (04:02→21:33)
[2018-08-30] MEDS: Metoprolol Tartrate IV* 1 MG/ML 5 ML VIAL IV PRN ×2 (05:16→13:51)
[2018-08-30] MEDS: Levothyroxine INJ* 100 MCG/5 ML VIAL IV SCH (05:16)
[2018-08-30] MEDS: Heparin VIAL(*) 5000 UNITS/ML VIAL (FIVE THOUSAND) SUBCUT SCH ×3 (05:16→21:29)
[2018-08-30] MEDS: GuaiFENesin DM* 5 ML UDC PO PRN ×3 (05:36→21:29)
[2018-08-30] MEDS: NS 0.9% 1000 ML** 1,000 ML IV SCH ×2 (05:38→16:11)
[2018-08-30] MEDS ORDERED: Vancomycin Random Level* NOTE FOLLOW UP ONE (06:00)
[2018-08-30 06:15] LABS: Hematocrit 31 % (33-41); Hemoglobin 10.1 g/dL (12.0-16.0); Mean Corpuscular HGB Conc 33 g/dL (31-36); Mean Corpuscular Hemoglobin 28 pg (27-31); Mean Corpuscular Volume 86 fL (80-97); Mean Platelet Volume 9.4 fL (7.4-10.4); Platelet Count 189 10^3/uL (150-450); Red Blood Count 3.59 10^6 /uL (3.70-4.87); Red Cell Distribution Width 16 % (10.5-15); White Blood Count 8.1 10^3/uL (3.5-10.8)
[2018-08-30 06:29] LABS: BUN/Creatinine Ratio 43.1 (8-20); Calcium 8.4 mg/dL (8.6-10.3); EGFR African American 50.1 (>60); EGFR Non-African American 41.4 (>60); Potassium 3.2 mmol/L (3.5-5.0)
[2018-08-30 06:41] LABS: ABS Basophils 0 10^3/ul (0-0.2); ABS Eosinophils 0 10^3/ul (0-0.6); ABS Lymphocytes 0.3 10^3/ul (1.0-4.8); ABS Monocytes 0.1 10^3/ul (0-0.8); ABS Neutrophils 7.6 10^3/ul (1.5-7.7); ABS Nucleated RBC 0 10^3/ul; Eosinophil % 0.1 %; Lymphocyte % 4.2 %; Nucleated Red Blood Cells % 0
[2018-08-30 07:59] LABS: Influenza A Molecular NEGATIVE (Negative); Influenza B Molecular NEGATIVE (Negative)
[2018-08-30] MEDS: Potassium Chloride LIQUID* 20 MEQ PACKET PO ONE ×2 (08:56→09:18)
[2018-08-30] MEDS: Vancomycin(*) 1,000 MG in NS 0.9% 250 ML* 250 ML IVPB SCH ×2 (08:56→16:11)
[2018-08-30] MEDS ORDERED: KCL 20 MEQ/100 ML IVPREMIX* 20 MEQ/100 ML BAG ONE (09:47)
[2018-08-30] MEDS: KCL 20 MEQ/100 ML IVPREMIX* 20 MEQ/100 ML BAG IV SCH ×2 (09:56→12:01)
[2018-08-30] MEDS ORDERED: fentaNYL* 50 MCG/ML 2 ML VIAL (100 MCG VIAL) ONE (11:43)
[2018-08-30] MEDS ORDERED: fentaNYL* 50 MCG/ML 2 ML VIAL (100 MCG VIAL) IV PRN (11:46)
[2018-08-30] MEDS: cefTRIAXone(*) 1 GM in NS 0.9% 50 ML* 50 ML IVPB SCH (13:52)
[2018-08-30] MEDS ORDERED: Vancomycin(*) 0 MG in NS 0.9% 250 ML* 250 ML IVPB SCH (17:00)
[2018-08-30] MEDS: Azithromycin IV(*) 500 MG in NS 0.9% 250 ML* 250 ML IVPB SCH (18:23)
--- NOTE | 2018-08-30 19:28 | PN ---
Subjective Date of Service: 08/30/18 Interval History: Pt moaning.Admitted overnight.Altered mental status Objective Active Medications: Acetaminophen (Tylenol Supp*) 650 mg IN Q6H PRN PRN Reason: FEVER/PAIN Dextrose (D50w Syringe 50 Ml*) 12.5 gm IV PUSH .FOR FS < 60 - SS PRN PRN Reason: FS < 60 Fentanyl Citrate (Fentanyl*) 25 mcg IV Q3H PRN PRN Reason: PAIN Last Admin: 08/30/18 15:05 Dose: 25 mcg Guaifenesin/Dextromethorphan (Robitussin Dm*) 5 ml PO Q4H PRN PRN Reason: COUGH Last Admin: 08/30/18 13:51 Dose: 5 ml Heparin Sodium (Porcine) (Heparin Vial(*)) 5,000 units SUBCUT Q8HR [facility] Last Admin: 08/30/18 13:51 Dose: 5,000 units Sodium Chloride (Ns 0.9% 1000 Ml) 1,000 mls @ 100 mls/hr IV PER RATE [facility] Last Admin: 08/30/18 16:11 Dose: 100 mls/hr Sodium Chloride (Ns 0.9% 1000 Ml) 1,000 mls @ 100 mls/hr IV PER RATE [facility] Ceftriaxone Sodium 1 gm/ (Sodium Chloride) 50 mls @ 200 mls/hr IVPB Q24H [facility] Last Admin: 08/30/18 13:52 Dose: 200 mls/hr Azithromycin 500 mg/ Sodium (Chloride) 250 mls @ 250 mls/hr IVPB Q24H [facility] Last Admin: 08/30/18 18:23 Dose: 250 mls/hr Vancomycin HCl 1,000 mg/ (Sodium Chloride) 250 mls @ 166.667 mls/hr IVPB Q8H [facility] Last Admin: 08/30/18 16:11 Dose: 166.667 mls/hr Potassium Chloride (Potassium Chloride 10 Meq/50 Ml Ivpremix*) 10 meq in 50 mls @ 50 mls/hr IV Q2H [facility] Stop: 08/30/18 22:59 Insulin Human Lispro (Humalog*) 0 units SUBCUT Q4HR [facility]; Protocol Last Admin: 08/30/18 18:18 Dose: Not Given Levothyroxine Sodium (Synthroid Inj*) 100 mcg IV 0600 [facility] Last Admin: 08/30/18 05:16 Dose: 100 mcg Metoprolol Tartrate (Lopressor Iv*) 5 mg IV Q6H PRN PRN Reason: HEART RATE/PULSE GREATER THAN: Last Admin: 08/30/18 13:51 Dose: 5 mg Pharmacy Consult (Vancomycin Per Pharmacy*) 1 note FOLLOW UP . PRN PRN Reason: PER PROTOCOL Pharmacy Profile Note (Vancomycin Trough Check) 1 note FOLLOW UP ONCE ONE Stop: 08/31/18 07:31 Vital Signs - 8 hr 08/30/18 08/30/18 08/30/18 11:46 11:50 12:00 Temperature 98.2 F Pulse Rate Respiratory 21 24 21 Rate Blood Pressure (mmHg) O2 Sat by Pulse Oximetry 08/30/18 08/30/18 08/30/18 12:01 12:16 12:30 Temperature 98.2 F 98.6 F 97.9 F Pulse Rate 123 Respiratory 30 20 26 Rate Blood Pressure 163/94 162/87 (mmHg) O2 Sat by Pulse 92 95 92 Oximetry 08/30/18 08/30/18 08/30/18 13:00 13:01 14:00 Temperature 97.9 F 97.9 F 98.6 F Pulse Rate Respiratory 22 18 32 Rate Blood Pressure 167/87 (mmHg) O2 Sat by Pulse 91 91 95 Oximetry 08/30/18 08/30/18 08/30/18 14:01 15:00 15:05 Temperature 98.6 F 98.6 F Pulse Rate 107 Respiratory 19 19 17 Rate Blood Pressure 162/108 (mmHg) O2 Sat by Pulse 95 95 Oximetry 08/30/18 08/30/18 08/30/18 15:11 15:14 16:00 Temperature 98.6 F 98.6 F 98.2 F Pulse Rate Respiratory 21 18 20 Rate Blood Pressure 190/109 175/96 160/104 (mmHg) O2 Sat by Pulse 93 93 91 Oximetry 08/30/18 08/30/18 08/30/18 17:00 17:01 17:57 Temperature 98.4 F 98.4 F Pulse Rate Respiratory 23 17 23 Rate Blood Pressure 154/87 (mmHg) O2 Sat by Pulse 89 88 Oximetry 08/30/18 08/30/18 08/30/18 18:00 18:01 18:02 Temperature 98.2 F 98.2 F Pulse Rate 114 112 Respiratory 20 22 23 Rate Blood Pressure 179/103 (mmHg) O2 Sat by Pulse 97 97 Oximetry Oxygen Devices in Use Now: Nasal Cannula Eyes: No Scleral Icterus Neck: NL Appearance and Movements; NL JVP Respiratory: Symmetrical Chest Expansion and Respiratory Effort, - - bronchial breath sounds, rhonchi present Cardiovascular: NL Sounds; No Murmurs; No JVD, RRR Extremities: - - edema 1+ Neurological: - - altered mental status unable to ans questions Result Diagrams: 08/30/18 06:03 08/30/18 06:03 Microbiology and Other Data: Microbiology 08/29/18 15:03 Aerobic Blood Culture - Preliminary Blood Venous No Growth Day 1 Anaerobic Blood Culture - Preliminary No Growth Day 1 08/29/18 13:51 Aerobic Blood Culture - Preliminary Blood Venous No Growth Day 1 Anaerobic Blood Culture - Preliminary No Growth Day 1 08/29/18 14:40 Urine Culture - Final Urine No Growth (<1,000 CFU/mL) 08/30/18 06:30 Gram Stain - Final Sputum Induced 08/30/18 07:26 Influenza Types A,B Antigen - Final Nasopharyngeal Specimen received for Influenza A/B Molecular testing 08/29/18 18:18 Nasal Screen MRSA (PCR) - Final Nasal Mrsa Detected Assess/Plan/Problems-Billing Assessment: - Patient Problems (1) Sepsis Current Visit: Yes Status: Acute Comment: Met sepsis criteria upon admission Sec pneumonia and poss uti (2) Pneumonia Current Visit: Yes Status: Acute Code(s): J18.9 - PNEUMONIA, UNSPECIFIED ORGANISM SNOMED Code(s): 934030918 Comment: bl pcn just started on ceftriaxone vanco azithro by admit team for uti and pcn.Can adjust based on cultures and clinical progress hypoxemic resp failure sec pcn (3) UTI (urinary tract infection) Current Visit: Yes Status: Acute Comment: urine cx pending continue above antibiotics (4) RICHARD (acute kidney injury) Current Visit: Yes Status: Acute Code(s): N17.9 - ACUTE KIDNEY FAILURE, UNSPECIFIED SNOMED Code(s): 56860685 Comment: prerenal etiology improving with ivf (5) Hypokalemia Current Visit: Yes Status: Acute Code(s): E87.6 - HYPOKALEMIA SNOMED Code( s): 93198975 Comment: will replace (6) Delirium Current Visit: Yes Status: Acute Code(s): R41.0 - DISORIENTATION, UNSPECIFIED SNOMED Code(s): 7748615 Comment: baseline dementia? delirium acute sec above
[2018-08-30] MEDS: KCL 10 MEQ/50 ML IVPREMIX* 10 MEQ/50 ML BAG IV SCH ×2 (20:20→21:41)
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
[2018-08-30] MEDS: buPROPion TAB* 100 MG PO SCH (21:29)
[2018-08-30] MEDS: Venlafaxine EXT RELEASE CAP* 75 MG PO SCH (23:22)
[2018-08-31] MEDS: Vancomycin(*) 1,000 MG in NS 0.9% 250 ML* 250 ML IVPB SCH ×3 (00:05→21:23)
[2018-08-31] MEDS: Metoprolol Tartrate IV* 1 MG/ML 5 ML VIAL IV PRN (00:05)
[2018-08-31] MEDS: Insulin LISPRO* 1 UNITS UNIT SUBCUT SCH ×6 (02:57→22:34)
[2018-08-31] MEDS: Heparin VIAL(*) 5000 UNITS/ML VIAL (FIVE THOUSAND) SUBCUT SCH ×3 (05:53→21:21)
[2018-08-31] MEDS: Levothyroxine INJ* 100 MCG/5 ML VIAL IV SCH (05:53)
[2018-08-31 06:22] LABS: Hematocrit 30 % (33-41); Hemoglobin 9.6 g/dL (12.0-16.0); Mean Corpuscular HGB Conc 32 g/dL (31-36); Mean Corpuscular Hemoglobin 28 pg (27-31); Mean Corpuscular Volume 86 fL (80-97); Mean Platelet Volume 9.5 fL (7.4-10.4); Platelet Count 171 10^3/uL (150-450); Red Blood Count 3.43 10^6 /uL (3.70-4.87); Red Cell Distribution Width 16 % (10.5-15); White Blood Count 7.3 10^3/uL (3.5-10.8)
[2018-08-31 06:44] LABS: BUN/Creatinine Ratio 37.5 (8-20); Calcium 8.3 mg/dL (8.6-10.3); EGFR African American 78.5 (>60); EGFR Non-African American 64.9 (>60); Potassium 3.3 mmol/L (3.5-5.0)
[2018-08-31 07:25] LABS: ABS Basophils 0 10^3/ul (0-0.2); ABS Eosinophils 0.2 10^3/ul (0-0.6); ABS Lymphocytes 0.7 10^3/ul (1.0-4.8); ABS Monocytes 0.3 10^3/ul (0-0.8); ABS Neutrophils 6.1 10^3/ul (1.5-7.7); ABS Nucleated RBC 0 10^3/ul; Eosinophil % 2.4 %; Nucleated Red Blood Cells % 0
[2018-08-31] MEDS ORDERED: Vancomycin Trough Check NOTE FOLLOW UP ONE (07:30)
[2018-08-31] MEDS: buPROPion TAB* 100 MG PO SCH (08:37)
[2018-08-31] MEDS ORDERED: Nitroglycerin TAB 0.4 MG* 0.4 MG TAB SL PRN (08:41)
[2018-08-31] MEDS ORDERED: Acetaminophen TAB* 325 MG PO PRN (08:41)
--- NOTE | 2018-08-31 08:46 | PN ---
Subjective Date of Service: 08/31/18 Interval History: HOSPITALIST PROGRESS NOTE Patient seen and examined at bedside. Case reviewed and d/w Vilma Mckeon RN. She is much more awake, alert, and oriented today. Does not remember how she got to the hospital. Remembers she was sick at home, "on a chair for 2 days", but not much after that. Denies CP, palpitations, dyspnea. Still has frequent moist cough during the interview. Family History: Unchanged from Admission Social History: Unchanged from Admission Past Medical History: Unchanged from Admission Objective Active Medications: Acetaminophen (Tylenol Tab*) 650 mg PO Q6H PRN PRN Reason: FEVER/PAIN Aspirin (Aspirin Ec Tab*) 81 mg PO DAILY [facility] Atorvastatin Calcium (Lipitor*) 40 mg PO DAILY [facility] Dextrose (D50w Syringe 50 Ml*) 12.5 gm IV PUSH .FOR FS < 60 - SS PRN PRN Reason: FS < 60 Gabapentin (Neurontin Cap(*)) 300 mg PO BID [facility] Guaifenesin/Dextromethorphan (Robitussin Dm*) 5 ml PO Q4H PRN PRN Reason: COUGH Last Admin: 08/30/18 21:29 Dose: 5 ml Heparin Sodium (Porcine) (Heparin Vial(*)) 5,000 units SUBCUT Q8HR [facility] Last Admin: 08/31/18 05:53 Dose: 5,000 units Ceftriaxone Sodium 1 gm/ (Sodium Chloride) 50 mls @ 200 mls/hr IVPB Q24H [facility] Last Admin: 08/30/18 13:52 Dose: 200 mls/hr Azithromycin 500 mg/ Sodium (Chloride) 250 mls @ 250 mls/hr IVPB Q24H [facility] Last Admin: 08/30/18 18:23 Dose: 250 mls/hr Vancomycin HCl 1,000 mg/ (Sodium Chloride) 250 mls @ 166.667 mls/hr IVPB Q8H [facility] Last Admin: 08/31/18 00:05 Dose: 166.667 mls/hr Lactated Ringer's (Lactated Ringers 1000 Ml Bag*) 1,000 mls @ 100 mls/hr IV PER RATE [facility] Insulin Human Lispro (Humalog*) 0 units SUBCUT Q4HR [facility]; Protocol Last Admin: 08/31/18 05:39 Dose: Not Given Levothyroxine Sodium (Synthroid Tab*) 200 mcg PO DAILY [facility] Metoprolol Tartrate (Lopressor Tab*) 25 mg PO BID [facility] Miconazole Nitrate (Monistat 2%*) 1 applic TOPICAL BID [facility] Nitroglycerin (Nitroglycerin Tab 0.4 Mg*) 0.4 mg SL Q5M PRN PRN Reason: PAIN - CHEST Non-Formulary Medication (Bupropion Sr Tab*) 150 mg PO BID [facility] Non-Formulary Medication (Clopidogrel) 75 mg PO DAILY [facility] Non-Formulary Medication (Oxybutynin) 5 mg PO BID [facility] Pharmacy Consult (Vancomycin Per Pharmacy*) 1 note FOLLOW UP . PRN PRN Reason: PER PROTOCOL Trazodone HCl (Desyrel Tab*) 50 mg PO BEDTIME PRN PRN Reason: INSOMNIA Venlafaxine HCl (Effexor Xr Cap*) 150 mg PO BID [facility] Last Admin: 08/30/18 23:22 Dose: 150 mg Vital Signs - 8 hr 08/31/18 08/31/18 08/31/18 00:49 01:00 01:01 Temperature 99.1 F 99.3 F 99.3 F Pulse Rate 114 113 117 Respiratory 20 25 27 Rate Blood Pressure 181/106 180/95 (mmHg) O2 Sat by Pulse 96 95 96 Oximetry 08/31/18 08/31/18 08/31/18 02:00 02:01 03:00 Temperature 99.5 F 99.5 F Pulse Rate 118 117 Respiratory 25 25 18 Rate Blood Pressure 189/108 (mmHg) O2 Sat by Pulse 97 98 Oximetry 08/31/18 08/31/18 08/31/18 03:01 03:02 04:01 Temperature 99.7 F 99.7 F 99.7 F Pulse Rate 116 114 112 Respiratory 27 29 23 Rate Blood Pressure 176/100 147/107 (mmHg) O2 Sat by Pulse 96 98 95 Oximetry 08/31/18 08/31/18 08/31/18 05:00 05:01 06:00 Temperature 99.0 F 99.0 F 99.0 F Pulse Rate 114 114 114 Respiratory 23 30 28 Rate Blood Pressure 143/82 (mmHg) O2 Sat by Pulse 94 95 95 Oximetry 08/31/18 08/31/18 08/31/18 06:01 07:00 07:01 Temperature 99.0 F 98.8 F 98.8 F Pulse Rate 115 110 111 Respiratory 33 19 19 Rate Blood Pressure 167/135 174/108 (mmHg) O2 Sat by Pulse 95 96 97 Oximetry 08/31/18 08/31/18 07:35 08:00 Temperature 98.8 F 98.8 F Pulse Rate 115 115 Respiratory 29 16 Rate Blood Pressure 168/104 167/115 (mmHg) O2 Sat by Pulse 94 97 Oximetry Oxygen Devices in Use Now: Nasal Cannula Appearance: Elderly lady, appears older than stated age, sitting up in bed in NAD. Eyes: No Scleral Icterus Ears/Nose/Mouth/Throat: Mucous Membranes Moist Neck: Trachea Midline Respiratory: Symmetrical Chest Expansion and Respiratory Effort, - - BS+ bilaterally with scattered rhonchi Cardiovascular: RRR - Normal S1 and S2 Abdominal: NL Sounds; No Tenderness; No Distention - obese, - - erythema of inguinal folds Extremities: - - Mild bilateral LE Neurological: Alert and Oriented x 3, NL Muscle Strength and Tone Nutrition: Taking PO's Result Diagrams: 08/31/18 05:59 08/31/18 08:20 Microbiology and Other Data: Microbiology 08/29/18 15:03 Aerobic Blood Culture - Preliminary Blood Venous No Growth Day 1 Anaerobic Blood Culture - Preliminary No Growth Day 1 08/29/18 13:51 Aerobic Blood Culture - Preliminary Blood Venous No Growth Day 1 Anaerobic Blood Culture - Preliminary No Growth Day 1 08/29/18 14:40 Urine Culture - Final Urine No Growth (<1,000 CFU/mL) 08/30/18 06:30 Gram Stain - Final Sputum Induced 08/30/18 07:26 Influenza Types A,B Antigen - Final Nasopharyngeal Specimen received for Influenza A/B Molecular testing 08/29/18 18:18 Nasal Screen MRSA (PCR) - Final Nasal Mrsa Detected Assess/Plan/Problems-Billing Assessment: Mrs Shon Sosa is a 62yo F with PMH of CAD s/p 3 vessel CABG, type 2 DM, HTN, hypothyroidsm, depression, who presented to ED on 08/29 with altered MS, found to have sepsis secondary to pneumonia. - Patient Problems (1) Severe sepsis Comment: - Met sepsis criteria on admission with tachycardia, fever, tachypnea, and bandemia, complicated by RICHARD. - Source is pneumonia. (2) Pneumonia Comment: - CxR shows bilateral infiltrates L>R. - Sputum culture growin Group B strep and S. aureus, sensitivities pending. - Continue Vancomycin, Ceftriaxone, Azithromycin. (3) Acute hypoxemic respiratory failure Comment: - Secondary to pneumonia, down to 3 liters of supplemental O2. - Continue to monitor. (4) Encephalopathy Comment: - Multifactorial in the setting of severe sepsis, metabolic dearrangement, medications, and possible amphetamine use. - CT brain was negative. - Still has some hallucinations, but has insight "they're not real". - Denies any illicit drug use and does not know how she has amphetamines in her urine. - Much improved today - AAOx3, although does not remember events prior to admission. - Continue to monitor. (5) RICHARD (acute kidney injury) Comment: - Likely pre-renal, resolved with IVF. (6) Metabolic acidosis Comment: - Will buffer with Bicitra. (7) Hypokalemia Comment: - Replete. (8) CAD (coronary artery disease) Comment: - Stable. - Will resume Aspirin, Plavix, Atorvastatin, and Metoprolol. (9) Type 2 diabetes mellitus Comment: - Resume diet and monitor FS. - Continue Lispro SS and add Lantus as her glucose trends up. (10) Hypothyroidism Comment: - TSH 4.5. - Continue Levothyroxine. (11) DVT prophylaxis Comment: - SQ heparin. (12) Full code status Status and Disposition: Inpatient. Will transfer to Telemetry.
[2018-08-31 09:16] LABS: EGFR African American 81.7 (>60); EGFR Non-African American 67.5 (>60); Vancomycin Trough 22.2 mcg/mL
[2018-08-31] MEDS: buPROPion SR TAB.SR* 150 MG PO SCH ×2 (09:48→21:32)
[2018-08-31] MEDS: Gabapentin CAP(*) 300 MG PO SCH ×2 (10:02→21:32)
[2018-08-31] MEDS: Oxybutynin TAB* 5 MG PO SCH ×2 (10:02→21:31)
[2018-08-31] MEDS: Metoprolol Tartrate TAB* 25 MG PO SCH ×2 (10:02→21:31)
[2018-08-31] MEDS: Clopidogrel TAB* 75 MG PO SCH (10:03)
[2018-08-31] MEDS: Miconazole TOPICAL CREAM 2%* 30 GM TOPICAL SCH ×2 (10:03→21:33)
[2018-08-31] MEDS: Levothyroxine TAB* 100 MCG TAB PO SCH (10:03)
[2018-08-31] MEDS: Venlafaxine EXT RELEASE CAP* 75 MG PO SCH ×2 (10:03→21:32)
[2018-08-31] MEDS: Atorvastatin* 40 MG TAB PO SCH (10:03)
[2018-08-31] MEDS: Aspirin EC TAB* 81 MG TAB.EC PO SCH (10:03)
[2018-08-31] MEDS ORDERED: Potassium Chlor TAB* 20 MEQ TAB.ER PO ONE (12:51)
[2018-08-31] MEDS ORDERED: Sodium Citrate/Citric Acid* 15 ML UDC PO SCH (14:00)
[2018-08-31] MEDS: cefTRIAXone(*) 1 GM in NS 0.9% 50 ML* 50 ML IVPB SCH (14:50)
[2018-08-31] MEDS: Sodium Bicarbonate (ANTACID)* 650 MG TAB PO SCH (18:18)
[2018-08-31] MEDS: Azithromycin IV(*) 500 MG in NS 0.9% 250 ML* 250 ML IVPB SCH (18:18)
[2018-08-31] MEDS: traZODone TAB* 50 MG TAB PO PRN (22:33)
[2018-08-31] MEDS: GuaiFENesin DM* 5 ML UDC PO PRN (22:36)
[2018-09-01] MEDS: Lactated Ringers 1000 ML Bag* 1,000 ML IV SCH ×2 (01:16→13:26)
[2018-09-01] MEDS: Insulin LISPRO* 1 UNITS UNIT SUBCUT SCH ×6 (01:49→22:20)
[2018-09-01] MEDS: Levothyroxine TAB* 100 MCG TAB PO SCH (06:21)
[2018-09-01] MEDS: Heparin VIAL(*) 5000 UNITS/ML VIAL (FIVE THOUSAND) SUBCUT SCH ×3 (06:22→21:17)
[2018-09-01] MEDS: Sodium Bicarbonate (ANTACID)* 650 MG TAB PO SCH ×3 (06:26→16:43)
[2018-09-01 06:48] LABS: Hematocrit 26 % (33-41); Hemoglobin 8.5 g/dL (12.0-16.0); Mean Corpuscular HGB Conc 33 g/dL (31-36); Mean Corpuscular Hemoglobin 28 pg (27-31); Mean Corpuscular Volume 85 fL (80-97); Mean Platelet Volume 9.1 fL (7.4-10.4); Platelet Count 146 10^3/uL (150-450); Red Blood Count 3.05 10^6 /uL (3.70-4.87); Red Cell Distribution Width 16 % (10.5-15); White Blood Count 5.9 10^3/uL (3.5-10.8)
[2018-09-01 07:08] LABS: BUN/Creatinine Ratio 32.9 (8-20); EGFR African American 88.9 (>60); EGFR Non-African American 73.5 (>60); Potassium 3.7 mmol/L (3.5-5.0)
[2018-09-01 07:28] LABS: ABS Basophils 0 10^3/ul (0-0.2); ABS Eosinophils 0.4 10^3/ul (0-0.6); ABS Lymphocytes 1.3 10^3/ul (1.0-4.8); ABS Monocytes 0.5 10^3/ul (0-0.8); ABS Neutrophils 3.7 10^3/ul (1.5-7.7); ABS Nucleated RBC 0 10^3/ul; Eosinophil % 6.2 %; Lymphocyte % 22.8 %; Nucleated Red Blood Cells % 0
[2018-09-01] MEDS: Venlafaxine EXT RELEASE CAP* 75 MG PO SCH ×2 (10:14→21:10)
[2018-09-01] MEDS: Metoprolol Tartrate TAB* 25 MG PO SCH (10:14)
[2018-09-01] MEDS: buPROPion SR TAB.SR* 150 MG PO SCH ×2 (10:14→21:10)
[2018-09-01] MEDS: Atorvastatin* 40 MG TAB PO SCH (10:15)
[2018-09-01] MEDS: Gabapentin CAP(*) 300 MG PO SCH ×2 (10:15→21:10)
[2018-09-01] MEDS: Clopidogrel TAB* 75 MG PO SCH (10:15)
[2018-09-01] MEDS: Aspirin EC TAB* 81 MG TAB.EC PO SCH (10:16)
[2018-09-01] MEDS: Oxybutynin TAB* 5 MG PO SCH ×2 (10:16→21:11)
[2018-09-01] MEDS: Vancomycin(*) 1,000 MG in NS 0.9% 250 ML* 250 ML IVPB SCH ×2 (10:16→22:11)
[2018-09-01] MEDS: Miconazole TOPICAL CREAM 2%* 30 GM TOPICAL SCH ×2 (10:17→23:53)
[2018-09-01] MEDS ORDERED: Metoprolol Tartrate TAB* 25 MG PO ONE (10:50)
[2018-09-01] MEDS: cefTRIAXone(*) 1 GM in NS 0.9% 50 ML* 50 ML IVPB SCH (13:26)
--- NOTE | 2018-09-01 14:50 | PN ---
Subjective Date of Service: 09/01/18 Interval History: HOSPITALIST PROGRESS NOTE Patient seen and examined at bedside. Case reviewed and d/w Jalyn Mcdermott RN. She was tachycardic earlier today, but better now. States her lungs "are not good yet" and still has frequent moist cough. Family History: Unchanged from Admission Social History: Unchanged from Admission Past Medical History: Unchanged from Admission Objective Active Medications: Acetaminophen (Tylenol Tab*) 650 mg PO Q6H PRN PRN Reason: FEVER/PAIN Aspirin (Aspirin Ec Tab*) 81 mg PO DAILY [facility] Last Admin: 09/01/18 10:16 Dose: 81 mg Atorvastatin Calcium (Lipitor*) 40 mg PO DAILY [facility] Last Admin: 09/01/18 10:15 Dose: 40 mg Bupropion HCl (Wellbutrin Sr Tab*) 150 mg PO BID [facility] Last Admin: 09/01/18 10:14 Dose: 150 mg Clopidogrel Bisulfate (Plavix Tab*) 75 mg PO DAILY [facility] Last Admin: 09/01/18 10:15 Dose: 75 mg Dextrose (D50w Syringe 50 Ml*) 12.5 gm IV PUSH .FOR FS < 60 - SS PRN PRN Reason: FS < 60 Gabapentin (Neurontin Cap(*)) 300 mg PO BID [facility] Last Admin: 09/01/18 10:15 Dose: 300 mg Guaifenesin/Dextromethorphan (Robitussin Dm*) 5 ml PO Q4H PRN PRN Reason: COUGH Last Admin: 08/31/18 22:36 Dose: 5 ml Heparin Sodium (Porcine) (Heparin Vial(*)) 5,000 units SUBCUT Q8HR [facility] Last Admin: 09/01/18 13:26 Dose: 5,000 units Ceftriaxone Sodium 1 gm/ (Sodium Chloride) 50 mls @ 200 mls/hr IVPB Q24H [facility] Last Admin: 09/01/18 13:26 Dose: 200 mls/hr Azithromycin 500 mg/ Sodium (Chloride) 250 mls @ 250 mls/hr IVPB Q24H [facility] Last Admin: 08/31/18 18:18 Dose: 250 mls/hr Lactated Ringer's (Lactated Ringers 1000 Ml Bag*) 1,000 mls @ 100 mls/hr IV PER RATE [facility] Last Admin: 09/01/18 13:26 Dose: 100 mls/hr Vancomycin HCl 1,000 mg/ (Sodium Chloride) 250 mls @ 166.667 mls/hr IVPB Q12H [facility] Last Admin: 09/01/18 10:16 Dose: 166.667 mls/hr Insulin Human Lispro (Humalog*) 0 units SUBCUT Q4HR [facility]; Protocol Last Admin: 09/01/18 13:22 Dose: Not Given Levothyroxine Sodium (Synthroid Tab*) 200 mcg PO 0600 [facility] Last Admin: 09/01/18 06:21 Dose: 200 mcg Metoprolol Tartrate (Lopressor Tab*) 50 mg PO BID [facility] Miconazole Nitrate (Monistat 2%*) 1 applic TOPICAL BID [facility] Last Admin: 09/01/18 10:17 Dose: 1 applic Nitroglycerin (Nitroglycerin Tab 0.4 Mg*) 0.4 mg SL Q5M PRN PRN Reason: PAIN - CHEST Oxybutynin Chloride (Ditropan Tab*) 5 mg PO BID [facility] Last Admin: 09/01/18 10:16 Dose: 5 mg Pharmacy Consult (Vancomycin Per Pharmacy*) 1 note FOLLOW UP . PRN PRN Reason: PER PROTOCOL Pharmacy Profile Note (Vancomycin Trough Check) 1 note FOLLOW UP ONCE ONE Stop: 09/02/18 09:31 Sodium Bicarbonate (Sodium Bicarbonate (Antacid)*) 650 mg PO AC [facility] Last Admin: 09/01/18 11:47 Dose: 650 mg Trazodone HCl (Desyrel Tab*) 50 mg PO BEDTIME PRN PRN Reason: INSOMNIA Last Admin: 08/31/18 22:33 Dose: 50 mg Venlafaxine HCl (Effexor Xr Cap*) 150 mg PO BID [facility] Last Admin: 09/01/18 10:14 Dose: 150 mg Vital Signs - 8 hr 09/01/18 09/01/18 09/01/18 08:00 09:06 10:15 Temperature 98.2 F Pulse Rate 113 Respiratory 20 16 14 Rate Blood Pressure 125/98 (mmHg) O2 Sat by Pulse 95 Oximetry 09/01/18 09/01/18 13:27 14:40 Temperature 98.4 F Pulse Rate 109 Respiratory 18 16 Rate Blood Pressure 157/87 (mmHg) O2 Sat by Pulse 95 Oximetry Oxygen Devices in Use Now: Nasal Cannula - 3 liters Appearance: Elderly lady sitting up in a chair in NAD. Eyes: No Scleral Icterus Ears/Nose/Mouth/Throat: Mucous Membranes Moist Neck: Trachea Midline Respiratory: Symmetrical Chest Expansion and Respiratory Effort, - - BS+ bilaterally with scattered rhonchi Cardiovascular: RRR - Normal S1 and S2 Abdominal: NL Sounds; No Tenderness; No Distention Neurological: Alert and Oriented x 3, NL Muscle Strength and Tone Result Diagrams: 09/01/18 06:18 09/01/18 06:18 Microbiology and Other Data: Microbiology 08/29/18 15:03 Aerobic Blood Culture - Preliminary Blood Venous No Growth Day 1 Anaerobic Blood Culture - Preliminary No Growth Day 1 08/29/18 13:51 Aerobic Blood Culture - Preliminary Blood Venous No Growth Day 1 Anaerobic Blood Culture - Preliminary No Growth Day 1 08/29/18 14:40 Urine Culture - Final Urine No Growth (<1,000 CFU/mL) 08/30/18 06:30 Gram Stain - Final Sputum Induced 08/30/18 07:26 Influenza Types A,B Antigen - Final Nasopharyngeal Specimen received for Influenza A/B Molecular testing 08/29/18 18:18 Nasal Screen MRSA (PCR) - Final Nasal Mrsa Detected Assess/Plan/Problems-Billing Assessment: Mrs Shon Sosa is a 62yo F with PMH of CAD s/p 3 vessel CABG, type 2 DM, HTN, hypothyroidsm, depression, who presented to ED on 08/29 with altered MS, found to have sepsis secondary to pneumonia. - Patient Problems (1) Severe sepsis Comment: - Met sepsis criteria on admission with tachycardia, fever, tachypnea, and bandemia, complicated by RICHARD. - Source is pneumonia. (2) Pneumonia Comment: - CxR shows bilateral infiltrates L>R. - Sputum culture growin Group B strep and MRSA. - Will request ID consult. - Continue Vancomycin, Ceftriaxone, Azithromycin. (3) Acute hypoxemic respiratory failure Comment: - Secondary to pneumonia, down to 3 liters of supplemental O2. - Continue to monitor. (4) Encephalopathy Comment: - Multifactorial in the setting of severe sepsis, metabolic dearrangement, medications, and possible amphetamine use. - CT brain was negative. - Hallucinations are improved. - Denies any illicit drug use and does not know how she has amphetamines in her urine. - Continue to monitor. (5) RICHARD (acute kidney injury) Comment: - Likely pre-renal, resolved with IVF. (6) Metabolic acidosis Comment: - Will buffer with Bicitra. (7) CAD (coronary artery disease) Comment: - Stable. - Will resume Aspirin, Plavix, Atorvastatin, and Metoprolol. (8) Type 2 diabetes mellitus Comment: - Resume diet and monitor FS. - Continue Lispro SS and add Lantus as her glucose trends up. (9) Hypothyroidism Comment: - TSH 4.5. - Continue Levothyroxine. (10) DVT prophylaxis Comment: - SQ heparin. (11) Full code status (12) Physical deconditioning Comment: - PT/OT consults - will likely need RUPAL. Status and Disposition: Inpatient. Will transfer to Telemetry.
[2018-09-01] MEDS: Azithromycin IV(*) 500 MG in NS 0.9% 250 ML* 250 ML IVPB SCH (16:43)
[2018-09-01] MEDS: Metoprolol Tartrate TAB* 50 mg PO SCH (21:11)
[2018-09-02] MEDS: Lactated Ringers 1000 ML Bag* 1,000 ML IV SCH ×2 (03:33→12:11)
[2018-09-02] MEDS: Levothyroxine TAB* 100 MCG TAB PO SCH (05:25)
[2018-09-02] MEDS: Heparin VIAL(*) 5000 UNITS/ML VIAL (FIVE THOUSAND) SUBCUT SCH ×3 (05:27→22:48)
[2018-09-02] MEDS: Sodium Bicarbonate (ANTACID)* 650 MG TAB PO SCH ×3 (07:49→18:13)
[2018-09-02] MEDS: Insulin LISPRO* 1 UNITS UNIT SUBCUT SCH ×4 (08:33→22:49)
[2018-09-02] MEDS ORDERED: Vancomycin Trough Check NOTE FOLLOW UP ONE (09:30)
[2018-09-02 09:35] LABS: Hematocrit 26 % (33-41); Hemoglobin 8.5 g/dL (12.0-16.0); Mean Corpuscular HGB Conc 33 g/dL (31-36); Mean Corpuscular Hemoglobin 28 pg (27-31); Mean Corpuscular Volume 85 fL (80-97); Mean Platelet Volume 9.2 fL (7.4-10.4); Platelet Count 168 10^3/uL (150-450); Red Blood Count 3.04 10^6 /uL (3.70-4.87); Red Cell Distribution Width 15 % (10.5-15); White Blood Count 8.9 10^3/uL (3.5-10.8)
[2018-09-02] MEDS: Venlafaxine EXT RELEASE CAP* 75 MG PO SCH ×2 (09:37→22:43)
[2018-09-02] MEDS: Aspirin EC TAB* 81 MG TAB.EC PO SCH (09:37)
[2018-09-02] MEDS: Metoprolol Tartrate TAB* 50 mg PO SCH ×2 (09:37→22:44)
[2018-09-02] MEDS: Gabapentin CAP(*) 300 MG PO SCH ×2 (09:37→22:43)
[2018-09-02] MEDS: Clopidogrel TAB* 75 MG PO SCH (09:38)
[2018-09-02] MEDS: buPROPion SR TAB.SR* 150 MG PO SCH ×2 (09:39→22:44)
[2018-09-02] MEDS: Oxybutynin TAB* 5 MG PO SCH ×2 (09:39→22:43)
[2018-09-02] MEDS: Atorvastatin* 40 MG TAB PO SCH (09:39)
[2018-09-02] MEDS: Miconazole TOPICAL CREAM 2%* 30 GM TOPICAL SCH (09:39)
[2018-09-02 09:49] LABS: BUN/Creatinine Ratio 27.6 (8-20); Calcium 8.3 mg/dL (8.6-10.3); EGFR African American 79.6 (>60); EGFR Non-African American 65.8 (>60); Potassium 3.6 mmol/L (3.5-5.0)
[2018-09-02 09:59] LABS: ABS Basophils 0 10^3/ul (0-0.2); ABS Eosinophils 0.2 10^3/ul (0-0.6); ABS Lymphocytes 1.5 10^3/ul (1.0-4.8); ABS Monocytes 0.4 10^3/ul (0-0.8); ABS Neutrophils 6.8 10^3/ul (1.5-7.7); ABS Nucleated RBC 0 10^3/ul; Eosinophil % 1.7 %; Lymphocyte % 16.5 %; Nucleated Red Blood Cells % 0
[2018-09-02 10:23] LABS: Vancomycin Trough 27.4 mcg/mL
[2018-09-02] MEDS: Vancomycin(*) 1,000 MG in NS 0.9% 250 ML* 250 ML IVPB SCH (12:00)
[2018-09-02 12:01] LABS: EGFR African American 82.9 (>60); EGFR Non-African American 68.5 (>60)
--- NOTE | 2018-09-02 14:38 | PN ---
Subjective Date of Service: 09/02/18 Interval History: HOSPITALIST PROGRESS NOTE Patient seen and examined at bedside. Care reviewed and d/w Micha Rodriguez RN. She feels better today. Tired because she could not sleep well, but cough and dyspnea are less intense. States she's not having hallucinations, "the nurses are seeing things, I'm not". Family History: Unchanged from Admission Social History: Unchanged from Admission Past Medical History: Unchanged from Admission Objective Active Medications: Acetaminophen (Tylenol Tab*) 650 mg PO Q6H PRN PRN Reason: FEVER/PAIN Aspirin (Aspirin Ec Tab*) 81 mg PO DAILY [facility] Last Admin: 09/02/18 09:37 Dose: 81 mg Atorvastatin Calcium (Lipitor*) 40 mg PO DAILY [facility] Last Admin: 09/02/18 09:39 Dose: 40 mg Bupropion HCl (Wellbutrin Sr Tab*) 150 mg PO BID [facility] Last Admin: 09/02/18 09:39 Dose: 150 mg Clopidogrel Bisulfate (Plavix Tab*) 75 mg PO DAILY [facility] Last Admin: 09/02/18 09:38 Dose: 75 mg Dextrose (D50w Syringe 50 Ml*) 12.5 gm IV PUSH .FOR FS < 60 - SS PRN PRN Reason: FS < 60 Gabapentin (Neurontin Cap(*)) 300 mg PO BID [facility] Last Admin: 09/02/18 09:37 Dose: 300 mg Guaifenesin/Dextromethorphan (Robitussin Dm*) 5 ml PO Q4H PRN PRN Reason: COUGH Last Admin: 08/31/18 22:36 Dose: 5 ml Heparin Sodium (Porcine) (Heparin Vial(*)) 5,000 units SUBCUT Q8HR [facility] Last Admin: 09/02/18 13:25 Dose: 5,000 units Lactated Ringer's (Lactated Ringers 1000 Ml Bag*) 1,000 mls @ 100 mls/hr IV PER RATE [facility] Last Admin: 09/02/18 12:11 Dose: 100 mls/hr Insulin Human Lispro (Humalog*) 0 units SUBCUT ACHS [facility]; Protocol Last Admin: 09/02/18 12:11 Dose: 3 units Levothyroxine Sodium (Synthroid Tab*) 200 mcg PO 0600 [facility] Last Admin: 09/02/18 05:25 Dose: 200 mcg Metoprolol Tartrate (Lopressor Tab*) 50 mg PO BID [facility] Last Admin: 09/02/18 09:37 Dose: 50 mg Miconazole Nitrate (Monistat 2%*) 1 applic TOPICAL BID [facility] Last Admin: 09/02/18 09:39 Dose: 1 applic Nitroglycerin (Nitroglycerin Tab 0.4 Mg*) 0.4 mg SL Q5M PRN PRN Reason: PAIN - CHEST Oxybutynin Chloride (Ditropan Tab*) 5 mg PO BID [facility] Last Admin: 09/02/18 09:39 Dose: 5 mg Pharmacy Consult (Vancomycin Per Pharmacy*) 1 note FOLLOW UP . PRN PRN Reason: PER PROTOCOL Pharmacy Consult (Vancomycin Random Level*) 1 note FOLLOW UP 0600 ONE Stop: 09/03/18 06:01 Sodium Bicarbonate (Sodium Bicarbonate (Antacid)*) 650 mg PO AC [facility] Last Admin: 09/02/18 12:11 Dose: 650 mg Trazodone HCl (Desyrel Tab*) 50 mg PO BEDTIME PRN PRN Reason: INSOMNIA Last Admin: 08/31/18 22:33 Dose: 50 mg Venlafaxine HCl (Effexor Xr Cap*) 150 mg PO BID [facility] Last Admin: 09/02/18 09:37 Dose: 150 mg Vital Signs - 8 hr 09/02/18 09/02/18 09/02/18 07:21 07:41 09:37 Temperature 98.2 F Pulse Rate 93 Respiratory 16 16 20 Rate Blood Pressure 167/87 (mmHg) O2 Sat by Pulse 99 Oximetry 09/02/18 12:01 Temperature Pulse Rate Respiratory 16 Rate Blood Pressure (mmHg) O2 Sat by Pulse Oximetry Oxygen Devices in Use Now: Nasal Cannula - 2 liters Appearance: Elderly lady sitting up in bed in [facility]. Eyes: No Scleral Icterus Ears/Nose/Mouth/Throat: Mucous Membranes Moist Neck: Trachea Midline Respiratory: Symmetrical Chest Expansion and Respiratory Effort, - - BS+ bilaterally with right base crackles Cardiovascular: RRR - Normal S1 and S2 Abdominal: NL Sounds; No Tenderness; No Distention Neurological: - - AAOx2 (self and place), TUCKER Result Diagrams: 09/02/18 09:24 09/02/18 09:24 Microbiology and Other Data: Microbiology 08/29/18 15:03 Aerobic Blood Culture - Preliminary Blood Venous No Growth Day 1 Anaerobic Blood Culture - Preliminary No Growth Day 1 08/29/18 13:51 Aerobic Blood Culture - Preliminary Blood Venous No Growth Day 1 Anaerobic Blood Culture - Preliminary No Growth Day 1 08/29/18 14:40 Urine Culture - Final Urine No Growth (<1,000 CFU/mL) 08/30/18 06:30 Gram Stain - Final Sputum Induced 08/30/18 07:26 Influenza Types A,B Antigen - Final Nasopharyngeal Specimen received for Influenza A/B Molecular testing 08/29/18 18:18 Nasal Screen MRSA (PCR) - Final Nasal Mrsa Detected Assess/Plan/Problems-Billing Assessment: Mrs Shon Sosa is a 62yo F with PMH of CAD s/p 3 vessel CABG, type 2 DM, HTN, hypothyroidsm, depression, who presented to ED on 08/29 with altered MS, found to have sepsis secondary to pneumonia. - Patient Problems (1) Severe sepsis Comment: - Met sepsis criteria on admission with tachycardia, fever, tachypnea, and bandemia, complicated by RICHARD. - Source is pneumonia. (2) Pneumonia Comment: - CxR shows bilateral infiltrates L>R. - Sputum culture growin Group B strep and MRSA. - ID consult appreciated - recommended continue Vancomycin, d/c Ceftriaxone, and Azithromycin. (3) Acute hypoxemic respiratory failure Comment: - Secondary to pneumonia, down to 2 liters of supplemental O2. - Continue to monitor. (4) Encephalopathy Comment: - Multifactorial in the setting of severe sepsis, metabolic dearrangement, medications, and possible amphetamine use. - CT brain was negative. - Hallucinations are improved. - Denies any illicit drug use and does not know how she has amphetamines in her urine. - Continue to monitor. (5) RICHARD (acute kidney injury) Comment: - Likely pre-renal, resolved with IVF. - D/c IVF. (6) Metabolic acidosis Comment: - Could not tolerate Bicitra, continue sodium bicarbonate. (7) CAD (coronary artery disease) Comment: - Stable. - Continue Aspirin, Plavix, Atorvastatin, and Metoprolol. (8) Type 2 diabetes mellitus Comment: - Resume diet and monitor FS. - Continue Lispro SS and add Lantus as her glucose trends up. (9) Hypothyroidism Comment: - TSH 4.5. - Continue Levothyroxine. (10) DVT prophylaxis Comment: - SQ heparin. (11) Full code status (12) Physical deconditioning Comment: - PT/OT consults - will need RUPAL. Status and Disposition: Inpatient.
--- NOTE | 2018-09-02 15:08 | CONS ---
CONSULTATION REPORT: DATE OF CONSULT: 09/02/18 PRIMARY CARE PROVIDER: Dr. Agapito Holt. PHYSICIAN REQUESTING CONSULT: Dr. Love Armstrong. CONSULTING SERVICE: Infectious Disease. ATTENDING PHYSICIAN: Dr. Donald Chatman * (dictated by Hillary Red NP) REASON FOR CONSULT: MRSA and Strep agalactiae (group B) pneumonia. IMPRESSION: 1. Methicillin-resistant Staphylococcus aureus and Strep agalactiae (group B) pneumonia with associated sepsis on admission. Chest x- ray shows bilateral infiltrates with left greater than the right. The patient had a sputum culture showing Strep agalactiae (group B) and methicillin-resistant Staphylococcus aureus. Influenza A and B negative. Has no leukocytosis. Has been afebrile since admission. She was noted to have a 101.4 temp on admission, fevers have since resolved. Sepsis has resolved. She continues to require supplemental oxygen. She reports a nonproductive cough and shortness of breath. She is currently on azithromycin, vancomycin, and ceftriaxone. 2. Acute hypoxic respiratory failure. Continues to require supplemental oxygen. She has been able to be weaned down to 2 L via nasal cannula. 3. Encephalopathy. Suspect multifactorial in the setting of severe sepsis, metabolic derangement, medications, and possible amphetamine use. CT of the brain was negative. 4. Acute kidney injury. Resolved. 5. Diabetes mellitus, type 2. PLAN/RECOMMENDATIONS: Recommend narrowing the antibiotic selection to just vancomycin as this will cover both the Strep agalactiae group B and methicillin- resistant Staphylococcus aureus. Vancomycin trough goal 10-15. Will discontinue ceftriaxone and azithromycin. HISTORY OF PRESENT ILLNESS: Ms. Shon Sosa is a 62-year-old female with past medical history significant for coronary artery disease, status post MA; diabetes mellitus, type 2; hypertension; hypothyroidism; depression, who according the H+P had a 2-day episode of unresponsiveness. Her reported a rash on her abdominal folds and groin, fever, and a decreased appetite. She was reportedly sitting in a soiled chair for the 2 days, not eating or drinking. She was brought to the emergency room for further evaluation. While in the emergency room she was only responsive to painful stimuli. She was found to have a fever of 101.4, tachycardic, heart rate into the 130s, and meeting sepsis criteria. She had a chest x-ray that showing bilateral lower lobe pneumonia and was admitted to the hospital. During her hospitalization, she was given fluid resuscitation per sepsis protocol. She received 2 g of ceftriaxone, vancomycin, and azithromycin. She had sputum and urine cultures ordered. She also presented with hypoxic respiratory failure requiring supplemental oxygen and an acute kidney injury. The acute kidney injury was thought to be secondary to dehydration. During her hospitalization, a sputum culture was obtained showing MRSA and Strep agalactiae group B. Her urine culture showed no growth. Her blood cultures were with no growth. She was afebrile. She denies fevers, chills, fatigue, chest pain, joint pain, muscle pain, rash, constipation, urinary symptoms such as urgency, frequency, dysuria, no recent travel. She reports feeling run down, shortness of breath, cough is nonproductive, and diarrhea. PAST MEDICAL HISTORY: 1. Coronary artery disease status post myocardial infarction. 2. Diabetes mellitus, type 2. 3. Hypertension. 4. Hypothyroidism. 5. Depression. PAST SURGICAL HISTORY: 1. Status post 3-vessel coronary artery bypass graft. 2. Status post laceration repair on one of her legs. MEDICATIONS: Home medications include: 1. Oxybutynin 5 mg by mouth twice daily. 2. Plavix 75 mg by mouth daily. 3. Bupropion SR 150 mg by mouth twice daily. 4. Venlafaxine 150 mg by mouth twice daily. 5. Levothyroxine 200 mcg by mouth daily. 6. Atorvastatin 40 mg by mouth daily. 7. Aspirin 81 mg by mouth daily. 8. Acetaminophen 650 mg by mouth every 6 hours as needed for pain. 9. Calmoseptine ointment 7 g topical 3 times daily. 10. Florinef tablets 2 tablets by mouth daily. 11. Lantus insulin 47 units subcutaneous daily. 12. Neurontin 300 mg by mouth twice daily. 13. Metformin 1000 mg by mouth twice daily. 14. Nitroglycerin 0.4 mg sublingual every 5 minutes as needed for pain. 15. Miconazole topical cream apply topical twice daily. 16. Metoprolol tartrate 25 mg by mouth twice daily. Hospital medications: 1. Acetaminophen 650 mg by mouth every 6 hours as needed for fever or pain. 2. Aspirin 81 mg by mouth daily. 3. Atorvastatin 40 mg by mouth daily. 4. Bupropion 150 mg by mouth twice daily. 5. Plavix 75 mg by mouth daily. 6. Dextrose 12.5 g IV push for glucose less than 60 as needed. 7. Neurontin 300 mg by mouth twice daily. 8. Robitussin DM 5 mL by mouth every 4 hours as needed for cough. 9. Heparin 5000 units subcutaneous every 8 hours. 10. Humalog insulin sliding scale subcutaneous with meals. 11. LR 100 mL an hour intravenously. 12. Levothyroxine 200 mcg by mouth daily. 13. Metoprolol tartrate 50 mg by mouth twice daily. 14. Monistat 2% topical twice daily. 15. Nitroglycerin 0.4 mg sublingual every 5 minutes as needed for chest pain. 16. Ditropan 5 mg by mouth twice daily. 17. Sodium bicarb 650 mg by mouth with meals. 18. Trazodone 50 mg by mouth at bedtime as needed for sleep. 19. Venlafaxine 150 mg by mouth twice daily. ALLERGIES: COLACE. FAMILY HISTORY: She denies any family history of recurrent infections. Denies family history of heart disease, diabetes. Mother passed at age 72 from breast cancer. Father passed at age 79. SOCIAL HISTORY: She occasionally drinks alcohol, is a former smoker, she reports quitting approximately 10 years ago. Prior to that, she was a half-a- pack-a-day smoker. She denies recreational drug use. REVIEW OF SYSTEMS: I performed a 10-point review of systems. All the pertinent positives and negatives are mentioned in the history of present illness. The remaining review of systems is negative. PHYSICAL EXAM: Vital Signs: Temperature 98.2, heart rate 93, respiratory rate 16, O2 sat 99% on 2 L by nasal canula, blood pressure 167/87. General Appearance: Alert, pleasant, appears to be in no acute distress. Head: Normocephalic, atraumatic. ENT: Pupils are equal and reactive to light. Extraocular movements are intact. Mucous membranes are moist. Neck: Supple, no lymphadenopathy noted. Neurological: Cranial nerves II through XII are grossly intact. The patient moves all extremities. Cardiovascular: Regular rate and rhythm. S1, S2 present. No murmurs, rubs, or gallops heard. Respiratory: No accessory muscle use. The lungs are clear to auscultation in the upper lobes, lower lobes with crackles. Abdomen: Bowel sounds present. Abdomen soft, nontender, nondistended. Extremities: No lower extremity edema. DP/PT pulses are 2+ and symmetric. Musculoskeletal: No clubbing or cyanosis noted. The patient exhibits good strength in all extremities. Psychological: Calm and cooperative. Skin: No rashes or abnormalities seen on the exposed skin. DIAGNOSTIC STUDIES/LAB DATA: Sodium 142, potassium 3.7, chloride 115, CO2 19, BUN 26, creatinine 0.79, glucose 173. White blood cell count from 09/01/18, 5.9 , hemoglobin 8.2, hematocrit 26, platelet count 146. Sputum culture with Strep agalactiae (group B) and MRSA. Influenza A and B negative. Urinalysis significant for protein, 1+ blood, 1+ leukocyte esterase, 3+ wbc's, 3+ rbc's, 3+ yeast. There is no growth in the urinary culture. No growth in blood cultures to date. Please see impressions and recommendations outlined above. Thank you for asking us to see Ms. Shon Sosa in consultation. Recommendations have been discussed with Dr. Les Armstrong. TIME SPENT: Time spent for this consultation was approximately 45 minutes, greater than half of that was spent with the patient discussing medications, past medical history, the events leading to her arrival today, and performing a physical examination. The case has been reviewed with the attending, Dr. Chatman, who agrees with the plan of care. Reviewed by JAM OLMEDO 09/05/182001 [id number]/[facility] #: [id number] MTDD
[2018-09-02] MEDS: Insulin GLARGINE(*) 1 UNITS UNIT SUBCUT SCH (16:03)
[2018-09-02] MEDS: traZODone TAB* 50 MG TAB PO PRN (22:43)
[2018-09-03] MEDS: Miconazole TOPICAL CREAM 2%* 30 GM TOPICAL SCH ×4 (01:40→21:30)
[2018-09-03] MEDS ORDERED: Vancomycin Random Level* NOTE FOLLOW UP ONE (06:00)
[2018-09-03] MEDS: Levothyroxine TAB* 100 MCG TAB PO SCH (06:17)
[2018-09-03] MEDS: Heparin VIAL(*) 5000 UNITS/ML VIAL (FIVE THOUSAND) SUBCUT SCH ×3 (06:17→21:27)
[2018-09-03] MEDS: Insulin LISPRO* 1 UNITS UNIT SUBCUT SCH ×4 (09:10→21:28)
[2018-09-03] MEDS: buPROPion SR TAB.SR* 150 MG PO SCH ×2 (09:10→21:26)
[2018-09-03] MEDS: Clopidogrel TAB* 75 MG PO SCH (09:10)
[2018-09-03] MEDS: Sodium Bicarbonate (ANTACID)* 650 MG TAB PO SCH ×3 (09:10→16:52)
[2018-09-03] MEDS: Venlafaxine EXT RELEASE CAP* 75 MG PO SCH ×2 (09:11→21:26)
[2018-09-03] MEDS: Aspirin EC TAB* 81 MG TAB.EC PO SCH (09:11)
[2018-09-03] MEDS: Oxybutynin TAB* 5 MG PO SCH ×2 (09:11→21:26)
[2018-09-03] MEDS: Gabapentin CAP(*) 300 MG PO SCH ×2 (09:11→21:26)
[2018-09-03] MEDS: Metoprolol Tartrate TAB* 50 mg PO SCH ×2 (09:11→21:26)
[2018-09-03] MEDS: Atorvastatin* 40 MG TAB PO SCH (09:11)
--- NOTE | 2018-09-03 09:24 | PN ---
Progress Note - Progress Note Date of Service: 09/03/18 SOAP: Subjective: CC:pneumonia HPI: 62 year old woman with encephalopathy and found to have pneumonia. She is up eating breakfast, cough decreasing, had it overnight. No fever, rash, or diarrhea. Objective: Vital Signs Temp 36.6 C 09/03/18 07:45 Pulse 78 09/03/18 07:45 Resp 20 09/03/18 09:11 BP 132/55 09/03/18 07:45 Pulse Ox 94 09/03/18 07:45 Intake & Output 09/02/18 09/03/18 09/03/18 18:59 06:59 18:59 Intake Total 240 Output Total 350 275 Balance -350 -35 Intake: Oral 240 Output: Stout 350 275 Gen:awake, no distress HEENT: no thrush Heart:RRR no murmur Lungs: decreased BS L>R base with egophany Abd:+BS NTND soft Skin: no rash Laboratory Results - last 24 hr 09/02/18 09/02/18 09/02/18 09:24 09:24 09:24 WBC 8.9 RBC 3.04 L Hgb 8.5 L Hct 26 L MCV 85 MCH 28 MCHC 33 RDW 15 Plt Count 168 MPV 9.2 Neut % (Auto) 76.9 Lymph % (Auto) 16.5 [place] % (Auto) 4.6 Eos % (Auto) 1.7 Baso % (Auto) 0.3 Absolute Neuts (auto) 6.8 Absolute Lymphs (auto) 1.5 Absolute Monos (auto) 0.4 Absolute Eos (auto) 0.2 Absolute Basos (auto) 0 Absolute Nucleated RBC 0 Nucleated RBC % 0 Sodium 140 Potassium 3.6 Chloride 110 Carbon Dioxide 19 L Anion Gap 11 BUN 24 24 Creatinine 0.84 0.87 Est GFR ( Amer) 82.9 79.6 Est GFR (Non-Af Amer) 68.5 65.8 BUN/Creatinine Ratio 27.6 H Glucose 214 H POC Glucose (mg/dL) Calcium 8.3 L Vancomycin Trough 27.4 09/02/18 09/02/18 09/02/18 11:23 16:38 19:42 WBC RBC Hgb Hct MCV MCH MCHC RDW Plt Count MPV Neut % (Auto) Lymph % (Auto) [place] % (Auto) Eos % (Auto) Baso % (Auto) Absolute Neuts (auto) Absolute Lymphs (auto) Absolute Monos (auto) Absolute Eos (auto) Absolute Basos (auto) Absolute Nucleated RBC Nucleated RBC % Sodium Potassium Chloride Carbon Dioxide Anion Gap BUN Creatinine Est GFR ( Amer) Est GFR (Non-Af Amer) BUN/Creatinine Ratio Glucose POC Glucose (mg/dL) 255 H 238 H 238 H Calcium Vancomycin Trough 09/03/18 07:41 WBC RBC Hgb Hct MCV MCH MCHC RDW Plt Count MPV Neut % (Auto) Lymph % (Auto) [place] % (Auto) Eos % (Auto) Baso % (Auto) Absolute Neuts (auto) Absolute Lymphs (auto) Absolute Monos (auto) Absolute Eos (auto) Absolute Basos (auto) Absolute Nucleated RBC Nucleated RBC % Sodium Potassium Chloride Carbon Dioxide Anion Gap BUN Creatinine Est GFR ( Amer) Est GFR (Non-Af Amer) BUN/Creatinine Ratio Glucose POC Glucose (mg/dL) 176 H Calcium Vancomycin Trough Assessment: 1. Pneumonia, MRSA, improving 2. CAD s/p CAB 3. T2DM Plan: 1. vancomycin goal tr 10-15, antibiotics day 4/7, recheck CXR 1 month
[2018-09-03] MEDS: Neomycin/Polym/Bacit TOP OINT* 15 GM TOPICAL SCH (10:37)
[2018-09-03] MEDS: Vancomycin(*) 750 MG in NS 0.9% 250 ML* 250 ML IVPB SCH ×2 (12:52→23:38)
[2018-09-03] MEDS: Insulin GLARGINE(*) 1 UNITS UNIT SUBCUT SCH (14:40)
[2018-09-03] MEDS ORDERED: Insulin GLARGINE(*) 1 UNITS UNIT SUBCUT ONE (16:47)
--- NOTE | 2018-09-03 16:56 | PN ---
Subjective Date of Service: 09/03/18 Interval History: Still some sputum, swallows it. Not very SOB. No new c/o. Family History: Unchanged from Admission Social History: Unchanged from Admission Past Medical History: Unchanged from Admission Objective Active Medications: Acetaminophen (Tylenol Tab*) 650 mg PO Q6H PRN PRN Reason: FEVER/PAIN Aspirin (Aspirin Ec Tab*) 81 mg PO DAILY [facility] Last Admin: 09/03/18 09:11 Dose: 81 mg Atorvastatin Calcium (Lipitor*) 40 mg PO DAILY [facility] Last Admin: 09/03/18 09:11 Dose: 40 mg Bupropion HCl (Wellbutrin Sr Tab*) 150 mg PO BID [facility] Last Admin: 09/03/18 09:10 Dose: 150 mg Clopidogrel Bisulfate (Plavix Tab*) 75 mg PO DAILY [facility] Last Admin: 09/03/18 09:10 Dose: 75 mg Dextrose (D50w Syringe 50 Ml*) 12.5 gm IV PUSH .FOR FS < 60 - SS PRN PRN Reason: FS < 60 Gabapentin (Neurontin Cap(*)) 300 mg PO BID [facility] Last Admin: 09/03/18 09:11 Dose: 300 mg Guaifenesin/Dextromethorphan (Robitussin Dm*) 5 ml PO Q4H PRN PRN Reason: COUGH Last Admin: 08/31/18 22:36 Dose: 5 ml Heparin Sodium (Porcine) (Heparin Vial(*)) 5,000 units SUBCUT Q8HR [facility] Last Admin: 09/03/18 14:40 Dose: 5,000 units Vancomycin HCl 750 mg/ Sodium (Chloride) 250 mls @ 166.667 mls/hr IVPB Q12H [facility] Last Admin: 09/03/18 12:52 Dose: 166.667 mls/hr Insulin Glargine (Lantus(*)) 10 units SUBCUT ONCE ONE Stop: 09/03/18 16:48 Insulin Glargine (Lantus(*)) 25 units SUBCUT Q24H [facility] Insulin Human Lispro (Humalog*) 0 units SUBCUT ACHS [facility]; Protocol Last Admin: 09/03/18 12:52 Dose: 4 units Levothyroxine Sodium (Synthroid Tab*) 200 mcg PO 0600 [facility] Last Admin: 09/03/18 06:17 Dose: 200 mcg Metoprolol Tartrate (Lopressor Tab*) 50 mg PO BID [facility] Last Admin: 09/03/18 09:11 Dose: 50 mg Miconazole Nitrate (Monistat 2%*) 1 applic TOPICAL BID [facility] Last Admin: 09/03/18 10:37 Dose: 1 applic Neomycin/Polymyxin/Bacitracin (Neosporin Top Oint Tube*) 1 applic TOPICAL DAILY [facility] Last Admin: 09/03/18 10:37 Dose: 1 applic Nitroglycerin (Nitroglycerin Tab 0.4 Mg*) 0.4 mg SL Q5M PRN PRN Reason: PAIN - CHEST Oxybutynin Chloride (Ditropan Tab*) 5 mg PO BID [facility] Last Admin: 09/03/18 09:11 Dose: 5 mg Pharmacy Consult (Vancomycin Per Pharmacy*) 1 note FOLLOW UP . PRN PRN Reason: PER PROTOCOL Pharmacy Profile Note (Vancomycin Trough Check) 1 note FOLLOW UP ONCE ONE Stop: 09/04/18 11:31 Sodium Bicarbonate (Sodium Bicarbonate (Antacid)*) 1,300 mg PO AC [facility] Last Admin: 09/03/18 11:18 Dose: 1,300 mg Trazodone HCl (Desyrel Tab*) 50 mg PO BEDTIME PRN PRN Reason: INSOMNIA Last Admin: 09/02/18 22:43 Dose: 50 mg Venlafaxine HCl (Effexor Xr Cap*) 150 mg PO BID [facility] Last Admin: 09/03/18 09:11 Dose: 150 mg Vital Signs - 8 hr 09/03/18 09/03/18 09/03/18 09:11 11:36 12:52 Pulse Rate 72 Respiratory 20 20 Rate O2 Sat by Pulse 100 Oximetry Oxygen Devices in Use Now: None Appearance: Alert supine on bed with feet on floor. Neutral affect. Looks comfortable. Eyes: No Scleral Icterus Respiratory: Symmetrical Chest Expansion and Respiratory Effort, Clear to Percussion, - - diminished BS BL Cardiovascular: NL Sounds; No Murmurs; No JVD, RRR, No Edema, - Extremities: No Edema, No Clubbing, Cyanosis, - Skin: No Rash or Ulcers, No Nodules or Sclerosis, - Neurological: NL Sensation - No tremor Result Diagrams: 09/02/18 09:24 09/02/18 09:24 Microbiology and Other Data: Microbiology 08/29/18 15:03 Aerobic Blood Culture - Preliminary Blood Venous No Growth Day 1 Anaerobic Blood Culture - Preliminary No Growth Day 1 08/29/18 13:51 Aerobic Blood Culture - Preliminary Blood Venous No Growth Day 1 Anaerobic Blood Culture - Preliminary No Growth Day 1 08/29/18 14:40 Urine Culture - Final Urine No Growth (<1,000 CFU/mL) 08/30/18 06:30 Gram Stain - Final Sputum Induced 08/30/18 07:26 Influenza Types A,B Antigen - Final Nasopharyngeal Specimen received for Influenza A/B Molecular testing 08/29/18 18:18 Nasal Screen MRSA (PCR) - Final Nasal Mrsa Detected Assess/Plan/Problems-Billing Assessment: Mrs Shon Sosa is a 62yo F with PMH of CAD s/p 3 vessel CABG, type 2 DM, HTN, hypothyroidsm, depression, who presented to ED on 08/29 with altered MS, found to have sepsis secondary to pneumonia. - Patient Problems (1) Pneumonia Current Visit: Yes Status: Acute Code(s): J18.9 - PNEUMONIA, UNSPECIFIED ORGANISM SNOMED Code(s): 064921187 Comment: - CxR shows bilateral infiltrates L>R. O2 sat 94% on RA PM 09/03/18. - Sputum culture growin Group B strep and MRSA. - ID consult appreciated - recommended continue Vancomycin, complete course with doxy on discharge. (2) Encephalopathy Current Visit: Yes Status: Acute Code(s): G93.40 - ENCEPHALOPATHY, UNSPECIFIED SNOMED Code(s): 36906896 Comment: - Multifactorial in the setting of severe sepsis, metabolic dearrangement, medications, and possible amphetamine use. CT brain was negative. - Hallucinations are improved. - Denies any illicit drug use and does not know how she has amphetamines in her urine. Not clear what her baseline is. (3) CAD (coronary artery disease) Current Visit: Yes Status: Acute Code(s): I25.10 - ATHSCL HEART DISEASE OF [place] CORONARY ARTERY W/O ANG PCTRS SNOMED Code(s): 00596210 Comment: - Stable. - Continue Aspirin, Plavix, Atorvastatin, and Metoprolol. (4) Hypothyroidism Current Visit: Yes Status: Acute Code(s): E03.9 - HYPOTHYROIDISM, UNSPECIFIED SNOMED Code(s): 71638595 Comment: - TSH 4.57 on 08/29/18. - Continue Levothyroxine. (5) Type 2 diabetes mellitus Current Visit: Yes Status: Acute Comment: conc carb diet - Continue Lispro SS and increase Lantus to 25 U 09/04, received total 20 U /. Status and Disposition: Inpatient.
[2018-09-03] MEDS ORDERED: Magnesium Hydroxide LIQ* 30 ML UDC PO ONE (18:48)
[2018-09-03] MEDS: Polyethylene Glycol 3350* 17 GM PACKET PO SCH (21:31)
[2018-09-04] MEDS: Heparin VIAL(*) 5000 UNITS/ML VIAL (FIVE THOUSAND) SUBCUT SCH (05:27)
[2018-09-04] MEDS: Levothyroxine TAB* 100 MCG TAB PO SCH (05:27)
[2018-09-04 06:50] LABS: EGFR Non-African American 58.7 (>60)
[2018-09-04] MEDS: Insulin LISPRO* 1 UNITS UNIT SUBCUT SCH (07:56)
[2018-09-04 07:57] VITALS: BP 142/64
[2018-09-04] MEDS: Venlafaxine EXT RELEASE CAP* 75 MG PO SCH (08:25)
[2018-09-04] MEDS: Clopidogrel TAB* 75 MG PO SCH (08:25)
[2018-09-04] MEDS: buPROPion SR TAB.SR* 150 MG PO SCH (08:25)
[2018-09-04] MEDS: Sodium Bicarbonate (ANTACID)* 650 MG TAB PO SCH ×2 (08:25→11:34)
[2018-09-04] MEDS: Aspirin EC TAB* 81 MG TAB.EC PO SCH (08:25)
[2018-09-04] MEDS: Atorvastatin* 40 MG TAB PO SCH (08:26)
[2018-09-04] MEDS: Gabapentin CAP(*) 300 MG PO SCH (08:26)
[2018-09-04] MEDS: Metoprolol Tartrate TAB* 50 mg PO SCH (08:26)
[2018-09-04] MEDS: Miconazole TOPICAL CREAM 2%* 30 GM TOPICAL SCH (08:32)
[2018-09-04] MEDS: Neomycin/Polym/Bacit TOP OINT* 15 GM TOPICAL SCH (08:32)
[2018-09-04] MEDS: Polyethylene Glycol 3350* 17 GM PACKET PO SCH (08:32)
[2018-09-04] MEDS ORDERED: Insulin GLARGINE(*) 1 UNITS UNIT SUBCUT SCH (09:00)
--- NOTE | 2018-09-04 10:37 | PN ---
Progress Note - Progress Note Date of Service: 09/04/18 Note: Time spent on discharge including exam of patient, discussion with patient, nurse, CM, review of EMR and preparation of discharge documents is 35 minutes.
--- NOTE | 2018-09-04 11:17 | TRS ---
CC: Dr. Agapito Holt* DATE OF ADMISSION: 08/29/2018. DATE OF TRANSFER: 09/04/2018. HISTORY OF PRESENT ILLNESS/HOSPITAL COURSE: This 62-year-old woman presented with altered mental status. She had a temperature of 101.4 and was felt to have bilateral pneumonia, hypoxic respiratory failure, and metabolic encephalopathy. The history is detailed in the admission note. The patient gradually improved and I think is pretty much at her baseline status. Influenza testing was negative. Urine culture was negative. MRSA was detected on a nasal screen as well as in her sputum. She was felt to have staphylococcal pneumonia. She was treated with Vancomycin. She will complete her treatment at the care home with Doxycycline. I think her metabolic encephalopathy cleared completely. During her hospital stay, she did not get any Metformin. This will be resumed on discharge. According to the records, she was taking 47 units of Lantus at home. We are only giving her 20 units here. She did get 25 units on the day of discharge. This will need to be carefully titrated. She has a chronic anemia and this should be followed up as well. He has a metabolic acidosis and is placed on Sodium Bicarbonate for this. FINAL DIAGNOSES: 1. Pneumonia. 2. Encephalopathy, resolved. 3. Coronary artery disease. 4. Hypothyroidism. 5. Diabetes. 6. Metabolic acidosis. DISCHARGE MEDICATIONS: 1. Doxycycline 100 mg b.i.d. for 3 days. 2. Guaifenesin DM 5 ml every 4 hours prn. 3. Glargine insulin 20 units daily in the morning. 4. Lispro by sliding scale. 5. Metoprolol tartrate 50 mg b.i.d. 6. Neosporin daily prn. 7. Polyethylene Glycol 17 gm b.i.d. 8. Trazodone 50 mg at bedtime prn. 9. Venlafaxine XR 150 mg b.i.d. 10. Calmoseptine ointment packet t.i.d. 11. Acetaminophen 650 mg every 6 hours prn. 12. Nitroglycerine 0.4 mg sublingual every 5 minutes prn. 13. Miconazole topical cream b.i.d. 14. Levothyroxine 200 mcg daily. 15. Floranex tablet 2 daily. 16. Gabapentin 300 mg b.i.d. 17. Metformin 1,000 mg b.i.d. 18. Atorvastatin 40 mg daily. 19. Aspirin 81 mg daily. 20. Clopidogrel 75 mg daily. 21. Bupropion SR 150 mg b.i.d. CONDITION ON DISCHARGE: Stable. DISPOSITION ON DISCHARGE: Discharge to [facility]. [id number]/[facility] #: [id number] MTDD
[2018-09-04] MEDS ORDERED: Vancomycin Trough Check NOTE FOLLOW UP ONE (11:30)
[2018-09-04] MEDS: Oxybutynin TAB* 5 MG PO SCH (11:34)
[2018-09-04] MEDS ORDERED: DOXYcycline CAP(*) 100 MG PO SCH (21:00)
[2018-09-05] MEDS ORDERED: Insulin GLARGINE(*) 1 UNITS UNIT SUBCUT SCH (09:00)
== END 2018-09-04 13:11 | DRG 871 ==
LOC: ED 13:21 → ICU 16:11 → MEDTELE 08-31 08:46
PROVIDERS: ADMIT Student in an Organized Health Care Education/Training Program; ATTEND Internal Medicine
DX: A41.9 Sepsis, unspecified organism (principal); J15.212 Pneumonia due to Methicillin resistant Staphylococcus aureus; J96.01 Acute respiratory failure with hypoxia; G93.41 Metabolic encephalopathy; N17.9 Acute kidney failure, unspecified; E87.2 Acidosis; I25.10 Atherosclerotic heart disease of native coronary artery without angina pectoris; E11.9 Type 2 diabetes mellitus without complications; E03.9 Hypothyroidism, unspecified; I10 Essential (primary) hypertension; E83.42 Hypomagnesemia; F41.9 Anxiety disorder, unspecified; F17.210 Nicotine dependence, cigarettes, uncomplicated; R65.20 Severe sepsis without septic shock; R40.2432 Glasgow coma scale score 3-8, at arrival to emergency department; F32.9 Major depressive disorder, single episode, unspecified; E87.6 Hypokalemia; Z88.8 Allergy status to other drugs, medicaments and biological substances; I25.2 Old myocardial infarction; Z95.1 Presence of aortocoronary bypass graft; Z82.49 Family history of ischemic heart disease and other diseases of the circulatory system; Z79.82 Long term (current) use of aspirin; Z79.02 Long term (current) use of antithrombotics/antiplatelets; Z79.84 Long term (current) use of oral hypoglycemic drugs; Z72.89 Other problems related to lifestyle
CPT/HCPCS: 36415; 70450; 71045; 74176; 80048; 80053; 80202; 80307; 80320; 80329; 81003; 81015; 82140; 82550; 82565; 82803; 83605; 83735; 84443; 84484; 84520; 85025; 85060; 85610; 87040; 87070; 87077; 87086; 87186; 87205; 87641; 93005; 99285; 99406; A9270-GY; G0480; G8987-GO-CM; G8988-GO-CK; J0456; J0696; J1644; J3010; J3370; J3475; J3480; J3490

== ENCOUNTER 2018-12-06 01:38 | Inpatient (IN) | payer OTHER ==
--- NOTE | 2018-12-06 02:01 | ED ---
Altered Mental Status - HPI Summary HPI Summary: The patient is a 63 y/o F arriving by ambulance with a chief complaint of gradual onset increased AMS with possible UTI today. The patient comes from a [facility], where it was reported that she had changes in her mental status, as she's been picking at her skin because she thinks there are bugs on her, causing open wounds, as well as she became incontinent which is unusual for her. They have been unable to obtain a UA because she keeps removing the hat from the toilet. Hx of DM, CAD, HTN, HLD. Former smoker, no EtOH, no substance use. - History Of Current Complaint Chief Complaint: EDGeneral Stated Complaint: MHE PER EMS Time Seen by Provider: 12/06/18 01:50 Hx Obtained From: Patient, EMS Onset/Duration: Still Present Timing: Lasting Hours Severity Initially: Moderate Severity Currently: Moderate Character: Confusion Aggravating Factor(s): Nothing Alleviating Factor(s): Nothing - Allergies/Home Medications Allergies/Adverse Reactions: Allergies Allergy/AdvReac Type Severity Reaction Status Date / Time docusate [From Colace] Allergy Unknown Verified 02/03/18 14:47 Reaction Details PMH/Surg Hx/FS Hx/Imm Hx Endocrine/Hematology History: Reports: Hx Anticoagulant Therapy - plavix, Hx Diabetes, Hx Thyroid Disease Cardiovascular History: Reports: Hx Coronary Artery Disease, Hx Hypertension, Other Cardiovascular Problems/Disorders - HLD Denies: Hx Congestive Heart Failure, Hx Pacemaker/ICD GI History: Reports: Hx Gastroesophageal Reflux Disease - not diagnosed History: Denies: Hx Renal Disease Sensory History: Denies: Hx Cataracts, Hx Deafness, Hx Hearing Aid - unable to determine Comment Only: Hx Contacts or Glasses - unable to determine Opthamlomology History: Denies: Hx Cataracts Comment Only: Hx Contacts or Glasses - unable to determine Psychiatric History: Reports: Hx Depression Denies: Hx Autism, Hx Panic Disorder, Hx Schizophrenia - Surgical History Surgery Procedure, Year, and Place: PREV ABSCESS IN PELVIS SURGERY. CABG. BILATERAL KNEE 'SCOPES Infectious Disease History: Unable to Obtain/Confirm Infectious Disease History: Reports: Hx Clostridium Difficile - approx 2 years ago, Hx of Known/Suspected MRSA - 12/28/17 nasal swab Denies: Traveled Outside the [place] in Last 30 Days - Family History Known Family History: Positive: Other - [place] - Social History Alcohol Use: None Alcohol Amount: once aweek Substance Use Type: Reports: None, Other Smoking Status (MU): Current Some Day Smoker Type: Cigarettes Have You Smoked in the Last Year: Yes Review of Systems Positive: incontinence Positive: Other - scabs and openings from picking Neurological: Other - mild AMS All Other Systems Reviewed And Are Negative: Yes Physical Exam - Summary Physical Exam Summary: Constitutional: Well-developed, Well-nourished, Alert. Smelling of foul-urine. ( -) Distressed Skin: Warm, Dry HENT: Normocephalic; Atraumatic Eyes: Conjunctiva normal Neck: Musculoskeletal ROM normal neck. (-) JVD, (-) Stridor, (-) Tracheal deviation Cardio: Rhythm regular, rate normal, Heart sounds normal; Intact distal pulses; The pedal pulses are 2+ and symmetric. Radial pulses are 2+ and symmetric. (-) Murmur Pulmonary/Chest wall: Effort normal. (-) Respiratory distress, (-) Wheezes, (-) Rales Abd: Soft, (-) tenderness, (-) Distension, (-) Guarding, (-) Rebound Musculoskeletal: (-) Edema Lymph: (-) Cervical adenopathy Neuro: Alert, Oriented to person, place, and somewhat to event Psych: Mood and affect Normal except for Hallucinations Triage Information Reviewed: Yes Vital Signs On Initial Exam: Initial Vitals Temp Pulse Resp BP Pulse Ox 98.2 F 76 16 145/66 96 12/06/18 01:50 12/06/18 01:50 12/06/18 01:50 12/06/18 01:50 12/06/18 01:50 Vital Signs Reviewed: Yes Diagnostics - Vital Signs Vital Signs Temp Pulse Resp BP Pulse Ox 12/06/18 01:50 98.2 F 76 16 145/66 96 - Laboratory Result Diagrams: 12/06/18 06:28 12/06/18 06:28 Lab Statement: Any lab studies that have been ordered have been reviewed, and results considered in the medical decision making process. - Radiology CXR Radiology Interpretation Completed By: Radiologist Summary of Radiographic Findings: No acute disease. ED physician has reviewed this report. - EKG 0158 Cardiac Rate: NL - 70 BPM EKG Rhythm: Sinus Rhythm Summary of EKG Findings: NSR at 70 bpm, normal HI, prolonged QRS, normal QTc, ST depressions in aVL, normal T-waves. Nonspecific. Overall LVH. Re-Evaluation - Re-Evaluation First Eval Re-Evaluation Time: 04:30 Comment: I discussed findings with the patient and need for admission. Altered Mental Statu Course/Dx - Course Course Of Treatment: The patient is a 63 y/o F arriving by ambulance with a chief complaint of gradual onset increased AMS with changes in her mental status , as she's been picking at her skin because she thinks there are bugs on her, causing open wounds, as well as she became incontinent which is unusual for her. Upon physical exam, the patient appears to be in no acute distress, is alert and oriented to person, place, time, and somewhat to event, hallucinations , and smell of foul-urine. Blood work reveals RBC of 3.10, hgb of 8.1, hct of 26 , RDW of 17, BUN of 29, creatinine of 1.17, BUN/Creatinine of 24.8, glucose of 101, lactic acid of 2.5, magnesium of 1.7, total protein of 6.3, and TSH of 0.01. UA reveals 1+ protein, 1+ leukocyte esterase, and 3+ WBC. Toxicology report reveals normal acetaminophen and serum alcohol. EKG reveals NSR at 70 bpm , normal HI, prolonged QRS, normal QTc, ST depressions in aVL, normal T-waves, nonspecific, overall LVH. CXR reveals no acute disease. In the ED course, the patient was administered Ns and Ceftriaxone. I spoke with Dr. Bell, hospitalist , at 0445, and he accepts the patient for admission. She is diagnosed with UTI and delirium. - Diagnoses Provider Diagnoses: UTI (urinary tract infection), Delirium - Provider Notifications Discussed Care Of Patient With: Jose Guadalupe Bell - hospitalist Time Discussed With Above Provider: 04:45 Instructed by Provider To: Other - I discussed the patient's case with Dr. Bell , and he agrees for admission. Discharge - Sign-Out/Discharge Documenting (check all that apply): Patient Departure - Patient is accepted for admission by Dr. Bell. Patient Received Moderate/Deep Sedation with Procedure: No - Discharge Plan Condition: Stable Disposition: ADMITTED TO [facility] - Billing Disposition and Condition Condition: STABLE Disposition: Admitted to [facility] - Attestation Statements Document Initiated by Audieibmarion: Yes Documenting Scribe: Harriet Park Provider For Whom Danny is Documenting (Include Credential): Dr. Emilie Aquino MD Scribe Attestation: I, Harriet Park, scribed for Dr. Emilie Aquino MD on 12/06/18 at 0820. Scribe Documentation Reviewed: Yes Provider Attestation: The documentation as recorded by the Harriet ochoa accurately reflects the service I personally performed and the decisions made by me, Dr. Emilie Aquino MD Status of Scribe Document: Viewed
[2018-12-06 02:18] LABS: ABS Eosinophils 0.4 10^3/ul (0-0.6); ABS Lymphocytes 3.5 10^3/ul (1.0-4.8); ABS Monocytes 0.6 10^3/ul (0-0.8); ABS Neutrophils 3.9 10^3/ul (1.5-7.7); Eosinophil % 4.3 %; Hematocrit 26 % (35-47); Hemoglobin 8.1 g/dL (12.0-16.0); Lymphocyte % 41.3 %; Mean Corpuscular HGB Conc 32 g/dL (31-36); Mean Corpuscular Hemoglobin 26 pg (27-31); Mean Corpuscular Volume 82 fL (80-97); Mean Platelet Volume 8.9 fL (7.4-10.4); Platelet Count 219 10^3/uL (150-450); Red Cell Distribution Width 17 % (10-15); White Blood Count 8.5 10^3/uL (3.5-10.8)
[2018-12-06 02:35] LABS: ALT 14 U/L (7-52); AST 13 U/L (13-39); Albumin 3.4 g/dL (3.2-5.2); Albumin/Globulin Ratio 1.2 (1-3); Alkaline Phosphatase 78 U/L (34-104); Anion Gap 7 mmol/L (2-11); BUN/Creatinine Ratio 24.8 (8-20); Blood Urea Nitrogen 29 mg/dL (6-24); CO2 Carbon Dioxide 25 mmol/L (22-32); Calcium 8.9 mg/dL (8.6-10.3); Chloride 109 mmol/L (101-111); EGFR African American 56.3 (>60); EGFR Non-African American 46.6 (>60); Globulin 2.9 g/dL (2-4); Glucose 101 mg/dL (70-100); Magnesium 1.7 mg/dL (1.9-2.7); Potassium 4.4 mmol/L (3.5-5.0); Sodium 141 mmol/L (135-145); Total Protein 6.3 g/dL (6.4-8.9)
[2018-12-06] MEDS ORDERED: NS 0.9% 1000 ML** 1,000 ML IV.FLUID IV ONE (02:39)
[2018-12-06 02:55] LABS: Acetaminophen < 15 mcg/mL; Alcohol < 10 mg/dL (<10)
[2018-12-06 02:58] LABS: Urine Appearance Cloudy; Urine Bacteria Absent (Absent); Urine Bilirubin Negative (Negative); Urine Blood Negative (Negative); Urine Color Yellow; Urine Glucose Negative (Negative); Urine Ketones Negative (Negative); Urine Nitrite Negative (Negative); Urine Protein 1+(30 mg/dL) (Negative); Urine Red Blood Cell Absent (Absent); Urine Specific Gravity 1.016 (1.010-1.030); Urine Urobilinogen Negative (Negative); Urine White Blood Cell 3+(>20/hpf) (Absent)
[2018-12-06 03:13] LABS: TSH (Thyroid Stimulating Horm) 0.01 mcIU/mL (0.34-5.60)
[2018-12-06] MEDS ORDERED: cefTRIAXone(*) 1 GM in NS 0.9% 50 ML* 50 ML IVPB ONE (03:23)
--- NOTE | 2018-12-06 05:19 | HP ---
History of Present Illness - History of Present Illness Reason for Visit: Confusion. History of Present Illness: 63yoF with HTN, Type 2 DM, is a [facility] resident was sent for evaluation of confusion. Patient here was able to state it is november and she's in the hospital. But otherwise unsure why she was sent. She denies any chest pain, urinary problem, cough or shortness of breath. Rest of the history was obtained from review of records as patient even though oriented at times is un-reliable. Per ER nurse records patient has increased confusion, visual hallucination, and has been picking at her skin. Past Medical History: Hypertension Hyperlipidemia Diabetes Type 2 Hypothyroidism Coronary Artery Disease s/p 3 vessel CABG Gastroesophageal Reflux Disease Depression Chronic Anemia Skin picking disorder Hx Clostridium Difficile - approx 2 years ago Hx of Known/Suspected MRSA - 12/28/17 nasal swab Previous admission for confusion due to infection Past Surgical History: PREV ABSCESS IN PELVIS SURGERY 3 Vessel CABG Bilateral Knee Scopes - Past Social History Smoke: Quit - Long smoking history. Alcohol: Occassional Drugs: None Lives: Other - States she's in [facility] for rehab however unable to recall for what. is the surrogate decision maker. There is a MOLST with DNR indicated. Review of Systems - Measurements Intake and Output: Intake and Output Last 24 Hours 12/03/18 12/04/18 12/05/18 12/06/18 06:59 06:59 06:59 06:59 Weight 153 lb - Review of Systems General Comments: Unable to properly obtain due to being unreliable historian. Objective Vital Signs - 8 hr 12/06/18 12/06/18 12/06/18 01:47 01:50 02:00 Temperature 98.2 F Pulse Rate 70 70 69 Respiratory 16 Rate Blood Pressure 145/66 145/66 (mmHg) O2 Sat by Pulse 97 95 95 Oximetry 12/06/18 12/06/18 12/06/18 02:17 02:22 02:46 Temperature Pulse Rate 74 71 78 Respiratory Rate Blood Pressure 186/82 164/75 190/91 (mmHg) O2 Sat by Pulse 93 92 89 Oximetry 12/06/18 12/06/18 12/06/18 02:54 03:00 03:16 Temperature Pulse Rate 78 76 80 Respiratory Rate Blood Pressure 190/85 192/85 (mmHg) O2 Sat by Pulse 88 89 92 Oximetry 12/06/18 12/06/18 03:36 03:46 Temperature Pulse Rate 78 Respiratory Rate Blood Pressure 192/85 206/91 (mmHg) O2 Sat by Pulse 98 Oximetry Oxygen Devices in Use Now: Nasal Cannula Eyes: No Scleral Icterus, PERRLA Ears/Nose/Mouth/Throat: Mucous Membranes Moist Respiratory: - - Bilateral crackles. Cardiovascular: NL Sounds; No Murmurs; No JVD, RRR Abdominal: NL Sounds; No Tenderness; No Distention, No Hepatosplenomegaly Extremities: No Edema Neurological: - - Arousable and oriented to time place and person although patient is very slow at responding at times. Result Diagrams: 12/06/18 02:05 12/06/18 02:05 Diagnostic Imaging: CXR shows bilateral pulmonary congestion vs infiltrate. Official radiologist read pending. EKG Data: Sinus rhythm at 70BPM with ST-T segment changes unchanged when compared to previous EKG from 08/29/2018 Assess/Plan/Problems-Billing Assessment: 63yoF with HTN, Type 2 DM, is a [facility] resident here due to confusion. Likely due to UTI ?PNA. - Patient Problems (1) UTI (urinary tract infection) Current Visit: No Status: Acute Comment: urine cx pending continue above antibiotics (2) Pneumonia Current Visit: No Status: Acute Code(s): J18.9 - PNEUMONIA, UNSPECIFIED ORGANISM SNOMED Code(s): 620397388 Comment: Start Vanco/Zosyn to cover for HCAP given she's from rehab. Follow up cultures and titrate Abx. Titrate O2 via nasal cannula. Repeat lactic acid. (3) Toxic metabolic encephalopathy Current Visit: Yes Status: Acute Code(s): G92 - TOXIC ENCEPHALOPATHY SNOMED Code(s): 459171182 Comment: Likely from UTI vs PNA. (4) Diabetes Current Visit: No Status: Acute Code(s): E11.9 - TYPE 2 DIABETES MELLITUS WITHOUT COMPLICATIONS SNOMED Code(s): 67728162 Comment: Hold Metformin. Continue insulin. (5) HTN (hypertension) Current Visit: No Status: Acute Code(s): I10 - ESSENTIAL (PRIMARY) HYPERTENSION SNOMED Code(s): 35986310 Comment: Continue Metoprolol. (6) Hypothyroidism Current Visit: No Status: Acute Code(s): E03.9 - HYPOTHYROIDISM, UNSPECIFIED SNOMED Code(s): 61855583 Comment: Continue levothyroxine. TSH pending. (7) CAD (coronary artery disease) Current Visit: No Status: Acute Code(s): I25.10 - ATHSCL HEART DISEASE OF [place] CORONARY ARTERY W/O ANG PCTRS SNOMED Code(s): 10473297 Comment: Continue Aspirin, Plavix, Atorvastatin, and Metoprolol. (8) CKD (chronic kidney disease) Current Visit: No Status: Acute Code(s): N18.9 - CHRONIC KIDNEY DISEASE, UNSPECIFIED SNOMED Code(s): 667604018 Comment: Creatinine slighly worse. Repeat Level. (9) Anemia Current Visit: Yes Status: Acute Code(s): D64.9 - ANEMIA, UNSPECIFIED SNOMED Code(s): 719846544 Comment: Unclear etiology of chronic anemia likley from skin picking. Check Anemia panel. (10) DVT prophylaxis Current Visit: No Status: Acute Code(s): QYC3708 - SNOMED Code(s): 180258775 Comment: Lovenox. Allergies/Medications Medication: Menthol/Zinc Oxide [Calmoseptine Ointment Packet] 7 gm TOPICAL TID 12/30/17 [ History Confirmed 12/06/18] Acetaminophen TAB* [Tylenol TAB*] 650 mg PO Q6H PRN tab 01/02/18 [Rx Confirmed 12/06/18] Aspirin EC TAB* [Ecotrin EC Low Dose 81 MG*] 81 mg PO DAILY 01/13/18 [History Confirmed 12/06/18] Atorvastatin* [Lipitor 40 MG*] 40 mg PO DAILY 01/13/18 [History Confirmed ] Gabapentin CAP(*) [Neurontin 300 CAP(*)] 300 mg PO BID 01/13/18 [History Confirmed 12/06/18] L. Acidophilus/L.bulgaricus [Floranex Tablet] 2 tab PO DAILY 01/13/18 [History Confirmed 12/06/18] Levothyroxine TAB* [Synthroid 100 MCG TAB*] 200 mcg PO DAILY 01/13/18 [History Confirmed 12/06/18] Miconazole TOPICAL CREAM 2%* [Monistat 2%*] 1 applic TOPICAL BID 01/13/18 [ History Confirmed 12/06/18] Nitroglycerin TAB 0.4 MG* 0.4 mg SL Q5M PRN 01/13/18 [History Confirmed 12/06/18 ] metFORMIN* [Glucophage 1000 MG TAB *] 1,000 mg PO BID 01/13/18 [History Confirmed 12/06/18] Clopidogrel 75 mg PO DAILY 08/29/18 [History Confirmed 12/06/18] buPROPion SR TAB* 150 mg PO BID 08/29/18 [History Confirmed 12/06/18] DOXYcycline CAP(*) [DOXYcycline 100MG CAP(*)] 100 mg PO BID cap 09/04/18 [Rx Confirmed 12/06/18] GuaiFENesin DM* [Robitussin DM*] 5 ml PO Q4H PRN udc 09/04/18 [Rx Confirmed 12/18] Insulin GLARGINE(*) [Lantus(*)] 20 units SUBCUT Q24H unit 09/04/18 [Rx Confirmed 12/06/18] Insulin LISPRO* [HumaLOG*] 0 units SUBCUT ACHS unit 09/04/18 [Rx Confirmed 12/18] Metoprolol Tartrate TAB* [Lopressor TAB*] 50 mg PO BID tab 09/04/18 [Rx Confirmed 12/06/18] Neomycin/Polym/Bacit TOP OINT* [Neosporin TOP OINT TUBE*] 1 applic TOPICAL DAILY tube 09/04/18 [Rx Confirmed 12/06/18] Polyethylene Glycol 3350* [Miralax*] 17 gm PO 0800,2100 packet 09/04/18 [Rx Confirmed 12/06/18] Venlafaxine EXT RELEASE CAP* [Effexor Xr CAP*] 150 mg PO BID cap.sr 09/04/18 [ Rx Confirmed 12/06/18] traZODone TAB* [Desyrel TAB*] 50 mg PO BEDTIME PRN tab 09/04/18 [Rx Confirmed 12/06/18] Allergies/Adverse Reactions: Allergies Allergy/AdvReac Type Severity Reaction Status Date / Time docusate [From Colace] Allergy Unknown Verified 02/03/18 14:47 Reaction Details
[2018-12-06] MEDS ORDERED: Acetaminophen TAB* 325 MG PO PRN (06:09)
[2018-12-06] MEDS ORDERED: traZODone TAB* 50 MG TAB PO PRN (06:09)
[2018-12-06] MEDS ORDERED: Nitroglycerin TAB 0.4 MG* 0.4 MG TAB SL PRN (06:09)
[2018-12-06] MEDS ORDERED: GuaiFENesin DM* 5 ML UDC PO PRN (06:09)
[2018-12-06] MEDS ORDERED: Vancomycin(*) 1,000 MG in NS 0.9% 250 ML* 250 ML IVPB ONE (06:30)
[2018-12-06] MEDS ORDERED: ZOSYN 3.375 GM x ONE DOSE over 30 miuntes IVPB ×2 (06:30)
[2018-12-06 06:40] LABS: ABS Eosinophils 0.3 10^3/ul (0-0.6); ABS Lymphocytes 2.7 10^3/ul (1.0-4.8); ABS Monocytes 0.5 10^3/ul (0-0.8); ABS Neutrophils 3.5 10^3/ul (1.5-7.7); Eosinophil % 3.8 %; Hematocrit 24 % (35-47); Hemoglobin 7.9 g/dL (12.0-16.0); Lymphocyte % 39.1 %; Mean Corpuscular HGB Conc 32 g/dL (31-36); Mean Corpuscular Hemoglobin 27 pg (27-31); Mean Corpuscular Volume 82 fL (80-97); Mean Platelet Volume 8.9 fL (7.4-10.4); Nucleated Red Blood Cells % 0.1; Platelet Count 195 10^3/uL (150-450); Red Blood Count 2.97 10^6 /uL (3.70-4.87); Red Cell Distribution Width 17 % (10-15)
[2018-12-06 06:48] LABS: % Iron Saturation 10 % (15-55); Iron 26 ug/dL (50-212); Total Iron Binding Capacity 256 mcg/dL (250-450); Transferrin 183 mg/dL (203-362)
[2018-12-06 06:52] LABS: Calcium 8.9 mg/dL (8.6-10.3); Potassium 4.5 mmol/L (3.5-5.0)
[2018-12-06 06:58] LABS: BUN/Creatinine Ratio 28.1 (8-20); EGFR African American 70.8 (>60); EGFR Non-African American 58.5 (>60)
[2018-12-06 07:14] LABS: Folate 9.41 ng/mL (>3.99)
[2018-12-06] MEDS ORDERED: Vancomycin per Pharmacy* NOTE FOLLOW UP PRN (07:58)
[2018-12-06] MEDS: Insulin LISPRO* 1 UNITS UNIT SUBCUT SCH ×4 (08:42→23:54)
[2018-12-06] MEDS ORDERED: Levothyroxine TAB* 100 MCG TAB PO SCH (09:00)
[2018-12-06] MEDS ORDERED: Bumetanide IV* 0.25 MG/ML 4 ML VIAL SLOW PUSH ONE (09:55)
[2018-12-06] MEDS ORDERED: Albuterol/Ipratropium NEB.SOL* Albuterol 2.5 MG/Ipratropium 0.5 MG 3 ML INH PRN (09:56)
[2018-12-06] MEDS: Gabapentin CAP(*) 300 MG PO SCH ×2 (10:09→23:48)
[2018-12-06] MEDS: Clopidogrel TAB* 75 MG PO SCH (10:09)
[2018-12-06] MEDS: buPROPion SR TAB.SR* 150 MG PO SCH ×2 (10:09→23:48)
[2018-12-06] MEDS: Aspirin EC TAB* 81 MG TAB.EC PO SCH (10:09)
[2018-12-06] MEDS: Atorvastatin* 40 MG TAB PO SCH (10:09)
[2018-12-06] MEDS: Polyethylene Glycol 3350* 17 GM PACKET PO SCH ×2 (10:09→23:49)
[2018-12-06] MEDS: Venlafaxine EXT RELEASE CAP* 75 MG PO SCH ×2 (10:10→23:49)
[2018-12-06] MEDS: Metoprolol Tartrate TAB* 50 mg PO SCH ×2 (10:10→23:49)
[2018-12-06] MEDS: Insulin GLARGINE(*) 1 UNITS UNIT SUBCUT SCH (10:13)
[2018-12-06] MEDS: Enoxaparin(*) 40 MG/0.4 ML SYR SUBCUT SCH (10:14)
[2018-12-06] MEDS ORDERED: Magnesium Sulfate 2 GM IV* 2 GM/50 ML BAG IVPB ONE (11:30)
[2018-12-06] MEDS ORDERED: Metoprolol Tartrate IV* 1 MG/ML 5 ML VIAL IV PRN (11:45)
[2018-12-06] MEDS ORDERED: Piperacillin/Tazobac ADVAN(*) 3.375 GM in NS 0.9% 100 ML* 100 ML IVPB SCH (12:00)
[2018-12-06] MEDS ORDERED: Bumetanide 10 MG/40 ML IV DRIP IV SCH ×2 (12:00)
[2018-12-06] MEDS ORDERED: NS 0.9% 100 ML* 100 ML ONE (12:33)
[2018-12-06 13:25] LABS: Urine Appearance Cloudy; Urine Bacteria 1+ (Absent); Urine Bilirubin Negative (Negative); Urine Blood 1+ (Negative); Urine Color Straw; Urine Glucose Negative (Negative); Urine Ketones Negative (Negative); Urine Nitrite Negative (Negative); Urine Protein Negative (Negative); Urine Red Blood Cell 1+(3-5/hpf) (Absent); Urine Specific Gravity 1.005 (1.010-1.030); Urine Squamous Epithelial Cell Present (Absent); Urine Urobilinogen Negative (Negative); Urine White Blood Cell 3+(>20/hpf) (Absent)
[2018-12-06] MEDS: hydrALAZINE IV* 20 MG/ML VIAL IV SLOW PU PRN (13:40)
[2018-12-06] MEDS ORDERED: Acetaminophen SUPP* 650 MG SUPP PR PRN (14:32)
[2018-12-06] MEDS ORDERED: Metoprolol Tartrate IV* 1 MG/ML 5 ML VIAL IV ONE (16:30)
--- NOTE | 2018-12-06 16:50 | PN ---
Subjective Date of Service: 12/06/18 Interval History: Was admitted this am.Please refer to h and p for details.seen as pt very sob upon transfer to floor from ER.On 6l gasping for breath.Chest with wheezes and crackles and cxr with pulmonary edema.BP in the 200s. Transferred to ICU Objective Active Medications: Acetaminophen (Tylenol Tab*) 650 mg PO Q6H PRN PRN Reason: FEVER/PAIN Acetaminophen (Tylenol Supp*) 650 mg MD Q6H PRN PRN Reason: FEVER/PAIN Last Admin: 12/06/18 15:40 Dose: 650 mg Albuterol/Ipratropium (Duoneb (Albuterol 2.5 Mg/Ipratropium 0.5 Mg)) 1 neb INH Q4H PRN PRN Reason: SOB/WHEEZING Aspirin (Aspirin Ec Tab*) 81 mg PO DAILY [facility] Last Admin: 12/06/18 10:09 Dose: Not Given Atorvastatin Calcium (Lipitor*) 40 mg PO DAILY [facility] Last Admin: 12/06/18 10:09 Dose: Not Given Bupropion HCl (Wellbutrin Sr Tab*) 150 mg PO BID [facility] Last Admin: 12/06/18 10:09 Dose: Not Given Clopidogrel Bisulfate (Plavix Tab*) 75 mg PO DAILY [facility] Last Admin: 12/06/18 10:09 Dose: Not Given Enoxaparin Sodium (Lovenox(*)) 40 mg SUBCUT Q24H [facility] Last Admin: 12/06/18 10:14 Dose: 40 mg Gabapentin (Neurontin Cap(*)) 300 mg PO BID [facility] Last Admin: 12/06/18 10:09 Dose: Not Given Hydralazine HCl (Apresoline Iv*) 5 mg IV SLOW PU Q6H PRN PRN Reason: BLOOD PRESSURE Last Admin: 12/06/18 13:40 Dose: 5 mg Vancomycin HCl 750 mg/ Sodium (Chloride) 250 mls @ 166.667 mls/hr IVPB Q12H [facility] Bumetanide 10 mg/ IV Solution 40 mls @ 4 mls/hr IV Q10H [facility]; Protocol Stop: 12/06/18 17:00 Last Admin: 12/06/18 11:56 Dose: 4 mls/hr Cefepime HCl 1 gm/ Sodium (Chloride) 50 mls @ 100 mls/hr IVPB Q12H [facility] Insulin Glargine (Lantus(*)) 20 units SUBCUT Q24H [facility] Last Admin: 12/06/18 10:13 Dose: 20 units Insulin Human Lispro (Humalog*) 0 units SUBCUT ACHS [facility]; Protocol Last Admin: 12/06/18 12:01 Dose: Not Given Metoprolol Tartrate (Lopressor Tab*) 50 mg PO BID [facility] Last Admin: 12/06/18 10:10 Dose: Not Given Metoprolol Tartrate (Lopressor Iv*) 5 mg IV Q6H PRN PRN Reason: BLOOD PRESSURE Last Admin: 12/06/18 12:35 Dose: 5 mg Nitroglycerin (Nitroglycerin Tab 0.4 Mg*) 0.4 mg SL Q5M PRN PRN Reason: PAIN - CHEST Pharmacy Consult (Vancomycin Per Pharmacy*) 1 note FOLLOW UP . PRN PRN Reason: PER PROTOCOL Pharmacy Profile Note (Vancomycin Trough Check) 1 note FOLLOW UP ONCE ONE Stop: 12/08/18 05:31 Polyethylene Glycol/Electrolytes (Miralax*) 17 gm PO 0800,2100 [facility] Last Admin: 12/06/18 10:09 Dose: Not Given Trazodone HCl (Desyrel Tab*) 50 mg PO BEDTIME PRN PRN Reason: INSOMNIA Venlafaxine HCl (Effexor Xr Cap*) 150 mg PO BID [facility] Last Admin: 12/06/18 10:10 Dose: Not Given Vital Signs - 8 hr 12/06/18 12/06/18 12/06/18 09:45 10:04 10:15 Temperature 97.6 F Pulse Rate 100 Respiratory 18 20 Rate Blood Pressure 185/68 (mmHg) O2 Sat by Pulse 95 92 Oximetry 12/06/18 12/06/18 12/06/18 10:33 10:38 10:46 Temperature 98.3 F Pulse Rate 98 99 100 Respiratory 28 25 26 Rate Blood Pressure 202/78 202/78 157/66 (mmHg) O2 Sat by Pulse 96 97 96 Oximetry 12/06/18 12/06/18 12/06/18 10:52 11:00 11:01 Temperature Pulse Rate 100 99 100 Respiratory 26 33 22 Rate Blood Pressure 183/82 186/88 (mmHg) O2 Sat by Pulse 96 97 97 Oximetry 12/06/18 12/06/18 12/06/18 11:15 11:31 11:54 Temperature 99.1 F Pulse Rate Respiratory 25 25 Rate Blood Pressure 167/83 176/96 (mmHg) O2 Sat by Pulse 99 97 Oximetry 12/06/18 12/06/18 12/06/18 12:00 12:30 13:00 Temperature 100.9 F Pulse Rate Respiratory 22 23 22 Rate Blood Pressure 160/78 189/73 167/84 (mmHg) O2 Sat by Pulse 96 94 94 Oximetry 12/06/18 12/06/18 12/06/18 13:31 13:43 14:00 Temperature 101.1 F 101.1 F 101.3 F Pulse Rate Respiratory 20 24 21 Rate Blood Pressure 186/87 178/82 (mmHg) O2 Sat by Pulse 94 92 95 Oximetry 12/06/18 12/06/18 12/06/18 14:01 14:30 15:00 Temperature 101.3 F 101.7 F 101.8 F Pulse Rate Respiratory 23 19 24 Rate Blood Pressure 169/89 175/72 169/70 (mmHg) O2 Sat by Pulse 94 94 93 Oximetry 12/06/18 12/06/18 12/06/18 15:30 15:59 16:00 Temperature 102.2 F 102.2 F 102.2 F Pulse Rate Respiratory 21 26 23 Rate Blood Pressure 169/62 169/92 (mmHg) O2 Sat by Pulse 92 93 92 Oximetry 12/06/18 16:01 Temperature 102.2 F Pulse Rate Respiratory 25 Rate Blood Pressure 177/70 (mmHg) O2 Sat by Pulse 92 Oximetry Oxygen Devices in Use Now: Nasal Cannula Ears/Nose/Mouth/Throat: NL Teeth, Lips, Gums Neck: - - JVD + Respiratory: - - bilateral crackles and expiratory wheezes Cardiovascular: - - tachycardic Extremities: - - 1+ Edema Neurological: - - reports being in distress Result Diagrams: 12/06/18 06:28 12/06/18 06:28 Microbiology and Other Data: Microbiology 12/06/18 06:35 Nasal Screen MRSA (PCR) - Final Nasal Mrsa Detected Diagnostic Imaging: CXR shows bilateral pulmonary congestion vs infiltrate. Official radiologist read pending. EKG Data: Sinus rhythm at 70BPM with ST-T segment changes unchanged when compared to previous EKG from 08/29/2018 Assess/Plan/Problems-Billing Assessment: 63yoF with HTN, Type 2 DM, is a [facility] resident here due to confusion. Likely due to UTI ?PNA. - Patient Problems (1) Acute hypoxemic respiratory failure Current Visit: No Status: Acute Code(s): J96.01 - ACUTE RESPIRATORY FAILURE WITH HYPOXIA SNOMED Code(s): 380516625 Comment: sec CHF exacerbation abg (2) Pulmonary edema Current Visit: Yes Status: Acute Code(s): J81.1 - CHRONIC PULMONARY EDEMA SNOMED Code(s): 63064749 Comment: h/o CABG and CAD Will get Echo to evaluate EF and cardiac function Flash pul edema in the setting of hypertensive urgency Transferred to ICU for BIPAP but did not need Diuresed with Bumex Bumex 1 mg followed by 1 mg/hr drip over 5h with good urine output and improvement in sob and transitioned through the day to 2l NC (3) Pneumonia Current Visit: Yes Status: Acute Code(s): J18.9 - PNEUMONIA, UNSPECIFIED ORGANISM SNOMED Code(s): 156011645 Comment: ?PCN Will repeat CXR in am and see if edema improved and eval component of pneumonia will continue vanco for now and switch zosyn to cefepime as pt also has uti and continues to spike fever of 102 despite being on zosyn.will await cultures (4) UTI (urinary tract infection) Current Visit: Yes Status: Acute Comment: Will switch to Cefepime for expanded gram neg coverage and hold zosyn will await blood and urine cx (5) Hypertensive urgency Current Visit: Yes Status: Acute Code(s): I16.0 - HYPERTENSIVE URGENCY SNOMED Code(s): 715237590 Comment: SBP in 200s Given hydralazine and Lopressor IV Lethargic and confused to take oral meds IV meds PRN for now On po metorprolol at home (6) Hyperthyroidism Current Visit: Yes Status: Acute Code(s): E05.90 - THYROTOXICOSIS, UNSP WITHOUT THYROTOXIC CRISIS OR STORM SNOMED Code(s): 83194929 Comment: tsh very low hold levothyroxine repeat tsh free t4 in am and decide if further w/u and management needed (7) B12 deficiency Current Visit: Yes Status: Acute Code(s): E53.8 - DEFICIENCY OF OTHER SPECIFIED B GROUP VITAMINS SNOMED Code(s): 636748028 Comment: symptomatic with neuro symptoms and anemia will start with IM B12 and transition to po when more awake Status and Disposition: Total critical care time spent is approx 45 mins
[2018-12-06] MEDS ORDERED: Cyanocobalamin INJ * 1,000 MCG/ML VIAL 1 ML VIAL IM ONE (16:57)
[2018-12-06] MEDS ORDERED: Cefepime ADVAN(*) 1 GM in NS 0.9% 50 ML* 50 ML IVPB SCH (17:00)
[2018-12-06] MEDS: Cefepime 1 GM in Dextrose(*) 1 GM/50 ML BAG IV SCH (17:37)
[2018-12-06] MEDS: Vancomycin(*) 750 MG in NS 0.9% 250 ML* 250 ML IVPB SCH (17:54)
[2018-12-06] MEDS: Acetaminophen SUPP* 650 MG SUPP PR PRN (22:09)
[2018-12-07 00:08] LABS: BUN/Creatinine Ratio 24.6 (8-20); Calcium 9.1 mg/dL (8.6-10.3); EGFR African American 55.8 (>60); EGFR Non-African American 46.1 (>60); Magnesium 1.8 mg/dL (1.9-2.7); Phosphorus 4.3 mg/dL (2.5-5.0); Potassium 3.7 mmol/L (3.5-5.0)
[2018-12-07] MEDS: Cefepime 1 GM in Dextrose(*) 1 GM/50 ML BAG IV SCH ×2 (04:37→16:44)
[2018-12-07 05:10] LABS: ABS Eosinophils 0.1 10^3/ul (0-0.6); ABS Lymphocytes 0.2 10^3/ul (1.0-4.8); ABS Monocytes 0.3 10^3/ul (0-0.8); ABS Neutrophils 9.4 10^3/ul (1.5-7.7); Eosinophil % 0.7 %; Hematocrit 32 % (35-47); Hemoglobin 10.5 g/dL (12.0-16.0); Lymphocyte % 2.3 %; Mean Corpuscular HGB Conc 32 g/dL (31-36); Mean Corpuscular Hemoglobin 26 pg (27-31); Mean Corpuscular Volume 81 fL (80-97); Mean Platelet Volume 8.7 fL (7.4-10.4); Nucleated Red Blood Cells % 0.4; Platelet Count 222 10^3/uL (150-450); Red Blood Count 4.01 10^6 /uL (3.70-4.87); Red Cell Distribution Width 17 % (10-15)
[2018-12-07 05:23] LABS: Calcium 9.1 mg/dL (8.6-10.3); Potassium 3.8 mmol/L (3.5-5.0)
[2018-12-07 05:28] LABS: EGFR African American 47.8 (>60); EGFR Non-African American 39.5 (>60)
[2018-12-07] MEDS: Vancomycin(*) 750 MG in NS 0.9% 250 ML* 250 ML IVPB SCH ×2 (06:12→17:25)
[2018-12-07] MEDS ORDERED: Magnesium Sulfate 2 GM IV* 2 GM/50 ML BAG IVPB ONE (07:37)
--- NOTE | 2018-12-07 07:39 | PN ---
Subjective Date of Service: 12/07/18 Interval History: She is in the ICU, asleep, but arousable and quick to fall back asleep, unable to talk to her. Nurse reports patient is very "fiesty" and were unable to do chest xray this morning. Currently she is asleep and calm, not in distress. Objective Active Medications: Acetaminophen (Tylenol Tab*) 650 mg PO Q6H PRN PRN Reason: FEVER/PAIN Acetaminophen (Tylenol Supp*) 650 mg [place] Q6H PRN PRN Reason: FEVER Last Admin: 12/06/18 22:09 Dose: 650 mg Albuterol/Ipratropium (Duoneb (Albuterol 2.5 Mg/Ipratropium 0.5 Mg)) 1 neb INH Q4H PRN PRN Reason: SOB/WHEEZING Aspirin (Aspirin Ec Tab*) 81 mg PO DAILY [facility] Last Admin: 12/06/18 10:09 Dose: Not Given Atorvastatin Calcium (Lipitor*) 40 mg PO DAILY [facility] Last Admin: 12/06/18 10:09 Dose: Not Given Bupropion HCl (Wellbutrin Sr Tab*) 150 mg PO BID [facility] Last Admin: 12/06/18 23:48 Dose: Not Given Clopidogrel Bisulfate (Plavix Tab*) 75 mg PO DAILY [facility] Last Admin: 12/06/18 10:09 Dose: Not Given Cyanocobalamin (Vitamin B12 Tab*) 1,000 mcg PO DAILY [facility] Enoxaparin Sodium (Lovenox(*)) 40 mg SUBCUT Q24H [facility] Last Admin: 12/06/18 10:14 Dose: 40 mg Gabapentin (Neurontin Cap(*)) 300 mg PO BID [facility] Last Admin: 12/06/18 23:48 Dose: Not Given Hydralazine HCl (Apresoline Iv*) 5 mg IV SLOW PU Q6H PRN PRN Reason: BLOOD PRESSURE Last Admin: 12/06/18 13:40 Dose: 5 mg Vancomycin HCl 750 mg/ Sodium (Chloride) 250 mls @ 166.667 mls/hr IVPB Q12H [facility] Last Admin: 12/07/18 06:12 Dose: 166.667 mls/hr Cefepime HCl (Maxipime 1 Gm In Dextrose Duplex (*)) 1 gm in 50 mls @ 100 mls/ hr IV Q12H [facility] Last Admin: 12/07/18 04:37 Dose: 100 mls/hr Insulin Glargine (Lantus(*)) 20 units SUBCUT Q24H [facility] Last Admin: 12/06/18 10:13 Dose: 20 units Insulin Human Lispro (Humalog*) 0 units SUBCUT ACHS [facility]; Protocol Last Admin: 12/06/18 23:54 Dose: Not Given Metoprolol Tartrate (Lopressor Tab*) 50 mg PO BID [facility] Last Admin: 12/06/18 23:49 Dose: Not Given Metoprolol Tartrate (Lopressor Iv*) 5 mg IV Q6H PRN PRN Reason: BLOOD PRESSURE Last Admin: 12/06/18 12:35 Dose: 5 mg Nitroglycerin (Nitroglycerin Tab 0.4 Mg*) 0.4 mg SL Q5M PRN PRN Reason: PAIN - CHEST Pharmacy Consult (Vancomycin Per Pharmacy*) 1 note FOLLOW UP . PRN PRN Reason: PER PROTOCOL Pharmacy Profile Note (Vancomycin Trough Check) 1 note FOLLOW UP ONCE ONE Stop: 12/08/18 05:31 Polyethylene Glycol/Electrolytes (Miralax*) 17 gm PO 0800,2100 [facility] Last Admin: 12/06/18 23:49 Dose: Not Given Trazodone HCl (Desyrel Tab*) 50 mg PO BEDTIME PRN PRN Reason: INSOMNIA Venlafaxine HCl (Effexor Xr Cap*) 150 mg PO BID [facility] Last Admin: 12/06/18 23:49 Dose: Not Given Vital Signs - 8 hr 12/06/18 12/06/18 12/07/18 23:40 23:59 00:00 Temperature 101.7 F 101.3 F Pulse Rate 96 95 Respiratory 28 20 28 Rate Blood Pressure 124/69 122/66 (mmHg) O2 Sat by Pulse 97 97 Oximetry 12/07/18 12/07/18 12/07/18 00:30 01:00 01:30 Temperature 100.9 F 100.8 F 100.8 F Pulse Rate 97 100 95 Respiratory 26 21 22 Rate Blood Pressure 129/71 124/66 130/61 (mmHg) O2 Sat by Pulse 98 99 96 Oximetry 12/07/18 12/07/18 12/07/18 02:00 02:30 02:42 Temperature 100.8 F 100.8 F Pulse Rate 96 101 97 Respiratory 20 22 20 Rate Blood Pressure 118/62 132/80 (mmHg) O2 Sat by Pulse 95 98 96 Oximetry 12/07/18 12/07/18 12/07/18 03:00 03:30 04:00 Temperature 100.9 F 100.9 F 101.1 F Pulse Rate 103 100 100 Respiratory 21 21 18 Rate Blood Pressure 133/66 131/73 125/64 (mmHg) O2 Sat by Pulse 97 96 98 Oximetry 12/07/18 12/07/18 12/07/18 04:30 05:00 05:30 Temperature 99.9 F 100.6 F 100.4 F Pulse Rate 101 103 104 Respiratory 16 19 28 Rate Blood Pressure 124/63 142/72 148/85 (mmHg) O2 Sat by Pulse 96 96 95 Oximetry 12/07/18 06:00 Temperature 100.4 F Pulse Rate 102 Respiratory 20 Rate Blood Pressure 156/68 (mmHg) O2 Sat by Pulse 94 Oximetry Oxygen Devices in Use Now: Nasal Cannula Appearance: Elderly female, asleep, not in distress Neck: NL Appearance and Movements; NL JVP Respiratory: Clear to Auscultation, - - No tahcypnea, no wheezing, no crackles. Cardiovascular: NL Sounds; No Murmurs; No JVD, RRR, No Edema Abdominal: NL Sounds; No Tenderness; No Distention Extremities: No Edema Neurological: - - unable to obtain, asleep, arousable, quick to fall back asleep Result Diagrams: 12/07/18 05:01 12/07/18 05:01 Microbiology and Other Data: Microbiology 12/06/18 06:35 Nasal Screen MRSA (PCR) - Final Nasal Mrsa Detected Assess/Plan/Problems-Billing Assessment: 63yoF with HTN, Type 2 DM, is a [facility] resident here due to confusion. Likely due to UTI ?PNA. - Patient Problems (1) Acute hypoxemic respiratory failure Current Visit: No Status: Acute Code(s): J96.01 - ACUTE RESPIRATORY FAILURE WITH HYPOXIA SNOMED Code(s): 025908252 Comment: Improved, Likely due to CHF, was fluid overloaded, now diuresed well , on nasal canula. on exam- no crackles, no edema. ECHO pending (2) Pulmonary edema Current Visit: Yes Status: Acute Code(s): J81.1 - CHRONIC PULMONARY EDEMA SNOMED Code(s): 15506531 Comment: History of CABG and CAD Will get Echo to evaluate EF and cardiac function Flash pul edema in the setting of hypertensive urgency, resolved. Continue supplemental O2. Finished Bumex drip, will order IV bumex 1mg daily. (3) UTI (urinary tract infection) Current Visit: Yes Status: Acute Comment: Continue Cefepime. Awaiting blood cutures and urine culture results. (4) Anemia Current Visit: Yes Status: Acute Code(s): D64.9 - ANEMIA, UNSPECIFIED SNOMED Code(s): 746997658 Comment: Acute on Chronic anemia, normocytic, will monitor. (5) Pneumonia Current Visit: Yes Status: Acute Code(s): J18.9 - PNEUMONIA, UNSPECIFIED ORGANISM SNOMED Code(s): 797259115 Comment: possible pneumonia, unable to get repeat CXR today per nurse. Hx of MRSA At this point continue Vancomycin, Cefepime. (6) DVT prophylaxis Current Visit: No Status: Acute Code(s): LQO2494 - SNOMED Code(s): 512356977 Comment: Antonio. Status and Disposition: Per nurse, patient is un-cooperative. will monitor for now, per nurse- not taking oral medications, currently BP meds are given IV, adding IV push of bumex , IV antibiotics, will monitor.
[2018-12-07] MEDS ORDERED: Haloperidol INJ IV/IM* 5 MG/ML AMP IM ONE (07:54)
[2018-12-07] MEDS: Polyethylene Glycol 3350* 17 GM PACKET PO SCH ×2 (09:14→21:52)
[2018-12-07] MEDS: Cyanocobalamin TAB* 500 MCG PO SCH (09:15)
[2018-12-07] MEDS: Clopidogrel TAB* 75 MG PO SCH (09:15)
[2018-12-07] MEDS: Aspirin EC TAB* 81 MG TAB.EC PO SCH (09:15)
[2018-12-07] MEDS: Atorvastatin* 40 MG TAB PO SCH (09:15)
[2018-12-07] MEDS: buPROPion SR TAB.SR* 150 MG PO SCH ×2 (09:15→21:51)
[2018-12-07] MEDS: Venlafaxine EXT RELEASE CAP* 75 MG PO SCH ×2 (09:18→21:52)
[2018-12-07] MEDS: Gabapentin CAP(*) 300 MG PO SCH (09:18)
[2018-12-07] MEDS: Metoprolol Tartrate TAB* 50 mg PO SCH ×2 (09:18→21:50)
[2018-12-07] MEDS: Insulin LISPRO* 1 UNITS UNIT SUBCUT SCH ×4 (09:20→21:11)
[2018-12-07] MEDS: Enoxaparin(*) 40 MG/0.4 ML SYR SUBCUT SCH (10:09)
[2018-12-07] MEDS: Insulin GLARGINE(*) 1 UNITS UNIT SUBCUT SCH ×2 (10:13→19:38)
[2018-12-07] MEDS ORDERED: D5W 1/2 NS 1000 ML BAG* 1,000 ML IV SCH (11:00)
[2018-12-07 16:07] LABS: Free T4 1.61 ng/dL (0.61-1.12)
[2018-12-07 16:08] LABS: TSH (Thyroid Stimulating Horm) 0.01 mcIU/mL (0.34-5.60)
[2018-12-07] MEDS: Acetaminophen SUPP* 650 MG SUPP PR PRN (22:23)
[2018-12-07] MEDS: Famotidine IV* 10 MG/ML 2 ML (20 mg) IV SLOW PU SCH (22:24)
[2018-12-08] MEDS ORDERED: Haloperidol INJ IV/IM* 5 MG/ML AMP IV SLOW PU ONE (01:30)
[2018-12-08] MEDS: Bisacodyl SUPP* 10 MG SUPP PR ONE ×2 (01:50→04:47)
[2018-12-08] MEDS: hydrALAZINE IV* 20 MG/ML VIAL IV SLOW PU PRN (04:10)
[2018-12-08] MEDS: Acetaminophen SUPP* 650 MG SUPP PR PRN (04:47)
[2018-12-08] MEDS: Cefepime 1 GM in Dextrose(*) 1 GM/50 ML BAG IV SCH ×2 (04:52→19:00)
[2018-12-08] MEDS ORDERED: Lorazepam PYXIS KEY PRN (05:00)
[2018-12-08] MEDS: LORazepam INJ* 2 MG/ML 1 ML VIAL IV PUSH PRN ×2 (05:11→09:25)
[2018-12-08] MEDS ORDERED: Vancomycin Trough Check NOTE FOLLOW UP ONE (05:30)
[2018-12-08 06:17] LABS: Hematocrit 25 % (35-47); Hemoglobin 8.1 g/dL (12.0-16.0); Mean Corpuscular HGB Conc 32 g/dL (31-36); Mean Corpuscular Hemoglobin 26 pg (27-31); Mean Corpuscular Volume 80 fL (80-97); Platelet Count 167 10^3/uL (150-450); Red Blood Count 3.15 10^6 /uL (3.70-4.87); Red Cell Distribution Width 17 % (10-15); White Blood Count 5.8 10^3/uL (3.5-10.8)
[2018-12-08 06:32] LABS: Calcium 8.5 mg/dL (8.6-10.3); EGFR African American 65.3 (>60); EGFR Non-African American 53.9 (>60); Potassium 2.9 mmol/L (3.5-5.0)
[2018-12-08] MEDS ORDERED: Haloperidol INJ IV/IM* 5 MG/ML AMP IM PRN (07:02)
[2018-12-08] MEDS: Vancomycin(*) 750 MG in NS 0.9% 250 ML* 250 ML IVPB SCH (07:05)
[2018-12-08] MEDS: Insulin LISPRO* 1 UNITS UNIT SUBCUT SCH ×4 (08:05→21:36)
[2018-12-08] MEDS: Insulin GLARGINE(*) 1 UNITS UNIT SUBCUT SCH (08:06)
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
[2018-12-08] MEDS: Famotidine IV* 10 MG/ML 2 ML (20 mg) IV SLOW PU SCH ×2 (09:27→21:36)
[2018-12-08] MEDS: D5W 1/2 NS 40 Meq KCL 1000 ML* 1,000 ML IV SCH (09:28)
[2018-12-08] MEDS: Clopidogrel TAB* 75 MG PO SCH (09:31)
[2018-12-08] MEDS: Atorvastatin* 40 MG TAB PO SCH (09:31)
[2018-12-08] MEDS: Aspirin EC TAB* 81 MG TAB.EC PO SCH (09:31)
[2018-12-08] MEDS: Polyethylene Glycol 3350* 17 GM PACKET PO SCH ×2 (09:31→21:24)
[2018-12-08] MEDS: Enoxaparin(*) 40 MG/0.4 ML SYR SUBCUT SCH (09:31)
[2018-12-08] MEDS: buPROPion SR TAB.SR* 150 MG PO SCH ×2 (09:31→21:35)
[2018-12-08] MEDS: Cyanocobalamin TAB* 500 MCG PO SCH (09:32)
[2018-12-08] MEDS: Metoprolol Tartrate TAB* 50 mg PO SCH ×2 (09:32→21:36)
[2018-12-08] MEDS: Venlafaxine EXT RELEASE CAP* 75 MG PO SCH ×2 (09:32→21:35)
[2018-12-08] MEDS: KCL 20 MEQ/100 ML IVPREMIX* 20 MEQ/100 ML BAG IV SCH ×5 (10:19→18:21)
[2018-12-08] MEDS: Vancomycin(*) 1,000 MG in NS 0.9% 250 ML* 250 ML IVPB SCH (12:39)
[2018-12-08] MEDS ORDERED: Acetaminophen TAB* 325 MG PO PRN (14:32)
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
--- NOTE | 2018-12-08 15:46 | ECHO ---
*[facility]* [place] [address] Fax #: [phone] Transthoracic Echocardiogram Patient: Ann Burgos : 1955 Study Date: 12/08/2018 Age: 63 Gender: F HR: 109 bpm Height: 62 in /157.5 cm BSA: 1.71 m^2 Weight: 152.7 lb /69.4 kg BMI: 28 kg/m^2 *Fun House Operator: * Hillary Earl [facility] *Referring Physician: * Jose Guadalupe Bell *Reading Physician: * Loi Brito MD Indications: Congestive Heart Failure. History: Coronary artery disease. Risk factors: Former tobacco use. Hypertension. Diabetes mellitus. Hyperlipidemia. Labs, prior tests, procedures, and surgery: Coronary artery bypass grafting. Conclusions Summary: 1. Left ventricle: Systolic function is normal. The estimated ejection fraction is 55-60%. Wall motion is normal; there are no regional wall motion abnormalities. 2. Right ventricle: Systolic function is normal. 3. Ventricular septum: The interventricular septum appears dyssynchronous due to LBBB 4. Mitral valve: There is trace regurgitation. 5. Aortic valve: There is no significant regurgitation. 6. Tricuspid valve: There is physiologic regurgitation. 7. Pericardium, extracardiac: There is no significant pericardial effusion. 8. Compared to study of 02/04/18, there is little change. Study data: Transthoracic echocardiogram. Procedure: Transthoracic echocardiography was performed. Image quality was fair. Complete 2D, spectral Doppler, and color flow Doppler. Location: Bedside. Patient status: Inpatient. Patient room number: 436. Rhythm: Atrial fibrillation. Findings Left ventricle: The cavity size is normal. There is mild concentric hypertrophy. Systolic function is normal. The estimated ejection fraction is 55-60%. Wall motion is normal; there are no regional wall motion abnormalities. Doppler parameters are consistent with abnormal left ventricular relaxation (grade 1 diastolic dysfunction). Right ventricle: The cavity size is mildly dilated. Wall thickness is mildly increased. Systolic function is normal. The tricuspid jet envelope definition is inadequate for estimation of RV systolic pressure. There are no indirect findings (abnormal RV volume or geometry, altered pulmonary flow velocity profile, or leftward septal displacement) which would suggest moderate or severe pulmonary hypertension. Ventricular septum: The interventricular septum appears dyssynchronous due to LBBB Left atrium: The atrium is mildly dilated. Right atrium: The atrium is mildly dilated. Mitral valve: The leaflets are mildly thickened. There is no evidence of stenosis. There is trace regurgitation. Aortic valve: The valve is trileaflet. The leaflets are mildly thickened. There is no evidence of stenosis. There is no significant regurgitation. Tricuspid valve: The leaflets are normal thickness. There is no evidence of stenosis. There is physiologic regurgitation. Pulmonic valve: The leaflets are normal thickness. There is no evidence of stenosis. There is trivial regurgitation. Aorta: Ascending aorta: The ascending aorta is upper normal in size. Aortic arch: The aortic arch is appears normal. The aortic root is not dilated. Pericardium: There is no significant pericardial effusion. Pulmonary arteries: The main pulmonary artery is normal-sized. Systolic pressure can not be accurately estimated. Systemic veins: Inferior vena cava: The vessel is normal in size. The respirophasic diameter changes are in the normal range (>= 50%). Measurements Left ventricle Value Ref Right atrium continued Value Ref PAYAM, LAX 5.0 cm 3.8 - 5.2 SI dim, ES, A4C 4.6 cm 3.4 - 5.3 ESD, LAX 3.4 cm 2.2 - 3.5 SI dim/bsa, ES, 2.7 cm/m^2 1.9 - 3.1 FS, LAX 32 % 27 - 45 A4C PW, ED, LAX (H) 1.1 cm 0.6 - 0.9 FS 32 % 27 - 45 Aortic valve Value Ref PW, ED (H) 1.1 cm 0.6 - 0.9 Brett diam, ED 1.8 cm --------- E', lat brett, TDI (L) 9.1 cm/sec >=10.0 Peak v, S 1.27 m/sec - -------- E/e', lat brett, 6 VTI, S 21.4 cm ---- ----- TDI Mean grad, S 3.0 mm Hg --------- E', med brett, TDI (L) 6.5 cm/sec >=7.0 Peak grad, S 6.0 mm Hg - -------- E/e', med brett, 9 LVOT/AV, VTI 0.98 ---- ----- TDI ratio E', avg, TDI 7.8 cm/sec E/e', avg, TDI 8 <=14 Mitral valve Value R ef Peak E 0.59 m/sec --------- LVOT Value Ref Peak A 1 m/sec --------- Peak jaime, S 0.96 m/sec Decel time 285 ms --------- VTI, S 21.0 cm Peak E/A ratio 0.6 --------- Mean grad, S 2 mm Hg Pulmonic valve Value Ref Ventricular septum Value Ref Peak v, S 1.41 m/sec --------- IVS, ED (H) 1.2 cm 0.6 - 0.9 Peak grad, S 8.0 mm Hg --------- Right ventricle Value Ref Aortic root Value Ref AW thickness, ED (H) 0.8 cm 0.1 - 0.5 Root diam 3.2 cm <3.9 PAYAM, LAX 3.1 cm PAYAM minor ax, (H) 5.0 cm 1.9 - 3.5 Ascending aorta Value Ref A4C mid AAo AP diam, S 3.6 cm --------- Left atrium Value Ref Aortic arch Value Ref AP dim, ES (H) 4.30 cm 2.70 - Arch diam 1.9 cm --------- 3.80 ML dim, A4C 4.6 cm Decending aorta Value Ref SI dim, A4C 5.5 cm Armida peak jaime 0.99 m/sec --------- Vol/bsa, ES, 1-p 39 ml/m^2 11 - 40 A4C Inferior vena cava Value Ref Vol/bsa, ES, A/L (H) 40 ml/m^2 16 - 34 Diam 2.0 cm --------- Right atrium Value Ref SI dim, ES 4.6 cm 3.4 - 5.3 ML dim, ES, A4C (H) 4.9 cm 2.6 - 4.4 Legend: (L) and (H) merrick values outside specified reference range. Prepared and electronically signed by Loi Brito MD 12/08/2018 15:45
[2018-12-08] MEDS ORDERED: Potassium Chloride* LIQUID 20 MEQ/15 ML UDC PO ONE (18:04)
[2018-12-09] MEDS: Haloperidol INJ IV/IM* 5 MG/ML AMP IM PRN ×4 (00:42→21:50)
[2018-12-09] MEDS: LORazepam INJ* 2 MG/ML 1 ML VIAL IV PUSH PRN ×2 (00:57→08:23)
[2018-12-09] MEDS: Cefepime 1 GM in Dextrose(*) 1 GM/50 ML BAG IV SCH ×2 (04:48→17:49)
[2018-12-09] MEDS: D5W 1/2 NS 40 Meq KCL 1000 ML* 1,000 ML IV SCH (04:50)
[2018-12-09 06:31] LABS: BUN/Creatinine Ratio 24.7 (8-20); Calcium 9.1 mg/dL (8.6-10.3); EGFR Non-African American 57.8 (>60); Potassium 4.3 mmol/L (3.5-5.0)
--- NOTE | 2018-12-09 09:58 | PN ---
Subjective Date of Service: 12/09/18 Interval History: This morning again she went into the bathroom and did not want to come out, She has episodes of cooperativeness, then at times want to be left alone and does not want to cooperate. She does not have any chest pain, no shortness of breath. Objective Active Medications: Acetaminophen (Tylenol Tab*) 650 mg PO Q6H PRN PRN Reason: PAIN SCALE 1-5 Last Admin: 12/08/18 18:24 Dose: 650 mg Albuterol/Ipratropium (Duoneb (Albuterol 2.5 Mg/Ipratropium 0.5 Mg)) 1 neb INH Q4H PRN PRN Reason: SOB/WHEEZING Aspirin (Aspirin Ec Tab*) 81 mg PO DAILY [facility] Last Admin: 12/08/18 09:31 Dose: Not Given Atorvastatin Calcium (Lipitor*) 40 mg PO DAILY [facility] Last Admin: 12/08/18 09:31 Dose: Not Given Bupropion HCl (Wellbutrin Sr Tab*) 150 mg PO BID [facility] Last Admin: 12/08/18 21:35 Dose: 150 mg Clopidogrel Bisulfate (Plavix Tab*) 75 mg PO DAILY [facility] Last Admin: 12/08/18 09:31 Dose: Not Given Cyanocobalamin (Vitamin B12 Tab*) 1,000 mcg PO DAILY [facility] Last Admin: 12/08/18 09:32 Dose: Not Given Enoxaparin Sodium (Lovenox(*)) 40 mg SUBCUT Q24H [facility] Last Admin: 12/08/18 09:31 Dose: Not Given Famotidine (Pepcid Iv*) 20 mg IV SLOW PU BID [facility] Last Admin: 12/08/18 21:36 Dose: 20 mg Gabapentin (Neurontin Cap(*)) 300 mg PO BID [facility] Haloperidol Lactate (Haldol Inj Iv/Im*) 5 mg IM Q4H PRN PRN Reason: AGITATION Last Admin: 12/09/18 08:50 Dose: 5 mg Hydralazine HCl (Apresoline Iv*) 5 mg IV SLOW PU Q6H PRN PRN Reason: BLOOD PRESSURE Last Admin: 12/08/18 04:10 Dose: 5 mg Cefepime HCl (Maxipime 1 Gm In Dextrose Duplex (*)) 1 gm in 50 mls @ 100 mls/ hr IV Q12H [facility] Last Admin: 12/09/18 04:48 Dose: 100 mls/hr Vancomycin HCl 1,000 mg/ (Sodium Chloride) 250 mls @ 166.667 mls/hr IVPB Q24H [facility] Last Admin: 12/08/18 12:39 Dose: 166 mls/hr Insulin Glargine (Lantus(*)) 10 units SUBCUT Q24H [facility] Last Admin: 12/08/18 08:06 Dose: Not Given Insulin Human Lispro (Humalog*) 0 units SUBCUT ACHS [facility]; Protocol Last Admin: 12/08/18 21:36 Dose: 3 units Lorazepam (Ativan Inj*) 0.5 mg IV PUSH Q4H PRN PRN Reason: AGITATION Last Admin: 12/09/18 08:23 Dose: 0.5 mg Metoprolol Tartrate (Lopressor Tab*) 50 mg PO BID [facility] Last Admin: 12/08/18 21:36 Dose: 50 mg Metoprolol Tartrate (Lopressor Iv*) 5 mg IV Q6H PRN PRN Reason: BLOOD PRESSURE Last Admin: 12/06/18 12:35 Dose: 5 mg Miscellaneous (Ativan Pyxis Peraza) 1 ea N/A .ATIVAN IV PERAZA PRN PRN Reason: PYXIS PERAZA Nitroglycerin (Nitroglycerin Tab 0.4 Mg*) 0.4 mg SL Q5M PRN PRN Reason: PAIN - CHEST Pharmacy Consult (Vancomycin Per Pharmacy*) 1 note FOLLOW UP . PRN PRN Reason: PER PROTOCOL Pharmacy Profile Note (Vancomycin Trough Check) 1 note FOLLOW UP 1130 ONE Stop: 12/11/18 11:31 Polyethylene Glycol/Electrolytes (Miralax*) 17 gm PO 0800,2100 [facility] Last Admin: 12/08/18 21:24 Dose: Not Given Venlafaxine HCl (Effexor Xr Cap*) 150 mg PO BID [facility] Last Admin: 12/08/18 21:35 Dose: 150 mg Vital Signs - 8 hr 12/09/18 12/09/18 12/09/18 02:32 05:16 08:23 Temperature 97.7 F Pulse Rate 73 Respiratory 16 18 20 Rate Blood Pressure 137/69 (mmHg) O2 Sat by Pulse 100 Oximetry Oxygen Devices in Use Now: None Appearance: Sitting on chair, not in distress. At this point was unable to do a full exam as she wanted me to leave her alone, will try again later today . Result Diagrams: 12/08/18 05:35 12/09/18 05:58 Microbiology and Other Data: Microbiology 12/06/18 06:35 Nasal Screen MRSA (PCR) - Final Nasal Mrsa Detected Diagnostic Imaging: CXR shows bilateral pulmonary congestion vs infiltrate. Official radiologist read pending. EKG Data: Sinus rhythm at 70BPM with ST-T segment changes unchanged when compared to previous EKG from 08/29/2018 Assess/Plan/Problems-Billing Assessment: 63yoF with HTN, Type 2 DM, is a [facility] [place] resident here due to confusion. Likely due to UTI ?PNA. - Patient Problems (1) Acute hypoxemic respiratory failure Current Visit: No Status: Acute Code(s): J96.01 - ACUTE RESPIRATORY FAILURE WITH HYPOXIA SNOMED Code(s): 224690756 Comment: Improved, Likely due to CHF, was fluid overloaded, now diuresed well , on nasal canula. on exam- no crackles, no edema. ECHO done, EF 55-60% (2) Pulmonary edema Current Visit: Yes Status: Acute Code(s): J81.1 - CHRONIC PULMONARY EDEMA SNOMED Code(s): 34011312 Comment: History of CABG and CAD Flash pul edema in the setting of hypertensive urgency, resolved. Continue supplemental O2. Finished Bumex drip, now euvolemic, monitor off diuretics. (3) UTI (urinary tract infection) Current Visit: Yes Status: Acute Comment: ruled out (4) Anemia Current Visit: Yes Status: Acute Code(s): D64.9 - ANEMIA, UNSPECIFIED SNOMED Code(s): 457639659 Comment: Acute on Chronic anemia, normocytic, will monitor. (5) Pneumonia Current Visit: Yes Status: Acute Code(s): J18.9 - PNEUMONIA, UNSPECIFIED ORGANISM SNOMED Code(s): 680420579 Comment: Pneumonia, Cultures negative thus far Hx of MRSA At this point continue Vancomycin, Cefepime. (6) DVT prophylaxis Current Visit: No Status: Acute Code(s): LCI8133 - SNOMED Code(s): 306515306 Comment: Lovenox. (7) Hyperthyroidism Current Visit: Yes Status: Acute Code(s): E05.90 - THYROTOXICOSIS, UNSP WITHOUT THYROTOXIC CRISIS OR STORM SNOMED Code(s): 71765488 Comment: iatrogenic hyperthyroidism, hold levothyroxine. (8) Toxic metabolic encephalopathy Current Visit: Yes Status: Acute Code(s): G92 - TOXIC ENCEPHALOPATHY SNOMED Code(s): 635782423 Comment: UTI ruled out possibly related to pneumonia (9) Delirium Current Visit: No Status: Acute Code(s): R41.0 - DISORIENTATION, UNSPECIFIED SNOMED Code(s): 5452470 Comment: history of depression, having episodes of combativness, uncooperative, and then sleeping. unclear etiology, psychiatry evaluated patient. (10) Diabetes Current Visit: No Status: Acute Code(s): E11.9 - TYPE 2 DIABETES MELLITUS WITHOUT COMPLICATIONS SNOMED Code(s): 74206440 Comment: Hold Metformin. lantus dose was decreased this admission, due to patient not eating. She eats when she wants to eat, and not others. monitor fingersticks. (11) Hypokalemia Current Visit: Yes Status: Acute Code(s): E87.6 - HYPOKALEMIA SNOMED Code( s): 12909709 (12) Hypertensive urgency Current Visit: Yes Status: Acute Code(s): I16.0 - HYPERTENSIVE URGENCY SNOMED Code(s): 381443839 Comment: improved. continue home dose metoprolol will add lisinopril 5mg to better control BP.
[2018-12-09] MEDS: Insulin LISPRO* 1 UNITS UNIT SUBCUT SCH ×4 (10:14→21:17)
[2018-12-09] MEDS: Famotidine IV* 10 MG/ML 2 ML (20 mg) IV SLOW PU SCH ×2 (11:54→21:50)
[2018-12-09] MEDS: Atorvastatin* 40 MG TAB PO SCH (11:57)
[2018-12-09] MEDS: Aspirin EC TAB* 81 MG TAB.EC PO SCH (11:57)
[2018-12-09] MEDS: Lisinopril TAB* 5 MG PO SCH (11:58)
[2018-12-09] MEDS: Cyanocobalamin TAB* 500 MCG PO SCH (11:58)
[2018-12-09] MEDS: Metoprolol Tartrate TAB* 50 mg PO SCH ×2 (11:58→21:18)
[2018-12-09] MEDS: Insulin GLARGINE(*) 1 UNITS UNIT SUBCUT SCH (11:59)
[2018-12-09] MEDS: Gabapentin CAP(*) 300 MG PO SCH ×2 (11:59→21:17)
[2018-12-09] MEDS: Clopidogrel TAB* 75 MG PO SCH (12:08)
[2018-12-09] MEDS: Polyethylene Glycol 3350* 17 GM PACKET PO SCH ×2 (12:08→21:18)
[2018-12-09] MEDS: Enoxaparin(*) 40 MG/0.4 ML SYR SUBCUT SCH (12:09)
[2018-12-09] MEDS: Vancomycin(*) 1,000 MG in NS 0.9% 250 ML* 250 ML IVPB SCH (13:33)
[2018-12-09] MEDS: buPROPion SR TAB.SR* 150 MG PO SCH ×2 (13:47→13:48)
[2018-12-09] MEDS: Venlafaxine EXT RELEASE CAP* 75 MG PO SCH ×2 (13:47→13:48)
[2018-12-09 18:41] VITALS: BP 144/76
[2018-12-10] MEDS: Haloperidol INJ IV/IM* 5 MG/ML AMP IM PRN ×2 (03:47→08:47)
[2018-12-10] MEDS: Cefepime 1 GM in Dextrose(*) 1 GM/50 ML BAG IV SCH (04:44)
[2018-12-10] MEDS: Insulin LISPRO* 1 UNITS UNIT SUBCUT SCH ×2 (10:38→12:41)
[2018-12-10] MEDS: Famotidine IV* 10 MG/ML 2 ML (20 mg) IV SLOW PU SCH (11:48)
[2018-12-10] MEDS: Insulin GLARGINE(*) 1 UNITS UNIT SUBCUT SCH (11:57)
[2018-12-10] MEDS: Polyethylene Glycol 3350* 17 GM PACKET PO SCH (12:06)
[2018-12-10] MEDS: Enoxaparin(*) 40 MG/0.4 ML SYR SUBCUT SCH (12:06)
[2018-12-10] MEDS: Aspirin EC TAB* 81 MG TAB.EC PO SCH (12:06)
[2018-12-10] MEDS: Clopidogrel TAB* 75 MG PO SCH (12:07)
[2018-12-10] MEDS: Vancomycin(*) 1,000 MG in NS 0.9% 250 ML* 250 ML IVPB SCH (12:07)
[2018-12-10] MEDS: Atorvastatin* 40 MG TAB PO SCH (12:07)
[2018-12-10] MEDS: buPROPion SR TAB.SR* 150 MG PO SCH (12:07)
[2018-12-10] MEDS: Gabapentin CAP(*) 300 MG PO SCH (12:07)
[2018-12-10] MEDS: Metoprolol Tartrate TAB* 50 mg PO SCH (12:07)
[2018-12-10] MEDS: Lisinopril TAB* 5 MG PO SCH (12:07)
[2018-12-10] MEDS: Venlafaxine EXT RELEASE CAP* 75 MG PO SCH (12:07)
[2018-12-10] MEDS: Cyanocobalamin TAB* 500 MCG PO SCH (12:07)
--- NOTE | 2018-12-10 14:10 | DS ---
CC: Dr. Agapito Holt; [facility] DISCHARGE SUMMARY: DATE OF ADMISSION: 12/06/18 DATE OF DISCHARGE: 12/10/18 PRIMARY CARE PROVIDER: Dr. Agapito Holt, [facility]. REASON FOR ADMISSION: Confusion. ADMISSION DIAGNOSES: 1. Urinary tract infection. 2. Pneumonia. 3. Toxic metabolic encephalopathy. DISCHARGE DIAGNOSES: Include: 1. Acute hypoxemic respiratory failure. 3. Pulmonary edema, resolved. 4. Urinary tract infection, ruled out. 5. Pneumonia. 6. Iatrogenic hyperthyroidism. 7. Toxic metabolic encephalopathy, resolved. 8. Delirium, resolved. 9. Type 2 diabetes. 10. Hypokalemia, resolved. 11. Hypertensive urgency, resolved. CONSULTS: Psychiatry, Dr. Wolff [facility] COURSE: This is a 63-year-old female with history of hypertension, type 2 diabetes, resident of [facility], with history of coronary artery disease with CABG, chronic anemia, hypothyroidism, who was admitted to the hospital because of confusion. Upon admission, the patient had a workup in the emergency room and was found to have possible urinary tract infection, which was ruled out. Was diagnosed with pneumonia, toxic metabolic encephalopathy. We started the patient on IV fluids, broad-spectrum antibiotics with vancomycin and Zosyn. TSH was ordered along with blood cultures. Blood cultures remained negative to date, urine culture is negative. Through the course, the patient also had elevated blood pressure for which she required IV Bumex drip because she also had pulmonary edema. We had obtained an echocardiogram, which showed an ejection fraction of 55% to 60% with no change since the prior EKG dated 10/17. The patient's blood pressure was remaining elevated, so we added the patient on lisinopril 5 mg and blood pressure started to become more controlled. The patient has been afebrile for the past 48 plus hours. The patient will be discharged on oral antibiotics. We found that the patient's TSH is 0.01. The patient takes levothyroxine 200 mcg. We decreased the dose of the levothyroxine to 100 mcg daily. We advised that the patient will need a repeat TSH in 4 to 6 weeks. During the course, patient had episodes of agitation, being combative, and violent towards the staff. Haldol and Ativan as needed were administered, psychiatry was also consulted. DISCHARGE CONDITION: Stable. DISCHARGE DIET: Includes diabetic diet. DISCHARGE DISPOSITION: snf facility to [facility]. DISCHARGE MEDICATIONS: Include new medication levofloxacin 500 mg tablet for the next 5 days. We made a change to her Synthroid/levothyroxine from 200 mcg to 100 mcg and we added lisinopril 5 mg daily to the patient's regimen. We continued her home medications includin. Acetaminophen 650 mg every 6 hours as needed. 2. Aspirin 81 mg daily. 3. Atorvastatin 40 mg daily. 4. Bupropion 150 mg b.i.d. 5. Plavix 75 mg daily. 6. Cyanocobalamin 1000 mcg daily. 7. Gabapentin 300 mg b.i.d. 8. Insulin glargine 20 units subcu every 24 hours. 9. Insulin lispro sliding scale. 11. Metoprolol (Lopressor) 50 mg b.i.d. 12. Nitroglycerin 0.4 mg sublingual every 5 minutes as needed for chest pain. 13. Polyethylene glycol 17 g p.o. daily as needed for constipation. 14. Venlafaxine 150 mg b.i.d. 15. Guaifenesin 5 mL every 4 hours as needed for cough. 16. Lactobacillus 2 tablets daily. 17. Neomycin/bacitracin ointment 1 application topical daily. 18. Trazodone 50 mg p.r.n. at bedtime for insomnia. 19. Metformin 1000 mg b.i.d. 20. Miconazole topical cream 1 application topical b.i.d. PHYSICAL EXAMINATION: Today, blood pressure 144/76, heart rate of 70, oxygenation of 100% on 3 L nasal cannula, temperature of 97.8 degrees Fahrenheit. General: This is a well-developed female, lying in bed, in no acute distress. Pupils equal, round, reactive to light. Atraumatic, normocephalic. Heart: Regular rhythm. No chest wall tenderness. No murmurs. Lungs: There is no tachypnea, no use of accessory muscles. There is mild expiratory wheezing. No rhonchi, no crackles. Abdomen: Bowel sounds are normoactive in all 4 quadrants. Abdomen is soft, nontender, nondistended. Extremities: No lower extremity edema. FOLLOWUP: The patient is to follow up with her primary care provider, Dr. Agapito Holt, in 1 week. The patient will need a repeat TSH in 6 weeks for the adjustment of her levothyroxine dose. [id number]/[facility] #: [id number] [facility]
[2018-12-11] MEDS ORDERED: Vancomycin Trough Check NOTE FOLLOW UP ONE (11:30)
== END 2018-12-10 14:20 | DRG 189 ==
LOC: ED 01:38 → MED 06:04 → ICU 10:36 → MEDTELE 12-07 19:45
PROVIDERS: ADMIT Internal Medicine; ATTEND Internal Medicine
DX: J96.01 Acute respiratory failure with hypoxia (principal); J18.9 Pneumonia, unspecified organism; G92 Toxic encephalopathy; I13.0 Hypertensive heart and chronic kidney disease with heart failure and stage 1 through stage 4 chronic kidney disease, or unspecified chronic kidney disease; J81.1 Chronic pulmonary edema; E11.22 Type 2 diabetes mellitus with diabetic chronic kidney disease; I16.0 Hypertensive urgency; N18.9 Chronic kidney disease, unspecified; E05.90 Thyrotoxicosis, unspecified without thyrotoxic crisis or storm; Z66 Do not resuscitate; E53.8 Deficiency of other specified B group vitamins; D64.9 Anemia, unspecified; R41.0 Disorientation, unspecified; E87.6 Hypokalemia; K21.9 Gastro-esophageal reflux disease without esophagitis; I25.10 Atherosclerotic heart disease of native coronary artery without angina pectoris; E03.9 Hypothyroidism, unspecified; E78.5 Hyperlipidemia, unspecified; F42.4 Excoriation (skin-picking) disorder; F32.9 Major depressive disorder, single episode, unspecified; Z87.891 Personal history of nicotine dependence; Z95.1 Presence of aortocoronary bypass graft; Z79.84 Long term (current) use of oral hypoglycemic drugs; Z79.1 Long term (current) use of non-steroidal anti-inflammatories (NSAID); Z79.4 Long term (current) use of insulin; Z79.899 Other long term (current) drug therapy; Z88.8 Allergy status to other drugs, medicaments and biological substances
CPT/HCPCS: 36415; 36600; 70450; 71045; 74176; 80048; 80053; 80202; 80320; 80329; 81003; 81015; 82140; 82607; 82746; 82803; 82947; 83540; 83550; 83605; 83735; 84100; 84439; 84443; 84484; 85025; 85027; 87040; 87086; 87641; 93005; 93306; 99285; A9270-GY; G0480; J0360; J0692; J0696; J1630; J1650; J1815; J2060; J2543; J3370; J3420; J3475; J3480; J3490

== ENCOUNTER 2018-12-18 12:32 | Inpatient (IN) | payer OTHER ==
--- NOTE | 2018-12-18 12:48 | ED ---
Adult Trauma - HPI Summary HPI Summary: A 63 y/o female brought in by [facility] ambulance presents to [facility] with a chief complaint of falling out of her wheelchair today. Per EMS, the patient is AMS and almost strangled herself with her shirt wrapped around her neck. She was reportedly unresponsive upon EMS arrival. Pt is wearing O2. She has a Hx of major depressive order and is on Trazodone. She has a Hx of DM and has had DKA in the past. She has bilateral lower extremity edema. In the ED the patient is more responsive and states that her tailbone hurts after falling out of her chair. At triage she rated her pain as a 5/10 in severity. - History of Current Complaint Stated Complaint: FALL INJ WITH AMS PER EMS Time Seen by Provider: 12/18/18 12:38 Hx Obtained From: Patient, EMS Mechanism of Injury: Fall Loss of Consciousness: unsure Onset/Duration: Started Minutes Ago, Still Present Onset of Pain: Minutes Pain Intensity: 5 Pain Scale Used: 0-10 Numeric Location: Other - tailbone Aggravating Factor(s): Nothing Alleviating Factor(s): Nothing Associated Signs & Symptoms: Positive: Other: - lower extremity edema. Negative : Fever - Additional Pertinent History Primary Care Physician: [id number] - Allergy/Home Medications Allergies/Adverse Reactions: Allergies Allergy/AdvReac Type Severity Reaction Status Date / Time docusate [From Colace] Allergy Unknown Verified 02/03/18 14:47 Reaction Details Home Medications: Home Medications Glucagon* [Glucagen*] 1 mg IM ONCE PRN 12/18/18 [History Confirmed 12/18/18] traZODone TAB* [Desyrel TAB*] 25 mg PO BEDTIME PRN 12/18/18 [History Confirmed 12/18/18] PMH/Surg Hx/FS Hx/Imm Hx Endocrine/Hematology History: Reports: Hx Anticoagulant Therapy - plavix, Hx Diabetes, Hx Thyroid Disease Cardiovascular History: Reports: Hx Coronary Artery Disease, Hx Hypertension, Other Cardiovascular Problems/Disorders - HLD Denies: Hx Congestive Heart Failure, Hx Pacemaker/ICD GI History: Reports: Hx Gastroesophageal Reflux Disease - not diagnosed History: Denies: Hx Renal Disease Sensory History: Denies: Hx Cataracts, Hx Deafness, Hx Hearing Aid - unable to determine Comment Only: Hx Contacts or Glasses - unable to determine Opthamlomology History: Denies: Hx Cataracts Comment Only: Hx Contacts or Glasses - unable to determine Psychiatric History: Reports: Hx Depression Denies: Hx Autism, Hx Panic Disorder, Hx Schizophrenia - Surgical History Surgery Procedure, Year, and Place: PREV ABSCESS IN PELVIS SURGERY. CABG. BILATERAL KNEE 'SCOPES Infectious Disease History: Reports: Hx Clostridium Difficile - approx 2 years ago, Hx of Known/Suspected MRSA - 12/28/17 nasal swab - Family History Known Family History: Positive: Other - [place] - Social History Alcohol Use: Unknown Alcohol Amount: once aweek Substance Use Type: Reports: None, Other Smoking Status (MU): Current Some Day Smoker Type: Cigarettes Have You Smoked in the Last Year: Yes Review of Systems Negative: Fever Positive: Edema - positive: lower extremity edema, Other - positive: tailbone pain after fall All Other Systems Reviewed And Are Negative: Yes Physical Exam - Summary Physical Exam Summary: GENERAL: Patient is a well-developed and nourished F who is lying comfortable in the stretcher. Patient is not in any acute respiratory distress. HEAD AND FACE: Normocephalic EYES: PERRLA, EOMI x 2. EARS: Hearing grossly intact. MOUTH: Oropharynx within normal limits. NECK: Supple, trachea is midline, no adenopathy, no JVD, no carotid bruit. CHEST: Symmetric, no tenderness at palpation LUNGS: Clear to auscultation bilaterally. No wheezing or crackles. CVS: Regular rate and rhythm, S1 and S2 present, no murmurs or gallops appreciated. ABDOMEN: Soft, non-tender. Bowel sounds are normal. No abnormal abdominal pulsations. EXTREMITIES: TTP over c-spine area, 2+ pitting edema lower extremities. NEURO: Alert and oriented x 3. No acute neurological deficits. Speech is normal and follows commands. SKIN: Dry and warm Triage Information Reviewed: Yes Vital Signs Reviewed: Yes Diagnostics - Laboratory Result Diagrams: 12/18/18 13:30 12/18/18 13:30 Lab Statement: Any lab studies that have been ordered have been reviewed, and results considered in the medical decision making process. - Radiology CXR Radiology Interpretation Completed By: Radiologist Summary of Radiographic Findings: CARDIOMEGALY WITH INTERSTITIAL EDEMA. PATIENT IS STATUS POST TRACER. THORACOTOMY. ED physician has reviewed this imaging report. - CT cervical spine CT Interpretation Completed By: Radiologist Summary of CT Findings: No CT evidence for traumatic cervical spine injury. ED physician has reviewed this imaging report. Brain CT Interpretation Completed By: Radiologist Summary of CT Findings: Chronic ischemic White matter change. No intracranial mass or hemorrhage is. noted. ED physician has reviewed this imaging report. - EKG 13:10 Cardiac Rate: NL - 67 bpm EKG Rhythm: Sinus Rhythm EKG Comparison: No Significant Change Summary of EKG Findings: EKG at 13:10 showed NSR at 67 bpm, LVH and evidence of inferior infarction, similar to EKG done 08/29/18. Re-Evaluation - Re-Evaluation First Eval Re-Evaluation Time: 14:39 Change: Unchanged Comment: She is pretty altered and lethargic. It takes a lot to wake her up. Adult Trauma Course/Dx - Course Course Of Treatment: A 63 y/o female brought in by [facility] ambulance presents to [facility] with a chief complaint of falling out of her wheelchair today. Per EMS, the patient is AMS and almost strangled herself with her shirt wrapped around her neck. She was reportedly unresponsive upon EMS arrival but now is more responsive. The physical exam revealed TTP over c-spine area, 2+ pitting edema lower extremities. EKG at 13:10 showed NSR at 67 bpm, LVH and evidence of inferior infarction, similar to EKG done 08/29/18. Cervical spine CT impression : No CT evidence for traumatic cervical spine injury. Brain CT impression: Chronic ischemic White matter change. No intracranial mass or hemorrhage is. noted. In the ED course the patient was given sodium chloride IV. Blood work, chemistries, urines and toxicology obtained. Lactic acid of 2.2 at 13:30. Case discussed with hospitalist, Dr. Diaz. I discussed results with patient. The patient agrees with this plan. CXR impression: CARDIOMEGALY WITH INTERSTITIAL EDEMA. PATIENT IS STATUS POST TRACER. THORACOTOMY. In the ED course the patient was given a Vitamin B12 IM, Dextrose IV, Insulin IV, Keppra IV, Lopressor PO, and Sodium Chloride IV. In the ED course the patient was given a Vitamin B12 IM, Dextrose IV, Insulin IV, Keppra IV, Lopressor PO, and Sodium Chloride IV. Blood work, chemistries, urines and toxicology obtained. Lactic acid of 2.2 at 13:30. The patient will be admitted. Case discussed with hospitalist, Dr. Diaz. I discussed results with patient. The patient agrees with this plan. - Diagnoses Provider Diagnoses: RICHARD (acute kidney injury), Hyperkalemia, Altered mental status - Physician Notifications Discussed Care Of Patient With: Jeanie Diaz Time Discussed With Above Provider: 15:32 Instructed by Provider To: Admit As Inpatient - Critical Care Time Critical Care Time: 30-74 min Discharge - Sign-Out/Discharge Documenting (check all that apply): Patient Departure - admit Patient Received Moderate/Deep Sedation with Procedure: No - Discharge Plan Condition: Fair Disposition: ADMITTED TO [facility] Referrals: Agapito Holt MD [Primary Care Provider] - - Billing Disposition and Condition Condition: FAIR Disposition: Admitted to [facility] - Attestation Statements Document Initiated by Audieibe: Yes Documenting Scribe: Samson Street Provider For Whom Scribe is Documenting (Include Credential): Farooq Robbins MD Scribe Attestation: I, Samson Street, scribed for Farooq Robbins MD on 12/18/18 at 2042. Scribe Documentation Reviewed: Yes Provider Attestation: The documentation as recorded by the Samson ochoa accurately reflects the service I personally performed and the decisions made by me, Corrine Robbins MD Status of Scribe Document: Viewed
[2018-12-18] MEDS ORDERED: NS 0.9% 1000 ML** 1,000 ML IV ONE ×2 (12:50→16:27)
[2018-12-18 13:42] LABS: ABS Basophils 0.1 10^3/ul (0-0.2); ABS Eosinophils 0.3 10^3/ul (0-0.6); ABS Lymphocytes 3.7 10^3/ul (1.0-4.8); ABS Monocytes 0.6 10^3/ul (0-0.8); ABS Neutrophils 4.8 10^3/ul (1.5-7.7); Eosinophil % 3.2 %; Hematocrit 34 % (35-47); Hemoglobin 10.5 g/dL (12.0-16.0); Lymphocyte % 39.2 %; Mean Corpuscular HGB Conc 31 g/dL (31-36); Mean Corpuscular Hemoglobin 26 pg (27-31); Mean Corpuscular Volume 82 fL (80-97); Mean Platelet Volume 8.5 fL (7.4-10.4); Nucleated Red Blood Cells % 0.1; Platelet Count 278 10^3/uL (150-450); Red Blood Count 4.09 10^6 /uL (3.70-4.87); Red Cell Distribution Width 18 % (10-15); White Blood Count 9.6 10^3/uL (3.5-10.8)
[2018-12-18 14:00] LABS: ALT 15 U/L (7-52); AST 22 U/L (13-39); Albumin 3.8 g/dL (3.2-5.2); Alkaline Phosphatase 76 U/L (34-104); BNP 154 pg/mL (<=100); BUN/Creatinine Ratio 27.1 (8-20); Blood Urea Nitrogen 85 mg/dL (6-24); CO2 Carbon Dioxide 21 mmol/L (22-32); Calcium 9.1 mg/dL (8.6-10.3); Chloride 107 mmol/L (101-111); EGFR Non-African American 14.9 (>60); Globulin 3.7 g/dL (2-4); Glucose 106 mg/dL (70-100); Magnesium 2.3 mg/dL (1.9-2.7); Sodium 140 mmol/L (135-145); Total Protein 7.5 g/dL (6.4-8.9)
[2018-12-18 14:05] LABS: Anion Gap 12 mmol/L (2-11); Potassium 5.5 mmol/L (3.5-5.0)
[2018-12-18 14:14] LABS: INR 0.97 (0.82-1.09)
[2018-12-18 14:23] LABS: Urine Appearance Cloudy; Urine Bacteria Absent (Absent); Urine Bilirubin Negative (Negative); Urine Blood Negative (Negative); Urine Color Yellow; Urine Glucose Negative (Negative); Urine Ketones Negative (Negative); Urine Nitrite Negative (Negative); Urine Protein Negative (Negative); Urine Red Blood Cell Trace(0-2/hpf) (Absent); Urine Specific Gravity 1.018 (1.010-1.030); Urine Squamous Epithelial Cell Present (Absent); Urine Urobilinogen Negative (Negative); Urine White Blood Cell Trace(0-5/hpf) (Absent)
[2018-12-18] MEDS ORDERED: Insulin REGULAR(*) 1 UNITS UNIT IV PUSH ONE (14:27)
[2018-12-18] MEDS ORDERED: Dextrose 50% Syringe 50 ML* 25 GM/50 ML SYRINGE IV PUSH ONE (14:27)
[2018-12-18 14:28] LABS: Acetaminophen < 15 mcg/mL; Salicylate < 2.50 mg/dL (<30)
[2018-12-18 14:42] LABS: TSH (Thyroid Stimulating Horm) 6.81 mcIU/mL (0.34-5.60)
[2018-12-18] MEDS ORDERED: Dextrose 50% VIAL 50 ml ONE (14:54)
[2018-12-18 14:56] LABS: Urine Benzodiazepine Screen None Detected (None Detect); Urine Opiates Screen None Detected (None Detect)
[2018-12-18] MEDS ORDERED: levETIRAcetam 1000MG IVPREMIX* 1,000 MG/100 ML BAG IVPB ONE (16:45)
[2018-12-18] MEDS ORDERED: Albuterol/Ipratropium NEB.SOL* Albuterol 2.5 MG/Ipratropium 0.5 MG 3 ML INH PRN (16:51)
[2018-12-18] MEDS ORDERED: Dextrose 50% VIAL 50 ml IV PUSH PRN (16:52)
[2018-12-18] MEDS ORDERED: Cyanocobalamin INJ * 1,000 MCG/ML VIAL 1 ML VIAL IM ONE (17:20)
[2018-12-18] MEDS: NS 0.9% 1000 ML** 1,000 ML IV SCH (18:59)
[2018-12-18] MEDS: Metoprolol Tartrate IV* 1 MG/ML 5 ML VIAL IV SCH (18:59)
--- NOTE | 2018-12-18 18:59 | HP ---
CC: Primary Care Provider, [facility]; Dr. Hayes * HISTORY AND PHYSICAL: DATE OF ADMISSION: 12/18/18 PRIMARY CARE PROVIDER: A provider from [facility]. CHIEF COMPLAINT: Obtunded, fell out of wheelchair. HISTORY OF PRESENT ILLNESS: Ms. Sosa is a 63-year-old female with history of diabetes, coronary artery disease, hypertension and hypothyroidism as well as depression, who has been hospitalized frequently this year for infections and encephalopathy. She was hospitalized in August 2018 for hypoxemic respiratory failure due to pneumonia. At that point, she was also noted to have encephalopathy that apparently improved, but it was thought to be due to severe sepsis, metabolic derangements, and medications. She had problems with walking when discharge was planned and she was placed in [facility] for rehabilitation. She stayed in [facility] and the family stated that there she was alert and oriented x3, her walking was problematic due to problems with osteoarthritis. In October of 2018, she came into the hospital again for evaluation, at that point she was noted to be confused. At that point , the patient was thought to be initially to have UTI and was treated with empiric antibiotics. At some point, it was discovered that the patient in fact did not have UTI, but had likely pneumonia. She was treated with broad-spectrum antibiotics and discharged on Levaquin for a 5- day course on 12/10/18. Per family, when the patient went to [facility] after the discharge, she was agitated and she received IM Haldol. At that point, after that, the patient's family stated that she slept 2-1/2 days and then she was back to "baseline" as per family. Today, the patient was found by the nursing staff after she apparently had fallen out of the wheelchair. She appeared obtunded. Apparently, she was tangled in her gown that was close to the wheelchair and hanging off that and there was a question of possibility of hypoxemia due to "strangulation." When she was evaluated in the ED, there was no evidence of trauma to the patient's neck. She was hypoxemic and she was initially placed on oxygen. Later on, when the nurse removed the oxygen, her oxygen saturation continued to be 100% on room air. Despite that, her ABG shows hypoxemia and the oxygen was placed back on. The patient would respond to sternal rub as per my discussion with nursing with bill. She would not really follow commands. Intermittent twitching of bilateral upper and lower extremities was noted. She is going to be admitted to the hospital with a diagnosis of altered mental status. PAST MEDICAL HISTORY: Obtained from medical records since the patient is not verbal and those include: 1. Coronary artery disease, status post myocardial infarction. 2. Diabetes mellitus type 2. 3. Hypertension. 4. Hypothyroidism. 5. Depression. PAST SURGICAL HISTORY: 1. History of coronary artery bypass grafting. 2. History of laceration repair on her legs in the past. MEDICATIONS: At [facility] included: 1. Glucagon on a p.r.n. basis. 2. Nitroglycerin on a p.r.n. basis. 3. Guaifenesin 5 mL on a p.r.n. basis. 4. DuoNeb on a p.r.n. basis. 5. Acetaminophen on a p.r.n. basis. 6. Trazodone 25 mg at bedtime p.r.n. 7. Insulin Lantus 20 units subcutaneously every 24 hours. 8. Lisinopril 5 mg daily. 9. Aspirin 81 mg daily. 10. Metoprolol tartrate 50 mg b.i.d. 11. Plavix 75 mg daily. 12. Effexor XR 150 mg b.i.d. 13. Lipitor 40 mg daily. 14. Bupropion XL 150 mg b.i.d. 15. Metformin 1000 mg b.i.d. 16. Gabapentin 300 mg b.i.d. 17. Levothyroxine 100 mcg daily. ALLERGIES: COLACE. FAMILY HISTORY: As per medical records, there is no history of heart disease. Mother passed at the age of 72 with breast cancer. SOCIAL HISTORY: The patient's family denies any history of the patient drinking alcohol or smoking cigarettes. She has no history of drug use as per family. The patient's family also stated that the patient is at her baseline, is walking and has no problems with talking and no problems with communication. Family also noted that the patient never had memory problems. REVIEW OF SYSTEMS: Please see history of present illness. Otherwise, not obtainable from this patient, who is nonverbal. PHYSICAL EXAMINATION GENERAL: The patient is lying in bed, appears in no acute distress. Intermittent momentarily twitches noted that last second. They are mostly in the bilateral upper extremities, but occasionally bilateral lower extremities. The patient does not follow commands. She is basically nonverbal, although she does moan to sternal rub. She resists eye opening during the evaluation. VITAL SIGNS: Blood pressure 116/67, heart rate 64 and regular, respiratory rate 13, oxygen saturation 100% on 2 L of oxygen via nasal cannula, temperature of 97.0. HEENT: Head: Atraumatic, normocephalic. Eyes: Pupils are equal, reactive to light. Oropharynx is clear. Mucosa moist. NECK: Supple. No JVD. No bruits bilaterally. RESPIRATORY: Clear to auscultation bilaterally. CARDIOVASCULAR: Regular rate and rhythm. No murmur. ABDOMEN: Soft, nontender. Bowel sounds are present in all 4 quadrants. EXTREMITIES: There is no edema. Pulses are +2 bilaterally. No clubbing or cyanosis. NEUROLOGIC: There is no increased muscle tone noted. The patient is not following commands. Her face is symmetrical. Her pupils are equal and reactive. Babinski's is negative bilaterally. The patient appears to resist eye opening. She also appears to resist when I am trying to hold her feet above ground passively. I do not notice any issues with focal neuro deficits. She has intermittent likely myoclonic jerks in bilateral upper extremities mostly. DIAGNOSTIC STUDIES/LAB DATA: Laboratory data showed white blood cell count of 9.6, hemoglobin of 10.5, hematocrit of 34, and platelets of 278. INR was 0.97. ABG shows pH of 7.32, pCO2 of 39, pO2 of 74, bicarb of 20.5. Sodium was 140, potassium 4.5, chloride 107, carbon dioxide 21, BUN 85, creatinine 3.14. Of note, the patient had a Stout placed in the ED and her postvoid residual was 300 mL. The patient's glucose level was 106, lactic acid of 2.2. Liver function tests were unremarkable. Brain natriuretic peptide was 154, troponin of 0. Ammonia of 42. TSH of 6.8. Please note that the patient' s during last hospital stay at the beginning of November 2018, the patient's TSH was noted to be 0.01, at that point her levothyroxine dose was halved from 200 mcg to 100 mcg daily. The patient's cervical spine CT, impression: "No CT evidence of acute traumatic cervical spine injury." CT of the head, impression: "Chronic ischemic white matter change with no intracranial mass or hemorrhage is noted." The patient's EKG showed sinus rhythm with a heart rate of 67 beats per minute with multiple LVH criteria and likely old inferior infarct. Comparing with an EKG from a week ago and a week and a half ago, those changes are the patient's baseline. Portable chest x-ray, impression: "Cardiomegaly with interstitial edema. The patient is status post thoracotomy." ASSESSMENT AND PLAN: 1. Altered mental status in a patient with possibility of hypoxemia. At this point, the patient has some myoclonic jerks and is barely responsive. I will place her in the intensive care unit with neuro checks every [address] Hayes is right now evaluating the patient. We will give her 1 dose of Keppra 1000 mg IV and await further Neurology recommendation. 2. Acute renal failure. As per the patient's family, the patient was basically unresponsive for 2-1/2 days due to sedation with Haldol. It is possible that she got prerenal at that point. I suspect that lactic acid elevation is also due to that, especially the patient had been on metformin. I will place the patient on intravenous fluids, monitor her creatinine tomorrow and get a renal ultrasound to rule out hydronephrosis. 3. The patient has history of coronary artery disease, but there is no indication of any acute events at this point. The patient is going to be monitored on telemetry monitored bed in the intensive care unit. 4. The patient has history of hypothyroidism and currently her TSH is mildly elevated, but she was just adjusted with her medications a week ago. Her Synthroid was lowered from 200 mcg to 100 mcg, where her TSH was noted to be 0.01 just a week and a half ago. At this point, I will not adjust her Synthroid more, but recommend to have a TSH checked in approximately 3 to 4 weeks. 5. For her diabetes, the patient's medications are going to be held and the patient is going to be placed on insulin sliding scale only. For the time being , she is basically unable to eat, but I will place her on clear liquid diet if she was able to wake up and eat some. 6. The patient's code status is full. Her surrogate is her . TIME SPENT: Approximately 72 minutes was spent on admission of this patient, more than half that time was spent [id number] with the patient during the interview and physical exam. [id number]/[facility] #: [id number] ROMIE
[2018-12-18] MEDS: Insulin LISPRO* 1 UNITS UNIT SUBCUT SCH (19:09)
--- NOTE | 2018-12-18 19:25 | CONS ---
NEUROLOGY CONSULTATION NOTE: DATE OF CONSULT: 12/18/18 LOCATION: She is in the emergency room, to be admitted. PROVIDER: Dr. Diaz. CHIEF COMPLAINT: Encephalopathy, unresponsiveness. HISTORY OF PRESENT ILLNESS: Ann Sosa is a 63-year-old woman who is just discharged fr om the hospital on 12/06/18 after admission for toxic metabolic encephalopathy from pneumonia, urinar y tract infection, and acute hypoxic respiratory failure. She was discharged to [facility], where she has been since then. She presented to the emergency room today by ambulance when she was unresponsi ve at [facility]. The history as I was given verbally was that she was found unresponsive in her whee lchair, having slumped to the ground and being suspended by her gown. In the emergency room, she was hypoxic and initial blood gas was abnormal with a pH 7.32, pCO2 39, and pO2 74. She required supple mental oxygen to keep her oxygen level up. Initial laboratory studies were notable for azotemia with BUN of 85 and a creatinine of 3.4 where her creatinine was 0.97 just 9 days ago on 12/09/18. She short d a lactic acidosis of 2.2. She has had multiple hospitalizations over the last year where she becomes encephalopathic and often have respiratory problems with either pneumonia or urinary tract infections. She developed agitated delirium requiring sedation. History that was given verbally is that at [facility], she was again comb ative or uncooperative and was given Haldol and was somnolent for 2 days or more. Apparently, she had little to no p.o. intake. She was then found as described above in the history of present illness. PAST MEDICAL HISTORY: Notable for COPD, multiple hospitalizations for infection, sepsis, type 2 diab etes, hypothyroidism, depression, coronary artery disease. She has had coronary artery bypass grafti ng, and a leg laceration repair. MEDICATIONS: Currently medications as listed from residence at [facility]: 1. Albuterol q.4 hours p.r.n. 2. Trazodone 25 mg p.o. q.h.s. 3. Insulin. 4. Lisinopril 5 mg p.o. daily. 5. Metoprolol 50 mg p.o. daily. 6. Plavix 75 mg p.o. daily. 7. Venlafaxine extended release 150 mg p.o. b.i.d. 8. Atorvastatin 40 mg p.o. daily. 9. Wellbutrin XL 150 mg p.o. b.i.d. 10. Gabapentin 300 mg p.o. b.i.d. 11. Metformin 1000 mg p.o. b.i.d. 12. Levothyroxine 100 mcg p.o. daily. ALLERGIES: She is listed as having allergy to COLACE. REVIEW OF SYSTEMS: From the patient is nonproductive. She does answer a few questions when stimulat ed such as admitting to a headache. She says that she is "cold." PHYSICAL EXAM: On examination, initial temperature is 97, blood pressure was 180/76 and was high as 205/162. Currently it is running about 130/60. Heart rate is in the 60s and it is sinus on the dennise tor, respiratory rate is about 13, and oxygen saturation with supplemental oxygen by mask is 100%. H er hands are cool. She has some abrasions of different ages on her knees and legs. Her neck is suppl e. Heart tones are distant. Oral mucosa is moist. Neurologically, she is very somnolent but I can get her to arouse and a answer question or 2 very briefly and then she becomes minimally responsive a gain. She weakly tries to open her eyes. When I hold her eyes open, pupils are about 3.[address] to light to 2 mm. Funduscopic exam reveals arterial narrowing and sharp white discs bilaterally. She has corneal reflexes bilaterally and symmetrically. She has a nasal tickle response bilaterally and symmetrically. She has bilateral facial grimacing to pain. Speech is very soft and there is a p ause verbal output only when stimulated. Motor exam reveals paratonia in the upper extremities. The same is to the lower extremities. She has intermittent multifocal myoclonus in the arms and legs. S he does grasp my hand to command once with repeated efforts. Her legs are crossed. There is no postu ring. She has bilateral Babinski signs. DIAGNOSTIC STUDIES/LAB DATA: CT of the brain interpreted showing some changes consistent with chroni c ischemic disease but no acute findings. Reviewing old record, she had a brain MRI scan on 12/29/17 , which I reviewed and also reveals moderate amount of nonspecific white matter changes. Laboratory data today notable for CBC with normal white blood cell count 9.6, hemoglobin 10.5 which i s up from 8.1 when she was here on 12/08/18, platelet count is normal at 278. Chemistries most notable for BUN of 85 and creatinine 3.14. Potassium is elevated at 5.5, carbon ketty xide is little low at 21, lactic acid elevated at 2.2. Glucose is 106 today. She had a low vitamin B12 level of 148 on 12/06/18. When looking through the med records she did get an injection of 1000 mcg of B12 and then oral B12 a 1000 mcg before she was discharged. Her TSH is elevated today at 6.81 , it was 0.01 on 12/07/18 and from looking at the records it looks like her thyroid replacement was h alved. IMPRESSION AND PLAN: Toxic metabolic encephalopathy. I suspect mostly from dehydration, acute renal failure, and subsequent elevated blood levels of multiple psychoactive drugs. Most notably, she is on fairly high doses of Wellbutrin and venlafaxine. Those medicines have been held. She has been hydrated and her hypoxemia has been corrected. Her thy roid status will also be addressed by Dr. Diaz. I recommend checking ammonia level. I think we shou ld get an EEG, but I do not think it is urgent as she has a bilateral myoclonic twitching with preser dennis ability to respond. We may consider getting an MRI scan of the brain during this hospitalization as well depending upon how she does. I will continue to follow her along with you. [id number]/[facility] #: [id number]
[2018-12-18] MEDS ORDERED: Metoprolol Tartrate TAB* 50 mg PO SCH (21:00)
[2018-12-19] MEDS: NS 0.9% 1000 ML** 1,000 ML IV SCH ×3 (00:48→17:12)
[2018-12-19] MEDS: Heparin VIAL(*) 5000 UNITS/ML VIAL (FIVE THOUSAND) SUBCUT SCH ×3 (00:48→13:29)
[2018-12-19] MEDS: Metoprolol Tartrate IV* 1 MG/ML 5 ML VIAL IV SCH (00:49)
[2018-12-19] MEDS: Insulin LISPRO* 1 UNITS UNIT SUBCUT SCH ×4 (01:32→17:12)
[2018-12-19 05:23] LABS: ABS Eosinophils 0.4 10^3/ul (0-0.6); ABS Monocytes 0.6 10^3/ul (0-0.8); ABS Neutrophils 4.6 10^3/ul (1.5-7.7); Eosinophil % 4.9 %; Hematocrit 28 % (35-47); Lymphocyte % 34.9 %; Mean Corpuscular HGB Conc 33 g/dL (31-36); Mean Corpuscular Hemoglobin 26 pg (27-31); Mean Corpuscular Volume 81 fL (80-97); Mean Platelet Volume 8.4 fL (7.4-10.4); Platelet Count 252 10^3/uL (150-450); Red Blood Count 3.44 10^6 /uL (3.70-4.87); Red Cell Distribution Width 18 % (10-15); White Blood Count 8.6 10^3/uL (3.5-10.8)
[2018-12-19 05:40] LABS: BUN/Creatinine Ratio 31.3 (8-20); Calcium 8.3 mg/dL (8.6-10.3); EGFR African American 28.1 (>60); EGFR Non-African American 23.2 (>60); Potassium 4.5 mmol/L (3.5-5.0)
[2018-12-19] MEDS ORDERED: Levothyroxine TAB* 100 MCG TAB PO SCH (06:00)
[2018-12-19] MEDS: Levothyroxine INJ* 100 MCG/5 ML VIAL IV SCH (08:00)
[2018-12-19] MEDS: Clopidogrel TAB* 75 MG PO SCH (08:00)
--- NOTE | 2018-12-19 16:20 | PN ---
Subjective Date of Service: 12/19/18 Interval History: Alert and oriented.Falls asleep between conversation but oriented and able to answer questions appropriately this am Objective Active Medications: Albuterol/Ipratropium (Duoneb (Albuterol 2.5 Mg/Ipratropium 0.5 Mg)) 1 neb INH Q4H PRN PRN Reason: SOB/WHEEZING Clopidogrel Bisulfate (Plavix Tab*) 75 mg PO DAILY [facility] Last Admin: 12/19/18 08:00 Dose: 75 mg Dextrose (Dextrose 50% Vial 50 Ml*) 12.5 ml IV PUSH .FOR FS < 60 - SS PRN PRN Reason: FS < 60 Last Admin: 12/19/18 05:57 Dose: 12.5 ml Heparin Sodium (Porcine) (Heparin Vial(*)) 5,000 units SUBCUT Q8HR [facility] Last Admin: 12/19/18 13:29 Dose: 5,000 units Sodium Chloride (Ns 0.9% 1000 Ml) 1,000 mls @ 125 mls/hr IV PER RATE [facility] Last Admin: 12/19/18 11:21 Dose: 125 mls/hr Insulin Human Lispro (Humalog*) 0 units SUBCUT ACHS [facility]; Protocol Last Admin: 12/19/18 11:44 Dose: Not Given Levothyroxine Sodium (Synthroid Inj*) 50 mcg IV 0600 [facility] Last Admin: 12/19/18 08:00 Dose: 50 mcg Vital Signs - 8 hr 12/19/18 12/19/18 09:00 11:00 Temperature 98.9 F Pulse Rate 56 Respiratory 12 16 Rate Blood Pressure 148/62 117/56 (mmHg) O2 Sat by Pulse 98 Oximetry Oxygen Devices in Use Now: None Eyes: No Scleral Icterus Ears/Nose/Mouth/Throat: NL Teeth, Lips, Gums Neck: NL Appearance and Movements; NL JVP Respiratory: Symmetrical Chest Expansion and Respiratory Effort, Clear to Auscultation Cardiovascular: NL Sounds; No Murmurs; No JVD, RRR Extremities: No Edema Neurological: Alert and Oriented x 3 Result Diagrams: 12/19/18 05:10 12/19/18 05:10 Microbiology and Other Data: Microbiology 12/18/18 13:29 Aerobic Blood Culture - Preliminary Blood Venous No Growth Day 1 Anaerobic Blood Culture - Preliminary No Growth Day 1 12/18/18 13:10 Aerobic Blood Culture - Preliminary Blood Venous No Growth Day 1 Anaerobic Blood Culture - Preliminary No Growth Day 1 12/18/18 14:05 Urine Culture - Final Urine No Growth (<1,000 CFU/mL) Assess/Plan/Problems-Billing Assessment: - Patient Problems (1) Acute hypoxemic respiratory failure Current Visit: No Status: Acute Code(s): J96.01 - ACUTE RESPIRATORY FAILURE WITH HYPOXIA SNOMED Code(s): 666935407 Comment: Improving Multiple recent hospitalizations will repeat cxr in am recent chf exacerbation stable resp status currently (2) RICHARD (acute kidney injury) Current Visit: No Status: Acute Code(s): N17.9 - ACUTE KIDNEY FAILURE, UNSPECIFIED SNOMED Code(s): 61864824 Comment: - Likely pre-renal -Improving -Renal ultrasound non obstructive (3) Altered mental status Current Visit: No Status: Acute Code(s): R41.82 - ALTERED MENTAL STATUS, UNSPECIFIED SNOMED Code(s): 789930757 Comment: Seen by neuro Likely toxic metabolic encephalopathy and polypharmacy Improving Will monitor (4) CAD (coronary artery disease) Current Visit: No Status: Acute Code(s): I25.10 - ATHSCL HEART DISEASE OF [place] CORONARY ARTERY W/O ANG PCTRS SNOMED Code(s): 70249836 Comment: Continue Aspirin, Plavix, Atorvastatin, and Metoprolol. Status and Disposition: Does not need ICU care.Can switch neurochecks to Q4h and transfer to floor
--- NOTE | 2018-12-19 16:36 | CONS ---
NEUROLOGY CONSULT FOLLOWUP: DATE OF FOLLOWUP: 12/19/18 LOCATION: She is an inpatient, room 449. HOSPITALIST: Dr. Diaz. CHIEF COMPLAINT: Unresponsiveness, myoclonus. INTERVAL HISTORY: Since yesterday, Ann is clearly improved considerably. She is accompanied by bruna marlon members including her daughter, , and her daughter's friend. She confabulates when aske d about history. She says that she recalls coming into the hospital yesterday, but does not recall b eing in the emergency room. She tends to clearly makeup areas where she was not aware of her surroun dings. She does not recall being in the emergency room. She says that she has met me before, but ca nnot recall when. She denies any headache or pain. MEDICATIONS: Reviewed and she is currently on: 1. Plavix 75 mg p.o. daily. 2. Albuterol p.r.n. wheezing. 3. Levothyroxine 50 mcg IV daily. 4. Sliding scale insulin. 5. Heparin 5000 units subcutaneous q.8 hours. PHYSICAL EXAM: She is afebrile. Blood pressure most recently 117/56, but has been running higher in the 150/80 range. Pulses in the 50s, respiratory rate 16, oxygen saturations 98% on room air. Neurologically, facial musculature is symmetric. Speech is clear. Eye movements are normal. She short s normal strength in the arms. There is no myoclonus or asterixis. [id number] maneuver is pete l. She is oriented to [place], but not the hospital. She initially says it is 1919, but then self co rrects to 2019. She does not know about the month or the day of the week. I went over prior history a bit with the family. She has had episodes of confusion at least for the last year. I asked her daughter when it started, but she said that they were estranged and she reall y did not know her prior to more recent coming back into their life again together. Her kimberly jose that she has any memory problems other than when she is sick. The patient and the patient's daugh ter say that she will become confused if she does not get her antidepressants. She has been on antide pressants for many years. I asked if she has ever been diagnosed with having bipolar disorder and th e patient says no, but the daughter indicates that she thinks that she may have bipolar disorder. DIAGNOSTIC STUDIES/LAB DATA: Laboratory data reviewed and her chemistry is notable for a much improv ed creatinine at 2.14 and BUN down to 67. Carbon dioxide is still low at 21. Calcium was 8.3 today. CBC today is notable for drop in the hemoglobin to 9.0, white blood cell count is normal at 8.6. IMPRESSION AND PLAN: Impression is that of markedly improved toxic metabolic encephalopathy. Her an tidepressants have been held and her renal function is improved. She will need reinstitution of her antidepressants at some point. I am suspicious she might have bip olar disorder given her episodes of agitation. She might benefit from a psychiatry consult to addres s optimization of her antidepressants as they were in pretty high doses and she might do better on a different regimen. I will continue to follow her along with you. [id number]/[facility] #: [id number]
[2018-12-19] MEDS ORDERED: Phenazopyridine TAB* 100 MG PO PRN (21:14)
[2018-12-19] MEDS ORDERED: Haloperidol INJ IV/IM* 5 MG/ML AMP IM PRN (23:12)
[2018-12-20] MEDS: Insulin LISPRO* 1 UNITS UNIT SUBCUT SCH ×5 (00:22→23:34)
[2018-12-20] MEDS: Heparin VIAL(*) 5000 UNITS/ML VIAL (FIVE THOUSAND) SUBCUT SCH ×4 (00:23→23:34)
[2018-12-20 05:42] LABS: ABS Basophils 0.1 10^3/ul (0-0.2); ABS Eosinophils 0.5 10^3/ul (0-0.6); ABS Lymphocytes 2.9 10^3/ul (1.0-4.8); ABS Monocytes 0.4 10^3/ul (0-0.8); ABS Neutrophils 3.7 10^3/ul (1.5-7.7); Eosinophil % 6.3 %; Hematocrit 26 % (35-47); Hemoglobin 8.4 g/dL (12.0-16.0); Lymphocyte % 38.2 %; Mean Corpuscular HGB Conc 32 g/dL (31-36); Mean Corpuscular Hemoglobin 26 pg (27-31); Mean Corpuscular Volume 80 fL (80-97); Mean Platelet Volume 8.9 fL (7.4-10.4); Platelet Count 242 10^3/uL (150-450); Red Blood Count 3.24 10^6 /uL (3.70-4.87); Red Cell Distribution Width 18 % (10-15); White Blood Count 7.5 10^3/uL (3.5-10.8)
[2018-12-20 06:06] LABS: BUN/Creatinine Ratio 32.7 (8-20); Calcium 8.6 mg/dL (8.6-10.3); EGFR African American 42.3 (>60); Potassium 4.8 mmol/L (3.5-5.0)
[2018-12-20] MEDS ORDERED: Phenazopyridine TAB* 100 MG PO PRN (07:30)
[2018-12-20] MEDS: Atorvastatin* 40 MG TAB PO SCH (09:28)
[2018-12-20] MEDS: Clopidogrel TAB* 75 MG PO SCH (09:28)
[2018-12-20] MEDS: Aspirin EC TAB* 81 MG TAB.EC PO SCH (09:28)
[2018-12-20] MEDS: Levothyroxine INJ* 100 MCG/5 ML VIAL IV SCH (09:32)
[2018-12-20] MEDS: Levothyroxine TAB* 100 MCG TAB PO SCH (10:27)
[2018-12-20] MEDS: NS 0.9% 1000 ML** 1,000 ML IV SCH (12:34)
--- NOTE | 2018-12-20 16:20 | PN ---
Subjective Date of Service: 12/20/18 Interval History: Denies any complaints.More alert today. Objective Active Medications: Albuterol/Ipratropium (Duoneb (Albuterol 2.5 Mg/Ipratropium 0.5 Mg)) 1 neb INH Q4H PRN PRN Reason: SOB/WHEEZING Aspirin (Aspirin Ec Tab*) 81 mg PO DAILY [facility] Last Admin: 12/20/18 09:28 Dose: 81 mg Atorvastatin Calcium (Lipitor*) 40 mg PO DAILY [facility] Last Admin: 12/20/18 09:28 Dose: 40 mg Clopidogrel Bisulfate (Plavix Tab*) 75 mg PO DAILY [facility] Last Admin: 12/20/18 09:28 Dose: 75 mg Dextrose (Dextrose 50% Vial 50 Ml*) 12.5 ml IV PUSH .FOR FS < 60 - SS PRN PRN Reason: FS < 60 Last Admin: 12/19/18 05:57 Dose: 12.5 ml Haloperidol Lactate (Haldol Inj Iv/Im*) 1 mg IM Q6H PRN PRN Reason: AGITATION Last Admin: 12/19/18 23:43 Dose: 1 mg Heparin Sodium (Porcine) (Heparin Vial(*)) 5,000 units SUBCUT Q8HR [facility] Last Admin: 12/20/18 14:26 Dose: 5,000 units Insulin Human Lispro (Humalog*) 0 units SUBCUT [facility]; Protocol Last Admin: 12/20/18 11:55 Dose: 1 unit Levothyroxine Sodium (Synthroid Tab*) 100 mcg PO DAILY@0600 [facility] Last Admin: 12/20/18 10:27 Dose: 100 mcg Phenazopyridine HCl (Pyridium Tab*) 200 mg PO TID PRN PRN Reason: PAIN Stop: 12/22/18 08:59 Last Admin: 12/20/18 07:40 Dose: 200 mg Vital Signs - 8 hr 12/20/18 11:49 Temperature 97.9 F Pulse Rate 86 Respiratory 16 Rate Blood Pressure 121/72 (mmHg) O2 Sat by Pulse 94 Oximetry Oxygen Devices in Use Now: None Eyes: No Scleral Icterus Neck: NL Appearance and Movements; NL JVP Respiratory: Symmetrical Chest Expansion and Respiratory Effort, Clear to Auscultation Cardiovascular: NL Sounds; No Murmurs; No JVD, RRR Abdominal: NL Sounds; No Tenderness; No Distention Extremities: No Edema Neurological: Alert and Oriented x 3 Result Diagrams: 12/20/18 04:51 12/20/18 04:51 Microbiology and Other Data: Microbiology 12/18/18 13:29 Aerobic Blood Culture - Preliminary Blood Venous No Growth Day 1 Anaerobic Blood Culture - Preliminary No Growth Day 1 12/18/18 13:10 Aerobic Blood Culture - Preliminary Blood Venous No Growth Day 1 Anaerobic Blood Culture - Preliminary No Growth Day 1 12/18/18 14:05 Urine Culture - Final Urine No Growth (<1,000 CFU/mL) Assess/Plan/Problems-Billing Assessment: - Patient Problems (1) RICHARD (acute kidney injury) Current Visit: No Status: Acute Code(s): N17.9 - ACUTE KIDNEY FAILURE, UNSPECIFIED SNOMED Code(s): 83825057 Comment: - Likely pre-renal -Improving -Renal ultrasound non obstructive -will stop ivf as improving -recent chf exacerbation (2) Altered mental status Current Visit: No Status: Acute Code(s): R41.82 - ALTERED MENTAL STATUS, UNSPECIFIED SNOMED Code(s): 740751586 Comment: Seen by neuro Likely toxic metabolic encephalopathy and polypharmacy Improving Will monitor sun downing in the evening.needed haldol.her psych meds on hold in setting of renal failure as pt was lethargic and not waking up.can slowly add without over medicating. consider psych consult if warranted.multiple recent behavioral problems per no psych history and has not seen psych in the past delirium could be sec to underlying medical conditions as well (3) CAD (coronary artery disease) Current Visit: No Status: Acute Code(s): I25.10 - ATHSCL HEART DISEASE OF [place] CORONARY ARTERY W/O ANG PCTRS SNOMED Code(s): 40514607 Comment: Continue Aspirin, Plavix, Atorvastatin, and Metoprolol. (4) Hypothyroidism Current Visit: Yes Status: Acute Code(s): E03.9 - HYPOTHYROIDISM, UNSPECIFIED SNOMED Code(s): 89843395 Comment: continue iv synthroid and when mental status improved, can switch to po Status and Disposition: Multiple recent hospitalizations and deconditioning.PT/OT.Eval group home plan
[2018-12-20] MEDS ORDERED: Haloperidol INJ IV/IM* 5 MG/ML AMP IM PRN (16:24)
--- NOTE | 2018-12-20 17:33 | PN ---
Hospitalist Progress Note Date of Service: 12/20/18 Pt agitated.Wants to go hoime and walk out of the hospital.Long talk with pt.Unsafe to go.Infact lives in [place]. in room and thinks she keeps falling and unsafe to go home. Finally pt willing to stay.Wants EEG first thing in the morning and [place] not want to [place] then says she wants to go.Complete personality change and arguing.Says she is going to divorce her and upset with her daughters who live localy. Unsafe to go AMA and unsafe to go tonight.Psych Eval and PT/OT eval to see if she can even go home. Will place on low dose [place].
[2018-12-20] MEDS: QUEtiapine TAB* 25 MG PO SCH (21:01)
[2018-12-21 05:48] LABS: ABS Basophils 0.1 10^3/ul (0-0.2); ABS Eosinophils 0.5 10^3/ul (0-0.6); ABS Monocytes 0.4 10^3/ul (0-0.8); Eosinophil % 6.5 %; Hematocrit 26 % (35-47); Hemoglobin 8.6 g/dL (12.0-16.0); Mean Corpuscular HGB Conc 33 g/dL (31-36); Mean Corpuscular Hemoglobin 26 pg (27-31); Mean Corpuscular Volume 81 fL (80-97); Mean Platelet Volume 8.6 fL (7.4-10.4); Platelet Count 231 10^3/uL (150-450); Red Blood Count 3.28 10^6 /uL (3.70-4.87); Red Cell Distribution Width 18 % (10-15)
[2018-12-21 05:59] LABS: Calcium 8.7 mg/dL (8.6-10.3); EGFR African American 49.5 (>60); EGFR Non-African American 40.9 (>60); Potassium 4.2 mmol/L (3.5-5.0)
[2018-12-21] MEDS: Levothyroxine TAB* 100 MCG TAB PO SCH (06:24)
[2018-12-21] MEDS: Heparin VIAL(*) 5000 UNITS/ML VIAL (FIVE THOUSAND) SUBCUT SCH ×3 (06:25→20:22)
[2018-12-21] MEDS: Insulin LISPRO* 1 UNITS UNIT SUBCUT SCH ×4 (07:59→20:21)
[2018-12-21] MEDS: Atorvastatin* 40 MG TAB PO SCH (08:07)
[2018-12-21] MEDS: Clopidogrel TAB* 75 MG PO SCH (08:07)
[2018-12-21] MEDS: Aspirin EC TAB* 81 MG TAB.EC PO SCH (08:07)
[2018-12-21] MEDS ORDERED: Haloperidol INJ IV/IM* 5 MG/ML AMP IM PRN (13:37)
[2018-12-21] MEDS: Venlafaxine EXT RELEASE CAP* 75 MG PO SCH (13:53)
--- NOTE | 2018-12-21 15:00 | CONS ---
CONSULTATION REPORT: DATE OF CONSULT: 12/21/18 ATTENDING CLINICIAN: Robbie Emerson MD. CONSULTING PHYSICIAN: Dr. Sam Enriquez. REASON FOR CONSULT: To determine capacity as well as assess for possible affective disorder. SUBJECTIVE HISTORY: The patient is a 63-year-old white female with a complicated medical history of coronary artery disease, diabetes mellitus, hypothyroidism, congestive heart failure, chronic anemia with a recent hospitalization for pneumonia who is sent back to the hospital 8 days after her most recent discharge, having undergone what appears to have been a fall out of her wheelchair at [facility] subacute rehab. The patient presented as somewhat obtunded and was readmitted to the medical service, where she has been receiving treatment for acute renal insufficiency and altered mental status. My understanding is that she has had episodes of irritability and agitation, in which she has demanded to be discharged against medical advice and there is a question about her decision making capacity. There is further question as to whether she has a primary mood disorder that is not adequately diagnosed or treated. This is the second time Psychiatry has been asked to see this patient within the last month. This clinician met the patient on 12/08/18 during her previous admission and at that time, found her to be encephalopathic and clearly off of her baseline. As I established during that consultation, a conversation with her revealed that she has experienced a long history of unipolar depressive illness, which has been treated by her primary care provider here in [place]. Her psychiatric disturbances appear to be narrowly associated with medical instability and she never had any history of violence or agitation previous to 1 year ago. She has never had any history of manic episodes. On examination, the patient is awake and alert, combing her hair following an EEG procedure. She is oriented to person and place, although she makes some disorganized commentary to the effect that there are children waiting for her at [facility] that she needs to take care of. Her , Man Sosa, is present and he indicates that she is not yet back to her cognitive baseline, although she has shown improvement over the last several days. Ms. Shon Sosa denies depressed mood, suicidal or homicidal ideations. She tells me that she is looking forward to returning to [facility]. I did ask her if she understood the nature of her continued hospitalization here and she could not answer that question nor could she answer any related questions as to the risks of leaving the hospital prematurely such as further falls or confusion. I do note that both of her antidepressants were discontinued on admission because of her renal status. I do see that her kidney functions have returned to near- normal by virtue of her lower creatinine values. PAST PSYCHIATRIC HISTORY: Significant for depression, in which she was treated by her primary care provider at the [facility] here in [place]. She has been on dual antidepressant therapy with bupropion and venlafaxine. She has no prior history of suicidality, no history of violence, no history of homicidality , and no history of abuse or neglect. She does have several episodes of encephalopathy during various medical hospitalizations here at [facility] over the past year. SUBSTANCE ABUSE HISTORY: The patient is a chronic tobacco smoker. She is a social alcohol drinker, but family denies any history of illicit drug use. PAST MEDICAL HISTORY: Significant for recent pneumonia, respiratory failure secondary to CHF, diabetes type 2, hyperlipidemia, hypertension, hypothyroidism , coronary artery disease; status post 3-vessel CABG, gastroesophageal reflux disease, congestive heart failure, chronic anemia, bilateral arthroscopic scopes of her knees, previous abscess leading to pelvic surgery. FAMILY HISTORY: Noncontributory. SOCIAL HISTORY: The patient is from the [place] area and typically resides with her second in [place], [place]. Currently, she is receiving subacute rehab at [facility]. The patient has been twice. Her first 2 decades ago in a motor vehicle accident. She has 3 daughters and 2 stepsons. 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 She has no history of service. MENTAL STATUS EXAM: The patient is an aging, somewhat overweight white female, sitting in a summer dress with a Stout catheter and telemetry leads attached to her. She is somewhat argumentative with this observer. Grooming seems to be fair and she is combing her hair. She is awake and alert. Mood appears to be irritable with a constricted affect. Thought process seems somewhat confused at times. She denies suicidal or homicidal ideations. She denies auditory or visual hallucinations. Insight and judgment are markedly impaired given her insistence on leaving against medical advice without any appreciation for the risks. DIAGNOSES: [place] I: Delirium secondary to multiple medical etiologies, major depressive disorder by history. [place] II: Deferred. IMPRESSION: The patient is a 63-year-old white female with a complicated medical history, readmitted to the hospitalist service following a fall at [facility] subacute rehab, which resulted in temporary loss of consciousness. Neurological workup is ongoing. Her antidepressants had been temporarily held due to concerns over renal function. I see nothing in her history that would concern me about bipolar affective illness. It does appear that the discontinuation of venlafaxine in particular has likely resulted in antidepressant discontinuation side effects. I see no barrier to resuming this at a lower dose at this time. She has also been trialed on a low dose of Seroquel, which seems appropriate given her repeated episodes of encephalopathy. RECOMMENDATIONS TO PRIMARY TEAM: Psychiatry will resume antidepressant therapy with venlafaxine XR 75 mg daily. We will also increase the patient's haloperidol to 5 mg IV prn for agitation, as this is what has been beneficial during recent hospitalizations. We will keep her on Seroquel 50 mg p.o. at bedtime, which she can take safely on an ongoing basis. Psychiatry does not believe that the patient has capacity to sign herself out of the hospital AMA given the fact that she does not understand what her illnesses are or what the risks would be for returning to subacute care without further diagnostic and medical intervention. Psychiatry is signing off at this time as the patient's primary issues are medical in nature; however, we could be reconsulted in the event of any significant changes in the patient's presentation. Thank you for the consult. [id number]/[facility] #: [id number] ROMIE
--- NOTE | 2018-12-21 15:25 | PN ---
Subjective Date of Service: 12/21/18 Interval History: Patient has no complaints. She does not remember or believe that she had any difficulty over the weekend. Family History: Unchanged from Admission Social History: Unchanged from Admission Past Medical History: Unchanged from Admission Objective Active Medications: Albuterol/Ipratropium (Duoneb (Albuterol 2.5 Mg/Ipratropium 0.5 Mg)) 1 neb INH Q4H PRN PRN Reason: SOB/WHEEZING Aspirin (Aspirin Ec Tab*) 81 mg PO DAILY [facility] Last Admin: 12/21/18 08:07 Dose: 81 mg Atorvastatin Calcium (Lipitor*) 40 mg PO DAILY [facility] Last Admin: 12/21/18 08:07 Dose: 40 mg Clopidogrel Bisulfate (Plavix Tab*) 75 mg PO DAILY [facility] Last Admin: 12/21/18 08:07 Dose: 75 mg Dextrose (Dextrose 50% Vial 50 Ml*) 12.5 ml IV PUSH .FOR FS < 60 - SS PRN PRN Reason: FS < 60 Last Admin: 12/19/18 05:57 Dose: 12.5 ml Haloperidol Lactate (Haldol Inj Iv/Im*) 5 mg IM Q6H PRN PRN Reason: AGITATION Heparin Sodium (Porcine) (Heparin Vial(*)) 5,000 units SUBCUT Q8HR [facility] Last Admin: 12/21/18 12:37 Dose: 5,000 units Insulin Human Lispro (Humalog*) 0 units SUBCUT [facility]; Protocol Last Admin: 12/21/18 12:37 Dose: 1 unit Levothyroxine Sodium (Synthroid Tab*) 100 mcg PO DAILY@0600 [facility] Last Admin: 12/21/18 06:24 Dose: 100 mcg Phenazopyridine HCl (Pyridium Tab*) 200 mg PO TID PRN PRN Reason: PAIN Stop: 12/22/18 08:59 Last Admin: 12/20/18 07:40 Dose: 200 mg Quetiapine Fumarate (Seroquel Tab*) 50 mg PO BEDTIME [facility] Last Admin: 12/20/18 21:01 Dose: 50 mg Venlafaxine HCl (Effexor Xr Cap*) 75 mg PO DAILY [facility] Last Admin: 12/21/18 13:53 Dose: 75 mg Vital Signs - 8 hr 12/21/18 12/21/18 08:00 13:22 Temperature 36.5 C Pulse Rate 94 Respiratory 20 20 Rate Blood Pressure 153/85 (mmHg) O2 Sat by Pulse 100 Oximetry Oxygen Devices in Use Now: None Appearance: alert, talkative Eyes: No Scleral Icterus Ears/Nose/Mouth/Throat: Clear Oropharnyx Neck: NL Appearance and Movements; NL JVP Respiratory: Symmetrical Chest Expansion and Respiratory Effort, Clear to Auscultation Cardiovascular: NL Sounds; No Murmurs; No JVD, No Edema Abdominal: NL Sounds; No Tenderness; No Distention Skin: - - bandages both forearms Neurological: - - alert, oriented to person, place Lines/Tubes/Other Access: Clean, Dry and Intact Peripheral IV Nutrition: Taking PO's Result Diagrams: 12/21/18 05:22 12/21/18 05:22 Microbiology and Other Data: Microbiology 12/18/18 14:05 Urine Urine Culture - Final No Growth (<1,000 CFU/mL) 12/18/18 13:29 Blood Venous Aerobic Blood Culture - Preliminary 12/18/18 13:29 Blood Venous Anaerobic Blood Culture - Preliminary No Growth Day 3 No Growth Day 3 12/18/18 13:10 Blood Venous Aerobic Blood Culture - Preliminary 12/18/18 13:10 Blood Venous Anaerobic Blood Culture - Preliminary No Growth Day 3 No Growth Day 3 Assess/Plan/Problems-Billing Assessment: 63 year old woman admitted with delirium, myoclonus, acute kidney injury - Patient Problems (1) Altered mental status Current Visit: No Status: Acute Priority: High Code(s): R41.82 - ALTERED MENTAL STATUS, UNSPECIFIED SNOMED Code(s): 392860808 Comment: -Seen by neuro, thought to be toxic metabolic encephalopathy and polypharmacy -Appreciated Dr. Enriquez's consult -Patient does not have capacity to leave AMA -EEG pending (2) RICHARD (acute kidney injury) Current Visit: No Status: Acute Priority: Medium Code(s): N17.9 - ACUTE KIDNEY FAILURE, UNSPECIFIED SNOMED Code(s): 35129591 Comment: - appears was pre-renal - Improving - Will remove blevins and monitor voiding trial (3) Depression Current Visit: Yes Status: Acute Priority: Medium Code(s): F32.9 - MAJOR DEPRESSIVE DISORDER, SINGLE EPISODE, UNSPECIFIED SNOMED Code(s): 48355523 Comment: -Dr. Enriquez has restarted venlafaxine and seroquel -Will restart wellbutrin if EEG negative Status and Disposition: will return to [facility] in 1-2 days
[2018-12-21] MEDS: QUEtiapine TAB* 25 MG PO SCH (20:21)
--- NOTE | 2018-12-21 22:02 | EEG ---
ELECTROENCEPHALOGRAPHY: DATE OF SERVICE: 12/21/18 DATE READ: 12/21/18 ORDERED BY: Dr. Jeanie Diaz. INDICATION: Mrs. Menendez is a 63-year-old female who was found unresponsive at [facility]. This EEG was obtained to evaluate for epileptiform abnormalities. Duration of the recording at 11:53-12:14. MEDICATIONS: 1. Humalog. 2. Heparin. 3. Seroquel. 4. Synthroid. 5. Aspirin. 6. Lipitor. 7. Plavix. 8. Albuterol. 9. Haldol. CLINICAL STATE: Awake and sleep. REPORT: The background consisted of a mixed frequency slowing in the delta and theta range with retained organization and discernible anterior-posterior voltage gradient. There was a slow posterior dominant rhythm of 8 Hz, which was symmetrical and showed normal reactivity. There were intermittent, occasional, diffuse, 3-5 Hz theta and delta slowing seen predominantly over the left hemisphere. Attenuation of the occipital rhythm accompanied drowsiness. The sleep background was disorganized with persistent theta frequency and brief runs of sleep spindles and vertex waves. These sleep transients showed appropriate morphology and are bilaterally synchronous and symmetrical. Hyperventilation and photic stimulation were not performed. Throughout the recording, there were no epileptiform discharges or electrographic seizures. CLINICAL IMPRESSION: This is an abnormal awake and sleep EEG due to the presence of diffuse polymorphic slowing and slowing of the posterior dominant rhythm. Otherwise, there was retained organization reactivity. These findings are suggestive of a mild-moderate, diffuse, nonspecific encephalopathy. There were no electrographic seizures. [id number] #: [id number] [facility]
[2018-12-22] MEDS: Levothyroxine TAB* 100 MCG TAB PO SCH (05:31)
[2018-12-22] MEDS: Heparin VIAL(*) 5000 UNITS/ML VIAL (FIVE THOUSAND) SUBCUT SCH (05:31)
[2018-12-22] MEDS: Insulin LISPRO* 1 UNITS UNIT SUBCUT SCH ×2 (08:37→12:37)
[2018-12-22] MEDS: Aspirin EC TAB* 81 MG TAB.EC PO SCH (08:46)
[2018-12-22] MEDS: Atorvastatin* 40 MG TAB PO SCH (08:47)
[2018-12-22] MEDS: Clopidogrel TAB* 75 MG PO SCH (08:47)
[2018-12-22] MEDS: Venlafaxine EXT RELEASE CAP* 75 MG PO SCH (08:47)
[2018-12-22 10:38] VITALS: BP 154/65
--- NOTE | 2018-12-22 14:18 | TRS ---
CC: Dr. Thompson at [facility]; Dr. Altman [facility] TRANSFER SUMMARY: DATE OF ADMISSION: 12/18/18 DATE OF DISCHARGE: 12/22/18 PRIMARY DIAGNOSIS: Delirium secondary to polypharmacy as well as hypoxia and dehydration. SECONDARY DIAGNOSES: 1. Acute kidney injury, now resolved. 2. Type 2 diabetes. 3. Hypothyroidism. 4. Coronary artery disease, status post myocardial infarction. 5. Hypertension. 6. Depression. 7. History of Clostridium difficile colitis approximately 2 years ago. 8. Methicillin-resistant Staphylococcus aureus colonization. 9. Chronic anemia. 10. Gastroesophageal reflux disease. 11. Chronic skin picking disorder. 12. History of 3-vessel coronary bypass. MEDICATIONS ON DISCHARGE: 1. Aspirin 81 mg p.o. daily. 2. Atorvastatin 40 mg p.o. q.h.s. 3. Glucagon 1 mg IM once as needed for hypoglycemia. 4. Metformin 1000 mg p.o. b.i.d. 5. Nitroglycerin 0.4 mg sublingual q.5 minutes x3 p.r.n. chest pain. 6. Acetaminophen 650 mg p.o. q.6 hours p.r.n. fever or pain. 7. Albuterol with ipratropium 1 inhalation q.4 hours p.r.n. wheezing. 8. Clopidogrel 75 mg p.o. daily. 9. Guaifenesin DM 5 mL q.4 hours p.r.n. cough. 10. Lantus insulin 20 units subcu q.24 hours. 11. Levothyroxine 125 mcg p.o. daily. 12. Lisinopril 5 mg p.o. daily. 13. Metoprolol 50 mg p.o. b.i.d. 14. Seroquel 50 mg p.o. q.h.s. 15. Venlafaxine XR 75 mg p.o. q.a.m. HOSPITAL COURSE: The patent presented to the emergency department in an unresponsive state from the [facility], where she was residing for rehabilitation. There was initially hypoxemia and there was concern about strangulation because she had been found to sort of dangling from her gown. Her oxygenation improved well with supplemental oxygen. She did not require intubation or CPAP. Her initial presentation showed a lactic acid of 2.2, which was not repeated. She had no white count. She had a hemoglobin of 10.5. Her blood gases showed a pH of 7.32, PCO2 of 39, PO2 of 74 consistent with hypoxemia and a compensated mild metabolic acidosis. Her creatinine was 3.14 on admission and fell to 1.3 on the day prior to discharge with hydration consistent with acute kidney injury and prerenal azotemia. Ammonia level was 42. TSH was 6.81 on admission. Her levothyroxine dose had been decreased from 200 to 100 mcg between early November and this admission. During this hospital stay , her dose was increased to 125 mcg due to this elevated TSH. The patient had multiple psychoactive medications including trazodone, Effexor, Wellbutrin, and gabapentin. She was seen in consultation by Neurology, Dr. Hayes, who advised correcting hypoxia and dehydration and holding off on many of her medications due to potential polypharmacy. He also asked for psychiatry consult and was concerned that she had bipolar disorder due to her level of agitation. Workup initially included head CT, which showed chronic white matter change, no infarct or hemorrhage. Her chest x-ray on admission showed cardiomegaly with interstitial edema. Cervical spine CT showed some disk space narrowing consistent with degenerative disk disease, but no fracture. Due to her acute renal insufficiency, a renal ultrasound was completed on as well, which showed no hydronephrosis or renal calculi. Lumbar spinal x- ray also on 12/19/18 showed no fracture or dislocation and some mild degenerative disk disease. The patient had a consultation with Dr. Enriquez of Psychiatry on 12/21/18. He had been helpful in management during the hospital stay and started her on Seroquel in the evening to help her sleep and be more calm. He restarted Effexor at lower dose and she was given Haldol as needed for agitation. He felt she did not have capacity to leave against medical advice as she had been asking to leave the hospital and talked about her , talked about a in the family in very consistent manner. On the day of discharge, the patient is calm and cooperative. She was taking a lower dose of Effexor. We have stopped her Wellbutrin and gabapentin and trazodone and given her Seroquel at night. To work up her confusion, she did have an EEG, which showed diffuse slowing and from polymorphic diffuse slowing as well as a posterior dominant rhythm consistent with diffuse nonspecific encephalopathy. No seizures were seen. In any case, she was not restarted on Wellbutrin, which can cause seizures. DISPOSITION: To [facility]. STATUS: Inpatient. CONDITION: Fair. DIET: Should be diabetic, low-salt. ACTIVITY: Should be walk with walker and assist. TIME SPENT: I spent 40 minutes with the patient today, completing the necessary paperwork and discharge planning. [id number]/[facility] #: [id number] ROMIE
== END 2018-12-22 13:30 | DRG 896 ==
LOC: ED 12:32 → ICU 16:49 → MEDTELE 12-19 09:10
PROVIDERS: ADMIT Internal Medicine; ATTEND Internal Medicine
DX: F19.921 Other psychoactive substance use, unspecified with intoxication with delirium (principal); G92 Toxic encephalopathy; J96.01 Acute respiratory failure with hypoxia; N17.9 Acute kidney failure, unspecified; I11.0 Hypertensive heart disease with heart failure; I50.9 Heart failure, unspecified; E86.0 Dehydration; M50.30 Other cervical disc degeneration, unspecified cervical region; M51.36 Other intervertebral disc degeneration, lumbar region; E11.9 Type 2 diabetes mellitus without complications; I25.10 Atherosclerotic heart disease of native coronary artery without angina pectoris; F32.9 Major depressive disorder, single episode, unspecified; D53.9 Nutritional anemia, unspecified; K21.9 Gastro-esophageal reflux disease without esophagitis; F42.4 Excoriation (skin-picking) disorder; E03.9 Hypothyroidism, unspecified; W05.0XXA Fall from non-moving wheelchair, initial encounter; Z95.1 Presence of aortocoronary bypass graft; Y92.129 Unspecified place in nursing home as the place of occurrence of the external cause; I25.2 Old myocardial infarction; Z79.84 Long term (current) use of oral hypoglycemic drugs; Z79.1 Long term (current) use of non-steroidal anti-inflammatories (NSAID); Z79.02 Long term (current) use of antithrombotics/antiplatelets; Z79.82 Long term (current) use of aspirin; Z79.4 Long term (current) use of insulin; Z79.899 Other long term (current) drug therapy; Z88.8 Allergy status to other drugs, medicaments and biological substances; Z80.3 Family history of malignant neoplasm of breast
CPT/HCPCS: 36415; 70450; 71045; 72110; 72125; 76775; 80048; 80053; 80307; 80329; 81003; 81015; 82140; 82803; 83605; 83735; 83880; 84443; 84484; 85025; 85610; 87040; 87086; 93005; 95819; 99285; 99406; A9270-GY; G0480; J1630; J1644; J1953; J3420

== ENCOUNTER 2019-05-13 22:13 | Emergency (ER) | payer OTHER ==
--- OUTSIDE RECORDS SUMMARY | 2019-05-13 22:56 | XMS REPORT | Summary of Care ---
:1955 Author Organization [facility] Address [address] [place] [address] Care Team Providers Name Role Phone Tulio Quezada Primary Care Provider Cat Bradshaw RN Unavailable Reason for Visit Reason Comments Memory Loss short term and custodial X6 months Fall patient says that she is losing her balance X6 months Depression patient states that she has emotional outburts were she cries alot patient states that it hasnt gotten worse but hasnt gotten worse. Encounter Details Date Type Department Care Team Description 05/13/2019 Office Visit [facility] Tulio Quezada, Cognitive dysfunction (Primary Dx); Medicine MD Controlled type 2 diabetes mellitus without complication, without long-term current use of insulin ([facility]); [address] [facility] Acquired hypothyroidism; [place] [address] [place] [address] Dyslipidemia; [phone] Severe episode of recurrent major depressive disorder, with psychotic features ([facility]); Routine general medical examination at a health care facility; Urge urinary incontinence; Ataxia; Polypharmacy Allergies Active Allergy Reactions Severity Noted Date Comments Bee Sting Unknown Reaction 11/22/2008 Pt was stung when little and mother told her she was allergic to bees. Silace Swelling 03/30/2009 throat documented as of this encounter (statuses as of 05/13/2019) Medications Medication Sig Dispensed Refills Start End Date Status Date Lancets Does not by Does not apply route. 1. Brand: any 180 Each 3 Active apply 2. Dx: 250.00 2 MiscIndications: 3. Insulin dependent Type II or 4. Test Blood Glucose 2 time(s) A DAY unspecified type 90 day supply diabetes mellitus without mention of complication, not stated as uncontrolled [place] 08/15" 1 Each by Does 200 Each 3 Active (ADVOCATE INSULIN not apply route 5 PEN NEEDLES) 31G X TWICE DAILY. 5 MM Does not apply MiscIndications: Type 2 diabetes mellitus with diabetic chronic kidney disease (HCC) nitroglycerin SEE DIRECTIONS 100 Tab 3 Active (NITROSTAT) 0.4 MG ON MEDICATION 8 Sublingual SL Tab INFORMATION SHEET WITH INVOICE PAPERWORK Glucose Blood (ONE 1 Each by Does 300 Each 3 Active TOUCH TEST STRIPS) not apply route 9 In Vitro Strip THREE TIMES DAILY. Lactobacillus Take 1 Tab by 0 Active (FLORANEX) Oral mouth DAILY. Tab Blood Glucose 1 Device by Does 1 Device 0 Active Monitor Software not apply route 9 Does not apply DIRECTED. Device uncontrolled insulin dependent diabetes. Brand: Insurance preferred Glucose Blood 1 Each by Does 100 Strip 0 Active (BLOOD GLUCOSE not apply route 9 TEST STRIPS) In TWICE DAILY. Vitro Strip Diagnosis: Diabetes Mellitus.Brand: insurance preferred buPROPion Take 1 Tab by 90 Tab 5 Active (WELLBUTRIN SR) mouth EVERY 9 150 MG Oral TABLET MORNING. SR 12 HR metFORMIN HCL 1000 Take 1 Tab by 90 Tab 4 Active MG Oral Tab mouth EVERY 9 MORNING. Venlafaxine HCl Take 1 Cap by 90 Tab 4 Active 225 MG Oral TABLET mouth EVERY 9 SR 24 HR MORNING. atorvastatin Take 1 Tab by 90 Tab 4 Active (LIPITOR) 40 MG mouth DAILY. 9 Oral Tab clopidogrel Take 1 Tab by 90 Tab 4 Active (PLAVIX) 75 MG mouth DAILY. 9 Oral Tab Levothyroxine Take 1 Tab by 90 Cap 4 Active Sodium 125 MCG mouth DAILY 0700 9 Oral Cap on Empty Stomach. lisinopril Take 1 Tab by 90 Tab 4 Active (PRINIVIL, mouth DAILY. 9 ZESTRIL) 5 MG Oral Tab metoprolol Take 1 Tab by 90 Tab 4 Active succinate (TOPROL mouth DAILY. 9 XL) 50 MG Oral TABLET SR 24 HR Insulin Pen Needle Inject 1 Each 100 Each 5 05/13/20 Discontinued 32G X 6 MM Does beneath the skin 9 (Provider not apply Misc DAILY. Diabetes Discontinued) Mellitus 250.00 Injects 1 times per day oxybutynin TAKE 1 TABLET BY 180 Tab 0 05/13/20 Discontinued (DITROPAN) 5 MG MOUTH TWICE A 9 19 (Duplicate Oral Tab DAY Order) lisinopril TAKE 1 TABLET BY 90 Tab 0 05/13/20 Discontinued (PRINIVIL, MOUTH DAILY 9 19 (Reorder) ZESTRIL) 5 MG Oral Tab atorvastatin TAKE 1 TABLET BY 90 Tab 0 05/13/20 Discontinued (LIPITOR) 40 MG MOUTH DAILY 9 19 (Reorder) Oral Tab clopidogrel TAKE 1 TABLET BY 90 Tab 0 05/13/20 Discontinued (PLAVIX) 75 MG MOUTH DAILY 9 19 (Reorder) Oral Tab venlafaxine TAKE 1 CAPSULE 180 Cap 0 05/13/20 Discontinued (EFFEXOR XR) 150 BY MOUTH TWICE 9 19 (Provider MG Oral CAPSULE SR DAILY Discontinued) 24 HR trazodone Take 50 mg by 0 05/13/20 Discontinued (DESYREL) 50 MG mouth EVERY 19 (Error) Oral Tab BEDTIME. quetiapine Take 50 mg by 0 05/13/20 Discontinued (SEROQUEL) 100 MG mouth EVERY 19 (Error) Oral Tab BEDTIME. Levothyroxine Take 1 Tab by 0 05/13/20 Discontinued Sodium 125 MCG mouth DAILY 0700 19 (Reorder) Oral Cap on Empty Stomach. venlafaxine Take 75 mg by 0 05/13/20 Discontinued (EFFEXOR XR) 75 MG mouth DAILY. 19 (Provider Oral CAPSULE SR 24 Discontinued) HR gabapentin Take 200 mg by 0 05/13/20 Discontinued (NEURONTIN) 100 MG mouth THREE 19 (Provider Oral Cap TIMES DAILY. Discontinued) metoprolol Take 1 Tab by 90 Tab 0 05/13/20 Discontinued succinate (TOPROL mouth DAILY. 9 19 (Reorder) XL) 50 MG Oral TABLET SR 24 HR documented as of this encounter (statuses as of 05/13/2019) Active Problems Patient Care Coordination Note Ann Lipscomb [id number] 1955 Physician: Clinical Indicators for Discharge: Milestones: Daily Plan: Discharge Disposition: Patient Education Needs: [place] Prescriptions: (ie Lovenox, IV antibiotics, wound vac) RN: Milestones Achieved: Skin/Wound Care: Disease State Education/Teaching: (ie Diabetes, CHF) Patient/Family Concerns: Mobility: Match Marker (Case Management/Match Marker/Financial Counselor/Pharmacy): Insert cut and paste from [facility] PT/OT/ST/RT: Discharge Recommendation: Short Term Rehab Daniel Perez PT 04/12/2014 Equipment Needs: Home Oxygen Evaluation if indicated: Problem Noted Date Controlled type 2 diabetes mellitus without complication, without 10/10/2015 long-term current use of insulin Cognitive dysfunction 04/05/2015 Osteoarthritis of right knee 04/05/2015 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 Dr. Ramirez. CAD (coronary artery disease) 11/22/2008 Overview: 3-vessel disease, s/p PTCA for acute STEMI 11/22/08: S/P Liberte 3.5 x 28 mm bare-metal stent to the RCA Acquired hypothyroidism Overview: TSH 89 on presentation, pericardial effusion Essential hypertension Overview: LVH on echo with EF 50-55% Replaced inactive diagnosis Major depression, recurrent Overview: Failed Celexa and venlafaxine Dyslipidemia Overview: LDL 250 at time of acute CT documented as of this encounter (statuses as of 05/13/2019) Resolved Problems Problem Noted Date Resolved Date Uncontrolled type 2 diabetes mellitus with peripheral 01/13/2019 05/13/2019 neuropathy Diabetic ketoacidosis without coma associated with type 2 10/10/20152016 diabetes mellitus Skin ulcer of perineum, limited to breakdown of skin 05/09/2015 06/15/2018 Septic shock 04/05/2014 10/03/2014 Hypovolemia 04/05/2014 10/03/2014 Open wound of hip and thigh, without mention of complication 03/16/201403/22 Open wound of hip and thigh, complicated 03/16/2014 10/03/2014 Non-healing surgical wound 03/16/2014 10/03/2014 BMI 40.0-44.9, adult 01/31/2014 06/15/2018 Pericardial effusion 01/13/2019 Overview: thought to be related to severe hypothyroidism Type 2 diabetes mellitus with hyperglycemia 06/15/2018 Overview: Poorly-controlled with oral agents, non-adherent to medical therapy, has refused injection therapy in the past. documented as of this encounter (statuses as of 05/13/2019) Immunizations Name Administration Dates Next Due Influenza (IM) Preservative Free 04/05/2015, 03/15/2013, 06/01/2012, 05/21/2011, 03/21/2010, 03/02/2009 PNEUMOCOCCAL POLYSACCHARIDE VACCINE 04/19/2014, 02/14/2009 documented as of this encounter Social History Tobacco Use Types Packs/Day Years Used Date Former Smoker Cigarettes 0.25 35 Quit: 04/02/2014 Smokeless Tobacco: Never Used Comments: stopped smoking at time Alcohol Use Drinks/Week oz/Week Comments No 0 Standard drinks or equivalent 0.0 Sex Assigned at Date Recorded Not on file Job Start Date Occupation Industry Not on file Not on file Not on file Travel History Travel Start Travel End No recent travel history available. documented as of this encounter Last Filed Vital Signs Vital Sign Reading Time Taken Comments Blood Pressure 158/92 05/13/2019 11:04 AM EST Pulse 68 05/13/2019 11:04 AM EST Temperature - - Respiratory Rate - - Oxygen Saturation 97% 05/13/2019 11:04 AM EST Inhaled Oxygen Concentration - - Weight 71.3 kg (157 lb 1.6 oz) 05/13/2019 11:04 AM EST Height 157.5 cm (5' 2") 05/13/2019 11:04 AM EST Body Mass Index 28.73 05/13/2019 11:04 AM EST documented in this encounter Patient Instructions Patient InstructionsTulio Quezada MD - 05/13/2019 9:40 AM ESTincreased dose venlafaxine 225 mg in am for depression Stop gabapentin it can cause memory loss and weakness Stop oxybutinin it can also cause memory loss Blood work today and follow up Radha GARCÍA or me one month Refill on all other medications The diabetes mellitus is under better control documented in this encounter Progress Notes Tulio Quezada MD - 05/13/2019 9:40 AM EST PATIENT: Ann Lipscomb : 1955 DATE OF SERVICE: 05/13/2019 CHIEF COMPLAINT: Chief Complaint Patient presents with Memory Loss short term and joint terminal attack controller X6 months Fall patient says that she is losing her balance X6 months Depression patient states that she has emotional outburts were she cries alot patient states that it hasnt gotten worse but hasnt gotten worse. Subjective HISTORY OF PRESENT ILLNESS: Ann Lipscomb is a 63-y.o. female. HPI Here with spouse who is primary caregiver Multiple chronic issues Spouse states her energy level and mental laertness are better since we quit multiple medications She uses oxybutinin for years twice daily And feel it does not help her urinary urgency and mild urge type incontinence she denies dysuria blood or urinary tract infection symptoms She also is not sure why she uses gabapentin She has persistent drowsiness and short term memory loss her spouse states she is depressed despite use of buproprion 150 mg and venlafaxine 150 mg she denies suicidal ideation she sleeps poorly she has long mental health history and tried and failed trazodone and abilify in the past She has diabetes mellitus Lab Results Component Value Date GLYCO 6.1 (H) 01/13/2019 denies diabetes mellitus related symptoms she is on low carbohydrate diet no regular exercise Hergait is not steady and she uses cane at home several recent near falls no loss of consciousness no cardiovascular symptoms No hypoglycemia symptoms Patient Active Problem List Diagnosis Acquired hypothyroidism Essential hypertension CAD (coronary artery disease) Major depression, recurrent (HCC) Dyslipidemia S/P CABG x 3 Azar's gangrene History of tobacco use Diabetic peripheral neuropathy (HCC) Cognitive dysfunction Osteoarthritis of right knee Controlled type 2 diabetes mellitus without complication, without long- term current use of insulin (HCC) Family History Problem Relation Age of Onset Breast Cancer Mother Cancer Mother "Bone CA" per pt. Cancer Child lung Current Outpatient Medications Medication Sig atorvastatin (LIPITOR) 40 MG Oral Tab Take 1 Tab by mouth DAILY. Blood Glucose Monitor Software Does not apply Device 1 Device by Does not apply route DIRECTED. uncontrolled insulin dependent diabetes. Brand: Insurance preferred buPROPion (WELLBUTRIN SR) 150 MG Oral TABLET SR 12 HR Take 1 Tab by mouth EVERY MORNING. clopidogrel (PLAVIX) 75 MG Oral Tab Take 1 Tab by mouth DAILY. Glucose Blood (BLOOD GLUCOSE TEST STRIPS) In Vitro Strip 1 Each by Does not apply route TWICEDAILY. Diagnosis: Diabetes Mellitus.Brand: insurance preferred Glucose Blood (ONE TOUCH TEST STRIPS) In Vitro Strip 1 Each by Does not apply route THREE TIMES DAILY. Lactobacillus (FLORANEX) Oral Tab Take 1 Tab by mouth DAILY. Lancets Does not apply Misc by Does not apply route. 1. Brand: any 2. Dx: 250.00 3. Insulin dependent 4. Test Blood Glucose 2 time(s) A DAY 90 day supply Levothyroxine Sodium 125 MCG Oral Cap Take 1 Tab by mouth DAILY 0700 on Empty Stomach. lisinopril (PRINIVIL, ZESTRIL) 5 MG Oral Tab Take 1 Tab by mouth DAILY. metFORMIN HCL 1000 MG Oral Tab Take 1 Tab by mouth EVERY MORNING. metoprolol succinate (TOPROL XL) 50 MG Oral TABLET SR 24 HR Take 1 Tab by mouth DAILY. nitroglycerin (NITROSTAT) 0.4 MG Sublingual SL Tab SEE DIRECTIONS ON MEDICATION INFORMATIONSHEET WITH INVOICE PAPERWORK [place] 08/15" (ADVOCATE INSULIN PEN NEEDLES) 31G X 5 MM Does not apply Misc 1 Each by Does not apply route TWICE DAILY. Venlafaxine HCl 225 MG Oral TABLET SR 24 HR Take 1 Cap by mouth EVERY MORNING. No current facility-administered medications for this visit. Allergies Allergen Reactions Bee Sting Unknown Reaction Pt was stung when little and mother told her she was allergic to bees. Colace Syrup [Silace] Swelling throat Social History Socioeconomic History Marital status: Spouse name: Not on file Number of children: Not on file Years of education: Not on file Highest education level: Not on file Occupational History Not on file Social Needs Financial resource strain: Not on file Food insecurity Worry: Not on file Inability: Not on file Transportation needs Medical: Not on file Non-medical: Not on file Tobacco Use Smoking status: Former Smoker Packs/day: 0.25 Years: 35.00 Pack years: 8.75 Types: Cigarettes Last attempt to quit: 04/02/2014 Years since quittin.1 Smokeless tobacco: Never Used Tobacco comment: stopped smoking at time Substance and Sexual Activity Alcohol use: No Alcohol/week: 0.0 standard drinks Drug use: No Sexual activity: Yes Partners: Male Comment: partner Lifestyle Physical activity Days per week: Not on file Minutes per session: Not on file Stress: Not on file Relationships Social connections Talks on phone: Not on file Gets together: Not on file Attends denominational service: Not on file Active member of club or organization: Not on file Attends meetings of clubs or organizations: Not on file Relationship status: Not on file Intimate partner violence Fear of current or ex partner: Not on file Emotionally abused: Not on file Physically abused: Not on file Forced sexual activity: Not on file Other Topics Concern Back Care Not Asked Bike Helmet Not Asked Blood Transfusions Not Asked Caffeine Concern Not Asked Exercise No Hobby Hazards Not Asked International Travel Not Asked Service Not Asked Occupational Exposure Not Asked Seat Belt Not Asked Self-Exams Not Asked Sleep Concern No Special Diet Yes Comment: low carbo diet Stress Concern No Weight Concern Yes Comment: max weight = current weight Social History Narrative Lives with male partner in [place], [place] . 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 Daughter is Jeri Kennedy; Man Sosa is current partner/fiancee. Full code. Over the last 2 weeks, have you been feeling down, depressed, anxious, or hopeless?: 3 Over the past 2 weeks, have you felt little interest or pleasure in doing things ?: 3 Trouble falling or staying asleep, or sleeping too much?: 3 Feeling tired or having little energy?: 3 Poor appetite or overeating?: 1 Feeling bad about yourself or that you are a failure or have let yourself or your family down?: 3 Trouble concentrating on things, such as reading the newspaper or watching TV?: 3 Moving or speaking so slowly that other people notice OR being fidgety and restless?: 3 Thoughts that you would be better off or of hurting yourself in some way?: 0 PHQ-9 TOTAL SCORE: 22 ROS pos weight changes Wt Readings from Last 3 Encounters: 01/13/19 145 lb (65.8 kg) 06/15/18 164 lb 6.4 oz (74.6 kg) 05/01/17 195 lb (88.5 kg) no gastro-intestinal symptoms no pulmonary symptoms All rest of the 12 item ROS is negative. Objective PHYSICAL EXAM: VITALS: There were no vitals taken for this visit. There is no height or weight on file to calculate BMI. Physical Exam S1 and S2 normal, no murmurs, clicks, gallops or rubs. Regular rate and rhythm. Chest is clear; nowheezes or rales. No edema or JVD. Left foot diabetic exam: Visual exam. Foot appears normal without wounds or signs of infection: yes Sensory exam. Patient can feel the monofilament on the foot: yes Pulse exam. A pulse is palpable at either the foot or ankle: yes Right foot diabetic exam: Visual exam. Foot appears normal without wounds or signs of infection: yes Sensory exam. Patient can feel the monofilament on the foot: yes Pulse exam. A pulse is palpable at either the foot or ankle: yes The get up and go test is abnormal (the patient cannot arising from chair without using arms to liftoff). The abdomen is soft without tenderness, guarding, mass, rebound or organomegaly. Bowel sounds are normal. No CVA tenderness or inguinal adenopathy noted. ASSESSMENT / IMPRESSION: ICD-9-CM ICD-10-CM 1. Cognitive dysfunction differential diagnosis depression psuedodementia vs alzheimer dementia continue to monitor and evaluate supportive care at home by spouse tsh and b12 today consider mri brain 294.9 F09 2. Controlled type 2 diabetes mellitus without complication, without long-term current use of insulin (HCC) hemoglobin A1C today continue current medications 250.00 E11.9 LIPID PROFILE GLYCOHEMOGLOBIN A1C COMPREHENSIVE METABOLIC PANEL 3. Acquired hypothyroidism continue current medications tsh today 244.9 E03.9 THYROID STIMULATING HORMONE 4. Dyslipidemia continue statin 272.4 E78.5 5. Severe episode of recurrent major depressive disorder, with psychotic features (HCC) continue buproprion increase venlafaxine 225 mg follow up one month 296.34 F33.3 6. Routine general medical examination at a health care facility V70.0 Z00.00 MAMMO SCREENING TOMOSYNTHESIS BILATERAL 7. Urge urinary incontinence no change with ditropan stop this for now 788.31 N39.41 8. Ataxia ? Medication side effects Stop gabapentin and ditropan consider physical therapy referral 781.3 R27.0 9. Polypharmacy see above V58.69 Z79.899 Patient Instructions increased dose venlafaxine 225 mg in am for depression Stop gabapentin it can cause memory loss and weakness Stop oxybutinin it can also cause memory loss Blood work today and follow up Radha GARCÍA or me one month Refill on all other medications The diabetes mellitus is under better control Tulio Quezada MD 05/13/2019 11:03 documented in this encounter Plan of Treatment Date Type Specialty Care Team Description 06/17/2019 Ancillary Procedure Radiology 06/17/2019 Office Visit Internal Medicine Tulio Quezada MD [address] [place] [address] [phone] Name Type Priority Associated Diagnoses Date/Time LIPID PROFILE Lab Routine Controlled type 2 05/13/2019 10:01 AM diabetes mellitus without EST complication, without long-term current use of insulin ([facility]) GLYCOHEMOGLOBIN A1C Lab Routine Controlled type 2 05/13/2019 10:01 AM diabetes mellitus without EST complication, without long-term current use of insulin ([facility]) COMPREHENSIVE METABOLIC Lab Routine Controlled type 2 05/13/2019 10:01 AM PANEL diabetes mellitus without EST complication, without long-term current use of insulin ([facility]) THYROID STIMULATING Lab Routine Acquired hypothyroidism 05/13/2019 10:01 AM HORMONE EST Name Type Priority Associated Diagnoses Order Schedule MAMMO SCREENING Imaging Routine Routine general medical Expected: TOMOSYNTHESIS BILATERAL examination at a [facility] 06/13/2019, Expires: care facility 07/14/2019 VITAMIN B12 / FOLATE Lab Routine Controlled type 2 Ordered: 05/13/2019 diabetes mellitus without complication, without long-term current use of insulin (HCC) Health Maintenance Due Date Last Done Comments Diabetic Eye Exam 1955 DTaP/Tdap/Td Vaccines (1 - 1965 Tdap) ZOSTER IMMUNIZATION SERIES 2004 (1 of 2) MAMMOGRAM (SCREENING) 05/21/2012 05/21/2011 (Declined) FOOT EXAM 06/15/2016 06/15/2015, 06/15/2015, 06/15/2015, Additional history exists INFLUENZA VACCINE (#1) 2019 04/05/2015, 03/15/2013, 06/01/2012, Additional history exists DEPRESSION SCREENING 06/15/2019 06/15/2018, 06/15/2018 HEMOGLOBIN A1C 07/16/2019 01/13/2019, 09/18/2018, 06/15/2018, Additional history exists LIPID DISORDER SCREENING 01/14/2020 01/13/2019, 10/12/2018, 06/15/2018, Additional history exists Colonoscopy 05/21/2021 05/21/2011 (Declined) PNEUMOCOCCAL 0-64 YRS Completed 04/19/2014, 02/14/2009 HEPATITIS A IMMUNIZATION Aged Out No longer eligible SERIES based on patient's age to complete this topic HPV IMMUNIZATION SERIES Aged Out No longer eligible based on patient's age to complete this topic MENINGOCOCCAL VACCINE IMM Aged Out No longer eligible based on patient's age to complete this topic documented as of this encounter Goals Goal Patient Goal Associated Recent Patient-Stated? Author Type Problems Progress Blood Pressure Blood Pressure 158/92 No Leeann, < 140/90 (05/13/2019 Cat, 11:04 AM EST) VERNA Note: This is an individualized treatment (blood pressure) goal for Ann Sosa: Displayed above (on the left) is your goal for blood pressure control. Your most recent blood pressure is also shown above, on the right. You should try to achieve blood pressures that are lower than your goal listed above (on the left). Depression screen Depression 22 (05/13/2019 9:36 AM No Cat Bradshaw RN (PHQ-9) total score < 5 EST) Note: This is an individualized treatment (depression) goal for Ann Sosa: Displayed above is your goal for a depression screening (PHQ-9) score that would indicate good control of your depression. Glycohemoglobin A1c < 7.0 Diabetes 6.1 (01/13/2019 1:40 PM Cat Jiang, RN EDT) Note: This is an individualized treatment (diabetes control, HgbA1C) goal for Ann Lipscomb: Displayed above is your progress towards your HgbA1C goal. Your goal is shown above (on the left); your most recent HgbA1C is shown on the right. Note that lower numbers are better. Weight loss vs. 18 mo Lifestyle 7.3 (05/13/2019 11:04 AM No Anitha Bradshaw RN max (lbs) >= 10 EST) Note: This is an individualized lifestyle goal for Ann Lipscomb: Your body mass index (BMI) is more than 30. You should lose weight. A reasonable starting goal is to lose 10 pounds. Displayed above is how many pounds you have lost thus far towards your 10 pound weight loss goal. Keep a regular sleep schedule Lifestyle No Cat Bradshaw RN Note: This is an individualized lifestyle goal for Ann Lipscomb: Please maintain a regular sleep schedule. This may help with some symptoms of depression. Keep immunizations current Lifestyle No Cat Bradshaw RN Note: This is an individualized lifestyle goal for Ann Lipscomb: Please be sure to keep up-to-date on recommended immunizations. For example, this would include a yearly influenza vaccine. Immunization status can be seen by looking at the Health Maintenance sections of your [facility], Plan of Care, and any After Visit Summaries. Take all prescribed medications as Self-management No Cat Bradshaw RN directed Note: This is an individualized self-management goal for Ann Lipscomb: Please take all prescribed medications as directed. 1. Do not skip doses. If you cannot afford your medications, talk with your doctor. 2. Use a pill reminder system such as a pill box if needed. Your pharmacist can help you with this. 3. Contact your Pharmacy 5 days before your medication runs out. If you cannot take your medications for any reasons, talk with your doctor. 4. Please bring all of your medication bottles and inhalers (or a list of all your medications/inhalers) with you to every visit. Potential barriers to meeting all of your care plan goals will continue to be addressed on an ongoing basis. documented as of this encounter Implants Implanted Type Area Treasury Consultant Device Shelf Model / Identifier Expiration Date Serial / Lot Cath, [employer] Rx 3.5/28 - [id number] [facility] [id number] / Implanted: Qty: 1 on 11/22/2008 at [facility] / [id number] documented as of this encounter Results Not on filedocumented in this encounter Visit Diagnoses Diagnosis Controlled type 2 diabetes mellitus without complication, without long-term current use of insulin (HCC) Cognitive dysfunction Unspecified persistent mental disorders due to conditions classified elsewhere Acquired hypothyroidism Unspecified hypothyroidism Dyslipidemia Other and unspecified hyperlipidemia Severe episode of recurrent major depressive disorder, with psychotic features (HCC) Routine general medical examination at a health care facility Urge urinary incontinence Urge incontinence Ataxia Lack of coordination Polypharmacy Issue of repeat prescriptions documented in this encounter Advance Directives Type Date Recorded 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
--- NOTE | 2019-05-13 23:34 | ED ---
HPI Diabetic - HPI Summary HPI Summary: 63 year old presents with hyperglycemia today. She states that she went to her primary and had basic laboratory shows sugar of 699. She states she is a type 2 diabetic who is suppose to be on insulin. She states that she cannot take her meds as she forgets. She also does not know what to eat also. She admits to urgency and frequency. Denies any chest pressures or shortness of breath. she denies any dizziness. Denies any confusion. No vomiting or nausea. - History Of Current Complaint Chief Complaint: EDDiabeticProb Time Seen by Provider: 05/13/19 23:02 - Allergies/Home Medications Allergies/Adverse Reactions: Allergies Allergy/AdvReac Type Severity Reaction Status Date / Time docusate [From Colace] Allergy Unknown Verified 05/13/19 22:36 Reaction Details PMH/Surg Hx/FS Hx/Imm Hx Endocrine/Hematology History: Reports: Hx Anticoagulant Therapy - plavix, Hx Diabetes, Hx Thyroid Disease Cardiovascular History: Reports: Hx Coronary Artery Disease, Hx Hypertension, Other Cardiovascular Problems/Disorders - HLD Denies: Hx Congestive Heart Failure, Hx Pacemaker/ICD GI History: Reports: Hx Gastroesophageal Reflux Disease - not diagnosed History: Denies: Hx Renal Disease Sensory History: Denies: Hx Cataracts, Hx Contacts or Glasses - unk, Hx Deafness, Hx Hearing Aid Opthamlomology History: Denies: Hx Cataracts, Hx Contacts or Glasses - unk Psychiatric History: Reports: Hx Depression Denies: Hx Autism, Hx Panic Disorder, Hx Schizophrenia - Surgical History Surgery Procedure, Year, and Place: PREV ABSCESS IN PELVIS SURGERY. CABG. BILATERAL KNEE 'SCOPES Infectious Disease History: Yes Infectious Disease History: Reports: Hx Clostridium Difficile - approx 2 years ago, Hx of Known/Suspected MRSA - 12/28/17 nasal swab Denies: Traveled Outside the [place] in Last 30 Days - Family History Known Family History: Positive: Other - [place] - Social History Alcohol Use: None Alcohol Amount: once aweek Substance Use Type: Reports: None Smoking Status (MU): Never Smoked Tobacco Type: Cigarettes Have You Smoked in the Last Year: No Review of Systems Negative: Fever Negative: Chest Pain Negative: Shortness Of Breath Positive: frequency All Other Systems Reviewed And Are Negative: Yes Physical Exam Triage Information Reviewed: Yes Vital Signs On Initial Exam: Initial Vitals Temp Pulse Resp BP Pulse Ox 98.1 F 86 16 184/90 99 05/13/19 22:25 05/13/19 22:25 05/13/19 22:25 05/13/19 22:25 05/13/19 22:25 Vital Signs Reviewed: Yes Appearance: Positive: Well-Appearing Skin: Positive: Warm, Dry Head/Face: Positive: Normal Head/Face Inspection Eyes: Positive: Normal, Conjunctiva Clear ENT: Positive: Pharynx normal Respiratory/Lung Sounds: Positive: Clear to Auscultation, Breath Sounds Present Cardiovascular: Positive: Normal, RRR Abdomen Description: Positive: Nontender, Soft Bowel Sounds: Positive: Present Musculoskeletal: Positive: Normal Neurological: Positive: Normal Psychiatric: Positive: Normal Diagnostics - Vital Signs Vital Signs Temp Pulse Resp BP Pulse Ox 05/13/19 22:25 98.1 F 86 16 184/90 99 - Laboratory Result Diagrams: 05/14/19 00:08 05/14/19 00:08 Lab Statement: Any lab studies that have been ordered have been reviewed, and results considered in the medical decision making process. Diabetic Course/Dx - Course Course Of Treatment: 63 year old presents with hyperglycemia today. She states that she went to her primary and had basic laboratory shows sugar of 699. She states she is a type 2 diabetic who is suppose to be on insulin. She states that she cannot take her meds as she forgets. She also does not know what to eat also. She admits to urgency and frequency. Denies any chest pressures or shortness of breath. she denies any dizziness. Denies any confusion. No vomiting or nausea. On exam has a normal physical exam. Glucose was 865. PH is normal. Potassium is normal. No anion gap. Gave fluids and was started on insulin drip. bp was elevated with cuff but manual was 140. will give normal meds as she states she has not taken them. Discussed with Dr. Goodman we will admit after sugar is 400. - Diagnoses Differential Dx: Diabetic Ketoacidosis, Hyperglycemia, Hyperosmolar State Provider Diagnoses: Hyperglycemia, Hypertension - Critical Care Time Critical Care Time: 30-74 min - 60 mins Discharge ED - Sign-Out/Discharge Documenting (check all that apply): Patient Departure - Discharge Plan Condition: Stable Disposition: ADMITTED TO [facility] Referrals: Tulio Quezada MD [Primary Care Provider] - - Billing Disposition and Condition Condition: STABLE Disposition: Admitted to [facility]
[2019-05-13] MEDS: NS 0.9% 1000 ML** 2,000 ML IV ONE (23:39)
[2019-05-14 00:40] LABS: ABS Basophils 0.1 10^3/ul (0-0.2); ABS Eosinophils 0.3 10^3/ul (0-0.6); ABS Lymphocytes 3.4 10^3/ul (1.0-4.8); ABS Monocytes 0.6 10^3/ul (0-0.8); ABS Neutrophils 5.3 10^3/ul (1.5-7.7); Eosinophil % 3.1 %; Hematocrit 33 % (35-47); Lymphocyte % 35.3 %; Mean Corpuscular HGB Conc 33 g/dL (31-36); Mean Corpuscular Hemoglobin 29 pg (27-31); Mean Corpuscular Volume 88 fL (80-97); Nucleated Red Blood Cells % 0.1; Platelet Count 187 10^3/uL (150-450); Red Blood Count 3.76 10^6 /uL (3.70-4.87); Red Cell Distribution Width 17 % (10-15); White Blood Count 9.7 10^3/uL (3.5-10.8)
[2019-05-14 00:58] LABS: Albumin 3.6 g/dL (3.2-5.2); Albumin/Globulin Ratio 1.1 (1-3); BUN/Creatinine Ratio 22.9 (8-20); C Reactive Protein 2.97 mg/L (<8.01); Calcium 8.8 mg/dL (8.6-10.3); EGFR African American 34.5 (>60); EGFR Non-African American 28.5 (>60); Globulin 3.4 g/dL (2-4); Potassium 4.9 mmol/L (3.5-5.0); Total Bilirubin 0.3 mg/dL (0.2-1.0)
[2019-05-14 01:16] LABS: Urine Appearance Clear; Urine Bilirubin Negative (Negative); Urine Blood 1+ (Negative); Urine Color Colorless; Urine Glucose 3+(>=500 mg/dL) (Negative); Urine Ketones Negative (Negative); Urine Nitrite Negative (Negative); Urine Protein 1+(30 mg/dL) (Negative); Urine Specific Gravity 1.017 (1.010-1.030); Urine Urobilinogen Negative (Negative)
[2019-05-14 01:27] LABS: Urine Bacteria Absent (Absent); Urine Red Blood Cell 1+(3-5/hpf) (Absent); Urine Squamous Epithelial Cell Present (Absent); Urine White Blood Cell Trace(0-5/hpf) (Absent)
[2019-05-14] MEDS ORDERED: Insulin REGULAR(*) 1 UNITS UNIT IV PUSH ONE (01:50)
[2019-05-14] MEDS ORDERED: Insulin Infusion 100unit/100mL 100 UNITS/100 ML UNIT IV ONE (01:54)
[2019-05-14] MEDS ORDERED: hydrALAZINE IV* 20 MG/ML VIAL IV SLOW PU ONE (02:01)
[2019-05-14] MEDS ORDERED: NS 0.9% 1000 ML** 1,000 ML IV ONE (02:18)
[2019-05-14] MEDS ORDERED: Lisinopril TAB* 5 MG PO ONE (02:42)
[2019-05-14] MEDS ORDERED: Metoprolol Tartrate TAB* 50 mg PO ONE (02:43)
--- NOTE | 2019-05-14 03:27 | ED ---
Progress - Progress Note Progress Note: This pt was a sign out from Physician Ross Furnace Operator Andrei to Dr. Osito MD at shift change 0230 05/14/19 pending admission to [facility] [place] further care. Re-Evaluation - Re-Evaluation First Eval Re-Evaluation Time: 06:40 Comment: Discussed Dr. Goodman's decision to un-admit the patient with patient. I ambulated the patient and I do not feel she is safe to go home. Course/Dx - Diagnoses Provider Diagnoses: Hyperglycemia, Hypertension, Weakness - Provider Notifications Discussed Care Of Patient With: Sandra Goodman Time Discussed With Above Provider: 06:24 Instructed by Provider To: Other - At 0624, discussed patient case with Dr. Goodman, hospitalist, who un-accepted the patient for admission. She had previously accepted the patient, but did not enter admissions orders. We had attempted to page her multiple times, but she did not respond for several hours. At this time, as the patient's blood sugar has normalized, Dr. Goodman feels the patient cannot be admitted. She requested a repeat BNP before making a final decision. At 0703, discussed patient case with Dr. Goodman after I ambulated the patient. Patient is referred to hospitalist for admission. - Critical Care Time Critical Care Time: 30-74 min - 60 mins Discharge ED - Sign-Out/Discharge Documenting (check all that apply): Patient Departure - Discharge - Discharge Plan Condition: Stable Disposition: HOME Patient Education Materials: Weakness (ED), Diabetic Hyperglycemia (ED) Referrals: Tulio Quezada MD [Primary Care Provider] - 3 Days Additional Instructions: Please follow up with your primary care physician within three days. Please return to ED for any new or worsening symptoms. - Billing Disposition and Condition Condition: STABLE Disposition: Home - Attestation Statements Document Initiated by Scribe: Yes Documenting Scribe: Tom Murillo and Tulio Hammond Provider For Whom Danny is Documenting (Include Credential): Yessy Mclaughlin MD Scribe Attestation: Yonatan Villa Marco DiSanto and Tulio Hammond, scribed for Yessy Mclaughlin MD on 05/17/19 at 2325. Scribe Documentation Reviewed: Yes Provider Attestation: The documentation as recorded by the Yonatan ochoa Marco DiSanto and Tulio Hammond accurately reflects the service I personally performed and the decisions made by me, Yessy Mclaughlin MD Status of Scribe Document: Viewed Consult Consult: Dr. Goodman, hospitalist, was consulted at 317 and it was requested that the pt be admitted to [facility] as there are no rooms available in the ED and the pt will be taking too long to decrease her Blood glucose and that she needed more intense ability to be watched and assessed. dr adrian later refused to admit this patient referred to her by [facility] at 1:30. after revaluation, patient is discharged home. advised follow up with PCP within 48 hours.
--- NOTE | 2019-05-14 07:07 | CONSULT ---
Subjective Interval History: 63 yo female with history of DM2 came to the ED with complaints of hyperglycemia. She was seen with her PCP today who did some bloodwork. While she was at a concert, she was called by the clinic and was asked to come to the ED for high blood sugar. Patient otherwise asymptomatic. Pt started on insulin drip and within 90 min, blood sugar normalized to around 200. Spoke with her, she felt guilty for her noncompliance. I spoke with her to see if patient is unable to take care of self and said patient is at her baseline but is not always compliant with her medications. Assessment and plan: patient is heavily noncompliant, presented with asymptomatic hyperglycemia. No mental status change. I verified her story with her 's story ( i called him on the phone) and it checked out. BG now 200, insulin drip is turned off. At this time, Recommend to repeat labs as she was on insulin drip and if normal , discharge. Review of Systems - Measurements Intake and Output: Intake and Output Last 24 Hours 05/11/19 05/12/19 05/13/19 05/14/19 06:59 06:59 06:59 06:59 Intake Total 3012.8 Balance 3012.8 Weight 159 lb Intake: IV Fluids 3012.8 Objective Active Medications: Insulin Human Regular (Insulin Regular Iv Infusion 1 Unit/Ml) 100 units in 100 mls @ 7.212 mls/hr IV PER RATE ONE Stop: 05/14/19 15:45 Last Admin: 05/14/19 02:43 Dose: 7.212 mls/hr Vital Signs - 8 hr 05/13/19 05/13/19 05/13/19 23:28 23:29 23:31 Pulse Rate 78 81 73 Respiratory 23 Rate Blood Pressure 220/117 201/98 (mmHg) O2 Sat by Pulse 99 100 99 Oximetry 05/14/19 05/14/19 05/14/19 00:00 01:00 01:21 Pulse Rate 75 84 87 Respiratory 21 22 16 Rate Blood Pressure 229/90 (mmHg) O2 Sat by Pulse 100 99 98 Oximetry 05/14/19 05/14/19 05/14/19 02:00 02:38 02:44 Pulse Rate 88 88 Respiratory 15 23 Rate Blood Pressure 106/59 144/80 (mmHg) O2 Sat by Pulse 98 96 Oximetry 12/05/14/19 05/14/19 02:45 03:00 03:15 Pulse Rate 88 86 84 Respiratory 14 13 9 Rate Blood Pressure 130/66 150/74 (mmHg) O2 Sat by Pulse 94 97 93 Oximetry 05/14/19 05/14/19 05/14/19 03:45 04:00 04:15 Pulse Rate 83 81 80 Respiratory 17 20 Rate Blood Pressure 129/64 122/79 (mmHg) O2 Sat by Pulse 93 94 96 Oximetry 05/14/19 05/14/19 05/14/19 04:45 05:00 05:16 Pulse Rate 76 73 70 Respiratory 11 18 18 Rate Blood Pressure 132/70 108/62 (mmHg) O2 Sat by Pulse 97 97 94 Oximetry 05/14/19 05/14/19 05/14/19 05:45 06:00 06:15 Pulse Rate 58 58 56 Respiratory 15 12 9 Rate Blood Pressure 110/61 123/61 (mmHg) O2 Sat by Pulse 96 95 95 Oximetry Result Diagrams: 05/14/19 00:08 05/14/19 00:08 Assessment/Plan - Billing Plan By Medical Problem: 1. 2. VTE PPX: Diet: Code Status: Admission Status and Rationale:
[2019-05-14 07:50] LABS: Calcium 8.3 mg/dL (8.6-10.3); EGFR Non-African American 38.8 (>60); Potassium 4.3 mmol/L (3.5-5.0)
[2019-05-14 10:02] VITALS: BP 137/73
--- NOTE | 2019-05-15 08:00 | ED ---
Imaging and Labs Follow Up Follow Up Type: Labs/Cultures Labs/Culture Result: Hbg 14.2 Patient Communication/Plan: faxed information to Dr. Quezada office Patient Communication/Plan: faxed over hemoglobin A1C to Dr. Quezada office at 8am on 05/15 Provider Diagnoses: Hyperglycemia, Hypertension, Weakness
== END 2019-05-14 08:10 | disposition home or self-care (01) ==
LOC: ED 22:13
DX: E11.65 Type 2 diabetes mellitus with hyperglycemia (principal); I10 Essential (primary) hypertension; E03.9 Hypothyroidism, unspecified; I25.10 Atherosclerotic heart disease of native coronary artery without angina pectoris; E78.5 Hyperlipidemia, unspecified; F32.9 Major depressive disorder, single episode, unspecified; Z79.01 Long term (current) use of anticoagulants; Z79.4 Long term (current) use of insulin; Z88.8 Allergy status to other drugs, medicaments and biological substances
CPT/HCPCS: 36415; 80048; 80053; 81003; 81015; 82803; 82947; 83036; 83605; 83880; 83930; 85025; 86140; 87086; 96360; 96361; 99284; A9270-GY; J0360; J1815

== ENCOUNTER 2019-06-25 17:37 | Emergency (ER) | payer SELFPAY ==
--- NOTE | 2019-06-25 18:03 | ED ---
Complex/Multi-Sys Presentation - HPI Summary HPI Summary: 63-year-old female with a significant past medical history of coronary artery disease, status post myocardial infarction, insulin-dependent type 2 diabetes mellitus, hypertension, hypothyroidism, depression presents to the emergency department today from home stating she feels weak and unwell. Patient was brought in by EMS who states the patient thought she was having a heart attack due to her being in and out of consciousness and being diaphoretic. EMS point of care blood sugar was 55 and she was given IM glucagon and round to the hospital. EMS states the patient's mental status improved after being given glucagon. POC glucose in the emergency Department is 95. Patient states her symptoms began after she took her insulin this morning. Patient states she awoke at approximately 4 AM this date and measured her blood glucose at approximately 340. Patient states she then had 2 bowls of cereal approximately 6 AM and then gave herself 70 units of insulin. Patient states she has been nothing by mouth since then. Patient currently denies fever, chest pain, abdominal pain, shortness of breath, pain with urination, rash, confusion. - History Of Current Complaint Time Seen by Provider: 06/25/19 17:57 Hx Obtained From: Patient Onset/Duration: Gradual Onset, Lasting Hours Timing: Constant Severity Currently: Severe Severity Initially: Severe Associated Signs And Symptoms: Positive: Decreased Responsiveness, Confusion, Dizziness, Weakness, Nausea - Allergies/Home Medications Allergies/Adverse Reactions: Allergies Allergy/AdvReac Type Severity Reaction Status Date / Time docusate [From Colace] Allergy Unknown Verified 06/25/19 17:58 Reaction Details Home Medications: Home Medications BuPROPion XL* [Bupropion XL*] 300 mg PO DAILY 06/25/19 [History Confirmed ] Insulin Glargine,Hum.rec.anlog [Lantus 100 unist/ml 10 ml VIAL (*)] 70 unit SUBCUT BID 06/25/19 [History Confirmed 06/25/19] PMH/Surg Hx/FS Hx/Imm Hx Endocrine/Hematology History: Reports: Hx Anticoagulant Therapy - plavix, Hx Diabetes, Hx Thyroid Disease Cardiovascular History: Reports: Hx Coronary Artery Disease, Hx Hypertension, Other Cardiovascular Problems/Disorders - HLD Denies: Hx Congestive Heart Failure, Hx Pacemaker/ICD GI History: Reports: Hx Gastroesophageal Reflux Disease - not diagnosed History: Denies: Hx Renal Disease Sensory History: Denies: Hx Cataracts, Hx Contacts or Glasses - unk, Hx Deafness, Hx Hearing Aid Opthamlomology History: Denies: Hx Cataracts, Hx Contacts or Glasses - unk Psychiatric History: Reports: Hx Depression Denies: Hx Autism, Hx Panic Disorder, Hx Schizophrenia - Surgical History Surgery Procedure, Year, and Place: PREV ABSCESS IN PELVIS SURGERY. CABG. BILATERAL KNEE 'SCOPES Infectious Disease History: Reports: Hx Clostridium Difficile - approx 2 years ago, Hx of Known/Suspected MRSA - 12/28/17 nasal swab - Family History Known Family History: Positive: Other - [place] - Social History Alcohol Use: None Alcohol Amount: once aweek Substance Use Type: Reports: None Smoking Status (MU): Never Smoked Tobacco Type: Cigarettes Have You Smoked in the Last Year: No Review of Systems Positive: Fatigue. Negative: Fever Eyes: Negative ENT: Negative Cardiovascular: Negative Respiratory: Negative Gastrointestinal: Negative Positive: no symptoms reported Musculoskeletal: Negative Skin: Negative Positive: Weakness. Negative: Headache, Paresthesia, Numbness, Syncope, Slurred Speech Psychological: Normal All Other Systems Reviewed And Are Negative: Yes Physical Exam Triage Information Reviewed: Yes Vital Signs Reviewed: Yes Appearance: Positive: Well-Appearing, No Pain Distress, Well-Nourished Skin: Positive: Warm, Skin Color Reflects Adequate Perfusion Eyes: Positive: EOMI, ROWENA ENT: Positive: Hearing grossly normal Neck: Positive: Nontender Respiratory/Lung Sounds: Positive: Clear to Auscultation, Breath Sounds Present Cardiovascular: Positive: RRR, S1, S2 Abdomen Description: Positive: Nontender, Soft. Negative: Distended, Guarding Bowel Sounds: Positive: Present Musculoskeletal: Positive: Strength/ROM Intact Neurological: Positive: Sensory/Motor Intact, Alert, Oriented to Person Place, Time, Normal Gait, Facial Symmetry, Speech Normal Psychiatric: Positive: Normal, Affect/Mood Appropriate AVPU Assessment: Alert Procedures - Sedation Patient Received Moderate/Deep Sedation with Procedure: No Diagnostics - Laboratory Result Diagrams: 06/25/19 19:01 06/25/19 19:01 Lab Statement: Any lab studies that have been ordered have been reviewed, and results considered in the medical decision making process. Complex Multi-Symp Course/Dx Course Of Treatment: Patient was evaluated in the emergency department today for diabetic issues. Patient seen and examined she was mildly hypothermic but otherwise comfortable. Blood glucose 95 with point of care testing. Alert and oriented 3. EKG was done promptly which shows sinus bradycardia at a rate of 56 bpm. There is normal P-R and QTc interval. No evidence of STEMI. Evidence of old inferior infarct noted. There is left ventricular hypertrophy with IVCD placement. No EKG changes when compared to prior done on 12/18/18. Pt placed in a bearhugger for mild hypothermia. Pt given D50 25g for suspected hypoglycemia upon arrival which improved her mentation dramaticaly, and given a meal. Labs returned showing mild leukocytosis at 13.4 thoought to be due to recent stress from event. TSH elevated at 43.67, likely due to the pts dose of synthroid being too high, but otherwise benign. CT scan of the head was negative for pathology, which was done due to pts lethargy upon arrival. Pt was observed for 4 hours after dextrose administration and given 2 more boluses of dextrose as she would rapidly become hypoglycemic. Pt hypoglycemia is due to self administering too much insulin without PO intake. Pt was given PO zofran for nausea to improve her ability to eat once DC. PT discharged as her BG stabilized , and told to FU with her PCP. - Diagnoses Differential Diagnoses/HQI/PQRI: Metabolic Abnormality Provider Diagnoses: Hypoglycemia Discharge ED - Sign-Out/Discharge Documenting (check all that apply): Patient Departure - Discharge Plan Condition: Stable Disposition: HOME Prescriptions: Ondansetron ODT TAB* [Zofran 4 MG Odt TAB*] 4 mg PO Q6H PRN #12 tab.odt PRN Reason: Nausea Patient Education Materials: Hypoglycemia in a Person with Diabetes (ED), What to Do if Your Blood Sugar is Low (ED) Referrals: Tulio Quezada MD [Primary Care Provider] - 3 Days Additional Instructions: You were seen in the emergency department today due to low blood sugar. This occurred because you took your insulin and did not have a meal with it causing your blood sugar to decrease. Low blood sugar can cause weakness, fatigue, nausea, vomiting and other symptoms. Please be sure to have by mouth intake of food or sugary liquids after ingestion of your insulin to ensure you do not get low blood sugar. I sent a prescription to your pharmacy called Zofran, which is an antinausea medication which is to be taken every 6 hours as needed to allow you to eat to avoid future low blood sugar. Please follow up with your primary care provider in 3 days for further evaluation and management. Please return to the emergency department immediately if you develop any new or worsening symptoms. - Billing Disposition and Condition Condition: STABLE Disposition: Home
--- OUTSIDE RECORDS SUMMARY | 2019-06-25 18:33 | XMS REPORT | Summary of Care ---
:1955 Author Organization [facility] Address [address] [place] [address] Care Team Providers Name Role Phone Damien Tulio Ingram Primary Care Provider Cat Bradshaw RN Unavailable Reason for Visit Reason Comments Diabetes Follow up. Last A1C was 14.8 on 05/13/2019 . Encounter Details Date Type Department Care Team Description 06/17/2019 Office Visit [facility] Quezada Tulio Acquired hypothyroidism (Primary Dx); Kosta Ingram MD Essential hypertension; [address] Coronary artery disease involving benton coronary artery of benton heart without angina pectoris; [place] [address] [place] [address] Moderate episode of recurrent major depressive disorder (HCC); [phone] Diabetic peripheral neuropathy (HCC); [phone] Uncontrolled type 2 diabetes mellitus with peripheral neuropathy (HCC); (Fax) Type 2 diabetes mellitus with diabetic chronic kidney disease (HCC ); Cognitive dysfunction Allergies Active Allergy Reactions Severity Noted Date Comments Bee Sting Unknown Reaction 11/22/2008 Pt was stung when little and mother told her she was allergic to bees. Silace Swelling 03/30/2009 throat documented as of this encounter (statuses as of 06/17/2019) Medications Medication Sig Dispensed Refills Start End Date Status Date Lancets Does not by Does not apply route. 1. Brand: any 180 Each 3 Active apply 2. Dx: 250.00 2 MiscIndications: 3. Insulin dependent Type II or 4. Test Blood Glucose 2 time(s) A DAY unspecified type 90 day supply diabetes mellitus without mention of complication, not stated as uncontrolled nitroglycerin SEE DIRECTIONS 100 Tab 3 Active [...] 75 MG mouth DAILY. 9 Oral Tab lisinopril Take 1 Tab by 90 Tab 4 Active (PRINIVIL, mouth DAILY. 9 ZESTRIL) 5 MG Oral Tab metoprolol Take 1 Tab by 90 Tab 4 Active succinate (TOPROL mouth DAILY. 9 XL) 50 MG Oral TABLET SR 24 HR levothyroxine Take 1 Tab by 90 Tab 3 Active (LEVO-T) 175 MCG mouth BEFORE 0 Oral Tab BREAKFAST. buPROPion Take 1 Tab by 90 Tab 4 Active (WELLBUTRIN XL) mouth DAILY. 0 300 MG Oral TABLET SR 24 HR Insulin Pen Needle 1 Each by Does 200 Each 3 Active (PEN NEEDLES not apply route 0 08/15") 31G X 5 MM TWICE DAILY. Does not apply MiscIndications: Type 2 diabetes mellitus with diabetic chronic kidney disease (HCC) Insulin Lispro Inject 70 Units 15 mL 5 Active Prot & Lispro beneath the skin 0 (HUMALOG KWIKPEN) TWO TIMES DAILY (75-25) 100 BEFORE MEALS. UNIT/ML Subcutaneous Suspension Pen-injector Pen [place] 08/15" 1 Each by Does 200 Each 3 06/17/19 Discontinued (ADVOCATE INSULIN not apply route 5 20 (Reorder) PEN NEEDLES) 31G X TWICE DAILY. 5 MM Does not apply MiscIndications: Type 2 diabetes mellitus with diabetic chronic kidney disease (HCC) Levothyroxine Take 1 Tab by 90 Cap 4 06/17/19 Discontinued Sodium 125 MCG mouth DAILY 0700 9 20 (Provider Oral Cap on Empty Discontinued) Stomach. levothyroxine Take 1 Tab by 90 Tab 5 06/17/19 Discontinued (SYNTHROID) 125 mouth BEFORE 9 20 (Provider MCG Oral Tab BREAKFAST. Discontinued) documented as of this encounter (statuses as of 06/17/2019) Active Problems Patient Care Coordination Note Ann Lipscomb [id number] 1955 Physician: Clinical Indicators for Discharge: Milestones: Daily Plan: Discharge Disposition: Patient Education Needs: [place] Prescriptions: (ie Lovenox, IV antibiotics, wound vac) RN: Milestones Achieved: Skin/Wound Care: Disease State Education/Teaching: (ie Diabetes, CHF) Patient/Family Concerns: Mobility: [place] (Case Management/[place]/Financial Counselor/Pharmacy): Insert cut and paste from [facility] PT/OT/ST/RT: Discharge Recommendation: Short Term Rehab Daniel Perez PT 04/12/2014 Equipment Needs: Home Oxygen Evaluation if indicated: Problem Noted Date Uncontrolled type 2 diabetes mellitus with peripheral neuropathy 01/13/2019 Cognitive dysfunction 04/05/2015 Osteoarthritis of right knee 04/05/2015 Overview: MCC knee pain and must use walker and cane at home History of tobacco use 12/16/2014 Overview: Began age 15 15 cigarette per day Quit for 9 years age [age] Quit for 3 years age 56 Quit summer 2017 Diabetic peripheral neuropathy 12/16/2014 S/P CABG x 3 02/09/2009 Overview: Off-pump [...] Overview: LDL 250 at time of acute LA documented as of this encounter (statuses as of 06/17/2019) Resolved Problems Problem Noted Date Resolved Date Diabetic ketoacidosis without coma associated with type 2 10/10/20152016 diabetes mellitus Controlled type 2 diabetes mellitus without complication, 10/10/20152019 without long-term current use of insulin Skin ulcer of perineum, limited to breakdown of skin 05/09/2015 06/15/2018 Septic shock 04/05/2014 10/03/2014 Hypovolemia 04/05/2014 10/03/2014 Open wound of hip and thigh, without mention of complication 03/16/201403/22 Open wound of hip and thigh, complicated 03/16/2014 10/03/2014 Non-healing surgical wound 03/16/2014 10/03/2014 BMI 40.0-44.9, adult 01/31/2014 06/15/2018 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 documented as of this encounter (statuses as of 06/17/2019) Immunizations Name Administration Dates Next Due Influenza [...] Sign Reading Time Taken Comments Blood Pressure - - Pulse 71 06/17/2019 9:57 AM EST Temperature - - Respiratory Rate - - Oxygen Saturation 99% 06/17/2019 9:57 AM EST Inhaled Oxygen Concentration - - Weight 73.5 kg (162 lb) 06/17/2019 9:57 AM EST Height 157.5 cm (5' 2") 06/17/2019 9:57 AM EST Body Mass Index 29.63 06/17/2019 9:57 AM EST documented in this encounter Patient Instructions Patient InstructionsTulio Quezada MD - 06/17/2019 10:00 AM ESTIncrease buproprion to 300 mg new prescription sent in use up the buproprion 150 mg 2 in the am New prescription for pen needles sent in Low thyroid level increase levothyroxine dose 175 mcg in am Finger stick twice daily After lunch and supper 1-2 hours after meal the goal finger stick is <200 Use humalog pen 70 units twice daily premeals dietitian referral Christie Ingram for diabetes mellitus Follow up Hilario GARCÍA or or Radha GARCÍA one month diabetes mellitus bring in all of your pills and your glucose machine documented in this encounter Progress Notes Tulio Quezada MD - 06/17/2019 10:00 AM EST PATIENT: Ann Lipscomb : 1955 DATE OF SERVICE: 06/17/2019 CHIEF COMPLAINT: Chief Complaint Patient presents with Diabetes Follow up. Last A1C was 14.8 on 05/13/2019 . Subjective HISTORY OF PRESENT ILLNESS: Ann Lipscomb is a 63-y.o. female. HPI Patient seen with spouse She is here for follow up to diabetes mellitus and other chronic issues Labs reviewed with her Lab Results Component Value Date GLYCO 14.8 (H) 05/13/2019 she is non compliant with 75-25 insulin dosing she uses 20-40 units am but only if her am finger stick is >120 if <120 then she uses no insulin in am She eats no breakfast at all just two cups of coffee She eats a small lunch and uses no insulin at lunch she checks post meal lunch finger stick and these run 300-400 range she uses 40-50 units insulin premeal supper and her finger stick runs 400 range post meal supper she notes hypoglycemia later in morning if she uses too much insulin in the am She gets no regular exercise She denies diabetes mellitus related symptoms other than chronic foot and toe neuropathy She does look at her feet daily she and spouse admit that she is depressed low energy low motivation poor short term memory denies suicidal ideation she has anhedonia most days she is on buproprion 150 mg in am she does not feel it has helped her she denies alcohol abuse Her tsh was high spouse confirms that she does take levothyroxine in am Lab Results Component Value Date TSH 68.20 (H) 05/13/2019 Patient Active Problem List Diagnosis Acquired hypothyroidism Essential hypertension CAD (coronary artery disease) Major depression, recurrent (HCC) Dyslipidemia S/P CABG x 3 History of tobacco use Diabetic peripheral neuropathy (HCC) Cognitive dysfunction Osteoarthritis of right knee Uncontrolled type 2 diabetes mellitus with peripheral neuropathy (HCC) Family History Problem Relation Age of [...] Take 1 Tab by mouth EVERY MORNING. buPROPion (WELLBUTRIN XL) 300 MG Oral TABLET SR 24 HR Take 1 Tab by mouth DAILY. clopidogrel (PLAVIX) 75 MG Oral Tab Take 1 Tab by mouth DAILY. Glucose Blood (BLOOD GLUCOSE TEST STRIPS) In Vitro Strip 1 Each by Does not apply route TWICEDAILY. Diagnosis: Diabetes Mellitus.Brand: insurance preferred Glucose Blood (ONE TOUCH TEST STRIPS) In Vitro Strip 1 Each by Does not apply route THREE TIMES DAILY. Insulin Lispro Prot & Lispro (HUMALOG KWIKPEN) (75-25) 100 UNIT/ML Subcutaneous Suspension Pen-injector Inject 70 Units beneath the skin TWO TIMES DAILY BEFORE MEALS. Insulin Pen Needle (PEN NEEDLES 3/16") 31G X 5 MM Does not apply Misc 1 Each by Does not apply route TWICE DAILY. Lactobacillus (FLORANEX) Oral Tab Take 1 Tab by mouth DAILY. Lancets Does not apply Misc by Does not apply route. 1. Brand: any 2. Dx: 250.00 3. Insulin dependent 4. Test Blood Glucose 2 time(s) A DAY 90 day supply levothyroxine (LEVO-T) 175 MCG Oral Tab Take 1 Tab by mouth BEFORE BREAKFAST. lisinopril (PRINIVIL, ZESTRIL) 5 MG Oral Tab Take 1 Tab by mouth DAILY. metFORMIN HCL 1000 MG Oral Tab Take 1 Tab by mouth EVERY MORNING. metoprolol succinate (TOPROL XL) 50 MG Oral TABLET SR 24 HR Take 1 Tab by mouth DAILY. nitroglycerin (NITROSTAT) 0.4 MG Sublingual SL Tab SEE DIRECTIONS ON MEDICATION INFORMATIONSHEET WITH INVOICE PAPERWORK Venlafaxine HCl 225 MG Oral TABLET SR [...] Last attempt to quit: 04/02/2014 Years since quittin.2 Smokeless tobacco: Never Used Tobacco comment: stopped [...] file Gets together: Not on file Attends yarsani service: Not on file Active member of [...] History Narrative Lives with male partner in [place], [place] . 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 Daughter is Jeri Kennedy; Man Sosa is current partner/fiancee. Full code. ROS no change in poor short term memory per spouse No cardiovascular or pulmonary symptoms no gastro-intestinal symptoms No genito-urinary symptoms All rest of the 12 item ROS is negative. Objective PHYSICAL EXAM: VITALS: Pulse 71 | Ht 5' 2" (1.575 m) | Wt 162 lb (73.5 kg) | SpO2 99% | BMI 29.63 kg/m Body mass index is 29.63 kg/m. Physical Exam S1 and S2 normal, no murmurs, clicks, gallops or rubs. Regular rate and rhythm. Chest is clear; nowheezes or rales. No edema or JVD. Left foot diabetic exam: Visual exam. Foot appears normal without wounds or signs of infection: yes Sensory exam. Patient can feel the monofilament on the foot: No Pulse exam. A pulse is palpable at either the foot or ankle: yes Right foot diabetic exam: Visual exam. Foot appears normal without wounds or signs of infection: yes Sensory exam. Patient can feel the monofilament on the foot: No Pulse exam. A pulse is palpable at either the foot or ankle: yes Mental Status: depressed mood, affect appropriate to mood, poor short term memory on 3 item recall she is disshevelled in appearance PHQ-9 score is: 12 I spent 40 minutes with the patient, greater than half of this time in direct face to face counseling regarding the condition and the plan of care. . ASSESSMENT / IMPRESSION: ICD-9-CM ICD-10-CM 1. Acquired hypothyroidism ? Compliance with levothyroxine bring in all pill bottles for medication review in next month increase levothyroxine 175 mcg per day this is a factor contributing to her depression 244.9 E03.9 2. Essential hypertension continue current medications 401.9 I10 3. Coronary artery disease involving benton coronary artery of benton heart without angina pectoris continue beta martin angiotensin converting enzyme inhibitor and statin ? Aspirin not currently on this 414.01 I25.10 4. Moderate episode of recurrent major depressive disorder (HCC) normalize tsh and increase buproprion 300 mg continue venlafaxine 296.32 F33.1 5. Diabetic peripheral neuropathy (HCC) look at feet daily 250.60 E11.42 357.2 6. Uncontrolled type 2 diabetes mellitus with peripheral neuropathy (HCC) eat at least two meals perday increase 75-25 insulin dose 70 units twice daily premeal and see dietitian finger stick three times daily 250.62 E11.42 357.2 E11.65 585.9 8. Cognitive dysfunction treat depression thyroid and consider wean off beta martin 294.9 F09 Patient Instructions Increase buproprion to 300 mg new prescription sent in use up the buproprion 150 mg 2 in the am New prescription for pen needles sent in Low thyroid level increase levothyroxine dose 175 mcg in am Finger stick twice daily After lunch and supper 1-2 hours after meal the goal finger stick is <200 Use humalog pen 70 units twice daily premeals dietitian referral Christie Ingram for diabetes mellitus Follow up Hilario GARCÍA or or Radha GARCÍA one month diabetes mellitus bring in all of your pills and your glucose machine Tulio Quezada MD 06/17/2019 16:36 documented in this encounter Plan of Treatment Date Type Specialty Care Team Description 07/20/2019 Office Visit Internal Medicine Tulio Quezada MD [address] [place] [address] Health Maintenance Due Date Last Done Comments Diabetic Eye Exam 1955 DTaP/Tdap/Td Vaccines (1 - 1965 Tdap) ZOSTER IMMUNIZATION SERIES 2004 (1 of 2) MAMMOGRAM (SCREENING) 05/21/2012 05/21/2011 (Declined) FOOT EXAM 06/15/2016 06/15/2015, 06/15/2015, 06/15/2015, Additional history exists INFLUENZA VACCINE (#1) 2019 04/05/2015, 03/15/2013, 06/01/2012, Additional history exists HEMOGLOBIN A1C 08/12/2019 05/13/2019, 05/13/2019, 01/13/2019, Additional history exists DEPRESSION SCREENING 05/13/2020 05/13/2019, 05/13/2019 LIPID DISORDER SCREENING 05/13/2020 05/13/2019, 05/13/2019, 01/13/2019, Additional history exists Colonoscopy 05/21/2021 05/21/2011 (Declined) [...] < 140/90 (05/13/2019 Cat, 11:04 AM EST) RN Note: This is an individualized treatment (blood [...] your depression. Glycohemoglobin A1c < 7.0 Diabetes 14.8 (05/13/2019 10:01 No Consuelo Bradshaw RN AM EST) Note: This is an individualized treatment (diabetes control, HgbA1C) goal for Ann Lipscomb: Displayed above is your progress towards your HgbA1C goal. Your goal is shown above (on the left); your most recent HgbA1C is shown on the right. Note that lower numbers are better. Weight loss vs. 18 mo Lifestyle 2.4 (06/17/2019 9:57 AM No Anitha Bradshaw RN max (lbs) [...] of this encounter Implants Implanted Type Area Stringed Instrument Assembler Device Shelf Model / Identifier Expiration Date Serial / Lot Cath, [employer] Rx 3.5/28 - [id number] [facility] [id number] / Implanted: Qty: 1 on 11/22/2008 at [facility] / [id number] documented as of this encounter Results Not on filedocumented in this encounter Visit Diagnoses Diagnosis Acquired hypothyroidism Unspecified hypothyroidism Essential hypertension Unspecified essential hypertension Coronary artery disease involving benton coronary artery of benton heart without angina pectoris Moderate episode of recurrent major depressive disorder (HCC) Diabetic peripheral neuropathy (HCC) Type II or unspecified type diabetes mellitus with neurological manifestations , not stated as uncontrolled Uncontrolled type 2 diabetes mellitus with peripheral neuropathy (HCC) Type 2 diabetes mellitus with diabetic chronic kidney disease (HCC) Type II or unspecified type diabetes mellitus with renal manifestations, not stated as uncontrolled Cognitive dysfunction Unspecified persistent mental disorders due to conditions classified elsewhere documented in this encounter Advance Directives Type Date Recorded 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
[2019-06-25 19:06] LABS: ABS Basophils 0.1 10^3/ul (0-0.2); ABS Eosinophils 0.2 10^3/ul (0-0.6); ABS Lymphocytes 2.2 10^3/ul (1.0-4.8); ABS Monocytes 0.8 10^3/ul (0-0.8); ABS Neutrophils 10.1 10^3/ul (1.5-7.7); Eosinophil % 1.4 %; Hematocrit 37 % (35-47); Hemoglobin 12.2 g/dL (12.0-16.0); Lymphocyte % 16.2 %; Mean Corpuscular HGB Conc 33 g/dL (31-36); Mean Corpuscular Hemoglobin 29 pg (27-31); Mean Corpuscular Volume 88 fL (80-97); Mean Platelet Volume 9.1 fL (7.4-10.4); Platelet Count 232 10^3/uL (150-450); Red Blood Count 4.21 10^6 /uL (3.70-4.87); Red Cell Distribution Width 15 % (10-15); White Blood Count 13.4 10^3/uL (3.5-10.8)
[2019-06-25 19:08] LABS: Urine Appearance Clear; Urine Bilirubin Negative (Negative); Urine Blood 1+ (Negative); Urine Color Straw; Urine Glucose Negative (Negative); Urine Ketones Negative (Negative); Urine Nitrite Negative (Negative); Urine Protein 2+(100 mg/dL) (Negative); Urine Specific Gravity 1.009 (1.010-1.030); Urine Urobilinogen Negative (Negative)
[2019-06-25 19:11] LABS: Urine Bacteria Absent (Absent); Urine Red Blood Cell Trace(0-2/hpf) (Absent); Urine White Blood Cell Trace(0-5/hpf) (Absent)
[2019-06-25 19:27] LABS: ALT 30 U/L (7-52); AST 27 U/L (13-39); Albumin 3.3 g/dL (3.2-5.2); Albumin/Globulin Ratio 1.1 (1-3); Alkaline Phosphatase 106 U/L (34-104); Anion Gap 6 mmol/L (2-11); BUN/Creatinine Ratio 25.4 (8-20); Blood Urea Nitrogen 33 mg/dL (6-24); C Reactive Protein 1.99 mg/L (<8.01); CO2 Carbon Dioxide 26 mmol/L (22-32); Chloride 108 mmol/L (101-111); EGFR African American 49.9 (>60); EGFR Non-African American 41.2 (>60); Globulin 3.1 g/dL (2-4); Glucose 69 mg/dL (70-100); Magnesium 1.9 mg/dL (1.9-2.7); Sodium 140 mmol/L (135-145); Total Protein 6.4 g/dL (6.4-8.9)
[2019-06-25] MEDS ORDERED: Dextrose 50% Syringe 50 ML* 25 GM/50 ML SYRINGE IV PUSH ONE ×2 (19:35→23:08)
[2019-06-25 19:43] LABS: Troponin I 0.03 ng/mL (<0.03)
[2019-06-25] MEDS ORDERED: NS 0.9% 1000 ML** 1,000 ML IV ONE (19:49)
[2019-06-25 21:04] LABS: Calcium 8.9 mg/dL (8.6-10.3)
[2019-06-25] MEDS ORDERED: Ondansetron INJ* 2 MG/ML VIAL ONE (21:32)
[2019-06-25] MEDS ORDERED: Dextrose 50% Syringe 50 ML* 25 GM/50 ML SYRINGE ONE (21:32)
[2019-06-25] MEDS ORDERED: Ondansetron ODT TAB* 4 MG SL ONE (21:49)
[2019-06-25] MEDS ORDERED: Ondansetron INJ* 2 MG/ML VIAL IV ONE (22:22)
[2019-06-26 01:02] VITALS: BP 99/74
== END 2019-06-26 01:00 | disposition home or self-care (01) ==
LOC: ED 17:37
DX: E11.649 Type 2 diabetes mellitus with hypoglycemia without coma (principal); I25.10 Atherosclerotic heart disease of native coronary artery without angina pectoris; I25.2 Old myocardial infarction; E11.9 Type 2 diabetes mellitus without complications; I10 Essential (primary) hypertension; E03.9 Hypothyroidism, unspecified; E07.9 Disorder of thyroid, unspecified; F32.9 Major depressive disorder, single episode, unspecified; Z95.1 Presence of aortocoronary bypass graft; Z79.01 Long term (current) use of anticoagulants; Z79.4 Long term (current) use of insulin; Z79.899 Other long term (current) drug therapy; Z88.8 Allergy status to other drugs, medicaments and biological substances
CPT/HCPCS: 36415; 70450; 80053; 81003; 81015; 83605; 83735; 83880; 84443; 84484; 85025; 86140; 87086; 93005; 96361; 96374; 96375; 96376; 99284; J2405

== ENCOUNTER 2020-04-02 09:36 | Inpatient (IN) ==
[2020-04-02] MEDS ORDERED: Piperacillin/Tazobac ADVAN 3.375 GM in NS 0.9% 100 ml BAG 100 ML IVPB ONE (09:44)
[2020-04-02] MEDS ORDERED: NS 0.9% 1000 ml BAG 1,000 ML IV.FLUID IV ONE (09:44)
[2020-04-02 09:55] LABS: ABS Basophils 0.1 10^3/ul (0-0.2); ABS Eosinophils 0.3 10^3/ul (0-0.6); ABS Lymphocytes 4.8 10^3/ul (1.0-4.8); ABS Monocytes 0.6 10^3/ul (0-0.8); ABS Neutrophils 5.3 10^3/ul (1.5-7.7); Eosinophil % 2.6 %; Hematocrit 41 % (35-47); Hemoglobin 12.9 g/dL (12.0-16.0); Lymphocyte % 43.3 %; Mean Corpuscular HGB Conc 32 g/dL (31-36); Mean Corpuscular Hemoglobin 29 pg (27-31); Mean Corpuscular Volume 91 fL (80-97); Mean Platelet Volume 9.6 fL (7.4-10.4); Platelet Count 349 10^3/uL (150-450); Red Blood Count 4.46 10^6 /uL (3.70-4.87); Red Cell Distribution Width 16 % (10-15); White Blood Count 11.2 10^3/uL (3.5-10.8)
[2020-04-02 10:10] LABS: Activated Partial Thrombo Time 27.5 seconds (26.0-38.0); Fibrinogen 374.4 mg/dL (110.8-404.3); INR 0.97 (0.82-1.09)
[2020-04-02 10:15] LABS: ALT 14 U/L (7-52); AST 14 U/L (13-39); Albumin 3.8 g/dL (3.2-5.2); Albumin/Globulin Ratio 1.1 (1-3); Alkaline Phosphatase 102 U/L (34-104); Anion Gap 14 mmol/L (2-11); BUN/Creatinine Ratio 18.5 (8-20); Blood Urea Nitrogen 39 mg/dL (6-24); C Reactive Protein 4.02 mg/L (<8.01); CO2 Carbon Dioxide 20 mmol/L (22-32); Calcium 9.5 mg/dL (8.6-10.3); Chloride 103 mmol/L (101-111); Creatine Kinase 54 U/L (10-223); EGFR African American 28.4 (>60); EGFR Non-African American 23.5 (>60); Globulin 3.6 g/dL (2-4); Potassium 4.9 mmol/L (3.5-5.0); Sodium 137 mmol/L (135-145); Total Protein 7.4 g/dL (6.4-8.9)
[2020-04-02 10:18] LABS: Glucose 638 mg/dL (70-100); Troponin I 0.03 ng/mL (<0.03)
[2020-04-02 10:24] LABS: Urine Appearance Cloudy; Urine Bilirubin Negative (Negative); Urine Blood 1+ (Negative); Urine Color Yellow; Urine Glucose 3+(>=500 mg/dL) (Negative); Urine Ketones Negative (Negative); Urine Nitrite Negative (Negative); Urine Protein 2+(100 mg/dL) (Negative); Urine Specific Gravity 1.025 (1.010-1.030); Urine Urobilinogen Negative (Negative)
[2020-04-02 10:33] LABS: Urine Bacteria 1+ (Absent); Urine Red Blood Cell Trace(0-2/hpf) (Absent); Urine Squamous Epithelial Cell Present (Absent); Urine White Blood Cell Trace(0-5/hpf) (Absent)
[2020-04-02] MEDS ORDERED: LORazepam 2 mg VIAL 1 ml IV PUSH ONE ×2 (11:00→11:35)
[2020-04-02] MEDS ORDERED: Lorazepam PYXIS KEY PRN ×2 (11:00→11:35)
[2020-04-02] MEDS ORDERED: Insulin Infusion 100unit/100mL 100 UNIT/100 ML BAG IV ONE (11:30)
[2020-04-02 11:32] LABS: Erythrocyte Sed Rate 65 mm/Hr (0-29)
[2020-04-02] MEDS ORDERED: LORazepam 2 mg VIAL 1 ml ONE ×2 (11:34→21:12)
[2020-04-02] MEDS ORDERED: Lorazepam PYXIS KEY ONE ×2 (11:34→21:11)
[2020-04-02] MEDS ORDERED: Enoxaparin 40 MG/0.4 ML SYR SUBCUT SCH (14:00)
[2020-04-02] MEDS ORDERED: Lactated Ringers 1000 ml BAG 1,000 ML IV ONE ×3 (14:54→23:42)
[2020-04-02 15:52] LABS: ABS Lymphocytes 0.2 10^3/ul (1.0-4.8); ABS Neutrophils 1.6 10^3/ul (1.5-7.7); Eosinophil % 0.7 %; Hematocrit 34 % (35-47); Hemoglobin 11.2 g/dL (12.0-16.0); Lymphocyte % 8.5 %; Mean Corpuscular HGB Conc 33 g/dL (31-36); Mean Corpuscular Hemoglobin 30 pg (27-31); Mean Corpuscular Volume 91 fL (80-97); Mean Platelet Volume 9.1 fL (7.4-10.4); Nucleated Red Blood Cells % 0.3; Platelet Count 195 10^3/uL (150-450); Red Blood Count 3.79 10^6 /uL (3.70-4.87); Red Cell Distribution Width 15 % (10-15); White Blood Count 1.8 10^3/uL (3.5-10.8)
[2020-04-02 15:55] LABS: EGFR African American 31.2 (>60); EGFR Non-African American 25.7 (>60)
[2020-04-02 16:18] LABS: Potassium 2.7 mmol/L (3.5-5.0)
[2020-04-02] MEDS: Enoxaparin 30 MG/0.3 ML SYR SUBCUT SCH (16:52)
[2020-04-02] MEDS ORDERED: Lactated Ringers 1000 ml BAG 1,000 ML IV SCH (17:00)
[2020-04-02] MEDS ORDERED: cefTRIAXone 2 GM ADDV.VIAL 2 GM in NS 0.9% 100 ml BAG 100 ML IV SCH (17:30)
[2020-04-02] MEDS: Potassium Chloride LIQUID 20 MEQ/15 ML LIQUID PO SCH ×2 (17:51→20:02)
[2020-04-02] MEDS ORDERED: DOXYcycline 100 MG in NS 0.9% 250 ml 250 ML IVPB SCH (18:00)
[2020-04-02] MEDS ORDERED: Dextrose 50% Syringe 50 ml 25 GM/50 ML SYRINGE IV PUSH PRN (18:02)
[2020-04-02] MEDS ORDERED: D5LR 1000 ml BAG 1,000 ML IV SCH (19:00)
[2020-04-02 19:36] LABS: Hematocrit 28 % (35-47); Mean Corpuscular HGB Conc 32 g/dL (31-36); Mean Corpuscular Hemoglobin 29 pg (27-31); Mean Corpuscular Volume 91 fL (80-97); Mean Platelet Volume 9.3 fL (7.4-10.4); Platelet Count 156 10^3/uL (150-450); Red Blood Count 3.05 10^6 /uL (3.70-4.87); Red Cell Distribution Width 15 % (10-15); White Blood Count 4.5 10^3/uL (3.5-10.8)
[2020-04-02 19:52] LABS: Calcium 6.6 mg/dL (8.6-10.3); EGFR African American 39.1 (>60); EGFR Non-African American 32.3 (>60)
[2020-04-02 19:55] LABS: Potassium 2.6 mmol/L (3.5-5.0)
[2020-04-02] MEDS ORDERED: Insulin GLARGINE 100 un/ml 10 ml VIAL SUBCUT SCH (20:00)
[2020-04-02 20:35] LABS: Corrected Retic Count 1.6 % (0.5-1.5); Hematocrit for Retic CNT 28 % (35-47); Immature Retic Fraction 0.48; RBC Retic Count 3.04 10^6/uL (3.70-4.87)
[2020-04-02 20:40] LABS: % Iron Saturation 20 % (15-55); Iron 63 ug/dL (50-212); LDH 164 U/L (140-271); Total Iron Binding Capacity 322 mcg/dL (250-450); Transferrin 230 mg/dL (203-362); Unsaturated Iron Binding < 307 ug/dL
[2020-04-02] MEDS: KCL 10 MEQ/50 ML IVPREMIX 10 MEQ/50 ML BAG IV SCH ×3 (20:46→23:32)
[2020-04-02 21:01] LABS: Ferritin 44.6 ng/mL (11-307)
[2020-04-02 21:06] LABS: Vitamin B12 349 pg/mL (180-914)
[2020-04-02] MEDS ORDERED: levETIRAcetam 1000MG IVPREMIX 1,000 MG/100 ML BAG IVPB ONE (21:40)
[2020-04-02] MEDS ORDERED: Vancomycin per Pharmacy 1 EA NOTE FOLLOW UP SCH (22:00)
[2020-04-02] MEDS ORDERED: Vancomycin 1,500 MG in NS 0.9% 250 ml 250 ML IVPB ONE (22:00)
[2020-04-02 22:14] LABS: Body Fluid Source Cerebral Spinal
[2020-04-02 22:30] LABS: CSF Glucose 194 mg/dL (40-70)
[2020-04-02 22:49] LABS: Body Fluid Mono 2 %
[2020-04-02] MEDS: Acyclovir IV 600 MG in NS 0.9% 250 ml 250 ML IVPB SCH (22:56)
[2020-04-02] MEDS: Ampicillin ADVAN 2 GM in NS 0.9% 100 ml BAG 100 ML IVPB SCH (23:04)
[2020-04-02] MEDS ORDERED: KCL 20 MEQ/100 ML IVPREMIX 20 MEQ/100 ML BAG IV ONE (23:14)
[2020-04-02] MEDS ORDERED: NS 0.9% 1000 ml BAG 1,000 ML IV ONE (23:36)
[2020-04-02 23:44] LABS: Glucose Confirmatory 374 mg/dL (70-100)
[2020-04-02] MEDS: cefTRIAXone 2 GM ADDV.VIAL 2 GM in NS 0.9% 100 ml BAG 100 ML IV SCH (23:59)
[2020-04-03 00:10] LABS: Hematocrit 27 % (35-47); Hemoglobin 8.6 g/dL (12.0-16.0)
[2020-04-03 00:24] LABS: Magnesium 1.4 mg/dL (1.9-2.7)
[2020-04-03] MEDS ORDERED: Magnesium Sulfate 2 gm BAG 2 GM/50 ML BAG IVPB ONE (00:34)
[2020-04-03 00:42] LABS: BUN/Creatinine Ratio 19.6 (8-20); Blood Urea Nitrogen 38 mg/dL (6-24); CO2 Carbon Dioxide 15 mmol/L (22-32); EGFR African American 31.3 (>60); EGFR Non-African American 25.9 (>60); Glucose 382 mg/dL (70-100); Sodium 141 mmol/L (135-145)
[2020-04-03 00:43] LABS: Chloride 116 mmol/L (101-111)
[2020-04-03 00:48] LABS: Anion Gap 10 mmol/L (2-11)
[2020-04-03] MEDS ORDERED: Insulin GLARGINE 100 un/ml 10 ml VIAL SUBCUT ONE (00:57)
[2020-04-03 01:12] LABS: BUN/Creatinine Ratio 20.5 (8-20); Calcium 6.7 mg/dL (8.6-10.3); EGFR African American 35.1 (>60); Potassium 4.9 mmol/L (3.5-5.0)
[2020-04-03] MEDS ORDERED: Phenylephrine IV 10 MG/ML 1 ml VIAL ONE (01:55)
[2020-04-03] MEDS ORDERED: CALCIUM GLUCONATE 1GM/50ML NS 1 GM/50 ML BAG IV ONE (02:00)
[2020-04-03] MEDS ORDERED: Phenylephrine IV 50 MG in NS 0.9% 250 ml 245 ML IV SCH (02:00)
[2020-04-03 02:32] LABS: Acetaminophen < 15 mcg/mL; Salicylate < 2.50 mg/dL (<30)
[2020-04-03 02:33] LABS: Urine Benzodiazepine Screen None Detected (None Detect); Urine Cannabinoids Screen Presumptive Positive (None Detect); Urine Opiates Screen None Detected (None Detect)
[2020-04-03 02:50] LABS: Lipase < 10 U/L (11.0-82.0)
[2020-04-03 03:59] LABS: TSH Ultra Thyroid Stim Horm 58.62 mcIU/mL (0.34-5.60)
[2020-04-03 04:44] LABS: T4, Total 1.09 mcg/dL (6.09-12.23)
[2020-04-03 04:44] LABS: Hematocrit 34 % (35-47); Hemoglobin 10.8 g/dL (12.0-16.0); Mean Corpuscular HGB Conc 32 g/dL (31-36); Mean Corpuscular Hemoglobin 29 pg (27-31); Mean Corpuscular Volume 92 fL (80-97); Mean Platelet Volume 9.8 fL (7.4-10.4); Platelet Count 227 10^3/uL (150-450); Red Blood Count 3.72 10^6 /uL (3.70-4.87); Red Cell Distribution Width 15 % (10-15); White Blood Count 11.4 10^3/uL (3.5-10.8)
[2020-04-03] MEDS: Ampicillin ADVAN 2 GM in NS 0.9% 100 ml BAG 100 ML IVPB SCH (05:05)
[2020-04-03 05:08] LABS: BUN/Creatinine Ratio 19.2 (8-20); Calcium 8.3 mg/dL (8.6-10.3); EGFR African American 30.6 (>60); EGFR Non-African American 25.3 (>60); Magnesium 2.3 mg/dL (1.9-2.7)
[2020-04-03] MEDS ORDERED: Sodium Polystyrene ORAL.SUSP 15 GM/60 ML BTL PO ONE (05:15)
[2020-04-03] MEDS ORDERED: Lactated Ringers 1000 ml BAG 1,000 ML IV ONE (06:29)
[2020-04-03] MEDS ORDERED: Perflutren Lipid Microsphere 3 ML VIAL ONE (08:42)
[2020-04-03] MEDS: cefTRIAXone 2 GM ADDV.VIAL 2 GM in NS 0.9% 100 ml BAG 100 ML IV SCH (09:17)
[2020-04-03] MEDS: Vancomycin 500 MG in NS 0.9% 250 ML IVPB SCH ×2 (09:40→21:47)
[2020-04-03] MEDS: Acyclovir IV 600 MG in NS 0.9% 250 ml 250 ML IVPB SCH (09:43)
[2020-04-03] MEDS ORDERED: Ampicillin ADVAN 2 GM in NS 0.9% 100 ml BAG 100 ML IVPB SCH (13:00)
[2020-04-03 13:11] LABS: BUN/Creatinine Ratio 19.6 (8-20); Blood Urea Nitrogen 36 mg/dL (6-24); CO2 Carbon Dioxide 19 mmol/L (22-32); EGFR African American 33.3 (>60); EGFR Non-African American 27.5 (>60); Glucose 167 mg/dL (70-100); Sodium 142 mmol/L (135-145)
[2020-04-03] MEDS: Enoxaparin 30 MG/0.3 ML SYR SUBCUT SCH (13:44)
[2020-04-03] MEDS: Polyethylene Glycol 3350 17 GM PACKET PO SCH (13:44)
[2020-04-03 14:14] LABS: Anion Gap 6 mmol/L (2-11); Chloride 117 mmol/L (101-111)
[2020-04-03] MEDS ORDERED: Hydrocortisone INJ 100 MG/2ML 2 ML VIAL IV ONE (15:01)
[2020-04-03] MEDS: Insulin GLARGINE 100 un/ml 10 ml VIAL SUBCUT SCH (20:11)
[2020-04-03] MEDS ORDERED: cefTRIAXone 2 GM ADDV.VIAL 1 GM in NS 0.9% 100 ml BAG 100 ML IV SCH (21:00)
[2020-04-03] MEDS: Acyclovir IV 500 MG in NS 0.9% 100 ml BAG 100 ML IVPB SCH (21:44)
[2020-04-03] MEDS: Hydrocortisone INJ 100 MG/2ML 2 ML VIAL IV SCH (23:36)
[2020-04-04 05:30] LABS: ABS Lymphocytes 0.6 10^3/ul (1.0-4.8); ABS Monocytes 0.2 10^3/ul (0-0.8); ABS Neutrophils 8.9 10^3/ul (1.5-7.7); Hematocrit 31 % (35-47); Hemoglobin 10.1 g/dL (12.0-16.0); Lymphocyte % 5.8 %; Mean Corpuscular HGB Conc 33 g/dL (31-36); Mean Corpuscular Hemoglobin 30 pg (27-31); Mean Corpuscular Volume 89 fL (80-97); Mean Platelet Volume 9.9 fL (7.4-10.4); Platelet Count 160 10^3/uL (150-450); Red Blood Count 3.43 10^6 /uL (3.70-4.87); Red Cell Distribution Width 15 % (10-15); White Blood Count 9.6 10^3/uL (3.5-10.8)
[2020-04-04 05:46] LABS: Albumin 2.8 g/dL (3.2-5.2); EGFR Non-African American 30.6 (>60); Globulin 2.9 g/dL (2-4); Magnesium 2.1 mg/dL (1.9-2.7); Phosphorus 3.3 mg/dL (2.5-5.0); Potassium 4.1 mmol/L (3.5-5.0); Total Bilirubin 0.3 mg/dL (0.2-1.0); Total Protein 5.7 g/dL (6.4-8.9)
[2020-04-04] MEDS: Hydrocortisone INJ 100 MG/2ML 2 ML VIAL IV SCH (08:29)
[2020-04-04] MEDS: Polyethylene Glycol 3350 17 GM PACKET PO SCH (08:30)
[2020-04-04] MEDS ORDERED: Vancomycin Trough Check NOTE FOLLOW UP ONE (09:30)
[2020-04-04] MEDS: Acyclovir IV 500 MG in NS 0.9% 100 ml BAG 100 ML IVPB SCH (10:01)
[2020-04-04] MEDS: Vancomycin 500 MG in NS 0.9% 250 ML IVPB SCH (10:53)
[2020-04-04] MEDS: Enoxaparin 30 MG/0.3 ML SYR SUBCUT SCH (14:24)
[2020-04-04] MEDS ORDERED: Furosemide 40 mg/4 ml IV VIAL IV SLOW PU ONE (14:36)
[2020-04-04] MEDS: Insulin GLARGINE 100 un/ml 10 ml VIAL SUBCUT SCH (19:14)
[2020-04-04 22:44] LABS: HSV 1 PCR, CSF Negative (Negative); HSV 2 PCR, CSF Negative (Negative)
[2020-04-05] MEDS ORDERED: Labetalol IV 5 MG/ML 20 ml VIAL IV PUSH ONE (00:12)
[2020-04-05 04:38] LABS: ABS Basophils 0.1 10^3/ul (0-0.2); ABS Lymphocytes 1.3 10^3/ul (1.0-4.8); ABS Monocytes 0.5 10^3/ul (0-0.8); ABS Neutrophils 8.8 10^3/ul (1.5-7.7); Eosinophil % 0.2 %; Hematocrit 29 % (35-47); Hemoglobin 9.6 g/dL (12.0-16.0); Lymphocyte % 11.8 %; Mean Corpuscular HGB Conc 34 g/dL (31-36); Mean Corpuscular Hemoglobin 30 pg (27-31); Mean Corpuscular Volume 88 fL (80-97); Mean Platelet Volume 10.2 fL (7.4-10.4); Platelet Count 186 10^3/uL (150-450); Red Blood Count 3.25 10^6 /uL (3.70-4.87); Red Cell Distribution Width 15 % (10-15); White Blood Count 10.6 10^3/uL (3.5-10.8)
[2020-04-05 04:52] LABS: Albumin 2.9 g/dL (3.2-5.2); Albumin/Globulin Ratio 1.1 (1-3); BUN/Creatinine Ratio 23.1 (8-20); Calcium 8.2 mg/dL (8.6-10.3); EGFR African American 39.1 (>60); EGFR Non-African American 32.3 (>60); Globulin 2.7 g/dL (2-4); Potassium 2.9 mmol/L (3.5-5.0); Total Bilirubin 0.3 mg/dL (0.2-1.0); Total Protein 5.6 g/dL (6.4-8.9)
[2020-04-05] MEDS: Polyethylene Glycol 3350 17 GM PACKET PO SCH (08:04)
[2020-04-05] MEDS ORDERED: Potassium Chlor 20 meq TAB.ER PO ONE (09:46)
[2020-04-05 10:02] LABS: Methylmalonic Acid 0.43 nmol/mL (<=0.40)
[2020-04-05] MEDS ORDERED: Polyethylene Glycol 3350 17 GM PACKET PO PRN (10:15)
[2020-04-05] MEDS: KCL 20 MEQ/100 ML IVPREMIX 20 MEQ/100 ML BAG IV SCH ×2 (10:53→13:18)
[2020-04-05] MEDS ORDERED: Lorazepam PYXIS KEY PRN (12:01)
[2020-04-05] MEDS: LORazepam 2 mg VIAL 1 ml IV PUSH PRN ×2 (12:17→19:58)
[2020-04-05] MEDS ORDERED: Furosemide 20 mg/2 ml IV VIAL IV SLOW PU ONE (14:01)
[2020-04-05] MEDS: Enoxaparin 30 MG/0.3 ML SYR SUBCUT SCH (16:08)
[2020-04-05 16:29] LABS: CSF VDRL Negative (Negative)
[2020-04-05] MEDS: Insulin GLARGINE 100 un/ml 10 ml VIAL SUBCUT SCH (21:14)
[2020-04-05 21:37] LABS: CSF West Nile Virus RNA (PCR) Negative (Negative); West Nile Virus Source CSF
[2020-04-06] MEDS: LORazepam 2 mg VIAL 1 ml IV PUSH PRN (01:39)
[2020-04-06 06:03] LABS: ABS Basophils 0.1 10^3/ul (0-0.2); ABS Eosinophils 0.4 10^3/ul (0-0.6); ABS Lymphocytes 2.4 10^3/ul (1.0-4.8); ABS Monocytes 0.3 10^3/ul (0-0.8); ABS Neutrophils 2.8 10^3/ul (1.5-7.7); Eosinophil % 6.1 %; Hematocrit 29 % (35-47); Hemoglobin 9.6 g/dL (12.0-16.0); Mean Corpuscular HGB Conc 33 g/dL (31-36); Mean Corpuscular Hemoglobin 29 pg (27-31); Mean Corpuscular Volume 89 fL (80-97); Mean Platelet Volume 9.8 fL (7.4-10.4); Platelet Count 169 10^3/uL (150-450); Red Cell Distribution Width 15 % (10-15)
[2020-04-06 06:18] LABS: Albumin 2.6 g/dL (3.2-5.2); Albumin/Globulin Ratio 1.1 (1-3); BUN/Creatinine Ratio 19.5 (8-20); Calcium 7.9 mg/dL (8.6-10.3); EGFR African American 42.5 (>60); EGFR Non-African American 35.1 (>60); Globulin 2.4 g/dL (2-4); Potassium 3.2 mmol/L (3.5-5.0); Total Bilirubin 0.3 mg/dL (0.2-1.0)
[2020-04-06] MEDS ORDERED: Potassium Chlor 20 meq TAB.ER PO ONE (08:00)
[2020-04-06] MEDS: cefTRIAXone 1 gm/50 mL NS BAG 1 GM/50 ML BAG IVPB SCH (09:43)
[2020-04-06] MEDS: Enoxaparin 30 MG/0.3 ML SYR SUBCUT SCH (16:47)
[2020-04-06] MEDS: Insulin GLARGINE 100 un/ml 10 ml VIAL SUBCUT SCH (22:28)
[2020-04-07] MEDS: LORazepam 2 mg VIAL 1 ml IV PUSH PRN (01:24)
[2020-04-07 06:22] LABS: ABS Basophils 0.1 10^3/ul (0-0.2); ABS Eosinophils 0.4 10^3/ul (0-0.6); ABS Lymphocytes 3.1 10^3/ul (1.0-4.8); ABS Monocytes 0.4 10^3/ul (0-0.8); ABS Neutrophils 3.3 10^3/ul (1.5-7.7); Eosinophil % 5.9 %; Hematocrit 30 % (35-47); Hemoglobin 10.1 g/dL (12.0-16.0); Lymphocyte % 42.4 %; Mean Corpuscular HGB Conc 33 g/dL (31-36); Mean Corpuscular Hemoglobin 30 pg (27-31); Mean Corpuscular Volume 88 fL (80-97); Mean Platelet Volume 9.7 fL (7.4-10.4); Platelet Count 156 10^3/uL (150-450); Red Blood Count 3.41 10^6 /uL (3.70-4.87); Red Cell Distribution Width 15 % (10-15); White Blood Count 7.3 10^3/uL (3.5-10.8)
[2020-04-07 06:41] LABS: BUN/Creatinine Ratio 16.6 (8-20); Calcium 7.8 mg/dL (8.6-10.3); EGFR African American 38.3 (>60); EGFR Non-African American 31.7 (>60)
[2020-04-07] MEDS: cefTRIAXone 1 gm/50 mL NS BAG 1 GM/50 ML BAG IVPB SCH (08:52)
[2020-04-07 12:38] LABS: Influenza A Molecular Negative (Negative); Influenza B Molecular Negative (Negative)
[2020-04-07] MEDS: Enoxaparin 30 MG/0.3 ML SYR SUBCUT SCH (16:46)
[2020-04-07] MEDS: Insulin GLARGINE 100 un/ml 10 ml VIAL SUBCUT SCH (20:19)
[2020-04-07] MEDS ORDERED: Dextrose 50% Syringe 50 ml 25 GM/50 ML SYRINGE IV PUSH PRN (21:34)
[2020-04-08 06:29] LABS: BUN/Creatinine Ratio 18.6 (8-20); Calcium 7.8 mg/dL (8.6-10.3); EGFR African American 43.9 (>60); EGFR Non-African American 36.2 (>60); Potassium 4.2 mmol/L (3.5-5.0)
[2020-04-08] MEDS: cefTRIAXone 1 gm/50 mL NS BAG 1 GM/50 ML BAG IVPB SCH (09:52)
[2020-04-08 11:49] LABS: C Reactive Protein 8.27 mg/L (<8.01)
[2020-04-08] MEDS: Venlafaxine XR 75 mg PO SCH (12:49)
[2020-04-08] MEDS: Enoxaparin 30 MG/0.3 ML SYR SUBCUT SCH (13:28)
[2020-04-08] MEDS: Insulin GLARGINE 100 un/ml 10 ml VIAL SUBCUT SCH (20:34)
[2020-04-09] MEDS ORDERED: oxyCODONE/Acetamin 5/325 mg TAB PO ONE (00:38)
[2020-04-09] MEDS: Venlafaxine XR 75 mg PO SCH (09:24)
[2020-04-09] MEDS: Enoxaparin 30 MG/0.3 ML SYR SUBCUT SCH (15:10)
[2020-04-09] MEDS: Insulin GLARGINE 100 un/ml 10 ml VIAL SUBCUT SCH (21:51)
[2020-04-10] MEDS ORDERED: Influenza VAC *QUAD* 2020-21* 0.5 ML SYRINGE IM ONE (09:00)
[2020-04-10] MEDS: Venlafaxine XR 75 mg PO SCH (10:21)
[2020-04-10] MEDS: Enoxaparin 30 MG/0.3 ML SYR SUBCUT SCH (13:52)
[2020-04-10] MEDS: Insulin GLARGINE 100 un/ml 10 ml VIAL SUBCUT SCH (21:26)
[2020-04-10 22:56] LABS: Anaplasma phagocytophilum Negative (Negative); B. miyamotoi PCR, B Negative (Negative); Babesia divergens/MO-1 Negative (Negative); Babesia ducani Negative (Negative); Ehrlichia chaffeensis Negative (Negative); Ehrlichia ewingii/canis Negative (Negative); Ehrlichia muris eauclairensis Negative (Negative)
[2020-04-11] MEDS: Venlafaxine XR 75 mg PO SCH (08:41)
[2020-04-11] MEDS: Enoxaparin 30 MG/0.3 ML SYR SUBCUT SCH (15:35)
[2020-04-11] MEDS: Insulin GLARGINE 100 un/ml 10 ml VIAL SUBCUT SCH (22:01)
[2020-04-12] MEDS: Venlafaxine XR 75 mg PO SCH (09:42)
[2020-04-12 10:11] LABS: Hematocrit 31 % (35-47); Mean Corpuscular HGB Conc 33 g/dL (31-36); Mean Corpuscular Hemoglobin 29 pg (27-31); Mean Corpuscular Volume 89 fL (80-97); Platelet Count 226 10^3/uL (150-450); Red Blood Count 3.42 10^6 /uL (3.70-4.87); Red Cell Distribution Width 16 % (10-15); White Blood Count 7.7 10^3/uL (3.5-10.8)
[2020-04-12 10:29] LABS: BUN/Creatinine Ratio 22.2 (8-20); Calcium 8.7 mg/dL (8.6-10.3); EGFR African American 44.2 (>60); EGFR Non-African American 36.5 (>60); Magnesium 1.8 mg/dL (1.9-2.7); Potassium 4.5 mmol/L (3.5-5.0)
[2020-04-12 10:50] LABS: ABS Basophils 0.1 10^3/ul (0-0.2); ABS Eosinophils 0.3 10^3/ul (0-0.6); ABS Lymphocytes 2.8 10^3/ul (1.0-4.8); ABS Monocytes 0.5 10^3/ul (0-0.8); ABS Neutrophils 4.1 10^3/ul (1.5-7.7); Eosinophil % 3.5 %; Lymphocyte % 36.2 %; Nucleated Red Blood Cells % 0.1
[2020-04-12] MEDS: Enoxaparin 30 MG/0.3 ML SYR SUBCUT SCH (14:31)
[2020-04-12] MEDS ORDERED: Magnesium Sulfate 2 gm BAG 2 GM/50 ML BAG IVPB ONE (15:32)
[2020-04-12] MEDS: Insulin GLARGINE 100 un/ml 10 ml VIAL SUBCUT SCH (20:56)
[2020-04-12] MEDS ORDERED: Lidocaine PATCH 5% PATCH TRANSDERM PRN (23:40)
[2020-04-13] MEDS: Venlafaxine XR 75 mg PO SCH (08:21)
[2020-04-13] MEDS: Enoxaparin 30 MG/0.3 ML SYR SUBCUT SCH (13:08)
[2020-04-13] MEDS: Insulin GLARGINE 100 un/ml 10 ml VIAL SUBCUT SCH (20:37)
[2020-04-13] MEDS ORDERED: Lidocaine Patch REMOVE PATCH PATCH OFF SCH (21:00)
[2020-04-14 06:32] LABS: BUN/Creatinine Ratio 28.4 (8-20); Blood Urea Nitrogen 21 mg/dL (6-24); EGFR African American 95.3 (>60); EGFR Non-African American 78.8 (>60); Glucose 99 mg/dL (70-100); Sodium 142 mmol/L (135-145)
[2020-04-14 06:58] LABS: CO2 Carbon Dioxide 13 mmol/L (22-32); Calcium 4.5 mg/dL (8.6-10.3)
[2020-04-14 07:03] LABS: Anion Gap 3 mmol/L (2-11); Chloride 126 mmol/L (101-111)
[2020-04-14] MEDS: Venlafaxine XR 75 mg PO SCH (08:37)
[2020-04-14 09:26] LABS: ALT 35 U/L (7-52); AST 25 U/L (13-39); Albumin 2.6 g/dL (3.2-5.2); Alkaline Phosphatase 77 U/L (34-104); Anion Gap 3 mmol/L (2-11); BUN/Creatinine Ratio 23.4 (8-20); Blood Urea Nitrogen 33 mg/dL (6-24); CO2 Carbon Dioxide 25 mmol/L (22-32); Calcium 8.5 mg/dL (8.6-10.3); Chloride 109 mmol/L (101-111); EGFR African American 45.3 (>60); EGFR Non-African American 37.4 (>60); Globulin 2.5 g/dL (2-4); Glucose 146 mg/dL (70-100); Magnesium 2.1 mg/dL (1.9-2.7); Potassium 4.9 mmol/L (3.5-5.0); Sodium 137 mmol/L (135-145); Total Protein 5.1 g/dL (6.4-8.9)
[2020-04-14 10:25] LABS: Vitamin D Total 25(OH) < 7.0 ng/mL (20-50)
[2020-04-14] MEDS: Enoxaparin 30 MG/0.3 ML SYR SUBCUT SCH (13:53)
[2020-04-14 16:56] VITALS: BP 144/54
== END 2020-04-14 17:22 | disposition home or self-care (01) | DRG 637 ==
LOC: ED 09:36 → ICU 14:32 → MEDTELE 04-04 17:52
PROVIDERS: ADMIT Internal Medicine; ATTEND Internal Medicine

== ENCOUNTER 2020-11-19 17:30 | Inpatient (IN) ==
[2020-11-19] MEDS ORDERED: NS 0.9% 1000 ml BAG 1,000 ML IV ONE ×2 (17:42→18:46)
[2020-11-19 17:56] LABS: ABS Basophils 0.1 10^3/ul (0-0.2); ABS Eosinophils 0.1 10^3/ul (0-0.6); ABS Lymphocytes 1.3 10^3/ul (1.0-4.8); ABS Monocytes 0.6 10^3/ul (0-0.8); Hematocrit 37 % (35-47); Hemoglobin 12.5 g/dL (12.0-16.0); Mean Corpuscular HGB Conc 34 g/dL (31-36); Mean Corpuscular Hemoglobin 31 pg (27-31); Mean Corpuscular Volume 91 fL (80-97); Platelet Count 213 10^3/uL (150-450); Red Blood Count 4.06 10^6 /uL (3.70-4.87); Red Cell Distribution Width 16 % (10-15); White Blood Count 13.2 10^3/uL (3.5-10.8)
[2020-11-19 18:14] LABS: ALT 107 U/L (7-52); AST 85 U/L (13-39); Albumin 3.6 g/dL (3.2-5.2); Alkaline Phosphatase 139 U/L (35-149); Anion Gap 11 mmol/L (2-11); Blood Urea Nitrogen 49 mg/dL (6-24); CO2 Carbon Dioxide 20 mmol/L (22-32); Calcium 9.2 mg/dL (8.6-10.3); Chloride 104 mmol/L (101-111); EGFR African American 19.8 (>60); EGFR Non-African American 16.4 (>60); Globulin 3.7 g/dL (2-4); Glucose 317 mg/dL (70-100); Magnesium 2.2 mg/dL (1.9-2.7); Potassium 4.5 mmol/L (3.5-5.0); Sodium 135 mmol/L (135-145); Total Protein 7.3 g/dL (6.4-8.9)
[2020-11-19 18:16] LABS: Troponin I 0.01 ng/mL (<0.03)
[2020-11-19 19:31] LABS: Lipase 14 U/L (11.0-82.0)
[2020-11-19 19:33] LABS: Acetaminophen < 15 mcg/mL; Salicylate < 2.50 mg/dL (<30)
[2020-11-19 19:56] LABS: Urine Appearance Cloudy; Urine Bilirubin Negative (Negative); Urine Blood 1+ (Negative); Urine Color Amber; Urine Glucose 3+(>=500 mg/dL) (Negative); Urine Ketones Negative (Negative); Urine Nitrite Negative (Negative); Urine Protein 3+(>=500 mg/dL) (Negative); Urine Specific Gravity 1.021 (1.002-1.030); Urine Urobilinogen Positive (Negative)
[2020-11-19 20:13] LABS: Urine Bacteria Absent (Absent); Urine Red Blood Cell 1+(3-5/hpf) (Absent); Urine White Blood Cell Absent (Absent)
[2020-11-19] MEDS ORDERED: Lactulose 30 ml UDC PO SCH (21:00)
[2020-11-19 22:29] LABS: TSH Ultra Thyroid Stim Horm 303.76 mcIU/mL (0.34-5.60)
[2020-11-19] MEDS ORDERED: Ondansetron 4 mg VIAL 2 MG/ML 2 ml VIAL IV PRN (22:29)
[2020-11-19] MEDS ORDERED: Piperacillin/Tazobac ADVAN 3.375 GM in NS 0.9% 100 ml BAG 100 ML IV ONE (23:35)
[2020-11-19 23:40] LABS: Venous Bicarbonate HCO3 16.8 mmol/L (24-28)
[2020-11-19] MEDS ORDERED: NS 0.9% 1000 ml BAG 1,000 ML IV SCH (23:45)
[2020-11-19] MEDS ORDERED: Zosyn per Pharmacy NOTE FOLLOW UP SCH (23:45)
[2020-11-20 00:06] LABS: Blood Urea Nitrogen 47 mg/dL (6-24); CO2 Carbon Dioxide 22 mmol/L (22-32); Calcium 8.9 mg/dL (8.6-10.3); Chloride 107 mmol/L (101-111); EGFR African American 21.5 (>60); EGFR Non-African American 17.8 (>60); Glucose 146 mg/dL (70-100); Sodium 138 mmol/L (135-145)
[2020-11-20 00:13] LABS: Anion Gap 9 mmol/L (2-11)
[2020-11-20] MEDS ORDERED: Lactulose 300 ML for PR 200 GM/300 ML BTL PR ONE (01:02)
[2020-11-20] MEDS ORDERED: NS 0.9% 500 ml BAG 500 ML IV ONE (01:02)
[2020-11-20] MEDS: ZOSYN 3.375 GM Q12H per EXTENDED INFUSION IV SCH ×2 (04:48→16:57)
[2020-11-20] MEDS: Nystatin TOP POWDER 15 GM BTL TOPICAL SCH ×4 (04:49→21:28)
[2020-11-20] MEDS: Dextrose 50% Syringe 50 ml 25 GM/50 ML SYRINGE IV PUSH PRN ×2 (04:50→10:04)
[2020-11-20] MEDS: Levothyroxine 100 MCG/5 ML VIAL IV SCH (04:56)
[2020-11-20] MEDS: Heparin 5000 UNITS/ML 1 mL VIAL SUBCUT SCH ×3 (04:56→21:28)
[2020-11-20 07:38] LABS: Hematocrit 34 % (35-47); Hemoglobin 11.6 g/dL (12.0-16.0); Mean Corpuscular HGB Conc 35 g/dL (31-36); Mean Corpuscular Hemoglobin 31 pg (27-31); Mean Corpuscular Volume 90 fL (80-97); Mean Platelet Volume 8.8 fL (7.4-10.4); Platelet Count 189 10^3/uL (150-450); Red Blood Count 3.71 10^6 /uL (3.70-4.87); Red Cell Distribution Width 16 % (10-15); White Blood Count 8.5 10^3/uL (3.5-10.8)
[2020-11-20 08:00] LABS: Albumin 3.3 g/dL (3.2-5.2); C Reactive Protein 51.43 mg/L (<8.01); Calcium 8.6 mg/dL (8.6-10.3); Direct Bilirubin 0.1 mg/dL (0.03-0.18); EGFR African American 21.1 (>60); EGFR Non-African American 17.4 (>60); Globulin 3.4 g/dL (2-4); Indirect Bilirubin 0.4 mg/dL (0.3-1.0); Magnesium 1.7 mg/dL (1.9-2.7); Potassium 3.7 mmol/L (3.5-5.0); Total Bilirubin 0.5 mg/dL (0.2-1.0); Total Protein 6.7 g/dL (6.4-8.9)
[2020-11-20 08:21] LABS: Anisocytosis 1+; Polychromasia 1+
[2020-11-20 08:22] LABS: ABS Lymphocytes 0.2 10^3/ul (1.0-4.8); ABS Monocytes 0.1 10^3/ul (0-0.8); ABS Neutrophils 8.1 10^3/ul (1.5-7.7); Eosinophil % 0.6 %; Lymphocyte % 2.7 %; Nucleated Red Blood Cells % 0.2
[2020-11-20 08:49] LABS: Free T4 0.35 ng/dL (0.61-1.12)
[2020-11-20 09:17] LABS: TSH Ultra Thyroid Stim Horm 218.47 mcIU/mL (0.34-5.60)
[2020-11-20] MEDS: Hydrocortisone INJ 100 MG/2ML 2 ML VIAL IV SCH ×2 (09:21→16:54)
[2020-11-20] MEDS ORDERED: Dextrose 50% Syringe 50 ml 25 GM/50 ML SYRINGE ONE (10:01)
[2020-11-20 10:31] LABS: PCO2 Arterial 25 mmHg (35-45); PO2 Arterial 78 mmHg (80-100)
[2020-11-20] MEDS ORDERED: Succinylcholine 200 mg VIAL 20 mg/ml 10 ml VIAL (200 mg) ONE (10:32)
[2020-11-20] MEDS ORDERED: Rocuronium 50 mg VIAL 10 mg/ml 5 ml VIAL (50 mg) ONE (10:32)
[2020-11-20 11:03] LABS: Urine Benzodiazepine Screen None Detected (None Detect); Urine Cannabinoids Screen None Detected (None Detect); Urine Opiates Screen None Detected (None Detect)
[2020-11-20] MEDS ORDERED: Propofol 10 mg/ml 100 ML BTL 100 ML ONE (11:14)
[2020-11-20] MEDS ORDERED: Thiamine 100 MG/ML 2 ml VIAL 250 MG in NS 0.9% 100 ml BAG 100 ML IV ONE (12:00)
[2020-11-20] MEDS: Propofol 10 mg/ml 100 ML BTL 100 ML IV SCH (12:47)
[2020-11-20] MEDS: NORMOSOL R PH IV SCH (15:00)
[2020-11-20] MEDS: Pantoprazole VIAL 40 MG VIAL IV SCH (16:55)
[2020-11-20 16:57] LABS: PCO2 Arterial 27 mmHg (35-45); PO2 Arterial 148 mmHg (80-100)
[2020-11-20] MEDS: Lactulose 30 ml UDC NG TUBE SCH ×2 (17:53→21:28)
[2020-11-20] MEDS: Linezolid 600 MG IVPREMIX(*) 600 MG/300 ML BAG IVPB SCH (17:57)
[2020-11-20] MEDS: Chlorhexidine MOUTHWASH 0.12% 15 ML UDC TOPICAL SCH (23:56)
[2020-11-21] MEDS: Chlorhexidine MOUTHWASH 0.12% 15 ML UDC TOPICAL SCH ×6 (01:31→21:12)
[2020-11-21] MEDS: Hydrocortisone INJ 100 MG/2ML 2 ML VIAL IV SCH ×3 (01:31→16:34)
[2020-11-21] MEDS: Propofol 10 mg/ml 100 ML BTL 100 ML IV SCH (03:20)
[2020-11-21] MEDS: ZOSYN 3.375 GM Q12H per EXTENDED INFUSION IV SCH ×2 (03:58→15:37)
[2020-11-21] MEDS: NORMOSOL R PH IV SCH ×3 (03:58→23:35)
[2020-11-21 04:21] LABS: ABS Lymphocytes 0.2 10^3/ul (1.0-4.8); ABS Monocytes 0.2 10^3/ul (0-0.8); ABS Neutrophils 11.6 10^3/ul (1.5-7.7); Eosinophil % 0.2 %; Hematocrit 29 % (35-47); Hemoglobin 9.9 g/dL (12.0-16.0); Lymphocyte % 1.8 %; Mean Corpuscular HGB Conc 34 g/dL (31-36); Mean Corpuscular Hemoglobin 31 pg (27-31); Mean Corpuscular Volume 91 fL (80-97); Mean Platelet Volume 9.3 fL (7.4-10.4); Platelet Count 163 10^3/uL (150-450); Red Blood Count 3.17 10^6 /uL (3.70-4.87); Red Cell Distribution Width 16 % (10-15); White Blood Count 12.1 10^3/uL (3.5-10.8)
[2020-11-21 04:46] LABS: Albumin 2.6 g/dL (3.2-5.2); Calcium 7.5 mg/dL (8.6-10.3); EGFR African American 20.5 (>60); EGFR Non-African American 16.9 (>60); Globulin 2.7 g/dL (2-4); Magnesium 1.9 mg/dL (1.9-2.7); Phosphorus 3.7 mg/dL (2.5-5.0); Potassium 3.7 mmol/L (3.5-5.0); Total Bilirubin 0.5 mg/dL (0.2-1.0); Total Protein 5.3 g/dL (6.4-8.9)
[2020-11-21] MEDS: Levothyroxine 100 MCG/5 ML VIAL IV SCH (06:03)
[2020-11-21] MEDS: Heparin 5000 UNITS/ML 1 mL VIAL SUBCUT SCH ×3 (06:03→21:12)
[2020-11-21] MEDS: Linezolid 600 MG IVPREMIX(*) 600 MG/300 ML BAG IVPB SCH ×2 (06:04→17:45)
[2020-11-21] MEDS: Lactulose 30 ml UDC NG TUBE SCH ×3 (08:54→21:12)
[2020-11-21] MEDS: Nystatin TOP POWDER 15 GM BTL TOPICAL SCH ×3 (08:54→21:12)
[2020-11-21] MEDS ORDERED: Potassium Chloride LIQUID 20 MEQ/15 ML LIQUID PO ONE (10:09)
[2020-11-21] MEDS ORDERED: Norepinephrine 16MCG/ML IVPRE 4,000 MCG/250 ML BAG IV SCH ×2 (12:00→15:56)
[2020-11-21] MEDS ORDERED: fentaNYL 100 mcg/2 ml 50 MCG/ML VIAL ONE (13:58)
[2020-11-21] MEDS: fentaNYL 100 mcg/2 ml 50 MCG/ML VIAL IV SLOW PU PRN ×2 (14:11→18:34)
[2020-11-21 14:53] LABS: Myoglobin 858.9 ng/mL (14.3-65.8)
[2020-11-21] MEDS ORDERED: Dextrose 50% Syringe 50 ml 25 GM/50 ML SYRINGE IV PUSH PRN (15:50)
[2020-11-21] MEDS: Pantoprazole VIAL 40 MG VIAL IV SCH (16:34)
[2020-11-21] MEDS ORDERED: Lorazepam PYXIS KEY PRN (23:43)
[2020-11-22] MEDS: Hydrocortisone INJ 100 MG/2ML 2 ML VIAL IV SCH ×2 (00:46→13:09)
[2020-11-22] MEDS: fentaNYL 100 mcg/2 ml 50 MCG/ML VIAL IV SLOW PU PRN ×2 (00:46→07:40)
[2020-11-22] MEDS: Chlorhexidine MOUTHWASH 0.12% 15 ML UDC TOPICAL SCH ×6 (03:16→20:37)
[2020-11-22] MEDS: ZOSYN 3.375 GM Q12H per EXTENDED INFUSION IV SCH ×2 (03:16→15:40)
[2020-11-22 04:42] LABS: ABS Lymphocytes 0.4 10^3/ul (1.0-4.8); ABS Monocytes 0.3 10^3/ul (0-0.8); ABS Neutrophils 13.8 10^3/ul (1.5-7.7); Eosinophil % 0.1 %; Hematocrit 29 % (35-47); Hemoglobin 9.7 g/dL (12.0-16.0); Lymphocyte % 2.7 %; Mean Corpuscular HGB Conc 33 g/dL (31-36); Mean Corpuscular Hemoglobin 30 pg (27-31); Mean Corpuscular Volume 91 fL (80-97); Mean Platelet Volume 9.5 fL (7.4-10.4); Platelet Count 159 10^3/uL (150-450); Red Blood Count 3.19 10^6 /uL (3.70-4.87); Red Cell Distribution Width 16 % (10-15); White Blood Count 14.5 10^3/uL (3.5-10.8)
[2020-11-22 04:59] LABS: C Reactive Protein 83.85 mg/L (<8.01); Calcium 7.6 mg/dL (8.6-10.3); EGFR African American 18.7 (>60); EGFR Non-African American 15.5 (>60); Magnesium 2.1 mg/dL (1.9-2.7); Phosphorus 3.9 mg/dL (2.5-5.0); Potassium 3.9 mmol/L (3.5-5.0)
[2020-11-22 05:05] LABS: Myoglobin 491.4 ng/mL (14.3-65.8)
[2020-11-22] MEDS: Levothyroxine 100 MCG/5 ML VIAL IV SCH (05:16)
[2020-11-22] MEDS: Heparin 5000 UNITS/ML 1 mL VIAL SUBCUT SCH ×3 (05:16→20:37)
[2020-11-22] MEDS: Linezolid 600 MG IVPREMIX(*) 600 MG/300 ML BAG IVPB SCH ×2 (05:32→18:05)
[2020-11-22] MEDS ORDERED: Potassium Chloride LIQUID 20 MEQ/15 ML LIQUID PO ONE (07:15)
[2020-11-22] MEDS ORDERED: Furosemide 40 mg/4 ml IV VIAL IV SLOW PU ONE (08:16)
[2020-11-22] MEDS: NORMOSOL-R pH 7.4 1000 mL BAG 1,000 ML IV SCH ×2 (08:45→12:03)
[2020-11-22] MEDS: Nystatin TOP POWDER 15 GM BTL TOPICAL SCH ×3 (08:46→20:37)
[2020-11-22] MEDS: Lactulose 30 ml UDC NG TUBE SCH ×3 (08:46→20:36)
[2020-11-22] MEDS ORDERED: levETIRAcetam 1000MG IVPREMIX 1,000 MG/100 ML BAG IVPB ONE (13:29)
[2020-11-22] MEDS: Pantoprazole VIAL 40 MG VIAL IV SCH (16:41)
[2020-11-22 20:07] LABS: Urine Creatinine Concentration 15.81 mg/dL
[2020-11-23] MEDS: Hydrocortisone INJ 100 MG/2ML 2 ML VIAL IV SCH ×2 (00:18→11:36)
[2020-11-23] MEDS: Chlorhexidine MOUTHWASH 0.12% 15 ML UDC TOPICAL SCH ×6 (02:52→22:21)
[2020-11-23] MEDS: levETIRAcetam 500 MG IVPREMIX 500 MG/100 ML BAG IV SCH ×2 (02:52→16:14)
[2020-11-23] MEDS: ZOSYN 3.375 GM Q12H per EXTENDED INFUSION IV SCH ×2 (03:00→16:14)
[2020-11-23] MEDS ORDERED: NS 0.9% 100 ml BAG 100 ML ONE (04:54)
[2020-11-23 04:59] LABS: ABS Basophils 0.1 10^3/ul (0-0.2); ABS Lymphocytes 0.5 10^3/ul (1.0-4.8); ABS Monocytes 0.4 10^3/ul (0-0.8); ABS Neutrophils 11.2 10^3/ul (1.5-7.7); Eosinophil % 0.3 %; Hematocrit 28 % (35-47); Hemoglobin 9.4 g/dL (12.0-16.0); Lymphocyte % 4.4 %; Mean Corpuscular HGB Conc 34 g/dL (31-36); Mean Corpuscular Hemoglobin 31 pg (27-31); Mean Corpuscular Volume 91 fL (80-97); Mean Platelet Volume 9.6 fL (7.4-10.4); Nucleated Red Blood Cells % 0.1; Platelet Count 156 10^3/uL (150-450); Red Blood Count 3.08 10^6 /uL (3.70-4.87); Red Cell Distribution Width 15 % (10-15); White Blood Count 12.2 10^3/uL (3.5-10.8)
[2020-11-23] MEDS: Heparin 5000 UNITS/ML 1 mL VIAL SUBCUT SCH ×3 (05:01→20:58)
[2020-11-23] MEDS: Linezolid 600 MG IVPREMIX(*) 600 MG/300 ML BAG IVPB SCH ×2 (05:01→17:07)
[2020-11-23] MEDS: Levothyroxine 100 MCG/5 ML VIAL IV SCH (05:03)
[2020-11-23 05:25] LABS: Calcium 7.4 mg/dL (8.6-10.3); EGFR Non-African American 16.6 (>60); Magnesium 1.9 mg/dL (1.9-2.7); Phosphorus 3.8 mg/dL (2.5-5.0); Potassium 3.2 mmol/L (3.5-5.0)
[2020-11-23 05:29] LABS: Myoglobin 237.1 ng/mL (14.3-65.8)
[2020-11-23] MEDS ORDERED: Potassium Chloride LIQUID 20 MEQ/15 ML LIQUID PO ONE ×2 (05:32→16:17)
[2020-11-23] MEDS ORDERED: Magnesium Sulfate IV 1GM/100ML 1 GM/100 ML BAG IV ONE (05:58)
[2020-11-23] MEDS ORDERED: CALCIUM GLUCONATE 1GM/50ML NS 1 GM/50 ML BAG IV ONE (05:59)
[2020-11-23 06:10] LABS: TSH Ultra Thyroid Stim Horm 48.98 mcIU/mL (0.34-5.60)
[2020-11-23] MEDS: Nystatin TOP POWDER 15 GM BTL TOPICAL SCH ×3 (08:11→20:58)
[2020-11-23] MEDS: Lactulose 30 ml UDC NG TUBE SCH (08:11)
[2020-11-23] MEDS ORDERED: Furosemide 40 mg/4 ml IV VIAL IV ONE ×2 (09:51→09:53)
[2020-11-23 15:00] LABS: Potassium 3.5 mmol/L (3.5-5.0)
[2020-11-23 15:06] LABS: EGFR African American 20.6 (>60)
[2020-11-23] MEDS: Ampicillin ADVAN 2 GM in NS 0.9% 100 ml BAG 100 ML IVPB SCH (16:14)
[2020-11-23] MEDS: Acyclovir IV 700 MG in NS 0.9% 100 ml BAG 100 ML IVPB SCH (16:14)
[2020-11-23] MEDS: Pantoprazole VIAL 40 MG VIAL IV SCH (16:33)
[2020-11-23 18:02] LABS: Body Fluid Source Cerebral Spinal
[2020-11-23 18:15] LABS: CSF Glucose 168 mg/dL (40-70)
[2020-11-23 19:06] LABS: Body Fluid Appearance Clear; Body Fluid Color Colorless
[2020-11-23 19:07] LABS: CSF Tube # 4
[2020-11-23 19:32] LABS: Body Fluid Mono 11 %; Body Fluid Other Cells 2; Body Fluid Total Cells Counted 28
[2020-11-24] MEDS: Hydrocortisone INJ 100 MG/2ML 2 ML VIAL IV SCH (01:06)
[2020-11-24] MEDS: Chlorhexidine MOUTHWASH 0.12% 15 ML UDC TOPICAL SCH ×6 (01:06→22:34)
[2020-11-24] MEDS: Ampicillin ADVAN 2 GM in NS 0.9% 100 ml BAG 100 ML IVPB SCH (04:25)
[2020-11-24] MEDS: levETIRAcetam 500 MG IVPREMIX 500 MG/100 ML BAG IV SCH ×2 (04:25→15:25)
[2020-11-24] MEDS: ZOSYN 3.375 GM Q12H per EXTENDED INFUSION IV SCH ×2 (04:25→16:07)
[2020-11-24 05:58] LABS: ABS Basophils 0.1 10^3/ul (0-0.2); ABS Lymphocytes 0.9 10^3/ul (1.0-4.8); ABS Monocytes 0.4 10^3/ul (0-0.8); ABS Neutrophils 8.4 10^3/ul (1.5-7.7); Eosinophil % 0.5 %; Hematocrit 27 % (35-47); Hemoglobin 9.3 g/dL (12.0-16.0); Mean Corpuscular HGB Conc 35 g/dL (31-36); Mean Corpuscular Hemoglobin 32 pg (27-31); Mean Corpuscular Volume 90 fL (80-97); Mean Platelet Volume 9.6 fL (7.4-10.4); Platelet Count 144 10^3/uL (150-450); Red Blood Count 2.94 10^6 /uL (3.70-4.87); Red Cell Distribution Width 16 % (10-15); White Blood Count 9.8 10^3/uL (3.5-10.8)
[2020-11-24 06:09] LABS: CRP High Sensitivity 21.05 mg/L (<2.00); Calcium 7.5 mg/dL (8.6-10.3); EGFR African American 20.3 (>60); EGFR Non-African American 16.8 (>60); Phosphorus 3.7 mg/dL (2.5-5.0); Potassium 3.5 mmol/L (3.5-5.0)
[2020-11-24] MEDS: Levothyroxine 100 MCG/5 ML VIAL IV SCH (06:27)
[2020-11-24] MEDS: Heparin 5000 UNITS/ML 1 mL VIAL SUBCUT SCH ×3 (06:27→22:34)
[2020-11-24] MEDS: Nystatin TOP POWDER 15 GM BTL TOPICAL SCH ×3 (08:11→19:21)
[2020-11-24] MEDS ORDERED: methylPREDNISolone SOD SUCC 1000 MG ML VIAL IVPB SCH (09:00)
[2020-11-24] MEDS: methylPREDNISolone SOD SUCC 1,000 MG in NS 0.9% 100 ml BAG 100 ML IVPB SCH (09:10)
[2020-11-24] MEDS ORDERED: Rocuronium 50 mg VIAL 10 mg/ml 5 ml VIAL (50 mg) ONE (10:57)
[2020-11-24] MEDS ORDERED: Etomidate 40 mg/20 ml (2 MG/ML) 20 ml VIAL (40 mg) ONE (10:57)
[2020-11-24] MEDS ORDERED: Midazolam 10 mg/10 ml VIAL 1 mg/ml 10 ml VIAL (10 mg) ONE (10:57)
[2020-11-24 12:16] LABS: Hepatitis B Surface Antigen Nonreactive (Nonreactive)
[2020-11-24 12:21] LABS: Hepatitis A Ab IgM Negative (Negative)
[2020-11-24 12:22] LABS: Hepatitis B Core IgM Nonreactive (Nonreactive)
[2020-11-24 12:34] LABS: Hepatitis C Antibody Negative (Negative)
[2020-11-24] MEDS ORDERED: Perflutren Lipid Microsphere 3 ML VIAL ONE (12:39)
[2020-11-24 13:13] LABS: Thyroid Peroxidase Antibodies 0.95 IU/mL (<9)
[2020-11-24 13:43] LABS: Thyroglobulin Antibody II > 200.0 IU/mL (<4.0)
[2020-11-24] MEDS: Acyclovir IV 700 MG in NS 0.9% 100 ml BAG 100 ML IVPB SCH (15:45)
[2020-11-24] MEDS ORDERED: Insulin GLARGINE 100 un/ml 10 ml VIAL SUBCUT SCH (17:00)
[2020-11-24] MEDS: Pantoprazole VIAL 40 MG VIAL IV SCH (17:01)
[2020-11-24] MEDS: LORazepam 2 mg VIAL 1 ml IV PUSH PRN (21:16)
[2020-11-25] MEDS: Chlorhexidine MOUTHWASH 0.12% 15 ML UDC TOPICAL SCH ×6 (02:51→21:12)
[2020-11-25] MEDS: levETIRAcetam 500 MG IVPREMIX 500 MG/100 ML BAG IV SCH ×2 (02:51→13:34)
[2020-11-25] MEDS: ZOSYN 3.375 GM Q12H per EXTENDED INFUSION IV SCH ×2 (03:48→15:59)
[2020-11-25 04:21] LABS: Calcium 7.6 mg/dL (8.6-10.3); EGFR African American 21.5 (>60); EGFR Non-African American 17.8 (>60); Magnesium 2.1 mg/dL (1.9-2.7); Phosphorus 3.9 mg/dL (2.5-5.0); Potassium 3.6 mmol/L (3.5-5.0)
[2020-11-25] MEDS ORDERED: Potassium Chloride LIQUID 20 MEQ/15 ML LIQUID PO ONE (04:24)
[2020-11-25 04:27] LABS: ABS Lymphocytes 0.9 10^3/ul (1.0-4.8); ABS Monocytes 0.4 10^3/ul (0-0.8); ABS Neutrophils 9.1 10^3/ul (1.5-7.7); Hematocrit 28 % (35-47); Hemoglobin 9.4 g/dL (12.0-16.0); Lymphocyte % 8.5 %; Mean Corpuscular HGB Conc 33 g/dL (31-36); Mean Corpuscular Hemoglobin 31 pg (27-31); Mean Corpuscular Volume 94 fL (80-97); Mean Platelet Volume 9.5 fL (7.4-10.4); Nucleated Red Blood Cells % 0.1; Platelet Count 144 10^3/uL (150-450); Red Blood Count 3.04 10^6 /uL (3.70-4.87); Red Cell Distribution Width 15 % (10-15); White Blood Count 10.5 10^3/uL (3.5-10.8)
[2020-11-25 04:35] LABS: T4, Total 2.73 mcg/dL (6.09-12.23)
[2020-11-25 04:37] LABS: TSH Ultra Thyroid Stim Horm 36.5 mcIU/mL (0.34-5.60)
[2020-11-25 04:39] LABS: Free T3 2.1 pg/mL (2.5-3.9)
[2020-11-25 04:41] LABS: Free T4 0.38 ng/dL (0.61-1.12)
[2020-11-25] MEDS: Heparin 5000 UNITS/ML 1 mL VIAL SUBCUT SCH ×3 (05:13→21:13)
[2020-11-25] MEDS: Levothyroxine 100 MCG/5 ML VIAL IV SCH (05:13)
[2020-11-25] MEDS: LORazepam 2 mg VIAL 1 ml IV PUSH PRN (05:44)
[2020-11-25] MEDS: Insulin GLARGINE 100 un/ml 10 ml VIAL SUBCUT SCH (08:18)
[2020-11-25] MEDS: Nystatin TOP POWDER 15 GM BTL TOPICAL SCH ×3 (08:19→19:21)
[2020-11-25] MEDS: methylPREDNISolone SOD SUCC 1,000 MG in NS 0.9% 100 ml BAG 100 ML IVPB SCH (10:33)
[2020-11-25 15:02] LABS: CSF VDRL Negative (Negative)
[2020-11-25] MEDS: Pantoprazole VIAL 40 MG VIAL IV SCH (15:59)
[2020-11-25] MEDS: hydrALAZINE 20 mg/ml 1 ML Vial IV IV SLOW PU PRN ×4 (17:09→23:05)
[2020-11-25 18:00] LABS: HSV 1 PCR, CSF Negative (Negative); HSV 2 PCR, CSF Negative (Negative)
[2020-11-25] MEDS ORDERED: fentaNYL 100 mcg/2 ml 50 MCG/ML VIAL IV SLOW PU ONE (18:04)
[2020-11-26] MEDS: fentaNYL 100 mcg/2 ml 50 MCG/ML VIAL IV SLOW PU PRN (00:02)
[2020-11-26] MEDS: Chlorhexidine MOUTHWASH 0.12% 15 ML UDC TOPICAL SCH ×6 (02:37→21:58)
[2020-11-26] MEDS: levETIRAcetam 500 MG IVPREMIX 500 MG/100 ML BAG IV SCH (02:37)
[2020-11-26] MEDS: hydrALAZINE 20 mg/ml 1 ML Vial IV IV SLOW PU PRN ×4 (03:05→19:53)
[2020-11-26 03:47] LABS: Hematocrit 29 % (35-47); Hemoglobin 9.8 g/dL (12.0-16.0); Mean Corpuscular HGB Conc 34 g/dL (31-36); Mean Corpuscular Hemoglobin 31 pg (27-31); Mean Corpuscular Volume 90 fL (80-97); Mean Platelet Volume 9.5 fL (7.4-10.4); Platelet Count 147 10^3/uL (150-450); Red Blood Count 3.19 10^6 /uL (3.70-4.87); Red Cell Distribution Width 15 % (10-15); White Blood Count 13.5 10^3/uL (3.5-10.8)
[2020-11-26 03:53] LABS: INR 1.08 (0.82-1.09)
[2020-11-26] MEDS: ZOSYN 3.375 GM Q12H per EXTENDED INFUSION IV SCH ×2 (03:59→14:46)
[2020-11-26 04:11] LABS: Calcium 8.3 mg/dL (8.6-10.3); EGFR African American 24.4 (>60); EGFR Non-African American 20.2 (>60); HDL Cholesterol 47.6 mg/dL; Magnesium 2.2 mg/dL (1.9-2.7); Phosphorus 3.6 mg/dL (2.5-5.0); Potassium 3.9 mmol/L (3.5-5.0)
[2020-11-26] MEDS: Levothyroxine 100 MCG/5 ML VIAL IV SCH (05:55)
[2020-11-26] MEDS: Heparin 5000 UNITS/ML 1 mL VIAL SUBCUT SCH ×3 (05:55→21:58)
[2020-11-26] MEDS: methylPREDNISolone SOD SUCC 1,000 MG in NS 0.9% 100 ml BAG 100 ML IVPB SCH (07:00)
[2020-11-26] MEDS: Insulin GLARGINE 100 un/ml 10 ml VIAL SUBCUT SCH (07:10)
[2020-11-26] MEDS: Nystatin TOP POWDER 15 GM BTL TOPICAL SCH ×3 (08:36→21:57)
[2020-11-26] MEDS ORDERED: Fosphenytoin 1,000 MG in NS 0.9% 50 ML 50 ML IVPB ONE (13:53)
[2020-11-26] MEDS ORDERED: Lactulose 30 ml UDC NG TUBE ONE (15:25)
[2020-11-26] MEDS: Pantoprazole VIAL 40 MG VIAL IV SCH (15:31)
[2020-11-26] MEDS: FOSPHENYTOIN IVPB SCH (21:57)
[2020-11-26] MEDS: NS 0.9% IVPB SCH (21:57)
[2020-11-27] MEDS: Chlorhexidine MOUTHWASH 0.12% 15 ML UDC TOPICAL SCH ×6 (02:15→21:01)
[2020-11-27] MEDS: ZOSYN 3.375 GM Q12H per EXTENDED INFUSION IV SCH (04:36)
[2020-11-27 04:44] LABS: Hematocrit 25 % (35-47); Hemoglobin 8.4 g/dL (12.0-16.0); Mean Corpuscular HGB Conc 34 g/dL (31-36); Mean Corpuscular Hemoglobin 31 pg (27-31); Mean Corpuscular Volume 91 fL (80-97); Mean Platelet Volume 9.3 fL (7.4-10.4); Platelet Count 146 10^3/uL (150-450); Red Blood Count 2.71 10^6 /uL (3.70-4.87); Red Cell Distribution Width 16 % (10-15); White Blood Count 12.1 10^3/uL (3.5-10.8)
[2020-11-27 04:55] LABS: Albumin 2.5 g/dL (3.2-5.2); Calcium 7.9 mg/dL (8.6-10.3); Direct Bilirubin 0.1 mg/dL (0.03-0.18); Indirect Bilirubin 0.3 mg/dL (0.3-1.0); Potassium 4.2 mmol/L (3.5-5.0); Total Bilirubin 0.4 mg/dL (0.2-1.0)
[2020-11-27 05:02] LABS: EGFR African American 24.8 (>60); EGFR Non-African American 20.5 (>60); Globulin 2.4 g/dL (2-4); Total Protein 4.9 g/dL (6.4-8.9)
[2020-11-27] MEDS: hydrALAZINE 20 mg/ml 1 ML Vial IV IV SLOW PU PRN ×2 (05:40→16:34)
[2020-11-27] MEDS: Heparin 5000 UNITS/ML 1 mL VIAL SUBCUT SCH ×3 (05:41→21:01)
[2020-11-27] MEDS: Levothyroxine 100 MCG/5 ML VIAL IV SCH (05:41)
[2020-11-27 06:26] LABS: PCO2 Arterial 37 mmHg (35-45); PO2 Arterial 102 mmHg (80-100)
[2020-11-27 06:56] LABS: ABS Lymphocytes 1.5 10^3/ul (1.0-4.8); ABS Monocytes 1.3 10^3/ul (0-0.8); ABS Neutrophils 9.3 10^3/ul (1.5-7.7); Lymphocyte % 12.1 %; Nucleated Red Blood Cells % 0.3
[2020-11-27] MEDS: Nystatin TOP POWDER 15 GM BTL TOPICAL SCH ×3 (08:06→20:48)
[2020-11-27] MEDS: Insulin GLARGINE 100 un/ml 10 ml VIAL SUBCUT SCH (08:36)
[2020-11-27 10:44] LABS: Magnesium 2.2 mg/dL (1.9-2.7); Phosphorus 3.9 mg/dL (2.5-5.0)
[2020-11-27] MEDS: Polyethylene Glycol 3350 17 GM PACKET PO SCH (10:49)
[2020-11-27] MEDS: Docusate LIQ 100 MG/10 ML UDC PO SCH ×2 (10:49→21:01)
[2020-11-27 10:59] LABS: Body Fluid WBC 6 /mcL
[2020-11-27] MEDS: Pantoprazole VIAL 40 MG VIAL IV SCH (15:30)
[2020-11-27] MEDS: FOSPHENYTOIN IVPB SCH (21:00)
[2020-11-27] MEDS: NS 0.9% IVPB SCH (21:00)
[2020-11-28] MEDS: Chlorhexidine MOUTHWASH 0.12% 15 ML UDC TOPICAL SCH ×6 (03:58→20:51)
[2020-11-28] MEDS: Heparin 5000 UNITS/ML 1 mL VIAL SUBCUT SCH ×3 (04:00→21:10)
[2020-11-28] MEDS: Levothyroxine 100 MCG/5 ML VIAL IV SCH (04:01)
[2020-11-28 04:30] LABS: Hematocrit 21 % (35-47); Hemoglobin 7.2 g/dL (12.0-16.0); Mean Corpuscular HGB Conc 34 g/dL (31-36); Mean Corpuscular Hemoglobin 32 pg (27-31); Mean Corpuscular Volume 93 fL (80-97); Mean Platelet Volume 8.8 fL (7.4-10.4); Platelet Count 131 10^3/uL (150-450); Red Cell Distribution Width 16 % (10-15); White Blood Count 11.2 10^3/uL (3.5-10.8)
[2020-11-28 04:52] LABS: ABS Eosinophils 0.1 10^3/ul (0-0.6); ABS Monocytes 0.9 10^3/ul (0-0.8); ABS Neutrophils 8.2 10^3/ul (1.5-7.7); Calcium 7.9 mg/dL (8.6-10.3); EGFR African American 25.4 (>60); Eosinophil % 0.8 %; Lymphocyte % 17.5 %; Nucleated Red Blood Cells % 0.2; Potassium 4.3 mmol/L (3.5-5.0)
[2020-11-28] MEDS: Docusate LIQ 100 MG/10 ML UDC PO SCH ×2 (08:33→21:10)
[2020-11-28] MEDS: Polyethylene Glycol 3350 17 GM PACKET PO SCH (08:33)
[2020-11-28] MEDS: Nystatin TOP POWDER 15 GM BTL TOPICAL SCH ×3 (08:34→21:11)
[2020-11-28] MEDS: Insulin GLARGINE 100 un/ml 10 ml VIAL SUBCUT SCH (08:34)
[2020-11-28 09:50] LABS: Albumin 2.4 g/dL (3.2-5.2); Direct Bilirubin 0.1 mg/dL (0.03-0.18); Indirect Bilirubin 0.2 mg/dL (0.3-1.0); Total Bilirubin 0.3 mg/dL (0.2-1.0)
[2020-11-28 09:56] LABS: Albumin/Globulin Ratio 1.1 (1-3); Globulin 2.2 g/dL (2-4); Total Protein 4.6 g/dL (6.4-8.9)
[2020-11-28 10:06] LABS: Anti-Glial/Neuronal Nuc Ab-1 A Negative titer (<1:240); Anti-Neuronal Nuclear Ab Type1 Negative titer (<1:240); Anti-Neuronal Nuclear Ab Type2 Negative titer (<1:240); Anti-Neuronal Nuclear Ab Type3 Negative titer (<1:240); CRMP-5 IgG Antibody Negative titer (<1:240); Purkinje Cell Cytoplasm Typ Tr Negative titer (<1:240); Purkinje Cell Cytoplasm Type 1 Negative titer (<1:240); Purkinje Cell Cytoplasm Type 2 Negative titer (<1:240)
[2020-11-28 10:25] LABS: Activated Partial Thrombo Time 31.5 seconds (26.0-38.0); Fibrinogen 229.4 mg/dL (110.8-404.3)
[2020-11-28 14:38] LABS: Hematocrit 20 % (35-47); Hemoglobin 6.6 g/dL (12.0-16.0); Mean Corpuscular HGB Conc 34 g/dL (31-36); Mean Corpuscular Hemoglobin 31 pg (27-31); Mean Corpuscular Volume 93 fL (80-97); Mean Platelet Volume 9.1 fL (7.4-10.4); Platelet Count 129 10^3/uL (150-450); Red Blood Count 2.11 10^6 /uL (3.70-4.87); Red Cell Distribution Width 16 % (10-15); White Blood Count 11.4 10^3/uL (3.5-10.8)
[2020-11-28] MEDS: Pantoprazole VIAL 40 MG VIAL IV SCH (16:25)
[2020-11-28] MEDS: NS 0.9% IVPB SCH (22:05)
[2020-11-28] MEDS: FOSPHENYTOIN IVPB SCH (22:05)
[2020-11-29] MEDS: Chlorhexidine MOUTHWASH 0.12% 15 ML UDC TOPICAL SCH ×6 (02:26→21:07)
[2020-11-29] MEDS: Levothyroxine 100 MCG/5 ML VIAL IV SCH (04:14)
[2020-11-29] MEDS: Heparin 5000 UNITS/ML 1 mL VIAL SUBCUT SCH ×2 (04:14→15:28)
[2020-11-29 04:32] LABS: ABS Basophils 0.2 10^3/ul (0-0.2); ABS Eosinophils 0.3 10^3/ul (0-0.6); ABS Lymphocytes 3.4 10^3/ul (1.0-4.8); ABS Monocytes 0.8 10^3/ul (0-0.8); ABS Neutrophils 8.7 10^3/ul (1.5-7.7); ABS Nucleated RBC 0.1 10^3/ul; Eosinophil % 2.2 %; Hematocrit 16 % (35-47); Hemoglobin 5.5 g/dL (12.0-16.0); Lymphocyte % 25.6 %; Mean Corpuscular HGB Conc 34 g/dL (31-36); Mean Corpuscular Hemoglobin 31 pg (27-31); Mean Corpuscular Volume 92 fL (80-97); Mean Platelet Volume 9.1 fL (7.4-10.4); Nucleated Red Blood Cells % 0.5; Platelet Count 136 10^3/uL (150-450); Red Blood Count 1.76 10^6 /uL (3.70-4.87); Red Cell Distribution Width 16 % (10-15); White Blood Count 13.3 10^3/uL (3.5-10.8)
[2020-11-29 04:37] LABS: Calcium 8.1 mg/dL (8.6-10.3); Potassium 4.9 mmol/L (3.5-5.0)
[2020-11-29 04:42] LABS: EGFR African American 26.6 (>60)
[2020-11-29] MEDS: Polyethylene Glycol 3350 17 GM PACKET PO SCH (08:10)
[2020-11-29] MEDS: Docusate LIQ 100 MG/10 ML UDC PO SCH ×2 (08:10→21:07)
[2020-11-29] MEDS ORDERED: Insulin GLARGINE 100 un/ml 10 ml VIAL SUBCUT SCH (08:13)
[2020-11-29] MEDS: Nystatin TOP POWDER 15 GM BTL TOPICAL SCH ×3 (08:22→21:07)
[2020-11-29 10:41] LABS: Hematocrit 20 % (35-47); Hemoglobin 6.8 g/dL (12.0-16.0); Mean Corpuscular HGB Conc 34 g/dL (31-36); Mean Corpuscular Hemoglobin 31 pg (27-31); Mean Corpuscular Volume 91 fL (80-97); Mean Platelet Volume 8.9 fL (7.4-10.4); Platelet Count 131 10^3/uL (150-450); Red Cell Distribution Width 15 % (10-15); White Blood Count 15.6 10^3/uL (3.5-10.8)
[2020-11-29 15:40] LABS: Hematocrit 20 % (35-47); Hemoglobin 6.8 g/dL (12.0-16.0)
[2020-11-29] MEDS: NS 0.9% IVPB SCH (21:07)
[2020-11-29] MEDS: FOSPHENYTOIN IVPB SCH (21:07)
[2020-11-29] MEDS: Pantoprazole VIAL 40 MG VIAL IV SCH (21:08)
[2020-11-29] MEDS: hydrALAZINE 20 mg/ml 1 ML Vial IV IV SLOW PU PRN (21:24)
[2020-11-30] MEDS: Chlorhexidine MOUTHWASH 0.12% 15 ML UDC TOPICAL SCH ×6 (01:11→21:04)
[2020-11-30] MEDS: hydrALAZINE 20 mg/ml 1 ML Vial IV IV SLOW PU PRN ×3 (03:05→19:44)
[2020-11-30 04:57] LABS: Hematocrit 17 % (35-47); Hemoglobin 5.9 g/dL (12.0-16.0); Mean Corpuscular HGB Conc 34 g/dL (31-36); Mean Corpuscular Hemoglobin 31 pg (27-31); Mean Corpuscular Volume 94 fL (80-97); Mean Platelet Volume 9.6 fL (7.4-10.4); Platelet Count 126 10^3/uL (150-450); Red Blood Count 1.86 10^6 /uL (3.70-4.87); Red Cell Distribution Width 16 % (10-15); White Blood Count 15.8 10^3/uL (3.5-10.8)
[2020-11-30 04:59] LABS: Calcium 8.5 mg/dL (8.6-10.3); EGFR African American 30.7 (>60); EGFR Non-African American 25.4 (>60)
[2020-11-30 05:06] LABS: Potassium 5.6 mmol/L (3.5-5.0)
[2020-11-30] MEDS: Levothyroxine 100 MCG/5 ML VIAL IV SCH (06:31)
[2020-11-30 07:19] LABS: Anisocytosis 1+; RBC Morphology Normal (Normal)
[2020-11-30 07:20] LABS: ABS Eosinophils 0.4 10^3/ul (0-0.6); ABS Lymphocytes 2.9 10^3/ul (1.0-4.8); ABS Monocytes 0.9 10^3/ul (0-0.8); ABS Neutrophils 11.7 10^3/ul (1.5-7.7); ABS Nucleated RBC 0.1 10^3/ul; Eosinophil % 2.4 %; Lymphocyte % 18.1 %; Nucleated Red Blood Cells % 0.6
[2020-11-30] MEDS: Nystatin TOP POWDER 15 GM BTL TOPICAL SCH ×3 (09:09→21:15)
[2020-11-30] MEDS: Docusate LIQ 100 MG/10 ML UDC PO SCH ×2 (09:15→20:59)
[2020-11-30] MEDS: Polyethylene Glycol 3350 17 GM PACKET PO SCH (09:15)
[2020-11-30] MEDS: Insulin GLARGINE 100 un/ml 10 ml VIAL SUBCUT SCH (09:16)
[2020-11-30] MEDS: Pantoprazole VIAL 40 MG VIAL IV SCH ×2 (09:17→21:02)
[2020-11-30 12:17] LABS: Hematocrit 22 % (35-47); Hemoglobin 7.3 g/dL (12.0-16.0)
[2020-11-30 12:29] LABS: Calcium 8.5 mg/dL (8.6-10.3); EGFR African American 30.3 (>60); EGFR Non-African American 25.1 (>60)
[2020-11-30 12:31] LABS: Potassium 5.5 mmol/L (3.5-5.0)
[2020-11-30] MEDS ORDERED: Labetalol IV 5 MG/ML 20 ml VIAL IV PUSH ONE (17:35)
[2020-11-30] MEDS ORDERED: Labetalol IV 5 MG/ML 20 ml VIAL ONE (17:37)
[2020-11-30] MEDS ORDERED: Furosemide 40 mg/4 ml IV VIAL IV SLOW PU ONE (17:57)
[2020-11-30] MEDS: fentaNYL 100 mcg/2 ml 50 MCG/ML VIAL IV SLOW PU PRN (20:04)
[2020-11-30] MEDS: FOSPHENYTOIN IVPB SCH (21:02)
[2020-11-30] MEDS: NS 0.9% IVPB SCH (21:02)
[2020-12-01] MEDS: Chlorhexidine MOUTHWASH 0.12% 15 ML UDC TOPICAL SCH ×6 (01:05→20:22)
[2020-12-01] MEDS: hydrALAZINE 20 mg/ml 1 ML Vial IV IV SLOW PU PRN (01:09)
[2020-12-01] MEDS ORDERED: Labetalol IV 5 MG/ML 20 ml VIAL IV PUSH PRN (02:06)
[2020-12-01 04:35] LABS: Hematocrit 21 % (35-47); Hemoglobin 7.1 g/dL (12.0-16.0); Mean Corpuscular HGB Conc 33 g/dL (31-36); Mean Corpuscular Hemoglobin 30 pg (27-31); Mean Corpuscular Volume 90 fL (80-97); Mean Platelet Volume 9.3 fL (7.4-10.4); Platelet Count 133 10^3/uL (150-450); Red Blood Count 2.36 10^6 /uL (3.70-4.87); Red Cell Distribution Width 18 % (10-15); White Blood Count 15.9 10^3/uL (3.5-10.8)
[2020-12-01 04:52] LABS: Calcium 8.8 mg/dL (8.6-10.3); EGFR African American 27.3 (>60); EGFR Non-African American 22.6 (>60); Magnesium 2.2 mg/dL (1.9-2.7)
[2020-12-01 04:53] LABS: Potassium 5.7 mmol/L (3.5-5.0)
[2020-12-01] MEDS: Levothyroxine 100 MCG/5 ML VIAL IV SCH (05:30)
[2020-12-01] MEDS ORDERED: Patiromer POWDER 8.4 GM PAK PO ONE ×2 (05:58→16:04)
[2020-12-01 06:29] LABS: ABS Basophils 0.1 10^3/ul (0-0.2); ABS Eosinophils 0.2 10^3/ul (0-0.6); ABS Lymphocytes 1.3 10^3/ul (1.0-4.8); ABS Neutrophils 13.3 10^3/ul (1.5-7.7); ABS Nucleated RBC 0.1 10^3/ul; Eosinophil % 1.4 %; Lymphocyte % 8.2 %; Nucleated Red Blood Cells % 0.5
[2020-12-01] MEDS: Docusate LIQ 100 MG/10 ML UDC PO SCH ×2 (07:41→20:22)
[2020-12-01] MEDS: Insulin GLARGINE 100 un/ml 10 ml VIAL SUBCUT SCH (07:41)
[2020-12-01] MEDS: Polyethylene Glycol 3350 17 GM PACKET PO SCH (07:42)
[2020-12-01] MEDS: Pantoprazole VIAL 40 MG VIAL IV SCH ×2 (07:42→20:23)
[2020-12-01] MEDS: Nystatin TOP POWDER 15 GM BTL TOPICAL SCH ×3 (07:42→20:24)
[2020-12-01] MEDS: fentaNYL 100 mcg/2 ml 50 MCG/ML VIAL IV SLOW PU PRN ×3 (11:21→20:23)
[2020-12-01 12:33] LABS: Calcium 8.8 mg/dL (8.6-10.3); EGFR African American 26.7 (>60); EGFR Non-African American 22.1 (>60)
[2020-12-01] MEDS ORDERED: Dextrose 50% Syringe 50 ml 25 GM/50 ML SYRINGE IV PUSH ONE (16:03)
[2020-12-01] MEDS ORDERED: Dextrose 50% Syringe 50 ml 25 GM/50 ML SYRINGE ONE (16:10)
[2020-12-01 20:09] LABS: Calcium 8.7 mg/dL (8.6-10.3); EGFR African American 25.2 (>60); EGFR Non-African American 20.8 (>60)
[2020-12-01 20:16] LABS: Potassium 5.9 mmol/L (3.5-5.0)
[2020-12-01] MEDS: NS 0.9% IVPB SCH (20:32)
[2020-12-01] MEDS: FOSPHENYTOIN IVPB SCH (20:32)
[2020-12-02] MEDS: Chlorhexidine MOUTHWASH 0.12% 15 ML UDC TOPICAL SCH ×5 (00:32→17:04)
[2020-12-02 04:52] LABS: ABS Basophils 0.1 10^3/ul (0-0.2); ABS Eosinophils 0.3 10^3/ul (0-0.6); ABS Lymphocytes 1.4 10^3/ul (1.0-4.8); ABS Monocytes 0.8 10^3/ul (0-0.8); ABS Neutrophils 9.7 10^3/ul (1.5-7.7); Eosinophil % 2.1 %; Hematocrit 18 % (35-47); Hemoglobin 5.8 g/dL (12.0-16.0); Lymphocyte % 11.8 %; Mean Corpuscular HGB Conc 33 g/dL (31-36); Mean Corpuscular Hemoglobin 30 pg (27-31); Mean Corpuscular Volume 92 fL (80-97); Mean Platelet Volume 9.5 fL (7.4-10.4); Nucleated Red Blood Cells % 0.1; Platelet Count 131 10^3/uL (150-450); Red Blood Count 1.92 10^6 /uL (3.70-4.87); Red Cell Distribution Width 18 % (10-15); White Blood Count 12.3 10^3/uL (3.5-10.8)
[2020-12-02] MEDS: Levothyroxine 100 MCG/5 ML VIAL IV SCH (04:55)
[2020-12-02 05:06] LABS: Calcium 8.6 mg/dL (8.6-10.3); EGFR African American 23.9 (>60); EGFR Non-African American 19.7 (>60); Magnesium 2.2 mg/dL (1.9-2.7); Phosphorus 5.6 mg/dL (2.5-5.0)
[2020-12-02] MEDS: Insulin GLARGINE 100 un/ml 10 ml VIAL SUBCUT SCH (08:28)
[2020-12-02] MEDS: Polyethylene Glycol 3350 17 GM PACKET PO SCH (08:29)
[2020-12-02] MEDS: Docusate LIQ 100 MG/10 ML UDC PO SCH (08:29)
[2020-12-02] MEDS: Pantoprazole VIAL 40 MG VIAL IV SCH (08:30)
[2020-12-02] MEDS: Nystatin TOP POWDER 15 GM BTL TOPICAL SCH ×3 (08:30→21:39)
[2020-12-02] MEDS ORDERED: Patiromer POWDER 8.4 GM PAK PO SCH (12:00)
[2020-12-02] MEDS ORDERED: Morphine 2 MG/ML SYRINGE IV PRN (15:53)
[2020-12-02] MEDS ORDERED: LORazepam 2 mg VIAL 1 ml ONE (16:24)
[2020-12-02] MEDS ORDERED: Morphine 10 MG/ML VIAL (1 ml) ONE (16:24)
[2020-12-02] MEDS: Morphine 2 MG/ML SYRINGE IV PRN ×4 (17:15→23:04)
[2020-12-02] MEDS ORDERED: Lorazepam PYXIS KEY PRN (17:37)
[2020-12-02] MEDS: LORazepam 2 mg VIAL 1 ml IV PUSH PRN ×2 (18:06→23:04)
[2020-12-02 18:24] VITALS: BP 146/62
== END 2020-12-02 23:44 | disposition expired | DRG 64 ==
LOC: ED 17:30 → MED 22:29 → ICU 11-20 09:59
PROVIDERS: ADMIT Student in an Organized Health Care Education/Training Program; ATTEND Internal Medicine